=== PATIENT | female | born 1940 | race Caucasian/White ===

== ENCOUNTER 2023-07-05 10:29 | Outpatient (CLI) | payer MEDICARE, SELFPAY ==
[2023-07-05 12:03] LABS: Absolute Lymphocyte Count 1.61 X10^3/uL (0.83-4.51); Absolute Neutrophil Count 5.4 X10^3/uL (2.0-7.7); Basophil# 0.05 X10^3/uL; Basophil% 0.6 % (0-1); Eosinophil# 0.24 X10^3/uL; Hematocrit 44.8 % (37-47); Hemoglobin 14.6 g/dL (12.0-15.0); Lymphocyte # 1.61 X10^3/ul (0.83-4.51); Mean Corp Hgb Conc 32.6 g/dL (32-36); Mean Corpuscular Hgb 29.7 pg (27.0-32.0); Mean Corpuscular Volume 91.2 fL (81-99); Mean Platelet Vol. 9.9 fl (6.2-12.0); Monocyte# 0.79 X10^3/uL; Monocyte% 9.8 % (0-10); NRBC Flagged by Analyzer 0 % (0-5); Neutrophil # 5.35 X10^3/uL (2.7-7.7); Neutrophil % 66.2 % (47-70); Platelet Count 223 K/mm3 (150-450); RBC Distribution Width SD 50.5 fl (35.1-43.9); Red Blood Count 4.91 M/mm3 (4.2-5.4); White Blood Count 8.1 K/mm3 (4.4-11.0)
[2023-07-05 12:49] LABS: ALB/GLOB Ratio 0.8 RATIO (0.9-2.4); AST(SGOT) 25 U/L (15-37); Alanine Aminotransfer ALT/SGPT 24 U/L (13-56); Albumin, Serum 3.6 g/dL (3.2-5.0); Alkaline Phosphatase 74 U/L (45-117); Anion Gap 4 (5-15); BUN 13 mg/dL (7-18); BUN/Creat Ratio 14.2 RATIO (10-20); Calcium,Total 9.9 mg/dL (8.5-10.1); Chloride 106 mmol/L (98-107); Cholesterol 171 mg/dL (200); Creatinine, Serum 0.91 mg/dL (0.55-1.02); EST Glomerular Filtration Rate 63 mL/min (>60); Est Glom Filt Rate - Afr Amer 76 mL/min (>60); Globulin 4.3 g/dL (2.2-4.2); Glucose 98 mg/dL (74-106); High Density Lipoprotein 77 mg/dL; Potassium 4.1 mmol/L (3.5-5.1); Protein, Total 7.9 g/dL (6.4-8.2); Sodium Level 137 mmol/L (136-145); Thyroid Stim Hormone (TSH) 1.41 uIU/mL (0.358-3.74); Triglycerides 94 mg/dL; Very Low Density Lipoprotein 19 mg/dL (5-40)
== END 2023-07-05 23:59 | disposition home or self-care (01) ==
LOC: MTLAB 10:33
PROVIDERS: PCP Family Medicine; Referring Provider Family Medicine; Visit Provider Family Medicine
DX: R07.9 Chest pain, unspecified (principal); E78.5 Hyperlipidemia, unspecified
CPT/HCPCS: 36415; 80053; 80061; 84443; 85025

== ENCOUNTER 2023-08-25 04:36 | Emergency (ER) | payer MEDICARE, SELFPAY ==
[2023-08-25 04:37] VITALS: BP 156/73; PULSE 72; RESP 20; TEMP 35.8; O2SAT 97; BMI 29.6
--- NOTE | 2023-08-25 04:55 | CT_ITS ---
EXAM: CT ABDOMEN AND PELVIS WITHOUT INTRAVENOUS CONTRAST CLINICAL INDICATION: Kidney Stone Kidney Stone TECHNIQUE: Helically acquired images were obtained of the abdomen and pelvis without intravenous contrast. This CT exam was performed using one or more of the following dose reduction techniques: automated exposure control, adjustment of the mA and/or kV according to patient size, and/or use of iterative reconstruction technique. RADIATION DOSE: CTDIvol = 8.72 mGy, DLP = 424.81 mGy-cm COMPARISON: No relevant prior studies available. FINDINGS: LOWER THORAX: There are coronary artery calcifications. There is mild atelectasis or fibrosis in the visualized lung bases. No cardiomegaly. No significant pericardial effusion. ABDOMEN: LIVER: Unremarkable. Homogeneous. GALLBLADDER AND BILE DUCTS: Gallbladder surgically absent. No intra- or extrahepatic biliary ductal dilation. PANCREAS: Unremarkable. No focal cystic mass. SPLEEN: Unremarkable. Normal size without focal cystic or solid mass. ADRENALS: Unremarkable. No nodules. KIDNEYS AND URETERS: As seen on axial images 119-121 and coronal images 60-70, there is a 5 mm wide distal left ureteral calculus at the S3 level. There is associated moderate left hydronephrosis and left perinephric fat infiltration. There is a 6 mm nonobstructive left renal calculus. There are simple appearing peripelvic cysts in the mid and lower poles of the right kidney. No follow-up imaging is necessary for simple renal cysts or cysts that are too small to characterize. There is a 2 mm nonobstructive right lower pole renal calculus. There is no demonstrated ureteral calculus or hydronephrosis. STOMACH AND BOWEL: There are colonic diverticula. No stomach or bowel distention. No focal inflammatory change. PELVIS: APPENDIX: The appendix is seen on axial images 78-88. There is no evidence for acute appendicitis. BLADDER: Unremarkable. REPRODUCTIVE: Unremarkable as visualized. No mass. ABDOMEN and PELVIS: INTRAPERITONEAL SPACE: Unremarkable. No ascites or other fluid collection. No free air. BONES/JOINTS: There are multilevel degenerative changes in the visualized spine. There is grade 1 anterolisthesis at the L4-5 and L3-4 levels, on a degenerative basis. No suspicious lytic or blastic abnormality. SOFT TISSUES: There are supraumbilical ventral hernia and umbilical hernia which contain fat, but no bowel. VASCULATURE: There is atherosclerotic calcification of the abdominal aorta. LYMPH NODES: Unremarkable. No enlarged lymph nodes. CT/Abdomen/Pelvis without Cont IMPRESSION: 1. 5 mm wide distal left ureteral calculus at the S3 level. There is associated moderate left hydronephrosis and prominent left perinephric fat infiltration. 2. Nonobstructive renal calculi bilaterally. 3. Atherosclerosis. 4. Previous cholecystectomy. 5. Colonic diverticulosis without evidence for acute diverticulitis. Electronically Signed: Yair Avila MD at 6:10 EST ,
--- NOTE | 2023-08-25 04:56 | EX.ED.DYSGE1 ---
HPI History of Present Illness Chief Complaint: Flank Pain Detail of Chief Complaint: Acute left flank pain Informant: patient and spouse/S.O. Onset/Context/Timing Onset: Hours (5) Context: Sudden Onset Timing: Continuous and Waxes and wanes Quality: Pain Location: Left flank Current Severity: Moderate Maximum Severity: Moderate Worsened by: Nothing Relieved by: Nothing Associated Symptoms Associated Symptoms: Nausea Narrative Narrative: Patient is a 82-year-old woman on no medication who was diagnosed with a kidney stone several years ago. At the time of her kidney stone she was diagnosed with lymphoma. She underwent treatment. She states she had a recurrent stone 2 months ago left side. She does not believe she ever passed it. She presents because of severe pain that started at 12 midnight. She does endorse nausea without vomiting diarrhea. She denies fever or chills. She does have slight discomfort with urination. She has not noted any blood in her urine. She states she has trouble initiating urination. Prior similar symptoms: Yes Recent Illness/Hospitalization: Yes PFSH [facility] Medical History (Updated 08/25/23 @ 06:[address] Cesario Real MD) Classical Hodgkin lymphoma Kidney stone Nasal fracture Home Medications aspirin 81 mg capsule 81 mg PO DAILY 08/25/23 [History Last Taken Unknown] hydrocodone-acetaminophen 5-325mg 5mg-325mg 1 tab PO Q6H PRN PRN Pain 3 days #10 TABLETS 08/25/23 [Rx Last Taken Unknown] multivitamin (Daily Value tablet) 1 tab PO DAILY 08/25/23 [History Last Taken Unknown] ondansetron 4 mg disintegrating tablet 4 mg PO Q8H PRN PRN Nausea #10 tabs 08/25/23 [Rx Last Taken Unknown] Allergy/AdvReac Type Severity Reaction Status Date / Time No Known Allergies Allergy Verified 08/25/23 04:37 Surgical History (Updated 08/25/23 @ 04:44 by Herminio Rios) History of cholecystectomy Social History Smoking Status: Never smoker ROS ROS ED Constitutional Constitutional ED: Denies chills, fever(s), subjective, sweats or weight loss Eyes Eyes: Denies blurry vision or change in vision Cardiovascular Cardiovascular: Denies chest pain or palpitations Respiratory/Chest Respiratory/Chest: Denies cough or dyspnea Gastrointestinal Gastrointestinal: Reports abdominal pain and nausea; Denies constipation, diarrhea, melena or vomiting Genitourinary Genitourinary ED: Reports dysuria; Denies hematuria or urinary frequency Musculoskeletal Musculoskeletal: Reports back pain; Denies arthralgias, myalgias or neck pain Integumentary Denies abscess, Abrasions or rash Neurologic Neurologic: Denies headache(s), paresthesias or weakness Psychiatric Psychiatric: Denies anxiety or depression Endocrine Endocrinology: Denies cold intolerance or heat intolerance Hematologic/Lymphatic Hematologic/Lymphatic: Reports systems reviewed and no addt'l complaints, except as documented EXAM Physical Exam Const Vital Signs: 08/25/23 04:37 08/25/23 06:10 Temperature 96.4 F L Temperature Source Temporal Pulse Rate 72 74 Respiratory Rate 20 H 16 Blood Pressure 156/73 H 121/62 H Blood Pressure Mean 100 81 Pulse Ox 97 98 Oxygen Delivery Method Room Air Room Air Positive well nourished, well developed and obese Constitutional Narrative: And appears uncomfortable. General Appearance ED: well developed; Negative for cyanotic, diaphoretic, NAD or pallor Nutritional Appearance: obese HEENT Reports dry mucous membranes HEENT Narrative: Head is atraumatic and normocephalic. Ears are normal. Nares are patent. Mouth ED: Yes dry mucous membranes Mouth: dry mucous membranes Eyes PERRL and EOMs intact bilaterally General Eye ED: Negative for pale conjunctiva or scleral icterus Neck no lymphadenopathy, supple and no JVD Resp normal respiratory effort and clear to auscultation bilaterally Cardio regular rate, regular rhythm, S1 normal heart sound, S2 normal heart sound and no murmurs GI normal to inspection, nondistended, normoactive bowel sounds, non-tender, non-distended and no masses; Negative for hepatosplenomegaly Palpation: soft Back/Spine General Back: CVA tenderness left Cervical Spine: Negative for cervical spine tenderness Thoracic Spine / Upper Back: Negative for thoracic spinal tenderness or paraspinal muscle tenderness Lumbar Spine / Lower Back: Negative for lumbar spinal tenderness Extremity normal to inspection General Extremety ED: Negative for edema or tenderness General Extremity: Negative for edema Neuro oriented x3, CN's II-XII intact bilaterally and no sensory deficits noted Sensorium / Orientation: alert Motor Exam: strength 5/5 throughout Psych mental status grossly normal Skin no rashes or lesions noted and no wounds General Skin Exam: Negative for elasticity normal, jaundice or pallor MDM MDM MDM Narrative Medical decision making narrative: With abrupt onset of left flank pain with prior history of kidney stone. Suspect she has obstructing ureterolithiasis. She has urinary symptoms obtain UA to rule out infection. Doubt this is related to her Hodgkin's lymphoma. Patient was medicated with Zofran for her nausea and morphine for her pain. Valine is infusing at 250 cc/h. CBC was obtained assess white count differential. BMP to assess renal function. UA to evaluate for infection. History & Record Review Additional record(s) reviewed:: No prior records Lab Data Attestation: I reviewed the patient's lab results. Lab results narrative: CBC is unremarkable. There is a slight shift. Basic metabolic panel reveals slight elevation of creatinine to 1.14 with a GFR of 49. Glucose 131 with a normal CO2 anion gap. Urinalysis is not consistent with infection. Patient was discharged home with antiemetic and pain medicine. She was referred to Dr. Rey who is on-call for urology. Labs: Laboratory Results - last 24 hr 08/25/23 08/25/23 04:45 06:15 WBC 10.0 RBC 5.09 Hgb 14.7 Hct 45.3 MCV 89.0 MCH 28.9 MCHC 32.5 RDW Std Deviation 45.5 H RDW Coeff of Brown 13.9 Plt Count 246 MPV 10.1 Immature Gran % (Auto) 0.600 Neut % (Auto) 78.8 H Lymph % (Auto) 13.1 L [place] % (Auto) 6.4 Eos % (Auto) 0.5 Baso % (Auto) 0.6 Absolute Neuts (auto) 7.9 H Absolute Lymphs (auto) 1.32 Nucleated RBC % 0 Sodium 133 L Potassium 3.6 Chloride 101 Carbon Dioxide 26.0 Anion Gap 6 BUN 20 H Creatinine 1.14 H Estim Creat Clear Calc 32.56 Est GFR (MDRD) Af Amer 59 L Est GFR (MDRD) Non-Af 49 L BUN/Creatinine Ratio 17.5 Glucose 131 H Calcium 9.3 Urine Color Yellow Urine Clarity Clear Urine pH 6.5 Ur Specific [place] 1.015 Urine Protein Negative Urine Glucose (UA) Normal Urine Ketones Negative Urine Occult Blood 10 H Urine Nitrite Negative Urine Bilirubin Negative Urine Urobilinogen Normal Ur Leukocyte Esterase 25 H Urine RBC 0 SEEN Urine WBC 0-5 SEEN Ur Squamous Epith Cells 0 SEEN Urine Bacteria RARE Urine Mucus 0 SEEN Radiography Diagnostic Testing: Clinical Impression(s) from Imaging Studies Abdomen/Pelvis CT 08/25/23 04:55 IMPRESSION: 1. 5 mm wide distal left ureteral calculus at the S3 level. There is associated moderate left hydronephrosis and prominent left perinephric fat infiltration. 2. Nonobstructive renal calculi bilaterally. 3. Atherosclerosis. 4. Previous cholecystectomy. 5. Colonic diverticulosis without evidence for acute diverticulitis. Electronically Signed: Yair Avila MD at 6:10 EST , CT of the abdomen and pelvis without contrast reveals left renal calculus. There is evidence of left hydroureter and nephrosis. There appears to be a distal left ureteral stone that is causing this obstruction. Phleboliths were noted as well. There is minimal atherosclerotic disease. Awaiting formal read by radiologist, 0529. Treatment and Re-Evaluation :: Performed of her laboratory results and CAT scan results. Presently awaiting UA results. 0620 Discharge Plan Triage Chief Complaint: Flank Pain ED Provider: Cesario Real Dx/Rx/DC Orders Clinical Impression: Diverticulosis, Hydronephrosis with urinary obstruction due to ureteral calculus, Bilateral kidney stones, Creatinine elevation Instructions: ED Kidney Stone w/ Colic Prescriptions: New hydrocodone-acetaminophen [hydrocodone-acetaminophen] 5-325 mg tablet 1 tab PO Q6H PRN PRN (Reason: Pain) 3 Days Qty: 10 0RF ondansetron [ondansetron] 4 mg tablet,disintegrating 4 mg PO Q8H PRN PRN (Reason: Nausea) Qty: 10 0RF No Action aspirin 81 mg capsule 81 mg PO DAILY multivitamin [Daily Value] Tablet 1 tab PO DAILY Primary Care Provider: Nathalia Salcido Referrals: Nathalia Salcido MD [Primary Care Provider] - Papito Rey MD [Med Staff - Active Staff] - 5-7 Days Disposition Disposition: Home, Self Care
[2023-08-25] MEDS: Morphine 2 MG/ML Syringe IV (05:04)
[2023-08-25] MEDS: Ondansetron 4 MG/2 ML Vial IV (05:04)
[2023-08-25] MEDS: 0.9% Normal Saline (1000mL) 1,000 ML 250 ML IV (05:35)
[2023-08-25 05:44] LABS: Absolute Lymphocyte Count 1.32 X10^3/uL (0.83-4.51); Absolute Neutrophil Count 7.9 X10^3/uL (2.0-7.7); Basophil# 0.06 X10^3/uL; Basophil% 0.6 % (0-1); Eosinophil# 0.05 X10^3/uL; Eosinophils% 0.5 % (0-5); Hematocrit 45.3 % (37-47); Hemoglobin 14.7 g/dL (12.0-15.0); Lymphocyte # 1.32 X10^3/ul (0.83-4.51); Lymphocyte % 13.1 % (19-41); Mean Corp Hgb Conc 32.5 g/dL (32-36); Mean Corpuscular Hgb 28.9 pg (27.0-32.0); Mean Platelet Vol. 10.1 fl (6.2-12.0); Monocyte# 0.64 X10^3/uL; Monocyte% 6.4 % (0-10); NRBC Flagged by Analyzer 0 % (0-5); Neutrophil # 7.91 X10^3/uL (2.7-7.7); Neutrophil % 78.8 % (47-70); Platelet Count 246 K/mm3 (150-450); RBC Distribution Width CV 13.9 % (11.6-14.6); RBC Distribution Width SD 45.5 fl (35.1-43.9); Red Blood Count 5.09 M/mm3 (4.2-5.4)
[2023-08-25 05:48] LABS: Anion Gap 6 (5-15); BUN 20 mg/dL (7-18); BUN/Creat Ratio 17.5 RATIO (10-20); Calcium,Total 9.3 mg/dL (8.5-10.1); Chloride 101 mmol/L (98-107); Creatinine, Serum 1.14 mg/dL (0.55-1.02); EST Glomerular Filtration Rate 49 mL/min (>60); Est Glom Filt Rate - Afr Amer 59 mL/min (>60); Estimated Creatinine Clearance 32.56 ml/min; Glucose 131 mg/dL (74-106); Potassium 3.6 mmol/L (3.5-5.1); Sodium Level 133 mmol/L (136-145)
[2023-08-25 06:10] VITALS: BP 121/62; PULSE 74; RESP 16; O2SAT 98
[2023-08-25 06:18] LABS: Mucous, Urine 0 SEEN /hpf (<or=2+); Red Blood Cells-Urine 0 SEEN /hpf (0-5); Squamous Epithelial Cells - UA 0 SEEN /hpf (5-10)
[2023-08-25 06:19] LABS: Color, Urine Yellow (Yellow); Glucose, Dipstick Normal (Normal); Ketone-Dipstick Negative (Negative); Leukocyte Esterase-Dipstick 25 /ul (Negative); Nitrite-Dipstick Negative (Negative); Occult Blood-Urine 10 /ul (Negative); Protein-Dipstick Negative (Negative); Specific Gravity, Urine 1.015 (1.002-1.030); Urine Bilirubin Dipstick Negative (Negative); Urine Clarity Clear (Clear); Urine Urobilinogen Normal (Normal); Urine pH 6.5 (5.0 - 8.0)
[2023-08-25 06:39] LABS: Bacteria RARE /hpf (None Seen); White Blood Cells 0-5 SEEN /hpf (0-5)
[2023-08-25 06:59] VITALS: BP 136/86; PULSE 76; RESP 16; O2SAT 98
== END 2023-08-25 07:01 | disposition home or self-care (01) ==
PROVIDERS: Emergency Provider Emergency Medicine; PCP Family Medicine; Visit Provider Emergency Medicine
DX: N13.2 Hydronephrosis with renal and ureteral calculous obstruction (principal); K57.30 Diverticulosis of large intestine without perforation or abscess without bleeding; M54.9 Dorsalgia, unspecified; R11.0 Nausea; E66.9 Obesity, unspecified; Z79.82 Long term (current) use of aspirin; Z79.899 Other long term (current) drug therapy; Z85.71 Personal history of Hodgkin lymphoma
CPT/HCPCS: 74176; 80048; 81001; 85025; 96361; 96374; 96375; 99282; J7030; A4216; J2405

== ENCOUNTER → 2024-04-15 | Outpatient (CLI) | payer MEDICARE, SELFPAY ==
--- NOTE | 2024-04-15 12:19 | STRESSREP ---
Stress Test Report Date: 04/15/2024 Procedure: Exercise tolerance test Indications: Chest pain Consent: Per the patient Procedure: The patient exercised on a Javon protocol for 2 minutes and 31 seconds achieving a peak heart rate of 137 bpm (98% predicted maximal heart rate). Baseline blood pressure was 132/72 mmHg with a peak blood pressure 142/80 mmHg and a peak MET capacity of approximately 4.6 MET's. The baseline ECG demonstrated sinus rhythm. The peak exercise ECG demonstrated nonspecific T wave changes. Occasional PVCs noted. The functional capacity was considered suboptimal. The patient had no complaints of chest discomfort during exercise or recovery. The examination was discontinued secondary to dyspnea and fatigue and target heart rate being achieved. Impression: 1. Technically adequate (percent predicted maximal heart rate greater than 85%) exercise tolerance test 2. Peak exercise ECG with no ischemic changes. Blunted blood pressure response to exercise. Recommend further evaluation with assessment of LV function and another modality such as coronary CT angiogram if clinically indicated. 3. Occasional PVCs noted This note was generated with Mende[employer] dictation software. It may contain incorrect words, spelling, and punctuation that were not noted in checking the note before signing.
== END | disposition home or self-care (01) ==
PROVIDERS: PCP Family Medicine; Visit Provider Family Medicine
DX: R07.9 Chest pain, unspecified (principal)
CPT/HCPCS: 93017

== ENCOUNTER → 2024-07-08 | Outpatient (CLI) | payer MEDICARE, SELFPAY ==
--- NOTE | 2024-07-08 13:53 | ECHOL_ITS ---
Reason For Study: CHEST PAIN Procedure This was a limited 2D transthoracic echocardiogram. Exam performed in department. Left Ventricle Normal size and thickness. The left ventricular ejection fraction is 60 %. Right Ventricle Normal right ventricle. Atria The left and right atria are normal. Mitral Valve The mitral valve is structurally normal. No prolapse or stenosis seen. Tricuspid Valve Normal tricuspid valve. Aortic Valve Moderate calcification of the noncoronary cusp of the aortic valve. Aortic valve sclerosis without stenosis. Pulmonic Valve The pulmonic valve is not well visualized. Great Vessels Normal sized aortic root. Pericardium/Pleural No pericardial effusion. MMode/2D Measurements & Calculations LVIDd: 5.0 cm IVSd: 0.89 cm Ao root diam: 3.2 cm LVIDs: 2.6 cm LVPWd: 0.89 cm RVDd: 3.5 cm FS: 47.3 % LAV(MOD-bp): 63.7 ml LVAd ap4: 24.1 cm2 LVAd ap2: 23.3 cm2 LAV(MOD-bp) Indexed: 36.3 ml/m2 LVLd ap4: 6.7 cm LVLd ap2: 6.8 cm LAV(MOD-sp2): 57.6 ml EDV(MOD-sp4): 70.8 ml EDV(MOD-sp2): 66.0 ml LAV(MOD-sp4): 62.1 ml EDV(sp4-el): 73.2 ml EDV(sp2-el): 67.2 ml LVAs ap4: 15.2 cm2 LVAs ap2: 13.4 cm2 LVLs ap4: 5.8 cm LVLs ap2: 5.8 cm ESV(MOD-sp4): 33.8 ml ESV(MOD-sp2): 26.8 ml ESV(sp4-el): 33.9 ml ESV(sp2-el): 26.3 ml EF(MOD-sp4): 52.3 % EF(MOD-sp2): 59.5 % EF(sp4-el): 53.8 % SV(MOD-sp4): 37.0 ml SV(MOD-sp2): 39.3 ml SV(sp4-el): 39.4 ml LA dimension(2D): 3.4 cm LA A4 area: 19.9 cm2 RA A4 area: 14.0 cm2 ECHO/Echo, Limited Study Interpretation Summary The left ventricular ejection fraction is 60 %. Moderate calcification of the noncoronary cusp of the aortic valve. Aortic valv e sclerosis without stenosis. Limited 2D echocardiogram with no Doppler study. Ordering Physician: Nathalia Salcido Referring Physician: Nathalia Salcido Performed By: Catina Roy, ROBIN, RVT
== END | disposition home or self-care (01) ==
PROVIDERS: PCP Family Medicine; Referring Provider Family Medicine; Visit Provider Family Medicine
DX: R07.9 Chest pain, unspecified (principal)
CPT/HCPCS: 93308

== ENCOUNTER → 2025-04-16 | Outpatient (CLI) | payer MEDICARE, SELFPAY ==
[2025-04-16 10:39] LABS: Erythrocyte Sedimentation Rate 34 mm/hr (0-30)
[2025-04-16 11:12] LABS: CRP < 3.00 mg/L (0.0-3.0); Rheumatoid Factor 57.2 IU/mL (<15)
[2025-04-19 15:08] LABS: ANTINUCLEAR ANTIBODIES DIRECT Negative (Negative); Angiotensin Convert Enzyme 56 U/L (14-82)
== END | disposition home or self-care (01) ==
LOC: MTLAB 08:34
PROVIDERS: PCP Family Medicine; Referring Provider Internal Medicine Pulmonary Disease; Visit Provider Internal Medicine Pulmonary Disease
DX: R06.00 Dyspnea, unspecified (principal)
CPT/HCPCS: 36415; 82164; 85652; 86038; 86140; 86431

== ENCOUNTER → 2025-05-21 | Outpatient (CLI) | payer MEDICARE, SELFPAY ==
--- NOTE | 2025-05-21 07:44 | ECHOD_ITS ---
Reason For Study Reason For Study: CHEST PAIN Procedure This was a 2D Doppler, Color Flow transthoracic echocardiogram. Exam performed in department. Left Ventricle Normal LV size. Left ventricular systolic function is lower limits of normal. The left ventricular ejection fraction is 50 %. There is borderline global hypokinesis of the left ventricle. Right Ventricle Normal RV size. Normal systolic function. Atria Normal left atrium. Normal right atrium. Mitral Valve Normal mitral valve. Mild (1+) eccentric mitral valve insufficiency. Tricuspid Valve Normal tricuspid valve. Aortic Valve Trisinus/trileaflet aortic valve. Mild focal aortic valve thickening. Pulmonic Valve Normal pulmonic valve. Great Vessels Normal aortic root. The pulmonary artery is normal size. Inferior vena cava collapse with respiration. Pericardium/Pleural No pericardial effusion. MMode/2D Measurements & Calculations LVIDd: 3.7 cm IVSd: 1.0 cm Ao root diam: 3.3 cm LVIDs: 3.1 cm LVPWd: 1.2 cm RVDd: 3.2 cm FS: 17.5 % LAV(MOD-bp): 39.9 ml LVAd ap4: 26.8 cm2 SV(MOD-sp4): 42.9 ml LAV(MOD-bp) Indexed: 22.8 ml/m2 LVLd ap4: 7.1 cm SI(MOD-sp4): 24.5 ml/m2 LAV(MOD-sp2): 43.9 ml EDV(MOD-sp4): 84.6 ml LAV(MOD-sp4): 34.2 ml EDV(sp4-el): 86.3 ml LVAs ap4: 17.3 cm2 LVLs ap4: 6.0 cm ESV(MOD-sp4): 41.7 ml ESV(sp4-el): 42.3 ml EF(MOD-sp4): 50.7 % EF(sp4-el): 50.9 % SV(sp4-el): 43.9 ml LA A4 area: 15.0 cm2 LA dimension(2D): 3.8 cm RA A4 area: 13.1 cm2 Time Measurements MV dec time: 0.20 sec Doppler Measurements & Calculations MV E max david: 44.0 cm/sec Lat Peak E' David: 7.7 cm/sec Med Peak E' David: 7.7 cm/sec MV A max david: 88.8 cm/sec E/E' lat: 5.7 E/E' med: 5.7 MV E/A: 0.50 MV V2 max: 98.8 cm/sec Ao V2 max: 92.0 cm/sec MV max P.9 mmHg MV dec slope: 215.1 cm/sec2 Ao max P.4 mmHg MV V2 mean: 47.7 cm/sec Ao V2 mean: 66.6 cm/sec MV mean P.2 mmHg Ao mean P.0 mmHg MV V2 VTI: 28.2 cm Ao V2 VTI: 20.9 cm AV (velocity ratio): 0.82 LV V1 max: 82.8 cm/sec PA V2 max: 120.1 cm/sec TR max david: 232.1 cm/sec LV V1 max P.7 mmHg PA V2 mean: 64.6 cm/sec TR max P.5 mmHg LV V1 mean P.5 mmHg LV V1 mean: 55.6 cm/sec LV V1 VTI: 17.2 cm ECHO/Echo Complete Interpretation Summary Normal LV size. Left ventricular systolic function is lower limits of normal. The left ventricular ejection fraction is 50 %. Ordering Physician: Florentin Shepard V Referring Physician: Florentin Shepard V Performed By: Leeann Cordero RCS
--- OUTSIDE RECORDS SUMMARY | 2025-05-21 08:04 | XMS RPT_ITS | CCD ---
Author Organization [facility] Care Team Providers Care Animation Director Name Role Phone Camacho, Yoselin Unavailable Unavailable Camacho, Yoselin J Unavailable Unavailable Javon Rojas Unavailable Unavailable PiChanda sanchez Unavailable Unavailable Camacho, Yoselin Unavailable Unavailable Camacho, Yoselin J Unavailable Unavailable Unavailable Unavailable Unavailable IRISH, DR DANIELLE Fernando Primary Care Unavaila ble IRISH, DR DANIELLE Fernando Attending Unavaila ble CAMACHO Consulting Unavailable IRISH, DR DANIELLE Fernando Admitting Unavaila ble PROVIDER, UNKNOWN Consulting Unavailable IRISH, DR DANIELLE Fernando Attending Unavaila ble IRISH, DR DANIELLE Fernando Admitting Unavaila ble CAMACHO Consulting Unavailable IRISH, DR DANIELLE Fernando Primary Care Unavaila ble PROVIDER, UNKNOWN Consulting Unavailable IRISH, DR DANIELLE Fernando Attending Unavaila ble IRISH, DR DANIELLE Fernando Admitting Unavaila ble CAMACHO Consulting Unavailable IRISH, DR DANIELLE Fernando Primary Care Unavaila ble PROVIDER, UNKNOWN Consulting Unavailable Unavailable Unavailable TAIWO, Dr. ALAMO Admitting Unavailable HAMAD, Dr. ALAMO Attending Unavailable Teston, Dr. Savita Quiroga Referring Unavailabl e Camacho III, Dr. Yoselin Andrews [facility] Unav ailable HAMAD, Dr. ALAMO Admitting Unavailable HAMAD, Dr. ALAMO Attending Unavailable Teston, Dr. Savita Quiroga Referring Unavailabl e Camacho III, Dr. Yoselin Andrews Primary [facility] Unav ailable PiChanda sanchez Attending Unavailabl e Camacho III, Dr. Yoselin Andrews [facility] Unav ailable Chanda Weller Attending Unavailabl e Camacho III, Dr. Yoselin Andrews [facility] Unav ailable Camacho III, Dr. Yoselin Andrews [facility] Unav ailable Camacho III, Dr. Yoselin Andrews Primary Care Unav ailable Camacho III, Dr. Yoselin Andrews Primary Care Unav ailable Piasecki, Dr. Chanda Camacho Attending Unavai lable Piasecki, Dr. Chanda Camacho Referring Unavai lable Camacho III, Dr. Yoselin Andrews Primary Care Unav ailable Camacho III, Dr. Yoselin Andrews Attending Unav ailable Camacho III, Dr. Yoselin Andrews Referring Unav ailable CAMACHO, YOSELIN Francois Attending Unavailable YOSELIN CAMACHO Primary Care Unavailable GEORGIA TITUS, NATHALIA Primary Care Physician KHANG TITUS, DR PAPITO BLANCAS Attending Soheila HO MD, NATHALIA Primary Care Unavailable Yoselin Camacho MD Primary Care Provider [phone] Yoselin Camacho MD Unavailable Hill TRANSMISSION REBUILDER[employer]SHIELD INSTALLER, Gomez S Unavailable Nathalia Ho MD Primary Care Provider Natahlia Ho MD Primary Care Provider [phone] YOSELIN CAMACHO Primary Care Unavailable NATHALIA HO Primary Care Unavailable GEORGIA, NATHALIA Francois Primary Care Unavailable HILL, GOMEZ S Attending Unavailable HILL, GOMEZ S Referring Unavailable GEORGIA, NATHALIA J Primary Care Unavailable HILL, GOMEZ S Referring Unavailable GEORGIA, NATHALIA J Primary Care Unavailable HILL, GOMEZ S Attending Unavailable HILL, GOMEZ S Referring Unavailable GEORGIA, NATHALIA J Primary Care Unavailable HILL, GOMEZ S Attending Unavailable HILL, GOMEZ S Referring Unavailable GEORGIA, NATHALIA J Primary Care Unavailable HILL, GOMEZ S Referring Unavailable GEORGIA, NATHALIA Francois Primary Care Unavailable Nathalia Ho MD Primary Care Provider Drea TITUS, Dr. Chanda Daniel Attending Provider [phone] Dr. Chanda Shepard MD, V Referring Provider [phone] Nathalia Ho Primary Care Unavailable Roberto Liang Attending Unavailable Nathalia Ho Primary Care Unavailable Chanda Shepard V Referring Unavailable Chanda Shepard V Attending Unavailable Nathalia Ho Referring Unavailable Nathalia Ho Attending Unavailable Nathalia Ho Primary Care Unavailable Medications Current Medications Medication Drug Class(es) Dates Sig (Normalized) Sig (Original) acetaminophen 325 mg / HYDROcodone bitartrate 5 mg oral tablet (2 sources) Opioid Agonist Start: 08-25-2023 take 1 tablet by mouth every six hours as needed for pain Hydrocodone-Acetamin ophen 5-325 mg tablet Active 1 {tbl} PO EVERY 6 HOURS NEEDED as needed for Pain 10 3 0 August 25, 2023 Hydronephrosis with urinary obstruction due to ureteral calculus Calculus of both kidneys High creatinine Hydronephrosis with renal and ureteral calculous obstruction Calculus of kidney Other specified abnormal findings of blood chemistry Start: 08-25-2023 take 1 tablet by wandy th every six hours as needed Hydrocodone-Acetaminophen Active 1 TABLE T PO EVERY 6 HOURS NEEDED 10 3 August 25, 2023 aspirin 81 mg oral tablet (20 sources) Platelet Aggregation Inhibitor, Nonsteroidal Anti-inflammatory Drug Start: 08-25-2023 take 1 capsule by mouth once daily Aspirin 81 mg capsule Active 81 mg PO DAILY August 25, 2023 12:00am Start: 03-27-2017 aspirin 81 mg EC tablet Take by mouth. 03/27/2017 Active Start: 03-27-2017 Aspirin EC 81 MG Oral Tablet Delayed Release Quantity: 0 Refills: 0 Ordered: 27-Mar-2017 DO Start : 27-Mar-2017 Active dexamethasone 0.1 mg/ml oral solution (20 sources) Corticosteroid Start: 04-07-2023 dexAMETHasone 0.5 mg/5 mL solution Indications: Burning mouth syndrome USE DIRECTED 240 mL 1 04/07/2023 Active Start: 02-23-2020 take 1 drop(s) into the eye(s) twice daily Dexamethasone Sodium Phosphate 0.1 % Ophthalmic Solution INSTILL 1 DROP INTO LEFT EYE TWICE DAILY ONGOING Quantity: 5 Refills: 0 Ordered: 25-Apr-2020 DO Start : 23-Feb-2020 Complete Start: 09-10-2018 Dexamethasone 0.5 MG/5ML Oral Elixir TAKE 0.5mgs,5ml 3 times daily prn Quantity: 2 Refills: 2 Ordered: 25-Aug-2021 Yoselin Camacho MD Start : 10-Sep-2018 Active Start: 09-10-2018 Dexamethasone 0.5 MG/5ML Oral Elixir TAKE 0.5mgs,5ml 4 times daily Quantity: 30 Refills: 0 Yoselin Camacho MD Start : 10-Sep-2018 Active Multivitamin (Daily Value) tablet (2 sources) Start: 08-25-2023 Multivitamin ( Daily Value) tablet Active 1 {tbl} PO DAILY August 25, 2023 12:00am Start: 08-25-2023 take 1 tablet by wandy th once daily Multivitamin (Daily Value) tablet Active 1 TABLET PO DAILY August 24, 2023 11:00pm multivitamin tablet (6 sources) take 1 tablet by mouth once daily multivitamin tablet Take 1 tablet by mouth once daily. Active multivitamin with minerals (ijlwxpftloyo-kgks-ksfqu acid) tablet (2 sources) End: 12-05-2023 take 1 tablet by mouth once daily multivitamin with minerals (qmttyedcjfnm-xylg-yjojs acid) tablet Take 1 tablet by mouth once daily. 0 12/05/2023 Discontinued (Therapy completed) take 1 tablet by mouth once andres y multivitamin with minerals (gpdivbtzsmnn-dfqo-qslgl acid) tablet Take 1 tablet by mouth once daily. 0 Active sdfnvliaqdlk-efm-skpl-FA-vit K (Adults Multivitamin) 18 mg iron-400 mcg-25 mcg tablet (2 sources) Start: 03-26-2016 End: 12-05-2023 take 1 tablet by mouth once daily bomrwheymrfu-alz-khdk-FA-vit K (Adults Multivitamin) 18 mg iron-400 mcg-25 mcg tablet Take 1 tablet by mouth once daily. 0 03/26/2016 12/05/2023 Discontinued (Therapy completed) Start: 03-26-2016 take 1 tablet by wandy th once daily ppbzqakuxasx-vor-kyom-FA-vit K (Adults Multivitamin) 18 mg iron-400 mcg-25 mcg tablet Take 1 tablet by mouth once daily. 0 03/26/2016 Active ondansetron 4 mg disintegrating oral tablet (2 sources) Serotonin-3 Receptor Antagonist Start: 08-25-2023 take 1 tablet by mouth every eight hours as needed for nausea Ondansetron 4 mg tablet,disintegrating Active 4 mg PO EVERY 8 HOURS NEEDED as needed for Nausea 10 0 August 25, 2023 12:00am rosuvastatin calcium 20 mg oral tablet (20 sources) HMG-CoA Reductase Inhibitor Start: 09-23-2023 End: 12-05-2023 rosuvastatin (Crestor) 20 mg tablet Indications: Hyperlipidemia, unspecified hyperlipidemia type TAKE 1 TABLET DAILY 90 tablet 3 09/23/2023 12/05/2023 Discontinued (Therapy completed) Start: 09-23-2019 take 1 tablet by wandy th once daily rosuvastatin (Crestor) 20 mg tablet Take 1 tablet (20 mg) by mouth once daily. 0 09/23/2019 Active zinc methionine sulfate/shawn er (ZINC BALANCE ORAL) (4 sources) zinc methionine sulfate/copper (ZINC BALANCE ORAL) Take by mouth. Active Completed/Discontinued Medications Medication Drug Class(es) Dates Sig (Normalized) Sig (Original) ascorbic acid 60 mg / beta carotene 5000 unt / copper sulfate 40 mg / dl-alpha tocopheryl acetate 30 unt / sodium selenite 0.04 mg / zinc oxide 40 mg oral tablet (3 sources) Vitamin C Start: 03-26-2016 take 1 tablet by mouth once daily Multivitamin Adult Oral Tablet TAKE 1 TABLET DAILY. Refills: 0 DO Start : 26-Mar-2016 Active atorvastatin 40 mg oral tablet (5 sources) HMG-CoA Reductase Inhibitor Start: 01-04-2014 take 1 tablet by mouth once daily Atorvastatin Calcium 40 MG Oral Tablet TAKE ONE TABLET BY MOUTH DAILY Quantity: 90 Refills: 3 Yoselin Camacho MD Start : 04-Jan-2014 Active cholecalciferol 0.025 mg oral tablet (20 sources) Vitamin D Start: 01-29-2014 Vitamin D 1000 UNIT TABS Quantity: 0 Refills: 0 Ordered: 15-Aug-2015 Yoselin Camacho MD Start : 29-Jan-2014 Active Start: 01-29-2014 Vitamin D 1000 UNIT TABS Refills: 0 Yoselin Camacho MD Start : 29-Jan-2014 Active cholecalciferol (Vitamin D-3) 125 MCG (5000 UT) capsule Take by mouth. Active iohexol (OMNIPaque) 12 mg iodine/mL oral contrast 500 mL (1 source) Start: 03-23-2024 End: 03-23-2024 500 mL, oral, Once in imagin g, Starting on Sat03/23/24 at 1238, For 1 dose, Administer over 20-60 minutes as directed by imaging protocol and/or imaging provider. CONTRAST - for procedural imaging use only. iohexol (OMNIPaque) 350 mg iodine/mL solution 72 mL (2 sources) Start: 09-21-2024 End: 09-21-2024 72 mL, intravenous, Once in imaging, Starting on Sat09/21/24 at 1613, For 1 dose Start: 03-23-2024 End: 03-23-2024 72 mL, intravenous, Once in imaging, Starting on Sat03/23/24 at 1238, For 1 dose Multivitamin Adult Oral Tablet (5 sources) Start: 03-26-2016 take 1 tablet by mouth once daily Multivitamin Adult Oral Tablet TAKE 1 TABLET DAILY. Refills: 0 DO Start : 26-Mar-2016 Active Start: 03-26-2016 take 1 tablet by wandy th once daily Multivitamin Adult Oral Tablet TAKE 1 TABLET DAILY. Refills: 0 Start : 26-Mar-2016 Active Multivitamin Adult Oral Tablet (14 sources) Start: 03-26-2016 take 1 tablet by mouth once daily Multivitamin Adult Oral Tablet TAKE 1 TABLET DAILY. Quantity: 0 Refills: 0 Ordered: 26-Mar-2016 DO Start : 26-Mar-2016 Active pantoprazole 40 mg delayed release oral tablet (6 sources) Proton Pump Inhibitor Start: 12-25-2016 take 1 tablet by mouth twice daily Pantoprazole Sodium 40 MG Oral Tablet Delayed Release TAKE ONE TABLET BY MOUTH TWICE DAILY Quantity: 180 Refills: 2 Yoselin Camacho MD Start : 25-Dec-2016 Active predniSONE 10 mg oral tablet (5 sources) Start: 11-09-2020 take 1 tablet by mouth once, then take 2 tablets by mouth at mealtime predniSONE 10 MG Oral Tablet Take 1 tabs every other morning with food Quantity: 15 Refills: 0 Ordered: 30-Nov-2020 Chanda Weller DO Start : 09-Nov-2020 Active prochlorperazine 10 mg oral tablet (3 sources) Phenothiazine Start: 08-01-2020 Prochlorperazine Maleate 10 MG Oral Tablet Quantity: 70 Refills: 0 Ordered: 02-Aug-2020 DO Start : 01-Aug-2020 Complete sulfamethoxazole 800 mg / trimethoprim 160 mg oral tablet (2 sources) Dihydrofolate Reductase Inhibitor Antibacterial, Sulfonamide Antimicrobial Start: 02-12-2020 take 1 tablet by mouth twice daily Sulfamethoxazole-Tri methoprim 800-160 MG Oral Tablet TAKE 1 TABLET TWICE DAILY. Quantity: 10 Refills: 0 Yoselin Camacho MD Start : 12-Feb-2020 Active vitamin d 1000 unt oral tablet (3 sources) Start: 01-29-2014 Vitamin D 1000 UNIT Oral Tablet Refills: 0 Yoselin Camacho MD Start : 29-Jan-2014 Active Problems Active Problems Problem Classification Problem Date Documented Da te Episodic/Chronic Abdominal pain (19 sources) Flank pain; Translations: [Abdominal pain, other specified site] Episodic Allergic reactions (20 sources) Aspirin allergy; Translations: [Personal history of allergy to other specified medicinal agents] Episodic Calculus of urinary tract (4 sources) Kidney stone; Translations: [Calculus of kidney] 08-25-2023 Episodic Cataract (19 sources) Cataract; Translations: [Unspecified cataract] Chronic Chronic kidney disease (17 sources) Chronic kidney disease stage 3; Translations: [Chronic kidney disease, Stage III (moderate)] Onset: 3 02-25-2023 Chronic Chronic kidney disease (2 sources) Chronic kidney disease; Translations: [Chronic kidney disease, stage 3a (CMS/HCC)] Onset: 3 Disorders of lipid metabolism (20 sources) Hyperlipidemia; Translations: [Other and unspecified hyperlipidemia] Onset: 3 Chronic Diverticulosis and diverticulitis (2 sources) Diverticular disease; Translations: [Diverticulosis of intestine, part unspecified, without perforation or abscess without bleeding] 08-25-2023 Chronic Esophageal disorders (20 sources) Gastroesophageal reflux disease; Translations: [Esophageal reflux] Onset: 3 02-25-2023 Chronic Essential hypertension (20 sources) Benign essential hypertension; Translations: [Benign essential hypertension] Onset: 3 Chronic Genitourinary symptoms and ill-defined conditions (1 source) Female stress incontinence; Translations: [Stress incontinence (female) (male)] 12-05-2023 Chronic Genitourinary symptoms and ill-defined conditions (20 sources) Gurvinder hematuria; Translations: [Gross hematuria] 12-05-2023 Episodic Headache; including migraine (2 sources) Headache; including migraine; Translations: [Headache, unspecified] Onset: 1 Hodgkin`s disease (20 sources) Hodgkin's disease (clinical); Translations: [Hodgkin's disease, unspecified type, unspecified site, extranodal and solid organ sites] Onset: 2 Chronic Immunizations and screening for infectious disease (14 sources) Patient encounter status; Translations: [Other specified vaccination] Episodic Lung disease due to external agents (17 sources) Toxic pneumonitis; Translations: [Bronchitis and pneumonitis due to fumes and vapors] Onset: 1 Episodic Malaise and fatigue (1 source) Other fatigue; Translations: [Other fatigue] Onset: 1 Episodic Mycoses (20 sources) Candidiasis of mouth; Translations: [Candidiasis of mouth] Episodic Nausea and vomiting (20 sources) Nausea; Translations: [Nausea alone] Episodic Nutritional deficiencies (20 sources) Decreased vitamin D; Translations: [Other abnormal blood chemistry] Episodic Other bone disease and musculoskeletal deformities (2 sources) Other specified disorders of bone density and structure, unspecified site; Translations: [Other specified disorders of bone density and structure, unspecified site] Onset: 3 Episodic Other diseases of bladder and urethra (2 sources) Bladder problem; Translations: [Bladder disorder, unspecified] 09-10-2024 Chronic Other diseases of bladder and urethra (2 sources) Bladder disorder, unspecified; Translations: [Bladder disorder, unspecified] Onset: 4 Chronic Other diseases of kidney and ureters (2 sources) Hydronephrosis with renal and ureteral calculous obstruction; Translations: [Hydronephrosis with urinary obstruction due to ureteral calculus] 08-25-2023 Episodic Other gastrointestinal disorders (17 sources) Personal history of other diseases of the digestive system; Translations: [History of gastroesophageal reflux disease] Episodic Other inflammatory condition of skin (20 sources) Lichen planus; Translations: [Lichen planus] Episodic Other lower respiratory disease (20 sources) Fibrosis of lung; Translations: [Postinflammatory pulmonary fibrosis] Onset: 3 02-25-2023 Chronic Other lower respiratory disease (20 sources) Interstitial lung disease; Translations: [Postinflammatory pulmonary fibrosis] Onset: 3 02-25-2023 Chronic Other lower respiratory disease (3 sources) Pulmonary fibrosis, unspecified; Translations: [Pulmonary fibrosis, unspecified] Onset: 2 Chronic Other lower respiratory disease (6 sources) Interstitial pulmonary disease, unspecified; Translations: [Interstitial pulmonary disease, unspecified] Onset: 2 Chronic Other lower respiratory disease (18 sources) Hilar mass; Translations: [Swelling, mass, or lump in chest] Episodic Other lower respiratory disease (16 sources) Cough; Translations: [Cough] Episodic Other lower respiratory disease (2 sources) Interstitial lung disease; Translations: [ILD (interstitial lung disease)] Episodic Other lower respiratory disease (15 sources) Hypoxemia; Translations: [Hypoxemia] Episodic Other lower respiratory disease (1 source) Dyspnea, unspecified; Translations: [Dyspnea, unspecified] Onset: 5 Episodic Other nervous system disorders (8 sources) Neuropathy; Translations: [Neuralgia and neuritis] Chronic Other nervous system disorders (20 sources) Taste sense altered; Translations: [Disturbances of sensation of smell and taste] Episodic Other nervous system disorders (1 source) Unspecified disturbances of smell and taste; Translations: [Unspecified disturbances of smell and taste] Onset: 1 Episodic Other nutritional; endocrine; and metabolic disorders (5 sources) Body mass index 30+ - obesity; Translations: [Body Mass Index 33.0-33.9, adult] Chronic Other nutritional; endocrine; and metabolic disorders (17 sources) History of hypercholesterolemia; Translations: [Personal history of other endocrine, metabolic, and immunity disorders] Episodic Other screening for suspected conditions (not mental disorders or infectious disease) (20 sources) Serum creatinine raised; Translations: [Breast neoplasm screening status] 08-25-2023 Episodic Other skin disorders (17 sources) Mass of neck; Translations: [Swelling, mass, or lump in head and neck] Episodic Other upper respiratory disease (20 sources) Chronic laryngitis; Translations: [Chronic laryngitis] Chronic Other upper respiratory disease (15 sources) Bleeding from nose; Translations: [Epistaxis] Episodic Pneumonia (except that caused by tuberculosis or sexually transmitted disease) (16 sources) Pneumonitis; Translations: [Pneumonia, organism unspecified] Episodic Prolapse of female genital organs (4 sources) Cystocele; Translations: [Cystocele, unspecified] Onset: 4 12-05-2023 Chronic Residual codes; unclassified (5 sources) Preoperative state; Translations: [Preoperative clearance] Episodic Residual codes; unclassified (14 sources) History finding; Translations: [Other specified conditions influencing health status] Episodic Residual codes; unclassified (1 source) Creatinine level - finding 09-02-2023 Episodic Unclassified (1 source) Cough, unspecified; Translations: [Cough, unspecified] Onset: 1 Urinary tract infections (19 sources) Acute urinary tract infection; Translations: [Urinary tract infection, site not specified] Episodic Viral infection (1 source) COVID-19; Translations: [COVID-19] Onset: 1 Past or Other Problems Problem Classification Problem Date Documented Da te Episodic/Chronic Diseases of mouth; excluding dental (20 sources) Burning mouth syndrome ; Translations: [Glossodynia] Onset: 02-25-2023 02-25-2023 Episodic Headache; including migraine (20 sources) Headache; Translations: [Headache] Onset: 02-25-2023 02-25-2023 Episodic Nonspecific chest pain (1 source) Chest pain, unspecified; Translations: [Chest pain, unspecified] Onset: 08-04-2024 Episodic Other bone disease and musculoskeletal deformities (20 sources) Osteopenia; Translations: [Disorder of bone and cartilage, unspecified] Onset: 02-25-2023 02-25-2023 Episodic Other circulatory disease (2 sources) Hypotension, unspecified; Translations: [Hypotension, unspecified] Onset: 03-03-2024 Episodic Other connective tissue disease (20 sources) Neuropathy; Translations: [Neuralgia, neuritis, and radiculitis, unspecified] Onset: 02-25-2023 02-25-2023 Episodic Other lower respiratory disease (20 sources) Dyspnea on exertion; Translations: [Other respiratory abnormalities] Onset: 02-25-2023 02-25-2023 Episodic Other non-epithelial cancer of skin (20 sources) Malignant basal cell neoplasm of skin; Translations: [Basal cell carcinoma of skin, site unspecified] Onset: 02-25-2023 Episodic Residual codes; unclassified (3 sources) Other specified health status; Translations: [No pertinent past medical history] Episodic Unclassified (5 sources) History finding; Translations: [No pertinent past medical history] Unclassified (3 sources) Patient encounter status; Translations: [Pre-op evaluation] Unclassified (8 sources) Onset: 02-25-2023 02-25-2023 Unclassified (1 source) Cystocele with uterine prolapse 09-10-2024 NEGATED: Highlighted row has not occurred!Residual codes; unclassified (20 sources) Disease Episodic Results Test Name Value Interpretation Reference Range Facility ANTINUCLEAR ANTIBODIES DIRE Ton 04-19-2025 CHINEDU,DIRECT Negative Normal Negative [facility] Comment on above: Result Comment: [facility]f [facility]med at: [facility] [address] [place], [place] [id number] Project Geophysicist: Bronson Mejia PhD, Phone: [phone] Performed By: #### L 505.7010, L3100.6900, L3100.5475, L101.9900, L501.6710 #### [facility] [address] [place], [place], [id number] Angiotensin Convert Enzymeon 04-19-2025 ANGIOT-CONV.ENZ 56 U/L Normal 14-82 [facility] Comment on above: Result Comment: [facility]med at: [facility] [id number] [place], [place] [id number] Project Geophysicist: Bronson Mejia PhD, Phone: [phone] Performed By: #### L 505.7010, L3100.6900, L3100.5475, L101.9900, L501.6710 #### [facility] [address] [place], [place], [id number] CRPon 04-16-2025 C-REACTIVE PROT < 3.00 Normal 0.0-3.0 [facility] Comment on above: Performed By: #### L 505.7010, L3100.6900, L3100.5475, L101.9900, L501.6710 #### [facility] [address] [place], [place], [id number] Erythrocyte Sed Rateon 04-16 SED RATE 34 mm/hr [facility] [address] [place] [address] Comment on above: Performed By: #### L 505.7010, L3100.6900, L3100.5475, L101.9900, L501.6710 #### [facility] [address] [place], [place], [id number] Erythrocyte sedimentation ra teOrdered By: Chanda Shepard on 04-16-2025 ESR (Bld) [Velocity] 34 mm/h High 0-[address] [facility] Rheumatoid Factoron 04-16-20 25 RHEUMATOID FAC 57.2 IU/mL High <15 [facility] Comment on above: Performed By: #### L 505.7010, L3100.6900, L3100.5475, L101.9900, L501.6710 #### [facility] [address] [place], [place], [id number] Serum or plasma C reactive p rotein measurement (mass/volume)Ordered By: Chanda Shepard on 04-16-2025 CRP [Mass/Vol] mg/L 0.0-3.0 [facility] Serum or plasma angiotensin converting enzyme measurement (enzymatic activity/volume)Ordered By: Chanda Shepard on 04-16-2025 Angiotensin converting enzyme [Catalytic activity/Vol] 56 U/L 14-82 [facility] Comment on above: Performed at: [place] [id number] Director: Bronson Mejia PhD, Phone: [phone] Serum rheumatoid factor dete ctionOrdered By: Chanda Shepard on 04-16-2025 Rheumatoid factor Ql (S) 57.2 IU/mL High <15 [facility] CBC W Auto Differential pane l (Bld)on 03-04-2025 Basophils (Bld) [#/Vol] 0.05 x10*3/uL Normal 0.00-0.10 [facility] Comment on above: Performed By: #### 5 7021-8 #### VERITO NINA ([id number]) [facility] ([facility]) [address] [place] [address] Basophils/100 WBC (Bld) 0.5 % Normal 0.0-2.0 [facility] Comment on above: Performed By: #### 5 7021-8 #### VERITO NINA ([id number]) [facility] ([facility]) [address] [place] [address] Eosinophils (Bld) [#/Vol] 0.29 x10*3/uL Normal 0.00-0.40 [facility] Comment on above: Performed By: #### 5 7021-8 #### VERITO NINA ([id number]) [facility] ([facility]) [address] [place] [address] Eosinophils/100 WBC (Bld) 3.1 % Normal 0.0-6.0 [facility] Comment on above: Performed By: #### 5 7021-8 #### VERITO NINA ([id number]) [facility] ([facility]) [address] [place] [address] Erythrocyte distribution width (RBC) [Ratio] 14.6 % High 11.5-14.5 [facility] Comment on above: Performed By: #### 5 7021-8 #### VERITO NINA ([id number]) [facility] ([facility]) [address] [place] [address] Hematocrit (Bld) [Volume fraction] 44.8 % Normal 36.0-46.0 [facility] Comment on above: Performed By: #### 5 7021-8 #### VERITO NINA ([id number]) [facility] ([facility]) [address] [place] [address] 56619 Hemoglobin (Bld) [Mass/Vol] 14.6 g/dL Normal 12.0-16.0 [facility] Comment on above: Performed By: #### 5 7021-8 #### VERITO NINA ([id number]) [facility] ([facility]) [address] [place] [address] 76568 Immature granulocytes (Bld) [#/Vol] 0.04 x10*3/uL Normal 0.00-0.50 [facility] Comment on above: Performed By: #### 5 7021-8 #### VERITO NINA ([id number]) [facility] ([facility]) [address] [place] [address] 01671 Immature granulocytes/100 WBC (Bld) 0.4 % Normal 0.0-0.9 [facility] Comment on above: Result Comment: Ban ture Granulocyte Count (IG) includes promyelocytes, myelocytes and metamyelocytes but does not include bands. Percent differential counts (%) should be interpreted in the context of the absolute cell counts (cells/UL). Performed By: #### 5 7021-8 #### VERITO NINA ([id number]) [facility] ([facility]) [address] [place] [address] 36915 Lymphocytes (Bld) [#/Vol] 2.15 x10*3/uL Normal 0.80-3.00 [facility] Comment on above: Performed By: #### 7021-8 #### VERITO NINA ([id number]) [facility] ([facility]) [address] [place] [address] 44409 Lymphocytes/100 WBC (Bld) 23.0 % Normal 13.0-44.0 [facility] Comment on above: Performed By: #### 5 7021-8 #### VERITO NINA ([id number]) [facility] ([facility]) [address] [place] [address] 88643 MCH (RBC) [Entitic mass] 28.5 pg Normal 26.0-34.0 [facility] Comment on above: Performed By: #### 5 7021-8 #### VERITO NINA ([id number]) [facility] ([facility]) [address] [place] [address] 04819 MCHC (RBC) [Mass/Vol] 32.6 g/dL Normal 32.0-36.0 [facility] Comment on above: Performed By: #### 5 7021-8 #### VERITO NINA ([id number]) [facility] ([facility]) [address] [place] [address] 95298 MCV (RBC) [Entitic vol] 87 fL Normal 80-100 [facility] Comment on above: Performed By: #### 5 7021-8 #### VERITO NINA ([id number]) [facility] ([facility]) [address] [place] [address] 71846 Monocytes (Bld) [#/Vol] 0.83 x10*3/uL High 0.05-0.80 [facility] Comment on above: Performed By: #### 5 7021-8 #### VERITO NINA ([id number]) [facility] ([facility]) [address] [place] [address] 42809 Monocytes/100 WBC (Bld) 8.9 % Normal 2.0-10.0 [facility] Comment on above: Performed By: #### 5 7021-8 #### VERITO NINA ([id number]) [facility] ([facility]) [address] [place] [address] 35670 Neutrophils (Bld) [#/Vol] 5.97 x10*3/uL High 1.60-5.50 [facility] Comment on above: Result Comment: Perc ent differential counts (%) should be interpreted in the context of the absolute cell counts (cells/uL). Performed By: #### 5 7021-8 #### VERITO NINA ([id number]) [facility] ([facility]) [address] [place] [address] 84634 Neutrophils/100 WBC (Bld) 64.1 % Normal 40.0-80.0 [facility] Comment on above: Performed By: #### 5 7021-8 #### VERITO NINA ([id number]) [facility] ([facility]) [address] [place] [address] 66837 Nucleated RBC/100 WBC (Bld) [Ratio] 0.0 /100 WBCs Normal 0.0-0.0 [facility] Comment on above: Performed By: #### 5 7021-8 #### VERITO NINA ([id number]) [facility] ([facility]) [address] [place] [address] 63041 Platelets (Bld) [#/Vol] 236 x10*3/uL Normal 150-450 [facility] Comment on above: Performed By: #### 5 7021-8 #### VERITO NINA ([id number]) [facility] ([facility]) [address] [place] [address] 32299 RBC (Bld) [#/Vol] 5.13 x10*6/uL Normal 4.00-5.20 [facility] Comment on above: Performed By: #### 5 7021-8 #### VERITO NINA ([id number]) [facility] ([facility]) [address] [place] [address] WBC (Bld) [#/Vol] 9.3 x10*3/uL Normal 4.4-11.3 [facility] Comment on above: Performed By: #### 5 7021-8 #### VERITO NINA ([id number]) [facility] ([facility]) [address] [place] [address] Comprehensive metabolic 2000 panelon 03-04-2025 Albumin BCP dye [Mass/Vol] 4.0 g/dL Normal 3.4-5.0 [facility] Comment on above: Performed By: #### 2 4323-8 #### VERITO NINA ([id number]) [facility] ([facility]) [address] [place] [address] ALP [Catalytic activity/Vol] 64 U/L Normal 33-136 [facility] Comment on above: Performed By: #### 2 4323-8 #### VERITO NINA ([id number]) [facility] ([facility]) [address] [place] [address] ALT With P-5'-P [Catalytic activity/Vol] 13 U/L Normal 7-45 [facility] Comment on above: Result Comment: Udyen ents treated with Sulfasalazine may generate falsely decreased results for ALT. Performed By: #### 2 4323-8 #### VERITO NINA ([id number]) [facility] ([facility]) [address] [place] [address] Anion gap [Moles/Vol] 11 mmol/L Normal 10-20 [facility] Comment on above: Performed By: #### 2 4323-8 #### VERITO NINA ([id number]) [facility] ([facility]) [address] [place] [address] AST With P-5'-P [Catalytic activity/Vol] 21 U/L Normal 9-39 [facility] Comment on above: Performed By: #### 2 4323-8 #### VERITO NINA ([id number]) [facility] ([facility]) [address] [place] [address] 50513 Bilirubin [Mass/Vol] 0.5 mg/dL Normal 0.0-1.2 [facility] Comment on above: Performed By: #### 2 4323-8 #### VERITO NINA ([id number]) [facility] ([facility]) [address] [place] [address] 07171 Calcium [Mass/Vol] 9.7 mg/dL Normal 8.6-10.3 [facility] Comment on above: Performed By: #### 2 4323-8 #### VERITO NINA ([id number]) [facility] ([facility]) [address] [place] [address] 08122 Chloride [Moles/Vol] 105 mmol/L Normal 98-107 [facility] Comment on above: Performed By: #### 2 4323-8 #### VERITO NINA ([id number]) [facility] ([facility]) [address] [place] [address] 57355 CO2 [Moles/Vol] 26 mmol/L Normal 21-32 [facility] Comment on above: Performed By: #### 2 4323-8 #### VERITO NINA ([id number]) [facility] ([facility]) [address] [place] [address] 60466 Creatinine [Mass/Vol] 0.85 mg/dL Normal 0.50-1.05 [facility] Comment on above: Performed By: #### 2 4323-8 #### VERITO NINA ([id number]) [facility] ([facility]) [address] [place] [address] 45999 Glomerular filtration rate/1.73 sq M.predicted 69 mL/min/1.73m*2 Normal >60 [facility] Comment on above: Result Comment: Calc ulations of estimated GFR are performed using the 2020 CKD-EPI Study Refit equation without the race variable for the IDMS-Traceable creatinine methods. https://jasn.asnjournals.org/content//ASN.58694 72133 Performed By: #### 2 4323-8 #### VERITO NINA ([id number]) [facility] ([facility]) [facility] [place] [address] Glucose [Mass/Vol] 92 mg/dL Normal 74-99 [facility] Comment on above: Performed By: #### 2 432-8 #### VERITO NINA ([id number]) [facility] ([facility]) [address] [place] [address] 15333 Potassium [Moles/Vol] 4.1 mmol/L Normal 3.5-5.3 [facility] Comment on above: Performed By: #### 2 432-8 #### VERITO NINA ([id number]) [facility] ([facility]) [address] [place] [address] 07409 Protein [Mass/Vol] 6.9 g/dL Normal 6.4-8.2 [facility] Comment on above: Performed By: #### 2 432-8 #### VERITO NINA ([id number]) [facility] ([facility]) [address] [place] [address] 43753 Sodium [Moles/Vol] 138 mmol/L Normal 136-145 [facility] Comment on above: Performed By: #### 2 432-8 #### VERITO NINA ([id number]) [facility] ([facility]) [address] [place] [address] 06464 Urea nitrogen [Mass/Vol] 11 mg/dL Normal 6-23 [facility] Comment on above: Performed By: #### 2 432-8 #### VERITO NINA ([id number]) [facility] ([facility]) [address] [place] [address] 31054 Lactate dehydrogenaseon 05- LDH Lactate to pyruvate reaction [Catalytic activity/Vol] 180 U/L Normal 84-246 [facility] Comment on above: Performed By: #### 1 4804-9 #### VERITO NINA ([id number]) [facility] ([facility]) [address] [place] [address] CHEST ABDOMEN PELVIS W IV CONTRASTon 09-21-2024 CT CHEST ABDOMEN PELVIS W IV CONTRAST Interpreted By: Franck Moore and [employer] STUDY: CT CHEST ABDOMEN PELVIS W IV CONTRAST; 09/21/2024 4:12 pm INDICATION: Signs/Symptoms:restaging Hodgkins Lymphoma. ,C81.90 Hodgkin lymphoma, unspecified, unspecified site (Multi) PMR: Patient with a history of Hodgkin's lymphoma status post 5 cycles of BV + Dacarbazine c/b pulmonary toxicity initial restaging PET scan shows Deauville 4, however there is a marked response in the size and metabolic activity of right perihilar and supraclavicular LAD , her repeat PET scan showed further improvement and decreased metabolic activity of LAD, Deauville score 2. Currently on surveillance. COMPARISON: 03/23/2024 and 02/11/2021. ACCESSION NUMBER(S): [id number] ORDERING CLINICIAN: GOMEZ SANTA TECHNIQUE: Contiguous axial images of the chest, abdomen, and pelvis were obtained. Coronal and sagittal reformatted images were reconstructed from the axial data. 72 ML of Omnipaque 350 was administered intravenously without immediate complication. FINDINGS: CT CHEST: MEDIASTINUM AND LYMPH NODES: Stable mild nonspecific circumferential mural thickening of the esophagus. Stable thoracic lymphadenopathy. For example, 1.1 cm right lower paratracheal lymph node, 1.3 cm right infrahilar lymph node and 1.1 cm left subcarinal lymph node. 2.7 x 1.6 cm right hilar lymph node, unchanged. No new or enlarging thoracic lymphadenopathy. No pneumomediastinum. VESSELS: Normal caliber thoracic aorta. Mild aortic atherosclerosis. HEART: Normal size. Mild coronary artery calcifications. No significant pericardial effusion. LUNG, AIRWAYS, PLEURA: The trachea and mainstem bronchi are patent. Note the bronchial lesion. Unchanged subpleural and basilar predominant subpleural reticulations with associated bronchiectasis/bronchiole ctasis, in keeping with interstitial lung fibrosis. There is superimposed regions of ground-glass opacities, likely relating to scar/fibrosis. No consolidation, pulmonary edema, pleural effusion or pneumothorax. Stable left pulmonary nodule measuring 3 mm in the left upper lobe (series 4, image 22). Stable 11 mm subpleural left upper lobe pulmonary nodule versus focal scarring (series 4, image 42). Stable 6 mm right upper lobe pulmonary nodule (series 4, image 43). No new suspicious pulmonary nodules. CHEST WALL SOFT TISSUES: No discernible acute abnormality. OSSEOUS STRUCTURES: No acute osseous abnormality. CT ABDOMEN/PELVIS: ABDOMINAL WALL: No significant abnormality. LIVER: No significant parenchymal abnormality. BILE DUCTS: No significant intrahepatic or extrahepatic dilatation. GALLBLADDER: Surgically absent. PANCREAS: No significant abnormality. SPLEEN: No significant abnormality. ADRENALS: No significant abnormality. KIDNEYS, URETERS, BLADDER: Kidneys are normal in size and enhancement. No hydronephrosis. Stable 5 mm nonobstructive left renal calculi. Stable bilateral parapelvic renal cyst. Additionally, there is stable subcentimeter bilateral too small to completely characterize renal hypodensities, likely representing benign cyst. The bladder is unremarkable for degree of distension. REPRODUCTIVE ORGANS: No significant abnormality. VESSELS: Moderate atherosclerosis calcification of the abdominal aorta and its branching vessels without aneurysmal dilatation. IVC is normal in caliber. RETROPERITONEUM/LYMPH NODES: No enlarged lymph nodes. No acute retroperitoneal abnormality. BOWEL/MESENTERY/PERITONEU M: Stable small hiatal hernia. The stomach is unremarkable for degree of distension. No inflammatory bowel wall thickening or dilatation. Normal appendix. No ascites, free air, or fluid collection. MUSCULOSKELETAL: No acute osseous abnormality. S shaped scoliosis of the thoracolumbar spine. Stable multilevel degenerative changes of the lumbar spine most pronounced the lower lumbar region without evidence of high-grade spinal canal stenosis. Stable grade 1 L3-L4 and L4-5 anterolisthesis. No suspicious osseous lesions. IMPRESSION: Hodgkin's lymphoma restaging scan compared to 03/23/2024. Stable thoracic lymphadenopathy as described above. No new or enlarging thoracic or abdominal lymph nodes. Additional stable chronic incidental findings as described including severe interstitial pulmonary fibrosis and bilateral solid noncalcified pulmonary nodules measuring up to 11 mm in left upper lobe, continued attention on follow-up imaging is recommended. I personally reviewed the images/study and I agree with the findings as stated by Resident Jhonathan Stratton. MACRO: None. Signed by: Franck Moore 09/23/2024 7:25 PM Dictation workstation: [id number] Normal [facility] CBC W Auto Differential pane l (Bld)on 09-07-2024 Basophils (Bld) [#/Vol] 0.07 x10*3/uL Normal 0.00-0.10 [facility] Comment on above: Performed By: #### 5 7021-8 #### VERITO NINA ([id number]) [facility] ([facility]) [address] [place] [address] 37165 Basophils/100 WBC (Bld) 0.9 % Normal 0.0-2.0 [facility] Comment on above: Performed By: #### 7021-8 #### VERITO NINA ([id number]) [facility] ([facility]) [address] [place] [address] 05398 Eosinophils (Bld) [#/Vol] 0.32 x10*3/uL Normal 0.00-0.40 [facility] Comment on above: Performed By: #### 5 7021-8 #### VERITO NINA ([id number]) [facility] ([facility]) [address] [place] [address] 06501 Eosinophils/100 WBC (Bld) 4.0 % Normal 0.0-6.0 [facility] Comment on above: Performed By: #### 7021-8 #### VERITO NINA ([id number]) [facility] ([facility]) [address] [place] [address] 89784 Erythrocyte distribution width (RBC) [Ratio] 15.5 % High 11.5-14.5 [facility] Comment on above: Performed By: #### 5 7021-8 #### VERITO NINA ([id number]) [facility] ([facility]) [address] [place] [address] 24668 Hematocrit (Bld) [Volume fraction] 46.5 % High 36.0-46.0 [facility] Comment on above: Performed By: #### 7021-8 #### VERITO NINA ([id number]) [facility] ([facility]) [address] [place] [address] 96248 Hemoglobin (Bld) [Mass/Vol] 14.9 g/dL Normal 12.0-16.0 [facility] Comment on above: Performed By: #### 5 7021-8 #### VERITO NINA ([id number]) [facility] ([facility]) [address] [place] [address] 47408 Immature granulocytes (Bld) [#/Vol] 0.04 x10*3/uL Normal 0.00-0.50 [facility] Comment on above: Performed By: #### 5 7021-8 #### VERITO NINA ([id number]) [facility] ([facility]) [address] [place] [address] 76481 Immature granulocytes/100 WBC (Bld) 0.5 % Normal 0.0-0.9 [facility] Comment on above: Result Comment: Ban ture Granulocyte Count (IG) includes promyelocytes, myelocytes and metamyelocytes but does not include bands. Percent differential counts (%) should be interpreted in the context of the absolute cell counts (cells/UL). Performed By: #### 5 7021-8 #### VERITO NINA ([id number]) [facility] ([facility]) [address] [place] [address] 32648 Lymphocytes (Bld) [#/Vol] 1.51 x10*3/uL Normal 0.80-3.00 [facility] Comment on above: Performed By: #### 5 7021-8 #### VERITO NINA ([id number]) [facility] ([facility]) [address] [place] [address] 89682 Lymphocytes/100 WBC (Bld) 18.8 % Normal 13.0-44.0 [facility] Comment on above: Performed By: #### 5 7021-8 #### VERITO NINA ([id number]) [facility] ([facility]) [address] [place] [address] 92105 MCH (RBC) [Entitic mass] 29.0 pg Normal 26.0-34.0 [facility] Comment on above: Performed By: #### 5 7021-8 #### VERITO NINA ([id number]) [facility] ([facility]) [address] [place] [address] 91139 MCHC (RBC) [Mass/Vol] 32.0 g/dL Normal 32.0-36.0 [facility] Comment on above: Performed By: #### 5 7021-8 #### VERITO NINA ([id number]) [facility] ([facility]) [address] [place] [address] 01058 MCV (RBC) [Entitic vol] 91 fL Normal 80-100 [facility] Comment on above: Performed By: #### 5 7021-8 #### VERITO NINA ([id number]) [facility] ([facility]) [address] [place] [address] 18971 Monocytes (Bld) [#/Vol] 0.76 x10*3/uL Normal 0.05-0.80 [facility] Comment on above: Performed By: #### 5 7021-8 #### VERITO NINA ([id number]) [facility] ([facility]) [address] [place] [address] 38098 Monocytes/100 WBC (Bld) 9.5 % Normal 2.0-10.0 [facility] Comment on above: Performed By: #### 5 7021-8 #### VERITO NINA ([id number]) [facility] ([facility]) [address] [place] [address] 28482 Neutrophils (Bld) [#/Vol] 5.34 x10*3/uL Normal 1.60-5.50 [facility] Comment on above: Result Comment: Perc ent differential counts (%) should be interpreted in the context of the absolute cell counts (cells/uL). Performed By: #### 5 7021-8 #### VERITO NINA ([id number]) [facility] ([facility]) [address] [place] [address] 53035 Neutrophils/100 WBC (Bld) 66.3 % Normal 40.0-80.0 [facility] Comment on above: Performed By: #### 5 7021-8 #### VERITO NINA ([id number]) [facility] ([facility]) [address] [place] [address] 56891 Nucleated RBC/100 WBC (Bld) [Ratio] 0.0 /100 WBCs Normal 0.0-0.0 [facility] Comment on above: Performed By: #### 5 7021-8 #### VERITO NINA ([id number]) [facility] ([facility]) [address] [place] [address] 18515 Platelets (Bld) [#/Vol] 240 x10*3/uL Normal 150-450 [facility] Comment on above: Performed By: #### 5 7021-8 #### VERITO NINA ([id number]) [facility] ([facility]) [address] [place] [address] RBC (Bld) [#/Vol] 5.13 x10*6/uL Normal 4.00-5.[address] [facility] Comment on above: Performed By: #### 5 7021-8 #### VERITO NINA ([id number]) [facility] ([facility]) [address] [place] [address] WBC (Bld) [#/Vol] 8.0 x10*3/uL Normal 4.4-11.3 [facility] Comment on above: Performed By: #### 5 7021-8 #### VERITO NINA ([id number]) [facility] ([facility]) [address] [place] [address] Comprehensive metabolic 2000 panelon 09-07-2024 Albumin BCP dye [Mass/Vol] 3.9 g/dL Normal 3.4-5.0 [facility] Comment on above: Performed By: #### 2 4323-8 #### VERITO NINA ([id number]) [facility] ([facility]) [address] [place] [address] ALP [Catalytic activity/Vol] 68 U/L Normal 33-136 [facility] Comment on above: Performed By: #### 2 4323-8 #### VERITO NINA ([id number]) [facility] ([facility]) [address] [place] [address] 10206 ALT With P-5'-P [Catalytic activity/Vol] 15 U/L Normal 7-45 [facility] Comment on above: Result Comment: Duyen ents treated with Sulfasalazine may generate falsely decreased results for ALT. Performed By: #### 2 4323-8 #### VERITO NINA ([id number]) [facility] ([facility]) [address] [place] [address] [place] [address] Anion gap [Moles/Vol] 10 mmol/L Normal 10-20 [facility] Comment on above: Performed By: #### 2 4323-8 #### VERITO NINA ([id number]) [facility] ([facility]) [address] [place] [address] 69461 AST With P-5'-P [Catalytic activity/Vol] 20 U/L Normal 9-39 [facility] Comment on above: Performed By: #### 2 4323-8 #### VERITO NINA ([id number]) [facility] ([facility]) [address] [place] [address] 95423 Bilirubin [Mass/Vol] 0.5 mg/dL Normal 0.0-1.[address] [facility] Comment on above: Performed By: #### 2 4322-8 #### VERITO NINA ([id number]) [facility] ([facility]) [address] [place] [address] 25886 Calcium [Mass/Vol] 9.7 mg/dL Normal 8.6-10.[address] [facility] Comment on above: Performed By: #### 2 4322-8 #### VERITO NINA ([id number]) [facility] ([facility]) [address] [place] [address] 91112 Chloride [Moles/Vol] 104 mmol/L Normal 98-[address] [facility] Comment on above: Performed By: #### 2 3-8 #### VERITO NINA ([id number]) [facility] ([facility]) [address] [place] [address] 54976 CO2 [Moles/Vol] 30 mmol/L Normal 21-32 [facility] Comment on above: Performed By: #### 2 3-8 #### VERITO NINA ([id number]) [facility] ([facility]) [address] [place] [address] 35631 Creatinine [Mass/Vol] 1.06 mg/dL High 0.50-1.05 [facility] Comment on above: Performed By: #### 2 4322-8 #### VERITO NINA ([id number]) [facility] ([facility]) [facility] [place] [address] Glomerular filtration rate/1.73 sq M.predicted 53 mL/min/1.73m*2 Low >60 [facility] Comment on above: Result Comment: Calc ulations of estimated GFR are performed using the 2020 CKD-EPI Study Refit equation without the race variable for the IDMS-Traceable creatinine methods. https://jasn.asnjournals.org/content/early/ASN.26259 07271 Performed By: #### 2 4323-8 #### VERITO NINA ([id number]) [facility] ([facility]) [address] [place] [id number] Glucose [Mass/Vol] 97 mg/dL Normal 74-[address] [facility] Comment on above: Performed By: #### 2 432-8 #### VERITO NINA ([id number]) [facility] ([facility]) [address] [place] [address] Potassium [Moles/Vol] 4.8 mmol/L Normal 3.5-5.3 [facility] Comment on above: Performed By: #### 2 4323-8 #### VERITO NINA ([id number]) [facility] ([facility]) [address] [place] [address] 01647 Protein [Mass/Vol] 6.9 g/dL Normal 6.4-8.[address] [facility] Comment on above: Performed By: #### 2 4323-8 #### VERITO NINA ([id number]) [facility] ([facility]) [address] [place] [address] 65939 Sodium [Moles/Vol] 139 mmol/L Normal 136-[address] [facility] Comment on above: Performed By: #### 2 4323-8 #### VERITO NINA ([id number]) [facility] ([facility]) [address] [place] [address] 76199 Urea nitrogen [Mass/Vol] 16 mg/dL Normal 6-23 [facility] Comment on above: Performed By: #### 2 4323-8 #### SELLERS KELLE ([id number]) [facility] ([facility]) [address] [place] [address] Lactate dehydrogenaseon 08-21 LDH Lactate to pyruvate reaction [Catalytic activity/Vol] 165 U/L Normal 84-246 [facility] Comment on above: Performed By: #### 1 4804-9 #### SELLERS KELLE ([id number]) [facility] ([facility]) [address] [place] [address] Echo, Limited Studyon 2023 Echo, Limited Study [facility] [address] [place] [address] Echo, Limited Study 07/08/24 1414 MR#: [id number] Acct: [id number] Name: JOHANA CHIN Rep #: [id number] : 1940 83 From: Roberto Liang MD Attending Dr: Dr. Nathalia Ho MD Status: MARLIN Lester Ordering Dr: Nathalia Ho MD Date: 07/08/24 Location: [facility] Sex: F C Admitted: Reason For Study: CHEST PAIN Procedure This was a limited 2D transthoracic echocardiogram. Exam performed in department. Left Ventricle Normal size and thickness. The left ventricular ejection fraction is 60 %. Right Ventricle Normal right ventricle. Atria The left and right atria are normal. Mitral Valve The mitral valve is structurally normal. No prolapse or stenosis seen. Tricuspid Valve Normal tricuspid valve. Aortic Valve Moderate calcification of the noncoronary cusp of the aortic valve. Aortic valve sclerosis without stenosis. Pulmonic Valve The pulmonic valve is not well visualized. Great Vessels Normal sized aortic root. Pericardium/Pleural No pericardial effusion. MMode/2D Measurements Calculations LVIDd: 5.0 cm IVSd: 0.89 cm Ao root diam: 3.2 cm LVIDs: 2.6 cm LVPWd: 0.89 cm RVDd: 3.5 cm FS: 47.3 % LAV(MOD-bp): 63.7 ml LVAd ap4: 24.1 cm2 LVAd ap2: 23.3 cm2 LAV(MOD-bp) Indexed: 36.3 ml/m2 LVLd ap4: 6.7 cm LVLd ap2: 6.8 cm LAV(MOD-sp2): 57.6 ml EDV(MOD-sp4): 70.8 ml EDV(MOD-sp2): 66.0 ml LAV(MOD-sp4): 62.1 ml EDV(sp4-el): 73.2 ml EDV(sp2-el): 67.2 ml LVAs ap4: 15.2 cm2 LVAs ap2: 13.4 cm2 LVLs ap4: 5.8 cm LVLs ap2: 5.8 cm ESV(MOD-sp4): 33.8 ml ESV(MOD-sp2): 26.8 ml ESV(sp4-el): 33.9 ml ESV(sp2-el): 26.3 ml EF(MOD-sp4): 52.3 % EF(MOD-sp2): 59.5 % EF(sp4-el): 53.8 % SV(MOD-sp4): 37.0 ml SV(MOD-sp2): 39.3 ml SV(sp4-el): 39.4 ml LA dimension(2D): 3.4 cm LA A4 area: 19.9 cm2 RA A4 area: 14.0 cm2 ECHO/Echo, Limited Study Interpretation Summary The left ventricular ejection fraction is 60 %. Moderate calcification of the noncoronary cusp of the aortic valve. Aortic valve sclerosis without stenosis. Limited 2D echocardiogram with no Doppler study. ___ Ordering Physician: Nathalia Ho Referring Physician: Nathalia Ho Performed By: Catina Roy, ROBIN, RVT 07/08/24 1641 Date Roberto Liang MD CC: Dr. Nathalia Ho MD Date Dictated: 07/08/24 1414 Date Transcribed: 07/08/24 1641 Promotions Representative: Signed [facility] CT CHEST ABDOMEN PELVIS W IV CONTRASTon 03-23-2024 CT CHEST ABDOMEN PELVIS W IV CONTRAST Interpreted By: Pratima Monreal, STUDY: CT CHEST ABDOMEN PELVIS W IV CONTRAST; 03/23/2024 12:37 pm INDICATION: Signs/Symptoms:restaging Hodgkins Lymphoma. COMPARISON: CT chest high-resolution 03/05/2022, PET-CT 02/11/2021, CT chest abdomen pelvis 10/16/2020 ACCESSION NUMBER(S): [id number] ORDERING CLINICIAN: GOMEZ SANTA TECHNIQUE: CT of the chest, abdomen, and pelvis was performed. Contiguous axial images were obtained at 3 mm slice thickness through the chest, abdomen and pelvis. Coronal and sagittal reconstructions at 3 mm slice thickness were performed. 72 mL Omnipaque 350 12 mL Omnipaque in 500 mL liquid FINDINGS: CHEST: LUNG/PLEURA/LARGE AIRWAYS: There is no infiltrate or pleural fluid. There are chronic interstitial changes of the lungs. There is severe pulmonary fibrosis with honeycombing. This is unchanged. There is no pulmonary nodule. VESSELS: There is atherosclerotic calcification of the thoracic aorta HEART: The heart is unremarkable. MEDIASTINUM AND RYAN: There are enlarged mediastinal lymph nodes. There is a 2.5 x 1.4 cm right hilar lymph node-previous measurement on 10/16/2020 is 2.8 x 1.9 cm There is a 2.4 x 0.8 cm subcarinal lymph node- previous measurement on 10/16/2020 is 2.0 x 0.6 cm CHEST WALL AND LOWER NECK: The chest wall is unremarkable. There is no abnormality of the lower neck. ABDOMEN: LIVER: There are benign hepatic cysts. BILE DUCTS: There is no intrahepatic, common hepatic or common bile ductal dilatation. GALLBLADDER: Status post cholecystectomy. PANCREAS: There is no abnormality of the pancreas. SPLEEN: The spleen is unremarkable. There is no splenic mass. There is no splenomegaly ADRENAL GLANDS: The adrenal glands are unremarkable. KIDNEYS AND URETERS:. The kidneys function symmetrically. There are benign renal cortical and parapelvic cysts. There is a 3 mm nonobstructing lower pole left intrarenal calculus. PELVIS: BLADDER: The bladder is unremarkable. REPRODUCTIVE ORGANS: There is no abnormality of the reproductive organs. BOWEL: There is no bowel wall thickening, dilatation or obstruction. The appendix is normal. VESSELS: There is atherosclerotic calcification of the abdominal aorta PERITONEUM/RETROPERITONEU M/LYMPH NODES: There is no retroperitoneal or pelvic adenopathy. There is no ascites. ABDOMINAL WALL: The abdominal wall is unremarkable. BONES AND SOFT TISSUES: There is no acute osseous finding. There is no soft tissue abnormality. IMPRESSION: CHEST: 1. Restaging Hodgkin's lymphoma. 2. Stable enlarged lymph nodes. 3. Severe pulmonary fibrosis. ABDOMEN AND PELVIS: 1. Restaging Hodgkin's lymphoma. 2. No lymphadenopathy in the abdomen or pelvis. 3. Status post cholecystectomy. 4. Benign hepatic and renal cysts. 5. Punctate nonobstructing lower pole left intrarenal calculus. MACRO: None Signed by: Pratima Monreal 03/25/2024 9:11 AM Dictation workstation: [id number] Normal [facility] CBC W Auto Differential pane l (Bld)on 03-03-2024 Basophils (Bld) [#/Vol] 0.07 x10*3/uL Normal 0.00-0.10 [facility] Comment on above: Performed By: #### 5 7021-8 #### LARRY Pagan ([id number]) [facility] ([facility]) [address] [place] [address] 24569 Basophils/100 WBC (Bld) 0.8 % Normal 0.0-2.0 [facility] Comment on above: Performed By: #### 5 7021-8 #### LARRY SIMS L ([id number]) [facility] ([facility]) [address] [place] [address] 09957 Eosinophils (Bld) [#/Vol] 0.20 x10*3/uL Normal 0.00-0.40 [facility] Comment on above: Performed By: #### 5 7021-8 #### LARRY Pagan ([id number]) [facility] ([facility]) [address] [place] [address] 37191 Eosinophils/100 WBC (Bld) 2.3 % Normal 0.0-6.0 [facility] Comment on above: Performed By: #### 5 7021-8 #### LARRY Pagan ([id number]) [facility] ([facility]) [address] [place] [address] 08974 Erythrocyte distribution width (RBC) [Ratio] 14.5 % Normal 11.5-14.5 [facility] Comment on above: Performed By: #### 5 7021-8 #### LARRY Pagan ([id number]) [facility] ([facility]) [address] [place] [address] 53151 Hematocrit (Bld) [Volume fraction] 47.2 % High 36.0-46.0 [facility] Comment on above: Performed By: #### 5 7021-8 #### LARRY Pagan ([id number]) [facility] ([facility]) [address] [place] [address] 89578 Hemoglobin (Bld) [Mass/Vol] 15.4 g/dL Normal 12.0-16.0 [facility] Comment on above: Performed By: #### 5 7021-8 #### LARRY Pagan ([id number]) [facility] ([facility]) [id number] [place] [address] 29875 Immature granulocytes (Bld) [#/Vol] 0.04 x10*3/uL Normal 0.00-0.50 [facility] Comment on above: Performed By: #### 5 7021-8 #### LARRY Pagan ([id number]) [facility] ([facility]) [address] [place] [address] 38404 Immature granulocytes/100 WBC (Bld) 0.5 % Normal 0.0-0.9 [facility] Comment on above: Result Comment: Ban ture Granulocyte Count (IG) includes promyelocytes, myelocytes and metamyelocytes but does not include bands. Percent differential counts (%) should be interpreted in the context of the absolute cell counts (cells/UL). Performed By: #### 5 7021-8 #### LARRY Pagan ([id number]) [facility] ([facility]) [address] [place] [address] 76718 Lymphocytes (Bld) [#/Vol] 2.08 x10*3/uL Normal 0.80-3.00 [facility] Comment on above: Performed By: #### 5 7021-8 #### LARRY Pagan ([id number]) [facility] ([facility]) [address] [place] [address] 74149 Lymphocytes/100 WBC (Bld) 24.2 % Normal 13.0-44.0 [facility] Comment on above: Performed By: #### 5 7021-8 #### LARRY Pagan ([id number]) [facility] ([facility]) [address] [place] [address] 38788 MCH (RBC) [Entitic mass] 29.1 pg Normal 26.0-34.0 [facility] Comment on above: Performed By: #### 5 7021-8 #### LARRY Pagan ([id number]) [facility] ([facility]) [address] [place] [address] 21005 MCHC (RBC) [Mass/Vol] 32.6 g/dL Normal 32.0-36.0 [facility] Comment on above: Performed By: #### 5 7021-8 #### LARRY Pagan ([id number]) [facility] ([facility]) [address] [place] [address] 75646 MCV (RBC) [Entitic vol] 89 fL Normal 80-100 [facility] Comment on above: Performed By: #### 5 7021-8 #### LARRY Pagan ([id number]) [facility] ([facility]) [address] [place] [address] 37765 Monocytes (Bld) [#/Vol] 0.76 x10*3/uL Normal 0.05-0.80 [facility] Comment on above: Performed By: #### 5 7021-8 #### LARRY Pagan ([id number]) [facility] ([facility]) [address] [place] [address] 20852 Monocytes/100 WBC (Bld) 8.8 % Normal 2.0-10.0 [facility] Comment on above: Performed By: #### 5 7021-8 #### LARRY Pagan ([id number]) [facility] ([facility]) [address] [place] [address] 94370 Neutrophils (Bld) [#/Vol] 5.44 x10*3/uL Normal 1.60-5.50 [facility] Comment on above: Result Comment: Perc ent differential counts (%) should be interpreted in the context of the absolute cell counts (cells/uL). Performed By: #### 5 7021-8 #### LARRY Pagan ([id number]) [facility] ([facility]) [address] [place] [address] Neutrophils/100 WBC (Bld) 63.4 % Normal 40.0-80.0 [facility] Comment on above: Performed By: #### 5 7021-8 #### LARRY Pagan ([id number]) [facility] ([facility]) [id number] [place] [address] 75097 Nucleated RBC/100 WBC (Bld) [Ratio] 0.0 /100 WBCs Normal 0.0-0.0 [facility] Comment on above: Performed By: #### 5 7021-8 #### LARRY Pagan ([id number]) [facility] ([facility]) [address] [place] [address] 52321 Platelets (Bld) [#/Vol] 240 x10*3/uL Normal 150-450 [facility] Comment on above: Performed By: #### 5 7021-8 #### LARRY Pagan ([id number]) [facility] ([facility]) [address] [place] [address] 72267 RBC (Bld) [#/Vol] 5.29 x10*6/uL High 4.00-5.[address] [facility] Comment on above: Performed By: #### 5 7021-8 #### LARRY Pagan ([id number]) [facility] ([facility]) [address] [place] [address] 99720 WBC (Bld) [#/Vol] 8.6 x10*3/uL Normal 4.4-11.3 [facility] Comment on above: Performed By: #### 5 7021-8 #### LARRY Pagan ([id number]) [facility] ([facility]) [address] [place] [address] 04595 Comprehensive metabolic 2000 panelon 03-03-2024 Albumin BCP dye [Mass/Vol] 4.2 g/dL Normal 3.4-5.0 [facility] Comment on above: Performed By: #### 2 4323-8 #### LARRY Pagan ([id number]) [facility] ([facility]) [address] [place] [address] 19017 ALP [Catalytic activity/Vol] 70 U/L Normal 33-136 [facility] Comment on above: Performed By: #### 2 4323-8 #### LARRY Pagan ([id number]) [facility] ([facility]) [address] [place] [address] 69073 ALT With P-5'-P [Catalytic activity/Vol] 16 U/L Normal 7-45 [facility] Comment on above: Result Comment: Duyen ents treated with Sulfasalazine may generate falsely decreased results for ALT. Performed By: #### 2 4323-8 #### LARRY Pagan ([id number]) [facility] ([facility]) [address] [place] [address] Anion gap [Moles/Vol] 14 mmol/L Normal 10-20 [facility] Comment on above: Performed By: #### 2 4323-8 #### LARRY Pagan ([id number]) [facility] ([facility]) [address] [place] [address] AST With P-5'-P [Catalytic activity/Vol] 20 U/L Normal 9-39 [facility] Comment on above: Performed By: #### 2 4323-8 #### LARRY Pagan ([id number]) [facility] ([facility]) [address] [place] [address] 40839 Bilirubin [Mass/Vol] 0.7 mg/dL Normal 0.0-1.[address] [facility] Comment on above: Performed By: #### 2 4323-8 #### LARRY Pagan ([id number]) [facility] ([facility]) [address] [place] [address] 06799 Calcium [Mass/Vol] 10.0 mg/dL Normal 8.6-10.[address] [facility] Comment on above: Performed By: #### 2 4323-8 #### LARRY Pagan ([id number]) [facility] ([facility]) [address] [place] [address] Chloride [Moles/Vol] 102 mmol/L Normal 98-[address] [facility] Comment on above: Performed By: #### 2 4323-8 #### LARRY Pagan ([id number]) [facility] ([facility]) [address] [place] [address] CO2 [Moles/Vol] 28 mmol/L Normal 21-32 [facility] Comment on above: Performed By: #### 2 4323-8 #### LARRY Pagan ([id number]) [facility] ([facility]) [address] [place] [address] Creatinine [Mass/Vol] 0.87 mg/dL Normal 0.50-1.05 [facility] Comment on above: Performed By: #### 2 4323-8 #### LARRY SIMS L ([id number]) [facility] ([facility]) [address] [place] [address] 01375 Glomerular filtration rate/1.73 sq M.predicted 67 mL/min/1.73m*2 Normal >60 [facility] Comment on above: Result Comment: Calc ulations of estimated GFR are performed using the 2020 CKD-EPI Study Refit equation without the race variable for the IDMS-Traceable creatinine methods. https://jasn.asnjournals.org/content///ASN.89776 56494 Performed By: #### 2 4323-8 #### LARRY SIMS L ([id number]) [facility] ([facility]) [address] [place] [address] 16577 Glucose [Mass/Vol] 94 mg/dL Normal 74-[address] [facility] Comment on above: Performed By: #### 2 4323-8 #### LARRY SIMS L ([id number]) [facility] ([facility]) [address] [place] [address] 21934 Potassium [Moles/Vol] 4.4 mmol/L Normal 3.5-5.3 [facility] Comment on above: Performed By: #### 2 4323-8 #### LARRY BERMANER L ([id number]) [facility] ([facility]) [address] [place] [address] 47442 Protein [Mass/Vol] 7.5 g/dL Normal 6.4-8.[address] [facility] Comment on above: Performed By: #### 2 4323-8 #### LARRY SIMS L ([id number]) [facility] ([facility]) [address] [place] [address] Sodium [Moles/Vol] 140 mmol/L Normal 136-[address] [facility] Comment on above: Performed By: #### 2 4323-8 #### LARRY Pagan ([id number]) [facility] ([facility]) [address] [place] [address] Urea nitrogen [Mass/Vol] 20 mg/dL Normal 6-23 [facility] Comment on above: Performed By: #### 2 4323-8 #### LARRY Pagan (85551) [facility] ([facility]) [address] [place] [address] Lactate dehydrogenaseon 02-18 LDH Lactate to pyruvate reaction [Catalytic activity/Vol] 175 U/L Normal 84-246 [facility] Comment on above: Performed By: #### 1 4804-9 #### LARRY Pagan ([id number]) [facility] ([facility]) [address] [place] [address] 70976 Lipid 1996 panelon Cholesterol [Mass/Vol] 322 mg/dL High 0-199 [facility] Comment on above: Result Comment: Age Desirable Borderline High High 0-19 Y 0 - 169 170 - 199 >/= 200 20-24 Y 0 - 189 190 - 224 >/= 225 >24 Y 0 - 199 200 - 239 >/= 240 All ranges are based on fasting samples. Specific therapeutic targets will vary based on patient-specific cardiac risk. Pediatric guidelines reference:Pediatrics 2011, 128(S5).Adult guidelines reference: NCEP ATPIII Guidelines,TATI 2001, 258:2486-97 Venipuncture immediately after or during the administration of Metamizole may lead to falsely low results. Testing should be performed immediately prior to Metamizole dosing. Performed By: #### 2 4331-1 #### LARRY Pagan ([id number]) [facility] ([facility]) [address] [place] [address] Cholesterol in HDL [Mass/Vol] 78.4 mg/dL Normal [facility] Comment on above: Result Comment: Age Very Low Low Normal High 0-19 Y < 35 < 40 40-45 ---- 20-24 Y ---- < 40 >45 ---- >24 Y ---- < 40 40-60 >60 Performed By: #### 2 4331-1 #### LARRY Pagan (77203) [facility] ([facility]) [address] [place] [address] 75448 Cholesterol in LDL [Mass/Vol] 217 mg/dL High <=99 [facility] Comment on above: Result Comment: Near Borderline AGE Desirable Optimal High High Very High 0-19 Y 0 - 109 --- 110-129 >/= 130 ---- 20-24 Y 0 - 119 --- 120-159 >/= 160 ---- >24 Y 0 - 99 100-129 130-159 160-189 >/=190 Performed By: #### 2 4331-1 #### LARRY Pagan ([id number]) [facility] ([facility]) [address] [place] [address] 94410 Cholesterol in VLDL [Mass/Vol] 26 mg/dL Normal 0-40 [facility] Comment on above: Performed By: #### 2 4331-1 #### LARRY Pagan ([id number]) [facility] ([facility]) [address] [place] [address] 10191 CHOLESTEROL/HDL RATIO 4.1 Normal [facility] Comment on above: Result Comment: Ref Values Desirable < 3.4 High Risk > 5.0 Performed By: #### 2 4331-1 #### LARRY Pagan ([id number]) [facility] ([facility]) [address] [place] [address] 45521 NON HDL CHOLESTEROL 244 mg/dL High 0-149 [facility] Comment on above: Result Comment: Age Desirable Borderline High High Very High 0-19 Y 0 - 119 120 - 144 >/= 145 >/= 160 20-24 Y 0 - 149 150 - 189 >/= 190 ---- >24 Y 30 mg/dL above LDL Cholesterol goal Performed By: #### 2 4331-1 #### LARRY Pagan ([id number]) [facility] ([facility]) [address] [place], [place] [address] Triglyceride [Mass/Vol] 132 mg/dL Normal 0-149 [facility] Comment on above: Result Comment: Age Desirable Borderline High High Very High 0 D-90 D 19 - 174 ---- ---- ---- 91 D- 9 Y 0 - 74 75 - 99 >/= 100 ---- 10-19 Y 0 - 89 90 - 129 >/= 130 ---- 20-24 Y 0 - 114 115 - 149 >/= 150 ---- >24 Y 0 - 149 150 - 199 200- 499 >/= 500 Venipuncture immediately after or during the administration of Metamizole may lead to falsely low results. Testing should be performed immediately prior to Metamizole dosing. Performed By: #### 2 4331-1 #### LARRY Pagan ([id number]) [facility] ([facility]) [address] [place], [place] [address] Thyrotropinon 03-03-2024 TSH Qn 2.30 m[IU]/L Normal 0.44-3.98 [facility] Comment on above: Order Comment: TSH t esting is performed using different testing methodology at [facility] than at other [facility]. Direct result comparisons should only be made within the same method. Performed By: #### 3 016-3 #### LARRY Pagan ([id number]) [facility] ([facility]) [address] [place], [place] [address] Thyroxine.freeon 03-03-2024 Free T4 [Mass/Vol] 1.22 ng/dL Normal 0.78-1.[address] [facility] Comment on above: Order Comment: Thyro xine Free testing is performed using different testing methodology at [facility] than at other [facility]. Direct result comparisons should only be made within the same method. Performed By: #### 3 024-7 #### LARRY Pagan ([id number]) [facility] ([facility]) [address] [place], [place] [address] Measure post void residualon 12-05-2023 84 cc [facility] Work Phone: [facility] Work Phone: Absolute lymphocyte countOrd ered By: Cesariobailey Real on 08-25-2023 Lymphocytes Auto (Unsp spec) [#/Vol] 1.32 10*3/uL 0.83-4.51 [facility] Basophil percentageOrdered B y: Cesariobailey Real on 08-25-2023 Basophil percentage 0-5 SEEN /hpf 0-5 [facility] Basophils/100 WBC (Bld) 0.6 % 0-1 [facility] Chloride [Moles/Vol] 101 mmol/L 98-[address] [facility] Eosinophils/100 WBC (Bld) 0.5 % 0-5 [facility] Glucose [Mass/Vol] 131 mg/dL 74-106 [facility] Comment on above: Fasting Glucose resu lt greater than or equal to 126 mg/dL suggests DIABETES MELLITUS per A.D.A. criteria. Neutrophils (Bld) [#/Vol] 7.9 10*3/uL 2.0-7.7 [facility] Neutrophils/100 WBC (Bld) 78.8 % 47-70 [facility] Potassium [Moles/Vol] 3.6 mmol/L 3.5-5.1 [facility] Sodium [Moles/Vol] 133 mmol/L 136-145 [facility] WBC (Bld) [#/Vol] 10.0 10*3/uL 4.4-11.0 [facility] Bilirubin Test strip Ql (U)O rdered By: Cesario Real on 08-25-2023 Bilirubin Ql (U) Negative Negative [facility] Blood erythrocytes count (nu mber/volume)Ordered By: Cesariobailey Real on 08-25-2023 RBC (Bld) [#/Vol] 5.09 10*6/uL 4.2-5.4 [facility] Blood hemoglobin measurement (mass/volume)Ordered By: Cesariobailey Real on 08-25-2023 Hemoglobin (Bld) [Mass/Vol] 14.7 g/dL 12.0-15.0 [facility] Blood lymphocytes/100 leukoc ytesOrdered By: Cesariobailey Real on 08-25-2023 Lymphocytes/100 WBC (Bld) 13.1 % 19-41 [facility] Blood monocytes/100 leukocyt esOrdered By: Cesariobailey Real on 08-25-2023 Monocytes/100 WBC (Bld) 6.4 % 0-10 [facility] Blood platelet mean volumeOr dered By: Cesario Real on 08-25-2023 Platelet mean volume (Bld) [Entitic vol] 10.1 fL 6.2-12.0 [facility] Determination of erythrocyte mean corpuscular volume (MCV)Ordered By: Cesario Real on 08-25-2023 MCV (RBC) [Entitic vol] 89.0 fL 81-99 [facility] Hematocrit Auto (Bld) [Volum e fraction]Ordered By: Cesariobailey Real on 08-25-2023 Hematocrit (Bld) [Volume fraction] 45.3 % 37-47 [facility] Ketones Test strip Ql (U)Ord ered By: Cesariobailey Real on 08-25-2023 Ketones Ql (U) Negative Negative [facility] Laboratory - Chemistry and C hemistry - challengeOrdered By: Cesariobailey Real on 08-25-2023 CO2 [Moles/Vol] 26.0 mmol/L 21.0-32.0 [facility] Urea nitrogen/Creatinine [Mass ratio] 17.5 mg/mg 10-20 [facility] - Hematology and Cell countsOrdered By: Cesariobailey Real on 08-25-2023 Erythrocyte distribution width (RBC) [Entitic vol] 45.5 fL 35.1-43.9 [facility] Erythrocyte distribution width (RBC) [Ratio] 13.9 % 11.6-14.6 [facility] Immature granulocytes/100 WBC (Bld) 0.600 % 0.0-0.9 [facility] Comment on above: IG% - Immature Granu locytes (promyelocytes, myelocytes and metamyelocytes) > 1% indicates that a LEFT SHIFT is Present. MCH (RBC) [Entitic mass] 28.9 pg 27.0-32.0 [facility] Nucleated RBC/100 WBC (Bld) [Ratio] 0 % 0-5 [facility] MCHC Auto (RBC) [Mass/Vol]Or dered By: Cesario Real on 08-25-2023 MCHC (RBC) [Mass/Vol] 32.5 g/dL 32-36 [facility] Mucus LM Ql (Urine sed)Order ed By: Cesario Real on 08-25-2023 Mucus Ql (Urine sed) 0 SEEN /hpf [facility] Nitrite Test strip Ql (U)Ord ered By: Cesario Real on 08-25-2023 Nitrite Ql (U) Negative Negative [facility] No Panel InformationOrdered By: Cesario Real on 08-25-2023 Estimated Creatinine Clearance Calc 32.56 ml/min [facility] Estimated GFR (MDRD) Amer 59 mL/min >60 [facility] Comment on above: GFR Calc Estimated GFR (MDRD) Non-Af Amer 49 mL/min >60 [facility] Comment on above: Non- GFR Calc Platelets bldOrdered By: Cesario Real on 08-25-2023 Platelets (Bld) [#/Vol] 246 10*3/uL 150-450 [facility] Protein Test strip Ql (U)Ord ered By: Cesario Real on 08-25-2023 Protein Ql (U) Negative Negative [facility] Serum or plasma calcium gareth urement (mass/volume)Ordered By: Cesario Real on 08-25-2023 Calcium [Mass/Vol] 9.3 mg/dL 8.5-10.1 [facility] Serum or plasma creatinine m easurement (mass/volume)Ordered By: Cesario Rela on 08-25-2023 Creatinine [Mass/Vol] 1.14 mg/dL 0.55-1.02 [facility] Comment on above: The validity of the calculated GFR & GFRAA in patients over 70 years has not been determined. Clinical correlation is essential. Serum or plasma urea nitroge n measurement (mass/volume)Ordered By: Cesario Real on 08-25-2023 Urea nitrogen [Mass/Vol] 20 mg/dL 7-18 [facility] Squamous epithelial cells de tection in urine sediment by light microscopyOrdered By: Cesario Real on 08-25-2023 Epithelial cells.squamous LM Ql (Urine sed) 0 SEEN /hpf 5-10 [facility] Thin prep Papanicolaou smear with manual screeningOrdered By: Cesario Real on 08-25-2023 Thin prep Papanicolaou smear with manual screening 6 -15 [facility] Urine blood detectionOrdered By: Cesario Real on 08-25-2023 RBC Ql (U) 10 /ul Negative [facility] RBC Ql (U) 0 SEEN /hpf 0-5 [facility] Urine clarityOrdered By: Cesario Real on 08-25-2023 Clarity (U) Clear Clear [facility] Urine color determinationOrd ered By: Cesario Real on 08-25-2023 Color (U) Yellow Yellow [facility] Urine glucose detectionOrder ed By: Cesario Real on 08-25-2023 Glucose Ql (U) Normal mg/dl Normal [facility] Urine leukocyte esterase det ection by dipstickOrdered By: Cesario Real on 08-25-2023 Leukocyte esterase Test strip Ql (U) 25 /ul Negative [facility] Urine pHOrdered By: Cesario avalos on 08-25-2023 pH (U) 6.5 [pH] 5.0 - 8.0 [facility] Urine sediment bacteria coun t by microscopy (number/high power field)Ordered By: Cesario Real on 08-25-2023 Bacteria LM.HPF (Urine sed) [#/Area] RARE /hpf None Seen [facility] Urine specific gravity measu rementOrdered By: Cesario Real on 08-25-2023 Specific gravity (U) [Rel density] 1.015 1.002-1.030 [facility] Urobilinogen Auto test strip Ql (U)Ordered By: Cesario Real on 08-25-2023 Urobilinogen Ql (U) Normal mg/dl Normal [facility] Absolute lymphocyte countOrd ered By: Nathalia Ho on 07-05-2023 Lymphocytes Auto (Unsp spec) [#/Vol] 1.61 10*3/uL 0.83-4.51 [facility] Basophil percentageOrdered B y: Nathalia Ho on 07-05-2023 Basophils/100 WBC (Bld) 0.6 % 0-1 [facility] Bilirubin [Mass/Vol] 0.60 mg/dL 0.20-1.[address] [facility] Comment on above: For patients on eltr ombopag therapy, use of Dimension Glade TBIL is not recommended. Chloride [Moles/Vol] 106 mmol/L 98-[address] [facility] Cholesterol [Mass/Vol] 171 mg/dL <200 [facility] Comment on above: <200 mg/dL Desirable 200-240 mg/dL Borderline >240 mg/dL High Risk Eosinophils/100 WBC (Bld) 3.0 % 0-5 [facility] Glucose [Mass/Vol] 98 mg/dL 74-106 [facility] Neutrophils (Bld) [#/Vol] 5.4 10*3/uL 2.0-7.7 [facility] Neutrophils/100 WBC (Bld) 66.2 % 47-70 [facility] Potassium [Moles/Vol] 4.1 mmol/L 3.5-5.1 [facility] Protein [Mass/Vol] 7.9 g/dL 6.4-8.2 [facility] Sodium [Moles/Vol] 137 mmol/L 136-145 [facility] Triglyceride [Mass/Vol] 94 mg/dL <199 [facility] Comment on above: The drugs N-Acetylcy steine and Metamizole may falsely depress this assay.Serum Triglycerides Reference Interval Normal <150 mg/dL Borderline high 150 - 199 mg/dL High 200 - 499 mg/dL Very High > or = 500 mg/dL WBC (Bld) [#/Vol] 8.1 10*3/uL 4.4-11.0 [facility] Blood erythrocytes count (nu mber/volume)Ordered By: Nathalia Ho on 07-05-2023 RBC (Bld) [#/Vol] 4.91 10*6/uL 4.2-5.4 [facility] Blood hemoglobin measurement (mass/volume)Ordered By: Nathalia Ho on 07-05-2023 Hemoglobin (Bld) [Mass/Vol] 14.6 g/dL 12.0-15.0 [facility] Blood lymphocytes/100 leukoc ytesOrdered By: Nathalia Ho on 07-05-2023 Lymphocytes/100 WBC (Bld) 20.0 % 19-41 [facility] Blood monocytes/100 leukocyt esOrdered By: Nathalia Ho on 07-05-2023 Monocytes/100 WBC (Bld) 9.8 % 0-10 [facility] Blood platelet mean volumeOr dered By: [facility] on 07-05-2023 Platelet mean volume (Bld) [Entitic vol] 9.9 fL 6.2-12.0 [facility] Determination of erythrocyte mean corpuscular volume (MCV)Ordered By: [facility] [place] on 07-05-2023 MCV (RBC) [Entitic vol] 91.2 fL 81-99 [facility] Hematocrit Auto (Bld) [Volum e fraction][facility]: [facility] 07-[facility]2023 Hematocrit (Bld) [Volume fraction] 44.8 % 37-47 [facility] Laboratory - Chemistry and C hemistry - challengeOrdered By: [facility] on 07-05-2023 ALP [Catalytic activity/Vol] 74 U/L 45-117 [facility] ALT [Catalytic activity/Vol] 24 U/L 13-56 [facility] CO2 [Moles/Vol] 27.0 mmol/L 21.0-32.0 [facility] Globulin (S) [Mass/Vol] 4.3 g/dL 2.2-4.2 [facility] Urea nitrogen/Creatinine [Mass ratio] 14.2 mg/mg 10-20 [facility] Laboratory - Hematology and Cell countsOrdered By: [facility] on 07-05-2023 Erythrocyte distribution width (RBC) [Entitic vol] 50.5 fL 35.1-43.9 [facility] Erythrocyte distribution width (RBC) [Ratio] 15.0 % 11.6-14.6 [facility] Immature granulocytes/100 WBC (Bld) 0.400 % 0.0-0.9 [facility] Comment on above: IG% - Immature Granu locytes (promyelocytes, myelocytes and metamyelocytes) > 1% indicates that a LEFT SHIFT is Present. MCH (RBC) [Entitic mass] 29.7 pg 27.0-32.0 [facility] Nucleated RBC/100 WBC (Bld) [Ratio] 0 % 0-5 [facility] MCHC Auto (RBC) [Mass/Vol]Or dered By: [facility] on 07-05-2023 MCHC (RBC) [Mass/Vol] 32.6 g/dL 32-36 [facility] No Panel InformationOrdered By: Nathalia Ho on 07-05-2023 Estimated GFR (MDRD) Amer 76 mL/min >60 [facility] Comment on above: GFR Calc Estimated GFR (MDRD) Non-Af Amer 63 mL/min >60 [facility] Comment on above: Non- GFR Calc Thyroid Stimulating Hormone (TSH) 1.41 uIU/mL 0.358-3.74 [facility] Platelets bldOrdered By: Princess Ho on 07-05-2023 Platelets (Bld) [#/Vol] 223 10*3/uL 150-450 [facility] Serum or plasma albumin gareth urement (mass/volume)Ordered By: Nathalia Ho on 07-05-2023 Albumin [Mass/Vol] 3.6 g/dL 3.2-5.0 [facility] Serum or plasma albumin/glob ulin mass ratioOrdered By: Nathalia Ho on 07-05-2023 Albumin/Globulin [Mass ratio] 0.8 {ratio} 0.9-2.4 [facility] Serum or plasma calcium gareth urement (mass/volume)Ordered By: Nathalia Ho on 07-05-2023 Calcium [Mass/Vol] 9.9 mg/dL 8.5-10.1 [facility] Serum or plasma cholesterol in HDL measurement (mass/volume)Ordered By: Nathalia Ho on 07-05-2023 Cholesterol in HDL [Mass/Vol] 77 mg/dL >40 [facility] Comment on above: The drugs N-Acetylcy steine and Metamizole may falsely depress this assay. Reference Range HDL <40 mg/dL Low HDL Cholesterol HDL >or= 60 mg/dL High HDL Cholesterol Serum or plasma cholesterol in VLDL measurement (mass/volume)Ordered By: Nathalia Ho on 07-05-2023 Cholesterol in VLDL [Mass/Vol] 19 mg/dL 5-40 [facility] Serum or plasma creatinine m easurement (mass/volume)Ordered By: Nathalia Ho on 07-05-2023 Creatinine [Mass/Vol] 0.91 mg/dL 0.55-1.02 [facility] Comment on above: The validity of the calculated GFR & GFRAA in patients over 70 years has not been determined. Clinical correlation is essential. Serum or plasma low density lipoprotein (LDL) cholesterol measurement (mass/volume)Ordered By: Nathalia Ho on 07-05-2023 Cholesterol in LDL [Mass/Vol] 75 mg/dL 0-130 [facility] Serum or plasma urea nitroge n measurement (mass/volume)Ordered By: Nathalia Ho on 07-05-2023 Urea nitrogen [Mass/Vol] 13 mg/dL 7-18 [facility] Thin prep Papanicolaou smear with manual screeningOrdered By: Nathalia Ho on 07-05-2023 Thin prep Papanicolaou smear with manual screening 25 U/L 15-37 [facility] Thin prep Papanicolaou smear with manual screening 4 5-15 [facility] CBC AND DIFFERENTIALon 03-04 % AUTOMATED IMMATURE GRAN 0.3 % Normal 0.0 - 0.9 [facility] [place] Comment on above: Result Comment: Ban ture Granulocyte Count (IG) includes promyelocytes, myelocytes and metamyelocytes but does not include bands. Percent differential counts (%) should be interpreted in the context of the absolute cell counts (cells/L). Performed By: #### C BCDF #### [place] [address] DIFFERENTIAL SEE MANUAL DIFF Normal [facility] [place] Comment on above: Performed By: #### C BCDF #### [place] [address] Erythrocyte distribution width (RBC) [Ratio] 14.5 % Normal 11.5 - 14.5 [facility] [place] Comment on above: Performed By: #### C BCDF #### [place] [address] Hematocrit (Bld) [Volume fraction] 44.6 % Normal 36.0 - 46.0 [facility] [place] Comment on above: Performed By: #### C BCDF #### [place] [address] Hemoglobin (Bld) [Mass/Vol] 14.1 g/dL Normal 12.0 - 16.0 [facility] [place] Comment on above: Performed By: #### C BCDF #### [address] [address] MCHC (RBC) [Mass/Vol] 31.6 g/dL Low 32.0 - 36.0 [facility] [place] Comment on above: Performed By: #### C BCDF #### [address] [address] MCV (RBC) [Entitic vol] 90 fL Normal 80 - 100 [facility] [place] Comment on above: Performed By: #### C BCDF #### [place] [id number] Platelets (Bld) [#/Vol] 224 10*3/uL Normal 150 - 450 [facility] [place] Comment on above: Performed By: #### C BCDF #### [place] [id number] RBC 4.94 x10E12/L Normal 4.00 - 5.20 [facility] [place] Comment on above: Performed By: #### C BCDF #### [place] [id number] WBC (Bld) [#/Vol] 7.7 10*3/uL Normal 4.4 - 11.3 [facility] [place] Comment on above: Performed By: #### C BCDF #### [place] [id number] COMPREHENSIVE PANELon 2022 Albumin [Mass/Vol] 4.0 g/dL Normal 3.4 - 5.0 [facility] [place] Comment on above: Performed By: #### C MP #### [address] [address] ALP [Catalytic activity/Vol] 56 U/L Normal 33 - 136 [facility] [place] Comment on above: Performed By: #### C MP #### [address] [address] ALT [Catalytic activity/Vol] 15 U/L Normal 7 - 45 [facility] [place] Comment on above: Result Comment: Duyen ents treated with Sulfasalazine may generate falsely decreased results for ALT. Performed By: #### C MP #### [place] [id number] Anion gap [Moles/Vol] 9 mmol/L Low 10 - 20 [facility] [place] Comment on above: Performed By: #### C MP #### [address] [address] AST [Catalytic activity/Vol] 22 U/L Normal 9 - 39 [facility] [place] Comment on above: Performed By: #### C MP #### [address] [address] Bilirubin [Mass/Vol] 0.5 mg/dL Normal 0.0 - 1.2 [facility] [place] Comment on above: Performed By: #### C MP #### [address] [address] Calcium [Mass/Vol] 9.8 mg/dL Normal 8.6 - 10.3 [facility] [place] Comment on above: Performed By: #### C MP #### [address] [address] Chloride [Moles/Vol] 105 mmol/L Normal 98 - 107 [facility] [place] Comment on above: Performed By: #### C MP #### [address] [address] Creatinine [Mass/Vol] 0.91 mg/dL Normal 0.50 - 1.05 [facility] [place] Comment on above: Performed By: #### C MP #### [address] [address] GFR/1.73 sq M.predicted among non-blacks MDRD (S/P/Bld) [Vol rate/Area] 64 mL/min/{1.73_m2} Normal >90 [facility] [place] Comment on above: Result Comment: CALC ULATIONS OF ESTIMATED GFR ARE PERFORMED USING THE 2020 CKD-EPI STUDY REFIT EQUATION WITHOUT THE RACE VARIABLE FOR THE IDMS-TRACEABLE CREATININE METHODS. https://jasn.asnjournals.org/content/early//ASN.34978 31990 Performed By: #### C MP #### [address] [address] Glucose [Mass/Vol] 98 mg/dL Normal 74 - 99 [facility] [place] Comment on above: Performed By: #### C MP #### [address] [address] HCO3 (Bld) [Moles/Vol] 30 mmol/L Normal 21 - 32 [facility] [place] Comment on above: Performed By: #### C MP #### [address] [address] Potassium [Moles/Vol] 4.1 mmol/L Normal 3.5 - 5.3 [facility] [place] Comment on above: Performed By: #### C MP #### [address] [address] Protein [Mass/Vol] 7.0 g/dL Normal 6.4 - 8.2 [facility] [place] Comment on above: Performed By: #### C MP #### [address] [address] Sodium [Moles/Vol] 140 mmol/L Normal 136 - 145 [facility] [place] Comment on above: Performed By: #### C MP #### [address] [address] Urea nitrogen [Mass/Vol] 14 mg/dL Normal 6 - 23 [facility] [place] Comment on above: Performed By: #### C MP #### [address] [address] LDHon 03-04-2023 LDH 176 U/L Normal 84 - 246 [facility] [place] Comment on above: Performed By: #### L DH #### [address] [address] MANUAL DIFFERENTIALon 2022 % BAND NEUTROPHIL 1.0 % Normal 0.0 - 5.0 [facility] [place] Comment on above: Performed By: #### M DIFF #### [address] [address] % BASOPHIL 0.0 % Normal 0.0 - 2.0 [facility] [place] Comment on above: Performed By: #### M DIFF #### [address] [address] % EOSINOPHIL 4.0 % Normal 0.0 - 6.0 [facility] [place] Comment on above: Performed By: #### M DIFF #### [address] [address] % LYMPH-ATYPICAL 13.0 % Normal 0.0 - 2.0 [facility] [place] Comment on above: Performed By: #### M DIFF #### [address] [address] % LYMPHOCYTE 13.0 % Normal 13.0 - 44.0 [facility] [place] Comment on above: Performed By: #### M DIFF #### [address] [address] % METAMYELOCYTE 1.0 % Normal 0.0 - 0.0 [facility] [place] Comment on above: Performed By: #### M DIFF #### [address] [address] % MONOCYTE 12.0 % Normal 2.0 - 10.0 [facility] [place] Comment on above: Performed By: #### M DIFF #### [address] [address] % SEG NEUTROPHIL 56.0 % Normal 40.0 - 80.0 [facility] [place] Comment on above: Result Comment: Perc ent differential counts (%) should be interpreted in the context of the absolute cell counts (cells/L). Performed By: #### M DIFF #### [address] [address] ANC 4.39 x10E9/L Normal 1.60 - 5.50 [facility] [place] Comment on above: Performed By: #### M DIFF #### [address] [address] BAND NEUTROPHIL 0.08 x10E9/L Normal 0.00 - 0.50 [facility] [place] Comment on above: Performed By: #### M DIFF #### [address] [address] BASOPHIL 0.00 x10E9/L Normal 0.00 - 0.10 [facility] [place] Comment on above: Performed By: #### M DIFF #### [address] [address] EOSINOPHIL 0.31 x10E9/L Normal 0.00 - 0.40 [facility] [place] Comment on above: Performed By: #### M DIFF #### [address] [address] LYMPH-ATYPICAL 1.00 x10E9/L High 0.00 - 0.30 [facility] [place] Comment on above: Performed By: #### M DIFF #### [address] [address] LYMPHOCYTE 1.00 x10E9/L Normal 0.80 - 3.00 [facility] [place] Comment on above: Performed By: #### M DIFF #### [address] [address] METAMYELOCYTE 0.08 x10E9/L Abnormal 0.00 - 0.00 [facility] [place] Comment on above: Performed By: #### M DIFF #### [address] [address] MONOCYTE 0.92 x10E9/L High 0.05 - 0.80 [facility] [place] Comment on above: Performed By: #### M DIFF #### [address] [address] SEG NEUTROPHIL 4.31 x10E9/L Normal 1.60 - 5.00 [facility] [place] Comment on above: Performed By: #### M DIFF #### [address] [address] RED CELL MORPHOLOGYon 2022 RBC morphology finding Nom (Bld) SEE COMMENT Normal [facility] [place] Comment on above: Result Comment: NO S IGNIFICANT RBC ABNORMALITIES SEEN ON SMEAR REVIEW. Performed By: #### L DH #### [address] [address] SEDIMENTATION RATE, ERYTHROC YTEon 03-04-2023 SEDIMENTATION RATE, ERYTHROCYTE 7 mm/h Normal 0 - 30 [facility] [place] Comment on above: Performed By: #### E SRWS #### [address] [address] Allison 09-27-2022 ALT [Catalytic activity/Vol] 14 U/L Normal 7 - 45 [facility] [place] Comment on above: Result Comment: Duyen ents treated with Sulfasalazine may generate falsely decreased results for ALT. Performed By: #### A LT #### [address] [address] LIPID PANEL (CORONARY RISK 2 )on 09-27-2022 Cholesterol [Mass/Vol] 221 mg/dL High 0 - 199 [facility] [place] Comment on above: Result Comment: . AGE DESIRABLE BORDERLINE HIGH HIGH 0-19 Y 0 - 169 170 - 199 >/= 200 20-24 Y 0 - 189 190 - 224 >/= 225 >24 Y 0 - 199 200 - 239 >/= 240 All ranges are based on fasting samples. Specific therapeutic targets will vary based on patient-specific cardiac risk. . Pediatric guidelines reference:Pediatrics 2011, 128(S5). Adult guidelines reference: NCEP ATPIII Guidelines, TATI 2001, 258:2486-97 . Venipuncture immediately after or during the administration of Metamizole may lead to falsely low results. Testing should be performed immediately prior to Metamizole dosing. Performed By: #### L IPID #### [address] [address] Cholesterol in HDL [Mass/Vol] 81.6 mg/dL Normal [facility] [place] Comment on above: Result Comment: . AGE VERY LOW LOW NORMAL HIGH 0-19 Y < 35 < 40 40-45 ---- 20-24 Y ---- < 40 >45 ---- >24 Y ---- < 40 40-60 >60 . Performed By: #### L IPID #### [address] [address] Cholesterol in LDL [Mass/Vol] 111 mg/dL High 0 - 99 [facility] [place] Comment on above: Result Comment: . NEAR BORD AGE DESIRABLE OPTIMAL HIGH HIGH VERY HIGH 0-19 Y 0 - 109 --- 110-129 >/= 130 ---- 20-24 Y 0 - 119 --- 120-159 >/= 160 ---- >24 Y 0 - 99 100-129 130-159 160-189 >/=190 . Performed By: #### L IPID #### [address] [address] Cholesterol in VLDL [Mass/Vol] 28 mg/dL Normal 0 - 40 [facility] [place] Comment on above: Performed By: #### L IPID #### [address] [address] Cholesterol.total/Chol esterol in HDL [Mass ratio] 2.7 {ratio} Normal [facility] [place] Comment on above: Result Comment: REF VALUES DESIRABLE < 3.4 HIGH RISK > 5.0 Performed By: #### L IPID #### [address] [address] Triglyceride [Mass/Vol] 142 mg/dL Normal 0 - 149 [facility] [place] Comment on above: Result Comment: . AGE DESIRABLE BORDERLINE HIGH HIGH VERY HIGH 0 D-90 D 19 - 174 ---- ---- ---- 91 D- 9 Y 0 - 74 75 - 99 >/= 100 ---- 10-19 Y 0 - 89 90 - 129 >/= 130 ---- 20-24 Y 0 - 114 115 - 149 >/= 150 ---- >24 Y 0 - 149 150 - 199 200- 499 >/= 500 . Venipuncture immediately after or during the administration of Metamizole may lead to falsely low results. Testing should be performed immediately prior to Metamizole dosing. Performed By: #### L IPID #### [address] [address] ALT - Alanine Aminotransfera se, Serumon 09-26-2022 ALT With P-5'-P [Catalytic activity/Vol] 14 U/L 7 - 45 [facility] [employer] Work Phone: Comment on above: Patients treated wit h Sulfasalazine may generate falsely decreased results for ALT. Lipid Panelon 09-26-2022 Cholesterol [Mass/Vol] 221 mg/dL above hig h threshold 0 - 199 [facility] Work Phone: Comment on above: . AGE DESIRABLE BORD TALHA HIGH HIGH 0-19 Y 0 - 169 170 - 199 >/= 200 20-24 Y 0 - 189 190 - 224 >/= 225 >24 Y 0 - 199 200 - 239 >/= 240 All ranges are based on fasting samples. Specific therapeutic targets will vary based on patient-specific cardiac risk.. Pediatric guidelines reference:Pediatrics 2011, 128(S5). Adult guidelines reference: NCEP ATPIII Guidelines, TATI 2001, 258:2486-97. Venipuncture immediately after or during the administration of Metamizole may lead to falsely low results. Testing should be performed immediately prior to Metamizole dosing. Cholesterol in HDL [Mass/Vol] 81.6 mg/dL [facility] [employer] Work Phone: Comment on above: . AGE VERY LOW LOW N ORMAL HIGH 0-19 Y < 35 < 40 40-45 ---- 20-24 Y ---- < 40 >45 ---- >24 Y ---- < 40 40-60 >60. Cholesterol in LDL [Mass/Vol] 111 mg/dL above high threshold 0 - 99 [facility] [employer] Work Phone: Comment on above: . NEAR BORD AGE ISABELLE RABLE OPTIMAL HIGH HIGH VERY HIGH 0-19 Y 0 - 109 --- 110-129 >/= 130 ---- 20-24 Y 0 - 119 --- 120-159 >/= 160 ---- >24 Y 0 - 99 100-129 130-159 160-189 >/=190. Cholesterol.total/Chol esterol in HDL [Mass ratio] 2.7 {ratio} [facility] [employer] Phone: Comment on above: REF VALUESDESIRABLE < 3.4HIGH RISK > 5.0 Triglyceride [Mass/Vol] 142 mg/dL 0 - 149 [facility] [employer] Phone: Comment on above: . AGE DESIRABLE BORD TALHA HIGH HIGH VERY HIGH 0 D-90 D 19 - 174 ---- ---- ----91 D- 9 Y 0 - 74 75 - 99 >/= 100 ---- 10-19 Y 0 - 89 90 - 129 >/= 130 ---- 20-24 Y 0 - 114 115 - 149 >/= 150 ---- >24 Y 0 - 149 150 - 199 200- 499 >/= 500. Venipuncture immediately after or during the administration of Metamizole may lead to falsely low results. Testing should be performed immediately prior to Metamizole dosing. Lipid Panel 28 mg/dL 0 - 40 -[facility] [employer] Work Phone: Clinic Note - Heme Onc-Follo w Up Visiton 08-30-2022 Clinic Note - Heme Onc-Follow Up Visit Patient Visit Information: Visit Type: Follow Up Visit Cancer History: Hodgkin Lymphoma AJCC Edition: 8th (AJCC), Diagnosis Date: Jun 2020, II, History of Present Illness: ID Statement: JOHANA CHIN is a 81 year old Female Chief Complaint: Hodgkin's Lymphoma Interval History: Referred by Dr. 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 Follow up CT chest w/ contrast on 04/26/2020 showed irregular predominantly peripheral interstitial thickening and probable developing fibrosis seen throughout both lungs, within the right lower neck/superior mediastinum 2.5x2.8cm mass, with encasement of regional vascular branches. An 1.1cm precarinal node and 1.6cm ken cluster. Right hilar region large enhancing mass 4x5.5x4.5cm which encases regional bronchovascular branches CT A/P on 02/29/2020 was unremarkable other than a small kidney stone. CT neck on 05/18/20 showed a 2.5 x 2.7 cm mass abutting the superior margin of the right subclavian artery and encasing the proximal right vertebral artery and thyrocervical trunk. PET scan on 05/31/20 showed intensely hypermetabolic right perihilar mass consistent with malignancy, conglomerate hypermetabolic right supraclavicular ken mass as well as multiple hypermetabolic AP window nodes, subcarinal nodes and contralateral left perihilar activity are identified concerning most consistent with ken metastatic disease. EBUS, core biopsy from hilar mass, and FNA from mediastinal nodes was done on 05/26/20 and was negative, patient needed incisional biopsy by ENT on 06/24/20 of right deep neck mass with pathology most consistent with cHL. She was discussed on TB and planned for treatment with only dacarbazine + Brentuximab secondary to her baseline comorbidities and pulmonary function. She commenced C1D1 of A + D on 07/07/20 and tolerated first 2 cycles fairly well however after C3D1 on 09/26/20 she developed worsened SOB, cough, FTT. She was admitted to [facility] from 10/10/20 to 10/19/20, investigations included CT chest showing worsened GGO in the background of her known pulmonary fibrosis, and decreased hilar LAD, negative COVID testing x 2 , Bronchoscopy and BAL with negative cultures, negative VZV, negative funtigell, negative cytology, no viral panel sent. Echo showed EF of 45-50%. She was managed for a likely drug induced pneumonitis with high dose steroids , she was discharged on a prednisone taper. She had new oxygen requirements of 2-4 L/min. PET scan for restaging done 11/12/20 showed marked interval decrease in the metabolic activity and size of right hilar and supraclavicular LAD, residual stable hypermetabolic activity of subcarinal and left hilar LN, Deauville score 4 PET scan done 02/11/21: further decrease in metabolic activity in different right hilar, right supraclavicular and left hilar LN, Deauville score 2 , improvement of pneumonitis consolidations Interval history - 08/30/22 feeling well overall she has no new complaints overall but continues to have her SOB and JORGENSEN her oxygen drops with exertion to 88% at lowest but recovers after she rests quickly she has sputum production has acid reflux she has been active recently with wood cutting she still has her burning mouth syndrome symptoms still have dizziness and her balance is not the best had 2 falls after she tripped outside she has been eating well, her weight is stable no chest pain or fever bowel movements regular mostly no new swelling or LN enlargement PAST MEDICAL HISTORY: HTN, HL, sicca syndrome/burning mouth, cataract, GERD, baseline pulmonary fibrosis, vit D deficiency, squamous cell cancer of the skin cholecystectomy , medial meniscus and cataract repairs SOCIAL HISTORY: worked as a nurse at [employer], 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 REVIEW OF SYSTEMS: Pertinent finding as per the history above. There are no additional specific symptoms pertaining to eyes, ENT, hematologic, lymphatic, neurological, psychiatric, cardiac, pulmonary, GI, , endocrine, rheumatic, dermatological, or musculoskeletal systems. All other systems have been reviewed and generally negative and noncontributory. PHYSICAL EXAMINATION: GENERAL: Age-appropriate, in no acute discomfort. VITAL SIGNS: Reviewed in the EMR ,O2 (more content not included)... Normal [facility] Note - Intakeon 08-30 Clinic Note - Intake Patient Visit Information: Visit TypeFollow Up Visit, hodgkin lymphoma Source of Informationpatient Accompanied byspouse Admission Information: Admission Since Last VisitNo Vital Signs: Temp (degrees C)36.4 degrees C Temperatureskin Heart Rate (beats/min)79 beats per minute Respiration (breaths/min)16 breath per minute BP Systolic (mm Hg)137 mmHg BP Diastolic (mm Hg)77 mmHg BP Mean (mm Hg)97 mmHg Height in cm155.3 centimeter(s) Weight in kg79.7 kilogram(s) Weightstanding BMI (kg/m2)33 kg/M2 BSA (m2)1.85 M2 SpO2 (%)94 % SpO2 Patient Onroom air Pain Screening: Patient States Painno (0) Allergies: No Known Allergies: Active Outpatient Medication Profile: * Patient Currently Takes Medications as of 01-Mar-2022 13:26 documented in Structured Notes Centrum oral tablet: 1 tab(s) orally once a day ketorolac 0.5% ophthalmic solution: 1 drop(s) to each affected eye 2 times a day - both eyes dexamethasone 0.1% ophthalmic solution: 1 drop(s) to each affected eye 2 times a day - both eyes GenTeal ophthalmic solution: 1 drop(s) to each affected eye 2 times a day - both eyes Crestor 20 mg oral tablet: 1 tab(s) orally once a day aspirin 81 mg oral tablet, dispersible: 81 milligram(s) orally once a day Vitamin D3 5000 intl units (125 mcg) oral capsule: 5000 orally once a day Notification: NotificationsAnnual Screens Due Dates Advanced Directives: Due Now Family Violence: Due Now Depression (Due every 6 months for ONC only; all others use Annual date): Due Now Substance Use - Alcohol: Due Now Substance Use - Drugs: Due Now Nutrition: Aug 31, 2022 Learning: Aug 31, 2022 Travel History: COVID-19 Screening Completedno exposure or symptoms Travel or ExposureNO travel to International locations in the past 30 days Falls: Have you fallen in the last 6 monthsyes Why have you fallenpt states she tripped over some brush out in the [place] a couple of weeks ago Did you have a fall with injuryno Do you have a fear of fallingno Do you feel you need assistanceno Is the patient using an assistive deviceno Falls Band/Sticker Applied and Clinician Awareno Electronic Signatures: Alyssa Mchugh (NATALI STINSON) (Signed 30-Aug-2022 14:01) Authored: Patient Visit Information, Vital Signs, Allergies, Outpatient Medication Profile, Notification, Travel History, Falls Last Updated: 30-Aug-2022 14:01 by Alyssa Mchugh (NATALI STINSON) Normal [facility] Medicare Annual Wellness Vis iton 08-27-2022 Medicare Annual Wellness Visit History of Present Illness The patient is being seen for the subsequent annual wellness visit. Past Medical, Surgical and Family History: reviewed and updated in chart. Medications and Supplements: Review of all medications by a prescribing practitioner or clinical pharmacist (such as prescriptions, OTCs, herbal therapies and supplements) documented in the medical record. No, the patient is not using opioids. Patient Self Assessment of Health Status: fair. Tobacco use: Non-User Alcohol use: Non-User, As noted in social history Illicit drug use: Non-User Current diet: well balanced diet. Exercise Frequency: regularly. Depression/Suicide Screening: . During the past 2 weeks, the patient has not felt down, depressed or hopeless. During the past 2 weeks, the patient has not felt little interest or pleasure in doing things. Hearing Impairment: Patient has slight hearing impairment. Cognitive Impairment: No cognitive impairment observed. Bathing: performs independently. Dressing: performs independently. Walking: performs independently. Toileting: performs independently. Feeding: performs independently. Personal Hygiene: performs independently. Bowels: continent. Bladder: continent. Managing Finances: performs independently. Shopping: performs independently. Managing Medications: performs independently. Housework / Basic Home Maintenance: performs independently. Handling Transportation: performs independently. Preparing Meals: performs independently. Using the Telephone/ Communication Devices: performs independently. Falls Risk Screening:. JOHANA has not fallen in the last 6 months. Home safety risk factors: none. 81-year-old woman with Hodgkin's lymphoma presenting in follow-up. Overall much improved. Does have interstitial lung disease presumably as a result of chemotherapy, remarkable improvement. Not using oxygen. Very active with minimal difficulty. Mood remains good. Following closely with hematology as well as pulmonology. Able to do heavy yard work with only minimal shortness of breath. No further mouth pain. Appetite improving. 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) Chronic laryngitis (476.0) (J37.0) CKD (chronic kidney disease) stage 3, GFR 30-59 ml/min (585.3) (N18.30) Cough (786.2) (R05.9) Dyspnea on exertion (786.09) (R06.09) Elevated serum creatinine (790.99) (R79.89) Encounter for immunization (V03.89) (Z23) Epistaxis (784.7) (R04.0) Flank pain (789.09) (R10.9) GERD (gastroesophageal reflux disease) (530.81) (K21.9) Gross hematuria (599.71) (R31.0) Headache (784.0) (R51.9) Hilar mass (786.6) (R91.8) Hodgkin's lymphoma (201.90) (C81.90) Hyperlipidemia (272.4) (E78.5) Hypoxemia (799.02) (R09.02) ILD (interstitial lung disease) (515) (J84.9) Lichen planus (697.0) (L43.9) Low vitamin D level (790.6) (R79.89) Nausea (787.02) (R11.0) Neck mass (784.2) (R22.1) Neuralgia and neuritis (729.2) (M79.2) Oral thrush (112.0) (B37.0) Osteopenia (733.90) (M85.80) Other screening mammogram (V76.12) (Z12.31) Pneumonitis (486) (J18.9) Pre-op evaluation (V72.84) (Z01.818) Preoperative clearance (V72.84) (Z01.818) Pulmonary fibrosis (515) (J84.10) Skin cancer, basal cell (173.91) (C44.91) Past Medical History History of gastroesophageal reflux (GERD) (V12.79) (Z87.19) History of hypercholesterolemia (V12.29) (Z86.39) No pertinent past medical history Surgical History History of Adenoidectomy History of Cholecystectomy History of Eye surgery History Of Prior Surgery no ears, nose or throat surgery History of Meniscus repair History of Tonsillectomy Family History Family history of Alzheimer's disease (V17.2) (Z82.0) Family history of cardiac disorder (V17.49) (Z82.49) father- 50s. -tob mom - 80s brother - 50s, +tob Family history of cerebrovascular accident (CVA) (V17.1) (Z82.3) Family history of cardiac disorder (V17.49) (Z82.49) father- 50s. -tob mom - 80s brother - 50s, +tob Family history of cardiac disorder (V17.49) (Z82.49) father- 50s. -tob mom - 80s brother - 50s, +tob Family history of malignant neoplasm (V16.9) (Z80.9) Social History Caffeine use (V49.89) (Z78.9) Denies alcohol consumption (V49.89) (Z78.9) Never a smoker No alcohol use No drug use Non-smoker (V49.89) (Z78.9) Retired from employment Health Management Health Maintenance Colonoscopy; every 10 years; Last [id number]; Next Due: [id number]; Overdue Fall prevention, home; every 1 year; Next Due: [id number]; Overdue Healt (more content not included)... Normal [facility] Tobacco Screening.on 022 Adult depression screening assessment No [facility] Work Phone: Fall risk assessment b) One or more fall s in the last year [facility] Work Phone: Tobacco use status [facility]PH[facility] b) No [facility] Work Phone: CBC AND DIFFERENTIALon 08-23 % AUTOMATED IMMATURE GRAN 0.4 % Normal 0.0 - 0.9 [facility] [place] Comment on above: Result Comment: Ban ture Granulocyte Count (IG) includes promyelocytes, myelocytes and metamyelocytes but does not include bands. Percent differential counts (%) should be interpreted in the context of the absolute cell counts (cells/L). Performed By: #### C BCDF #### [address] [address] Basophils (Bld) [#/Vol] 0.05 10*3/uL Normal 0.00 - 0.10 [facility] [place] Comment on above: Performed By: #### C BCDF #### [address] [address] Basophils/100 WBC (Bld) 0.6 % Normal 0.0 - 2.0 [facility] [place] Comment on above: Performed By: #### C BCDF #### [address] [address] Eosinophils (Bld) [#/Vol] 0.26 10*3/uL Normal 0.00 - 0.40 [facility] [place] Comment on above: Performed By: #### C BCDF #### [address] [address] Eosinophils/100 WBC (Bld) 3.3 % Normal 0.0 - 6.0 [facility] [place] Comment on above: Performed By: #### C BCDF #### [address] [address] Erythrocyte distribution width (RBC) [Ratio] 15.6 % High 11.5 - 14.5 [facility] [place] Comment on above: Performed By: #### C BCDF #### [address] [address] Hematocrit (Bld) [Volume fraction] 43.9 % Normal 36.0 - 46.0 [facility] [place] Comment on above: Performed By: #### C BCDF #### [address] [address] Hemoglobin (Bld) [Mass/Vol] 14.2 g/dL Normal 12.0 - 16.0 [facility] [place] Comment on above: Performed By: #### C BCDF #### [address] [address] Lymphocytes (Bld) [#/Vol] 1.75 10*3/uL Normal 0.80 - 3.00 [facility] [place] Comment on above: Performed By: #### C BCDF #### [address] [address] Lymphocytes/100 WBC (Bld) 22.0 % Normal 13.0 - 44.0 [facility] [place] Comment on above: Performed By: #### C BCDF #### [address] [address] MCHC (RBC) [Mass/Vol] 32.3 g/dL Normal 32.0 - 36.0 [facility] [place] Comment on above: Performed By: #### C BCDF #### [address] [address] MCV (RBC) [Entitic vol] 87 fL Normal 80 - 100 [facility] [place] Comment on above: Performed By: #### C BCDF #### [address] [address] Monocytes (Bld) [#/Vol] 0.76 10*3/uL Normal 0.05 - 0.80 [facility] [place] Comment on above: Performed By: #### C BCDF #### [address] [address] Monocytes/100 WBC (Bld) 9.5 % Normal 2.0 - 10.0 [facility] [place] Comment on above: Performed By: #### C BCDF #### [address] [address] Neutrophils (Bld) [#/Vol] 5.12 10*3/uL Normal 1.60 - 5.50 [facility] [place] Comment on above: Result Comment: Perc ent differential counts (%) should be interpreted in the context of the absolute cell counts (cells/L). Performed By: #### C BCDF #### [address] [address] Neutrophils/100 WBC (Bld) 64.2 % Normal 40.0 - 80.0 [facility] [place] Comment on above: Performed By: #### C BCDF #### [address] [address] Platelets (Bld) [#/Vol] 239 10*3/uL Normal 150 - 450 [facility] [place] Comment on above: Performed By: #### C BCDF #### [address] [address] RBC 5.03 x10E12/L Normal 4.00 - 5.20 [facility] [place] Comment on above: Performed By: #### C BCDF #### [address] [address] WBC (Bld) [#/Vol] 8.0 10*3/uL Normal 4.4 - 11.3 [facility] [place] Comment on above: Performed By: #### C BCDF #### [address] [address] COMPREHENSIVE PANELon 2021 Albumin [Mass/Vol] 3.9 g/dL Normal 3.4 - 5.0 [facility] [place] Comment on above: Performed By: #### L DH #### [address] [address] ALP [Catalytic activity/Vol] 65 U/L Normal 33 - 136 [facility] [place] Comment on above: Performed By: #### L DH #### [address] [address] ALT [Catalytic activity/Vol] 16 U/L Normal 7 - 45 [facility] [place] Comment on above: Result Comment: Duyen ents treated with Sulfasalazine may generate falsely decreased results for ALT. Performed By: #### L DH #### [address] [address] Anion gap [Moles/Vol] 10 mmol/L Normal 10 - 20 [facility] [place] Comment on above: Performed By: #### L DH #### [address] [address] AST [Catalytic activity/Vol] 21 U/L Normal 9 - 39 [facility] [place] Comment on above: Performed By: #### L DH #### [address] [address] Bilirubin [Mass/Vol] 0.5 mg/dL Normal 0.0 - 1.2 [facility] [place] Comment on above: Performed By: #### L DH #### [address] [address] Calcium [Mass/Vol] 9.8 mg/dL Normal 8.6 - 10.3 [facility] [place] Comment on above: Performed By: #### L DH #### [address] [address] Chloride [Moles/Vol] 104 mmol/L Normal 98 - 107 [facility] [place] Comment on above: Performed By: #### L DH #### [address] [address] Creatinine [Mass/Vol] 0.90 mg/dL Normal 0.50 - 1.05 [facility] [place] Comment on above: Performed By: #### L DH #### [address] [address] GFR/1.73 sq M.predicted among non-blacks MDRD (S/P/Bld) [Vol rate/Area] 65 mL/min/{1.73_m2} Normal >90 [facility] [place] Comment on above: Result Comment: CALC ULATIONS OF ESTIMATED GFR ARE PERFORMED USING THE 2020 CKD-EPI STUDY REFIT EQUATION WITHOUT THE RACE VARIABLE FOR THE IDMS-TRACEABLE CREATININE METHODS. https://jasn.asnjournals.org/content//ASN.04699 [address] Performed By: #### L DH #### [address] [address] Glucose [Mass/Vol] 86 mg/dL Normal 74 - 99 [facility] [place] Comment on above: Performed By: #### L DH #### [address] [address] HCO3 (Bld) [Moles/Vol] 29 mmol/L Normal 21 - 32 [facility] [place] Comment on above: Performed By: #### L DH #### [address] [address] Potassium [Moles/Vol] 4.1 mmol/L Normal 3.5 - 5.3 [facility] [place] Comment on above: Performed By: #### L DH #### [address] [address] Protein [Mass/Vol] 6.6 g/dL Normal 6.4 - 8.2 [facility] [place] Comment on above: Performed By: #### L DH #### [address] [address] Sodium [Moles/Vol] 139 mmol/L Normal 136 - 145 [facility] [place] Comment on above: Performed By: #### L DH #### [address] [address] Urea nitrogen [Mass/Vol] 16 mg/dL Normal 6 - 23 [facility] [place] Comment on above: Performed By: #### L DH #### [address] [address] Complete Blood Count + Diffe rentialon 08-23-2022 Basophils/100 WBC (Bld) 0.6 % 0.0 - 2.0 [facility] Work Phone: Erythrocyte distribution width (RBC) [Ratio] 15.6 % above high threshold See Below [facility] Work Phone: Comment on above: Reference Range: 11. 5 - 14.5 Hematocrit (Bld) [Volume fraction] 43.9 % See Below [facility] Work Phone: Comment on above: Reference Range: 36. 0 - 46.0 Hemoglobin (Bld) [Mass/Vol] 14.2 g/dL See Below [facility] Work Phone: Comment on above: Reference Range: 12. 0 - 16.0 Lymphocytes/100 WBC (Bld) 22.0 % See Below [facility] Work Phone: Comment on above: Reference Range: 13. 0 - 44.0 MCHC (RBC) [Mass/Vol] 32.3 g/dL See Below [facility] Work Phone: Comment on above: Reference Range: 32. 0 - 36.0 MCV (RBC) [Entitic vol] 87 fL 80 - 100 [facility] Work Phone: Monocytes/100 WBC (Bld) 9.5 % 2.0 - 10.0 [facility] Work Phone: Neutrophils/100 WBC (Bld) 64.2 % See Below [facility] Work Phone: Comment on above: Reference Range: 40. 0 - 80.0 Platelets (Bld) [#/Vol] 239 10*3/uL 150 - 450 [facility] Work Phone: RBC (Bld) [#/Vol] 5.03 {x10E12/L} See Below [facility] [employer] Phone: Comment on above: Reference Range: 4.0 0 - 5.20 WBC (Bld) [#/Vol] 8.0 10*3/uL 4.4 - 11.3 [facility] Work Phone: Complete Blood Count + Differential 0.05 {x10E9/L} See Below [facility] Work Phone: Comment on above: Reference Range: 0.0 0 - 0.10 Complete Blood Count + Differential 0.26 {x10E9/L} See Below [facility] Work Phone: Comment on above: Reference Range: 0.0 0 - 0.40 Complete Blood Count + Differential 0.76 {x10E9/L} See Below [facility] Work Phone: Comment on above: Reference Range: 0.0 5 - 0.80 Complete Blood Count + Differential 1.75 {x10E9/L} See Below [facility] Work Phone: Comment on above: Reference Range: 0.8 0 - 3.00 Complete Blood Count + Differential 5.12 {x10E9/L} See Below [facility] Work Phone: Comment on above: Reference Range: 1.6 0 - 5.50 Percent differential counts (%) should be interpreted in the context of the absolute cell counts (cells/L). Complete Blood Count + Differential 3.3 % 0.0 - 6.0 [facility] Work Phone: Complete Blood Count + Differential 0.4 % 0.0 - 0.9 [facility] Work Phone: Comment on above: Immature Granulocyte Count (IG) includes promyelocytes, myelocytes and metamyelocytes but does not include bands. Percent differential counts (%) should be interpreted in the context of the absolute cell counts (cells/L). LDHon 08-23-2022 LDH 187 U/L Normal 84 - 246 [facility] [place] Comment on above: Performed By: #### L #### [address] [address] Laboratory - Chemistry and C hemistry - challengeon 08-23-2022 Albumin BCP dye [Mass/Vol] 3.9 g/dL 3.4 - 5.0 [facility] Work Phone: ALP [Catalytic activity/Vol] 65 U/L 33 - 136 [facility] Work Phone: ALT With P-5'-P [Catalytic activity/Vol] 16 U/L 7 - 45 [facility] Work Phone: Comment on above: Patients treated wit h Sulfasalazine may generate falsely decreased results for ALT. Anion gap [Moles/Vol] 10 mmol/L 10 - 20 [facility] Work Phone: AST With P-5'-P [Catalytic activity/Vol] 21 U/L 9 - 39 [facility] Work Phone: Bilirubin [Mass/Vol] 0.5 mg/dL 0.0 - 1.2 [facility] Work [facility]: Calcium [Mass/Vol] 9.8 mg/dL 8.6 - 10.3 [facility] Work Phone: Chloride [Moles/Vol] 104 mmol/L 98 - 107 [facility] Work Phone: CO2 [Moles/Vol] 29 mmol/L 21 - 32 [facility] Work Phone: Creatinine [Mass/Vol] 0.90 mg/dL See Below [facility] Work Phone: Comment on above: Reference Range: 0.5 0 - 1.05 Glucose [Mass/Vol] 86 mg/dL 74 - 99 [facility] Work Phone: LDH [Catalytic activity/Vol] 187 U/L 84 - 246 [facility] Work Phone: Potassium [Moles/Vol] 4.1 mmol/L 3.5 - 5.3 [facility] Work Phone: Protein [Mass/Vol] 6.6 g/dL 6.4 - 8.2 [facility] Work Phone: Sodium [Moles/Vol] 139 mmol/L 136 - 145 [facility] Work Phone: Urea nitrogen [Mass/Vol] 16 mg/dL 6 - 23 [facility] Work Phone: No Panel Informationon 08-23 65 {mL/min/1.73m2} >90 [facility] Work Phone: Comment on above: CALCULATIONS OF ZOYA MATED GFR ARE PERFORMED USING THE 2020 CKD-EPI STUDY REFIT EQUATION WITHOUT THE RACE VARIABLE FOR THE IDMS-TRACEABLE CREATININE METHODS.https://jasn.asnjournals.org/content/early/A .2468196456 SEDIMENTATION RATE, ERYTHROC YTEon 08-23-2022 SEDIMENTATION RATE, ERYTHROCYTE 18 mm/h Normal 0 - 30 [facility] [place] Comment on above: Performed By: #### E SRWS #### [address] [address] Sedimentation Rate, Erythroc yteon 08-23-2022 ESR (Bld) [Velocity] 18 mm/h 0 - 30 [facility] Work Phone: Follow Up (Pulmonary Medicin e)on 03-15-2022 Follow Up (Pulmonary Medicine) Diagnoses/Problems ILD (interstitial lung disease) (515) (J84.9) Provider Impressions Impressions: 1. Significant improvement in bilateral interstitial lung disease on her HRCT 2. No significant dyspnea with her daily activities. 3. No hypoxemia. Recommendations: 1. At this time I do not see a reason to do further scans of her chest but would suggest rather following her physical exam and clinical picture. She may have some residual changes in her lungs. 2. I will leave it up to the attending, but could consider doing a chest x-ray in 6 months. 3. I do not have her scheduled for any further follow-up visits with me. This note was transcribed using the [employer] Dictation system. There may be grammatical, punctuation, or verbiage errors that occur with voice recognition programs. Thank you for allowing me to participate in the care of your patient. Chief Complaint JOHANA CHIN is here for a 6 month follow-up. Reason for Visit: HRCT Chest. Appointment requested by: Dr. Camacho. History of Present IllnessPatient was seen today in the office on a 6-month follow-up visit. I was happy to review with her the results of her high-resolution CT scan of the chest done on 03/05/2022 which shows significant improvement in the interstitial changes bilaterally. Patient reports to me that she finished her chemotherapy on 09/26/2021 and a agree with radiology that there is a very good likelihood that the changes on her x-ray were due to that treatment. Patient reports that she is without significant respiratory symptoms. Her oxygen saturation today on room air was 96%. Patient denies a dyspnea with her usual daily activities. Review of Systems She denies having any fever, chills, rhinitis or sore throat. She is not a smoker. All other review of systems were noncontributory. Refer to the HPI. 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) Chronic laryngitis (476.0) (J37.0) CKD (chronic kidney disease) stage 3, GFR 30-59 ml/min (585.3) (N18.30) Cough (786.2) (R05.9) Dyspnea on exertion (786.09) (R06.00) Elevated serum creatinine (790.99) (R79.89) Encounter for immunization (V03.89) (Z23) Epistaxis (784.7) (R04.0) Flank pain (789.09) (R10.9) GERD (gastroesophageal reflux disease) (530.81) (K21.9) Gross hematuria (599.71) (R31.0) Headache (784.0) (R51.9) Hilar mass (786.6) (R91.8) Hodgkin's lymphoma (201.90) (C81.90) Hyperlipidemia (272.4) (E78.5) Hypoxemia (799.02) (R09.02) ILD (interstitial lung disease) (515) (J84.9) Lichen planus (697.0) (L43.9) Low vitamin D level (790.6) (R79.89) Nausea (787.02) (R11.0) Neck mass (784.2) (R22.1) Neuralgia and neuritis (729.2) (M79.2) Oral thrush (112.0) (B37.0) Osteopenia (733.90) (M85.80) Other screening mammogram (V76.12) (Z12.31) Pneumonitis (486) (J18.9) Pre-op evaluation (V72.84) (Z01.818) Preoperative clearance (V72.84) (Z01.818) Pulmonary fibrosis (515) (J84.10) Skin cancer, basal cell (173.91) (C44.91) Past Medical History History of gastroesophageal reflux (GERD) (V12.79) (Z87.19) History of hypercholesterolemia (V12.29) (Z86.39) No pertinent past medical history Surgical History History of Adenoidectomy History of Cholecystectomy History of Eye surgery History Of Prior Surgery no ears, nose or throat surgery History of Meniscus repair History of Tonsillectomy Family History Family history of Alzheimer's disease (V17.2) (Z82.0) Family history of cardiac disorder (V17.49) (Z82.49) father- 50s. -tob mom - 80s brother - 50s, +tob Family history of cerebrovascular accident (CVA) (V17.1) (Z82.3) Family history of cardiac disorder (V17.49) (Z82.49) father- 50s. -tob mom - 80s brother - 50s, +tob Family history of cardiac disorder (V17.49) (Z82.49) father- 50s. -tob mom - 80s brother - 50s, +tob Family history of malignant neoplasm (V16.9) (Z80.9) Social History Caffeine use (V49.89) (Z78.9) Denies alcohol consumption (V49.89) (Z78.9) Never a smoker No alcohol use No drug use Non-smoker (V49.89) (Z78.9) Retired from employment Allergies No Known Drug Allergies Recorded By: Alem Murphy; 01/04/2014 11:56:24 AM Current Meds Medication NameInstruction Aspirin EC 81 MG Oral Tablet Delayed Release Dexamethasone 0.5 MG/5ML Oral ElixirTAKE 0.5mgs,5ml 3 times daily prn Multivitamin Adult Oral TabletTAKE 1 TABLET DAILY. Rosuvastatin Calcium 20 MG Oral TabletTake 1 tablet daily Vitamin D 1000 UNIT TABS Vitals Vital Signs Recorded: [id number] 10:07AM Cjghujslxcp11.4 F, Temporal Heart Rate68 Xwmoajqd318 Avwhhkjdk66 Height5 ft 1 in Nbztqq368 lb 6.4 oz BMI Rginlmchfr32.33 kg/m2 (more content not included)... Normal [facility] Tobacco Screening.on 022 Fall risk assessment a) No falls within the last year [facility] DO Work Phone: Tobacco use status [facility] b) No [facility] DO Work Phone: CT Chest High Resolutionon 0 03-05-2022 CT Chest High Resolution Normal [facility] DO Work Phone: TH CT CHEST HIGH RESOLUTIONo n 03-05-[address] CHEST HIGH RESOLUTION Patient Name: BELKIS JOHANA STUDY: CT CHEST HIGH RESOLUTION; 03/05/2022 9:50 am INDICATION: ILD J84.9: ILD (interstitial lung disease). COMPARISON: Prior chest CTs most recent from 10/11/2020 and prior PET-CT from 02/11/2021 ACCESSION NUMBER(S): [id number] ORDERING CLINICIAN: CHANDA WELLER TECHNIQUE: Using helical multidetector technique, volumetric data acquisition of the chest was obtained without intravenous administration of contrast material under the high resolution chest CT protocol. Examination includes contiguous slices through the chest in supine positioning during inspiration, noncontiguous axial slices in supine positioning during expiration and prone positioning during inspiration. FINDINGS: LUNGS AND AIRWAYS: The trachea and central airways are patent. No endobronchial lesion. Redemonstration of diffuse subpleural reticulation, patchy ground-glass opacification and septal thickening, involving the upper and lower lobes, with slight lower lobe predominance, demonstrating both a peripheral and axial distribution. Associated mild traction bronchiectasis is seen predominantly in the medial lower lobes and left upper lobe. No evidence of honeycombing. Findings have overall improved since the most recent prior chest CT from 10/11/2020. Expiratory imaging demonstrates few foci of air trapping. Prone imaging reveals mild partial improvement of bibasilar atelectasis. MEDIASTINUM AND RYAN, LOWER NECK AND AXILLA: The visualized thyroid gland is within normal limits. Several small subcentimeter to borderline enlarged mediastinal lymph nodes measuring up to 1 cm at the right paratracheal space are stable. Assessment of hilar adenopathy is limited on this noncontrast study, therefore visualization of the previously described residual right perihilar mass identified on the prior PET-CT from 02/11/2021 is difficult. Small hiatal hernia is again seen. HEART AND VESSELS: Ascending thoracic aorta is at the top limits of normal in size measuring 4 cm. Mild calcific atherosclerosis is present, including calcified and noncalcified plaques along the visualized thoracoabdominal aorta and major branches. Main pulmonary artery and its branches are normal in caliber. Mild coronary artery calcifications are seen.The study is not optimized for evaluation of coronary arteries. There is mild cardiomegaly. Prominent aortic valve leaflet calcifications are seen, correlate with concern for calcific aortic stenosis. No evidence of pericardial effusion. UPPER ABDOMEN: The visualized subdiaphragmatic structures demonstrate suspected small left peripelvic renal cysts. Prior cholecystectomy. CHEST WALL AND OSSEOUS STRUCTURES: Chest wall is within normal limits. There are no suspicious osseous lesions. Multilevel degenerative changes are present in the visualized spine. IMPRESSION: 1. Redemonstration of diffuse fibrotic changes of interstitial lung disease as above, improved since the most recent prior chest CT from September 2020. Findings may be partly related to prior chemotherapy in the setting of the known lymphoma. HRCT pattern of pulmonary fibrosis: 'Indeterminate for UIP' pattern: Basal and subpleural predominant reticulations without traction bronchiectatic changes or honeycombing; OR, CT features and/or distribution of lung fibrosis that do not suggest any specific etiology. Recommendations :Further testing may be needed for final diagnosis. Consult a chain mender for further workup and biopsy evaluation. (Austin G, Ale M, Bar BOWSER, et al. Diagnosis of Idiopathic Pulmonary Fibrosis. An Official ATS/ERS/JRS/ALAN Clinical Practice Guideline. Am J Respir Crit Care Med. 2018;198(5):e44-e68. doi:[email or web address]/[facility] medical [email or web address] 255ST) 2. Stable few small subcentimeter to borderline enlarged mediastinal lymph nodes. Limited assessment of hilar adenopathy on the current nonenhanced study. 3. Borderline dilated 4-cm ascending thoracic aorta. Mild cardiomegaly. 4. Mild coronary artery calcifications, indicating the presence of coronary artery disease. If the patient has associated symptoms recommend management as per chest pain guidelines (e.g. https://doi.org/10.1161/C IR.9678040145843392). If the patient is asymptomatic consider reviewing modifiable cardiovascular risk factors and managing as per guidelines for primary prevention (e.g. https://doi.org/10.1161/C IR.5598761526576232) 5. Other findings as above. 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 Continue excellent lifestyle. #2 hyperlipidemia- labs 6 mths #3 osteopenia- followup bone density 0.5 yrs. Continue vitamin D and calcium plus daily exercise. #4 burning mouth- much better. Lichen planus. Check hepatitis C antibodies. #5 reflux- substantially improved on once a day PPI. Follow-up GI?Dr. Mcginnis #6 basal cell cancer-has appointment upcoming for Mohs surgery on head. #7 headache- peculiar. Head pain is increased intracranial pressure is concerning. We will obtain MRI brain. #8 ILD-much improved. Follow-up pulmonology #9 Hodgkin's lymphoma?doing well. Follow-up hematology. #10 reduced EGFR?normal last 2 test. Continue to follow. #11 imbalance- likely 2/2 neuropathy (chemo). declines PT c/s. reviewed fall precautions Order for mammogram to patient, reviewed s/p colonoscopy- all good. Chief Complaint 6 month fu Adult Risk ScreeningThere are no spiritual/cultural practices/values/needs that are important to know Initial Fall Risk Screening: JOHANA has not fallen in the last 6 months. History of Present Illness 80-year-old woman with Hodgkin's lymphoma presenting in follow-up. Overall much improved. Does have interstitial lung disease presumably as a result of chemotherapy, remarkable improvement. Not using oxygen. Very active with minimal difficulty. Mood remains good. Following closely with hematology as well as pulmonology. Able to do heavy yard work with only minimal shortness of breath. No further mouth pain. Appetite improving. 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) Chronic laryngitis (476.0) (J37.0) CKD (chronic kidney disease) stage 3, GFR 30-59 ml/min (585.3) (N18.30) Cough (786.2) (R05.9) Dyspnea on exertion (786.09) (R06.00) Elevated serum creatinine (790.99) (R79.89) Encounter for immunization (V03.89) (Z23) Epistaxis (784.7) (R04.0) Flank pain (789.09) (R10.9) GERD (gastroesophageal reflux disease) (530.81) (K21.9) Gross hematuria (599.71) (R31.0) Headache (784.0) (R51.9) Hilar mass (786.6) (R91.8) Hodgkin's lymphoma (201.90) (C81.90) Hyperlipidemia (272.4) (E78.5) Hypoxemia (799.02) (R09.02) ILD (interstitial lung disease) (515) (J84.9) Lichen planus (697.0) (L43.9) Low vitamin D level (790.6) (R79.89) Nausea (787.02) (R11.0) Neck mass (784.2) (R22.1) Neuralgia and neuritis (729.2) (M79.2) Oral thrush (112.0) (B37.0) Osteopenia (733.90) (M85.80) Other screening mammogram (V76.12) (Z12.31) Pneumonitis (486) (J18.9) Pre-op evaluation (V72.84) (Z01.818) Preoperative clearance (V72.84) (Z01.818) Pulmonary fibrosis (515) (J84.10) Skin cancer, basal cell (173.91) (C44.91) Past Medical History Problems History of gastroesophageal reflux (GERD) (V12.79) (Z87.19) History of hypercholesterolemia (V12.29) (Z86.39) No pertinent past medical history Surgical History Problems History of Adenoidectomy History of Cholecystectomy History of Eye surgery History Of Prior Surgery no ears, nose or throat surgery History of Meniscus repair History of Tonsillectomy Family History Mother Family history of Alzheimer's disease (V17.2) (Z82.0) Family history of cardiac disorder (V17.49) (Z82.49) father- 50s. -tob mom - 80s brother - 50s, +tob Family history of cerebrovascular accident (CVA) (V17.1) (Z82.3) Father Family history of cardiac disorder (V17.49) (Z82.49) father- 50s. -tob mom - 80s brother - 50s, +tob Brother Family history of cardiac disorder (V17.49) (Z82.49) father- 50s. -tob mom - 80s brother - 50s, +tob Family history of malignant neoplasm (V16.9) (Z80.9) Social History Problems Caffeine use (V49.89) (Z78.9) Denies alcohol consumption (V49.89) (Z78.9) Never a smoker No alcohol use No drug use Non-smoker (V49.89) (Z78.9) Retired from employment Allergies Medication No Known Drug Allergies Recorded By: Alem Murphy; 01/04/2014 11:56:24 AM Current Meds Medication NameInstruction Aspirin EC 81 MG Oral Tablet Delayed Release Dexamethasone 0 (more content not included)... Normal [facility] Tobacco Screening.on 022 Adult depression screening assessment No [facility] Work Phone: Fall risk assessment a) No falls within the last year [facility] Phone: Tobacco use status CPHS b) No [facility] Phone: Clinic Note - Heme Onc-Follo w Up Visiton 03-01-2022 Clinic Note - Heme Onc-Follow Up Visit Patient Visit Information: Visit Type: Follow Up Visit Cancer History: Hodgkin Lymphoma AJCC Edition: 8th (AJCC), Diagnosis Date: Jun 2020, II, History of Present Illness: ID Statement: JOHANA CHIN is a 81 year old Female Chief Complaint: Hodgkin's Lymphoma Interval History: Referred by Dr. 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 Follow up CT chest w/ contrast on 04/26/2020 showed irregular predominantly peripheral interstitial thickening and probable developing fibrosis seen throughout both lungs, within the right lower neck/superior mediastinum 2.5x2.8cm mass, with encasement of regional vascular branches. An 1.1cm precarinal node and 1.6cm ken cluster. Right hilar region large enhancing mass 4x5.5x4.5cm which encases regional bronchovascular branches CT A/P on 02/29/2020 was unremarkable other than a small kidney stone. CT neck on 05/18/20 showed a 2.5 x 2.7 cm mass abutting the superior margin of the right subclavian artery and encasing the proximal right vertebral artery and thyrocervical trunk. PET scan on 05/31/20 showed intensely hypermetabolic right perihilar mass consistent with malignancy, conglomerate hypermetabolic right supraclavicular ken mass as well as multiple hypermetabolic AP window nodes, subcarinal nodes and contralateral left perihilar activity are identified concerning most consistent with ken metastatic disease. EBUS, core biopsy from hilar mass, and FNA from mediastinal nodes was done on 05/26/20 and was negative, patient needed incisional biopsy by ENT on 06/24/20 of right deep neck mass with pathology most consistent with cHL. She was discussed on TB and planned for treatment with only dacarbazine + Brentuximab secondary to her baseline comorbidities and pulmonary function. She commenced C1D1 of A + D on 07/07/20 and tolerated first 2 cycles fairly well however after C3D1 on 09/26/20 she developed worsened SOB, cough, FTT. She was admitted to [facility] from 10/10/20 to 10/19/20, investigations included CT chest showing worsened GGO in the background of her known pulmonary fibrosis, and decreased hilar LAD, negative COVID testing x 2 , Bronchoscopy and BAL with negative cultures, negative VZV, negative funtigell, negative cytology, no viral panel sent. Echo showed EF of 45-50%. She was managed for a likely drug induced pneumonitis with high dose steroids , she was discharged on a prednisone taper. She had new oxygen requirements of 2-4 L/min. PET scan for restaging done 11/12/20 showed marked interval decrease in the metabolic activity and size of right hilar and supraclavicular LAD, residual stable hypermetabolic activity of subcarinal and left hilar LN, Deauville score 4 PET scan done 02/11/21: further decrease in metabolic activity in different right hilar, right supraclavicular and left hilar LN, Deauville score 2 , improvement of pneumonitis consolidations Interval history - 03/01/22 she is feeling very well today she has no new complaints otherwise she has good energy and activity and has no new complaints , she feels tired after activity and had one episode of desaturation to 88% but recovered quickly breathing stable otherwise, she has sputum production and has acid reflux she still has her burning mouth syndrome symptoms continues to have her dizziness as well she has been eating well, she has gained some weight no chest pain or fever bowel movements regular mostly she does not want to try anything for reflux or to see a neurologist for dizziness PAST MEDICAL HISTORY: HTN, HL, sicca syndrome/burning mouth, cataract, GERD, baseline pulmonary fibrosis, vit D deficiency, squamous cell cancer of the skin cholecystectomy , medial meniscus and cataract repairs SOCIAL HISTORY: worked as a nurse at [employer], 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 REVIEW OF SYSTEMS: Pertinent finding as per the history above. There are no additional specific symptoms pertaining to eyes, ENT, hematologic, lymphatic, neurological, psychiatric, cardiac, pulmonary, GI, , endocrine, rheumatic, dermatological, or musculoskeletal systems. All other systems have been reviewed and generally negative and noncontributory. PHYSICAL EXAMINATION: GENERAL: Age-appropriate, in no acute discomfort. VITAL (more content not included)... Normal [facility] Note - Intakeon 03-01 Clinic Note - Intake Patient Visit Information: Visit TypeFollow Up Visit, hodgkin lymphoma Source of Informationpatient Accompanied byspouse Admission Information: Admission Since Last VisitNo Vital Signs: Temp (degrees C)36.1 degrees C Temperatureskin Heart Rate (beats/min)72 beats per minute Respiration (breaths/min)16 breath per minute BP Systolic (mm Hg)134 mmHg BP Diastolic (mm Hg)81 mmHg BP Mean (mm Hg)98 mmHg Height in cm155.3 centimeter(s) Weight in kg80 kilogram(s) Weightstanding BMI (kg/m2)33.1 kg/M2 BSA (m2)1.85 M2 SpO2 (%)93 % SpO2 Patient Onroom air Pain Screening: Patient States Painno (0) Allergies: No Known Allergies: Active Outpatient Medication Profile: * Patient Currently Takes Medications as of 24-May-2021 14:12 documented in Structured Notes Centrum oral tablet: 1 tab(s) orally once a day ketorolac 0.5% ophthalmic solution: 1 drop(s) to each affected eye 2 times a day - both eyes dexamethasone 0.1% ophthalmic solution: 1 drop(s) to each affected eye 2 times a day - both eyes GenTeal ophthalmic solution: 1 drop(s) to each affected eye 2 times a day - both eyes Crestor 20 mg oral tablet: 1 tab(s) orally once a day aspirin 81 mg oral tablet, dispersible: 81 milligram(s) orally once a day Vitamin D3 5000 intl units (125 mcg) oral capsule: 5000 orally once a day Notification: NotificationsAnnual Screens Due Dates Advanced Directives: Due Now Family Violence: Due Now Depression (Due every 6 months for ONC only; all others use Annual date): Due Now Substance Use - Alcohol: Due Now Substance Use - Drugs: Due Now Nutrition: Aug 31, 2022 Learning: Aug 31, 2022 Travel History: COVID-19 Screening Completedno exposure or symptoms Travel or ExposureNO travel to International locations in the past 30 days Falls: Have you fallen in the last 6 monthsno Do you have a fear of fallingno Do you feel you need assistanceno Is the patient using an assistive deviceno Not a falls riskimplement environmental risk factors interventions Electronic Signatures: Alyssa Mchugh (NATALI STINSON) (Signed 01-Mar-2022 13:18) Authored: Patient Visit Information, Vital Signs, Allergies, Outpatient Medication Profile, Notification, Travel History, Falls Last Updated: 01-Mar-2022 13:18 by Alyssa Mchugh (NATALI STINSON) [facility] Complete Blood Count + Diffe kamar 02-26-2022 Basophils/100 WBC (Bld) 0.4 % 0.0 - 2.0 [facility] Work Phone: Erythrocyte distribution width (RBC) [Ratio] 15.0 % above high threshold See Below [facility] Work Phone: Comment on above: Reference Range: 11. 5 - 14.5 Hematocrit (Bld) [Volume fraction] 41.4 % See Below [facility] Work Phone: Comment on above: Reference Range: 36. 0 - 46.0 Hemoglobin (Bld) [Mass/Vol] 14.0 g/dL See Below [facility] Work Phone: Comment on above: Reference Range: 12. 0 - 16.0 Lymphocytes/100 WBC (Bld) 17.2 % See Below [facility] Work Phone: Comment on above: Reference Range: 13. 0 - 44.0 MCHC (RBC) [Mass/Vol] 33.8 g/dL See Below [facility] Work [facility]: Comment on above: Reference Range: 32. 0 - 36.0 MCV (RBC) [Entitic vol] 87 fL 80 - 100 [facility] Work Phone: Monocytes/100 WBC (Bld) 9.8 % 2.0 - 10.0 [facility] Work Phone: Neutrophils/100 WBC (Bld) 69.4 % See Below [facility] Work Phone: Comment on above: Reference Range: 40. 0 - 80.0 Platelets (Bld) [#/Vol] 238 10*3/uL 150 - 450 [facility] Work Phone: RBC (Bld) [#/Vol] 4.75 {x10E12/L} See Below [facility] Work Phone: Comment on above: Reference Range: 4.0 0 - 5.20 WBC (Bld) [#/Vol] 9.5 10*3/uL 4.4 - 11.3 [facility] Work [facility]: Complete Blood Count + Differential 0.00 {x10E9/L} See Below [facility] Work Phone: Comment on above: Reference Range: 0.0 0 - 0.10 Complete Blood Count + Differential 0.30 {x10E9/L} See Below [facility] Work Phone: Comment on above: Reference Range: 0.0 0 - 0.40 Complete Blood Count + Differential 0.90 {x10E9/L} above high threshold See Below [facility] Work Phone: Comment on above: Reference Range: 0.0 5 - 0.80 Complete Blood Count + Differential 1.60 {x10E9/L} See Below [facility] Work Phone: Comment on above: Reference Range: 0.8 0 - 3.00 Complete Blood Count + Differential 6.60 {x10E9/L} above high threshold See Below [facility] Work Phone: Comment on above: Reference Range: 1.6 0 - 5.50 Percent differential counts (%) should be interpreted in the context of the absolute cell counts (cells/L). Complete Blood Count + Differential 3.2 % 0.0 - 6.0 [facility] Work Phone: Ferritin, Serumon 02-26-2022 Ferritin [Mass/Vol] 94 ug/L 8 - 150 [facility] Work Phone: Laboratory - Chemistry and C hemistry - challengeon 02-26-2022 Albumin BCP dye [Mass/Vol] 3.9 g/dL 3.4 - 5.0 [facility] Work Phone: ALP [Catalytic activity/Vol] 71 U/L 33 - 136 [facility] Work Phone: ALT With P-5'-P [Catalytic activity/Vol] 19 U/L 7 - 45 [facility] Work Phone: Comment on above: Patients treated wit h Sulfasalazine may generate falsely decreased results for ALT. Anion gap [Moles/Vol] 10 mmol/L 10 - 20 [facility] Work Phone: AST With P-5'-P [Catalytic activity/Vol] 21 U/L 9 - 39 [facility] Work Phone: Bilirubin [Mass/Vol] 0.4 mg/dL 0.0 - 1.2 [facility] Work Phone: Calcium [Mass/Vol] 9.4 mg/dL 8.6 - 10.3 [facility] Work Phone: Chloride [Moles/Vol] 104 mmol/L 98 - [facility] Work [facility]: CO2 [Moles/Vol] 29 mmol/L 21 - 32 [facility] Work Phone: Creatinine [Mass/Vol] 0.86 mg/dL See Below [facility] Work Phone: Comment on above: Reference Range: 0.5 0 - 1.05 Glucose [Mass/Vol] 95 mg/dL 74 - 99 [facility] Work Phone: Iron [Mass/Vol] 53 ug/dL 35 - 150 [facility] Work Phone: Iron binding capacity [Mass/Vol] 302 ug/dL 240 - 445 [facility] Work Phone: Potassium [Moles/Vol] 4.3 mmol/L 3.5 - 5.3 [facility] Work Phone: Protein [Mass/Vol] 7.2 g/dL 6.4 - 8.2 [facility] Work Phone: Sodium [Moles/Vol] 139 mmol/L 136 - 145 [facility] Work Phone: Urea nitrogen [Mass/Vol] 16 mg/dL 6 - 23 [facility] Work Phone: No Panel Informationon 02-26 18 % below low threshold 25 - 45 [facility] Work Phone: 68 {mL/min/1.73m2} >90 [facility] Work Phone: Comment on above: CALCULATIONS OF ZOYA MATED GFR ARE PERFORMED USING THE 2020 CKD-EPI STUDY REFIT EQUATION WITHOUT THE RACE VARIABLE FOR THE IDMS-TRACEABLE CREATININE METHODS.https://jasn.asnjournals.org/content/early//A SN.0331454752 Vitamin B12, Serumon 022 Cobalamin (Vitamin B12) [Mass/Vol] 900 pg/mL 211 - 911 [facility] Work Phone: CORONAVIRUS PCR - [facility] 10-19-2021 SARS-CoV-2 (COVID-19) RNA AMINTA+probe Ql (Unsp spec) Positive Abnormal NORMAL: NEGATIVE [facility] Comment on above: Result Comment: { CA LLED TO FAXED TO AG { READ BACK BY Performed By: #### [id number] #### [facility],[address] [place], [place] [id number] SEND TO IC? YES Normal [facility] Comment on above: Result Comment: RESU LTS FAXED TO INFECTION CONTROL. SARS-CoV-2 THIS TEST IS BEING USED UNDER THE FDA EUA PROCEDURE. THIS ASSAY HAS BEEN VALIDATED IN THE [facility] FOR USE WITH NASOPHARYNGEAL SPECIMENS IN [facility]. INTERPRETIVE DATA LABORATORY TEST RESULTS SHOULD ALWAYS BE CONSIDERED IN THE CONTEXT OF CLINICAL OBSERVATIONS AND EPIDEMIOLOGICAL DATA IN MAKING FINAL DIAGNOSIS AND PATIENT MANAGEMENT DECISIONS. PATIENT MANAGEMENT SHOULD FOLLOW CURRENT CDC GUIDELINES. A POSITIVE TEST RESULT FOR COVID-19 INDICATES THAT RNA FROM SARS-CoV-2 WAS DETECTED, AND THE PATIENT IS INFECTED WITH THE VIRUS AND PRESUMED TO BE CONTAGIOUS. A NEGATIVE TEST RESULT FOR THIS TEST MEANS THAT SARS-CoV-2 RNA WAS NOT PRESENT IN THE SPECIMEN ABOVE THE LIMIT OF DETECTION. HOWEVER, A NEGATVIE RESULT DOES NOT RULE OUT COVID-19 AND SHOULD NOT BE USED THE SOLE BASIS FOR TREATMENT OR PATIENT MANAGEMENT DECISIONS. A NEGATIVE RESULT DOES NOT EXCLUDE THE POSSIBILITY OF COVID-19. WHEN DIAGNOSTIC TESTING IS NEGATIVE, THE POSSIBLILTY OF A FALSE NEGATIVE RESULT SHOULD BE CONSIDERED IN THE CONTEXT OF A PATIENT'S RECENT EXPOSURES AND THE PRESENCE OF CLINICAL SIGNS AND SYMPTOMS CONSISTENT WITH COVID-19. THE POSSIBILITY OF A FALSE NEGATIVE RESULT SHOULD ESPECIALLY BE CONSIDERED IF THE PATIENT'S RECENT EXPOSURES OR CLINICAL PRESENTATION INDICATE THAT COVID-19 IS LIKELY, AND DIAGNOSTIC TESTS FOR OTHER CAUSES OF ILLNESS (e.g., OTHER RESPIRATORY ILLNESS) ARE NEGATIVE. IF COVID-19 IS STILL SUSPECTED BASED ON EXPOSURE HISTORY TOGETHER WITH OTHER CLINICAL FINDINGS, RE-TESTED SHOULD BE CONSIDERED BY HEALTHCARE PROVIDERS IN CONSULTATION WITH PUBLIC HEALTH AUTHORITIES. Performed By: #### [id number] #### [facility],[address] [place] [id number] CHEST 2 VIEW PA AND LATon CHEST 2 VIEW PA AND LAT Patient Name: JOHANA CHIN STUDY: TH CHEST 2 VIEW PA AND LAT; 09/05/2021 9:00 am INDICATION: ILD. COMPARISON: 03/27/2021 ACCESSION NUMBER(S): [id number] ORDERING CLINICIAN: CHANDA WELLER FINDINGS: CARDIOMEDIASTINAL SILHOUETTE: Cardiomediastinal silhouette is normal in size and configuration. LUNGS: Continued increase interstitial markings similar prior examination may be acute or chronic depending on the patient's clinical presentation. Correlation with auscultation and inflammatory markers recommended. ABDOMEN: No remarkable upper abdominal findings. BONES: No acute osseous changes. IMPRESSION: 1. 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; Due:[id number]; Last Updated By:Mary Berrios; 09/05/2021 11:05:54 AM;Ordered; For:ILD (interstitial lung disease); Ordered By:Chanda Weller; Patient taking Metformin or Derivatives? : No Radiologist to Determine Optimal Study : Y What are the patient's signs and symptoms? : ILD Provider Impressions Impressions: 1. Chronic interstitial lung disease. No specific etiology for this. 2. A portion of her lung changes are most likely attributable to her past chemotherapy. 3. Mild dyspnea on exertion. 4. History of Hodgkin's lymphoma. Recommendations: 1. We will plan on following up the patient in 6 months and schedule her for a high resolution CT scan of the chest which will give me a better measurement of her current disease and a more accurate way to follow any changes. 2. She is to contact us if she has any worsening of her breathing. This note was transcribed using the MicroVision Dictation system. There may be grammatical, punctuation, or verbiage errors that occur with voice recognition programs. Chief Complaint JOHANA CHIN is here for a follow-up visit. Reason for Visit: ILD; F/U CXR. Appointment requested by: Galdino Camacho. History of Present IllnessPatient was seen today in the office on a follow-up of her interstitial lung disease. Patient reports that her breathing has been stable and her chemotherapy has been discontinued for her Hodgkin's lymphoma. She denies any cough or significant sputum production. She has no wheezing. She does have some mild dyspnea with increased outdoor activity. She has no problems with her usual ADLs. I reviewed her chest x-ray from today and compared that to her previous x-ray from 5 months ago which was on 03/27/2021 and I do not see a significant change in her interstitial lung disease. Review of Systems Patient denies any fever, chills, rhinitis or sore throat. She is not a smoker. All other review of systems were noncontributory. Refer to the HPI. 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) Chronic laryngitis (476.0) (J37.0) CKD (chronic kidney disease) stage 3, GFR 30-59 ml/min (585.3) (N18.30) Cough (786.2) (R05.9) Dyspnea on exertion (786.09) (R06.00) Elevated serum creatinine (790.99) (R79.89) Encounter for immunization (V03.89) (Z23) Epistaxis (784.7) (R04.0) Flank pain (789.09) (R10.9) GERD (gastroesophageal reflux disease) (530.81) (K21.9) Gross hematuria (599.71) (R31.0) Headache (784.0) (R51.9) Hilar mass (786.6) (R91.8) Hodgkin's lymphoma (201.90) (C81.90) Hyperlipidemia (272.4) (E78.5) Hypoxemia (799.02) (R09.02) ILD (interstitial lung disease) (515) (J84.9) Lichen planus (697.0) (L43.9) Low vitamin D level (790.6) (R79.89) Nausea (787.02) (R11.0) Neck mass (784.2) (R22.1) Neuralgia and neuritis (729.2) (M79.2) Oral thrush (112.0) (B37.0) Osteopenia (733.90) (M85.80) Other screening mammogram (V76.12) (Z12.31) Pneumonitis (486) (J18.9) Pre-op evaluation (V72.84) (Z01.818) Preoperative clearance (V72.84) (Z01.818) Pulmonary fibrosis (515) (J84.10) Skin cancer, basal cell (173.91) (C44.91) Past Medical History History of gastroesophageal reflux (GERD) (V12.79) (Z87.19) History of hypercholesterolemia (V12.29) (Z86.39) No pertinent past medical history Surgical History History of Adenoidectomy History of Cholecystectomy History of Eye surgery History Of Prior Surgery no ears, nose or throat surgery History of Meniscus repair History of Tonsillectomy Family History Family history of Alzheimer's disease (V17.2) (Z82.0) Family history of cardiac disorder (V17.49) (Z82.49) father- 50s. -tob mom - 80s brother - 50s, +tob Family history of cerebrovascular accident (CVA) (V17.1) (Z82.3) Family history of cardiac disorder (V17.49) (Z82.49) father- 50s. -tob mom - 80s brother - 50s, +tob Family history of cardiac disorder (V17.49) (Z82.49) father- 50s. -tob mom - 80s brother - 50s, +tob Family history of malignant neoplasm (V16.9) (Z80.9) Social History Caffeine use (V49.89) (Z78.9) Denies alcohol consumption (V49.89) (Z78.9) Never a smoker No alcohol use No drug use Non-smoker (V49.89) (Z78.9) Retired from employment Allergies No Known Drug Allergies Recorded By: Alem Murphy; 01/04/2014 11:56:24 AM Current Meds Medication NameInstruction Aspirin EC 81 MG Oral Tablet Delayed Release Dexamethasone 0.5 MG/5ML Ora (more content not included)... Normal [facility] Radiologyon 09-05-2021 XR Chest 2 Views Normal [facility] DO Work Phone: XR Chest 2 Views Please click on the link to view the study images Normal [facility] DO Work Phone: Tobacco Screening.on Fall risk assessment b) One or more fall s in the last year [facility] DO Work Phone: Tobacco use status CPHS b) No [facility] DO Work Phone: Complete Blood Count + Diffe rentialon 08-28-2021 Basophils/100 WBC (Bld) 0.8 % 0.0 - 2.0 [facility] Work Phone: Erythrocyte distribution width (RBC) [Ratio] 14.1 % See Below [facility] Work Phone: Comment on above: Reference Range: 11. 5 - 14.5 Hematocrit (Bld) [Volume fraction] 42.6 % See Below [facility] Work Phone: Comment on above: Reference Range: 36. 0 - 46.0 Hemoglobin (Bld) [Mass/Vol] 14.1 g/dL See Below [facility] Work Phone: Comment on above: Reference Range: 12. 0 - 16.0 Lymphocytes/100 WBC (Bld) 18.0 % See Below [facility] Work Phone: Comment on above: Reference Range: 13. 0 - 44.0 MCHC (RBC) [Mass/Vol] 33.1 g/dL See Below [facility] Work Phone: Comment on above: Reference Range: 32. 0 - 36.0 MCV (RBC) [Entitic vol] 88 fL 80 - 100 [facility] Work Phone: Monocytes/100 WBC (Bld) 9.3 % 2.0 - 10.0 [facility] Work Phone: Neutrophils/100 WBC (Bld) 69.8 % See Below [facility] Work Phone: Comment on above: Reference Range: 40. 0 - 80.0 Platelets (Bld) [#/Vol] 217 10*3/uL 150 - 450 [facility] Work Phone: RBC (Bld) [#/Vol] 4.86 {x10E12/L} See Below [facility] Work Phone: Comment on above: Reference Range: 4.0 0 - 5.20 WBC (Bld) [#/Vol] 8.5 10*3/uL 4.4 - 11.3 [facility] Work Phone: Complete Blood Count + Differential 0.10 {x10E9/L} See Below [facility] Work Phone: Comment on above: Reference Range: 0.0 0 - 0.10 Complete Blood Count + Differential 0.20 {x10E9/L} See Below [facility] Work Phone: Comment on above: Reference Range: 0.0 0 - 0.40 Complete Blood Count + Differential 0.80 {x10E9/L} See Below [facility] Work Phone: Comment on above: Reference Range: 0.0 5 - 0.80 Complete Blood Count + Differential 1.50 {x10E9/L} See Below [facility] Work Phone: Comment on above: Reference Range: 0.8 0 - 3.00 Complete Blood Count + Differential 6.00 {x10E9/L} above high threshold See Below [facility] Work Phone: Comment on above: Reference Range: 1.6 0 - 5.50 Percent differential counts (%) should be interpreted in the context of the absolute cell counts (cells/L). Complete Blood Count + Differential 2.1 % 0.0 - 6.0 [facility] Work Phone: Laboratory - Chemistry and C hemistry - challengeon 08-28-2021 Albumin BCP dye [Mass/Vol] 3.9 g/dL 3.4 - 5.0 [facility] Work Phone: ALP [Catalytic activity/Vol] 60 U/L 33 - 136 [facility] Work Phone: ALT With P-5'-P [Catalytic activity/Vol] 13 U/L 7 - 45 [facility] Work Phone: Comment on above: Patients treated wit h Sulfasalazine may generate falsely decreased results for ALT. Anion gap [Moles/Vol] 13 mmol/L 10 - 20 [facility] Work Phone: AST With P-5'-P [Catalytic activity/Vol] 20 U/L 9 - 39 [facility] Work Phone: Bilirubin [Mass/Vol] 0.4 mg/dL 0.0 - 1.2 [facility] Work Phone: Calcium [Mass/Vol] 10.1 mg/dL 8.6 - 10.3 [facility] Work Phone: Chloride [Moles/Vol] 103 mmol/L 98 - 107 [facility] Work Phone: CO2 [Moles/Vol] 28 mmol/L 21 - 32 [facility] Work Phone: Creatinine [Mass/Vol] 0.90 mg/dL See Below [facility] [employer] Work Phone: Comment on above: Reference Range: 0.5 0 - 1.05 Glucose [Mass/Vol] 91 mg/dL 74 - 99 [facility] Work Phone: Potassium [Moles/Vol] 4.2 mmol/L 3.5 - 5.3 [facility] Work Phone: Protein [Mass/Vol] 6.9 g/dL 6.4 - 8.2 [facility] [employer] Work Phone: Sodium [Moles/Vol] 140 mmol/L 136 - 145 [facility] Work Phone: Urea nitrogen [Mass/Vol] 14 mg/dL 6 - 23 [facility] Work Phone: Lipid Panelon 08-28-2021 Cholesterol [Mass/Vol] 188 mg/dL 0 - 199 [facility] Work Phone: Comment on above: . AGE DESIRABLE BORD TALHA HIGH HIGH 0-19 Y 0 - 169 170 - 199 >/= 200 20-24 Y 0 - 189 190 - 224 >/= 225 >24 Y 0 - 199 200 - 239 >/= 240 All ranges are based on fasting samples. Specific therapeutic targets will vary based on patient-specific cardiac risk.. Pediatric guidelines reference:Pediatrics 2011, 128(S5). Adult guidelines reference: NCEP ATPIII Guidelines, TATI 2001, 258:2486-97. Venipuncture immediately after or during the administration of Metamizole may lead to falsely low results. Testing should be performed immediately prior to Metamizole dosing. Cholesterol in HDL [Mass/Vol] 81.0 mg/dL [facility] Work Phone: Comment on above: . AGE VERY LOW LOW N ORMAL HIGH 0-19 Y < 35 < 40 40-45 ---- 20-24 Y ---- < 40 >45 ---- >24 Y ---- < 40 40-60 >60. Cholesterol in LDL [Mass/Vol] 82 mg/dL 0 - 99 [facility] Work Phone: Comment on above: . NEAR BORD AGE ISABELLE RABLE OPTIMAL HIGH HIGH VERY HIGH 0-19 Y 0 - 109 --- 110-129 >/= 130 ---- 20-24 Y 0 - 119 --- 120-159 >/= 160 ---- >24 Y 0 - 99 100-129 130-159 160-189 >/=190. Cholesterol.total/Chol esterol in HDL [Mass ratio] 2.3 {ratio} [facility] Work Phone: Comment on above: REF VALUESDESIRABLE < 3.4HIGH RISK > 5.0 Triglyceride [Mass/Vol] 123 mg/dL 0 - 149 [facility] Work Phone: Comment on above: . AGE DESIRABLE BORD TALHA HIGH HIGH VERY HIGH 0 D-90 D 19 - 174 ---- ---- ----91 D- 9 Y 0 - 74 75 - 99 >/= 100 ---- 10-19 Y 0 - 89 90 - 129 >/= 130 ---- 20-24 Y 0 - 114 115 - 149 >/= 150 ---- >24 Y 0 - 149 150 - 199 200- 499 >/= 500. Venipuncture immediately after or during the administration of Metamizole may lead to falsely low results. Testing should be performed immediately prior to Metamizole dosing. Lipid Panel 25 mg/dL 0 - 40 [facility] Work Phone: No Panel Informationon 08-28 73 {mL/min/1.73m2} >60 [facility] Work Phone: Comment on above: CALCULATIONS OF ZOYA MATED GFR ARE PERFORMED USING THE MDRD STUDY EQUATION FOR THE IDMS-TRACEABLE CREATININE METHODS. CLIN CHEM 2007;53:766-72 60 {mL/min/1.73m2} Abnormal >60 [facility] Work Phone: Sedimentation Rate, Erythroc yteon 08-28-2021 ESR (Bld) [Velocity] 29 mm/h 0 - 30 [facility] Work Phone: Tobacco Screening.on 021 Tobacco use status CPHS b) No [facility] Work Phone: Complete Blood Count + Diffe rentialon 05-22-2021 Basophils/100 WBC (Bld) 1.0 % 0.0 - 2.0 [facility] Work Phone: Erythrocyte distribution width (RBC) [Ratio] 16.1 % above high threshold See Below [facility] Work Phone: Comment on above: Reference Range: 11. 5 - 14.5 Hematocrit (Bld) [Volume fraction] 42.3 % See Below [facility] Work Phone: Comment on above: Reference Range: 36. 0 - 46.0 Hemoglobin (Bld) [Mass/Vol] 13.8 g/dL See Below [facility] Work Phone: Comment on above: Reference Range: 12. 0 - 16.0 Lymphocytes/100 WBC (Bld) 15.7 % See Below [facility] Work Phone: Comment on above: Reference Range: 13. 0 - 44.0 MCHC (RBC) [Mass/Vol] 32.7 g/dL See Below [facility] Work Phone: Comment on above: Reference Range: 32. 0 - 36.0 MCV (RBC) [Entitic vol] 87 fL 80 - 100 [facility] Work Phone: Monocytes/100 WBC (Bld) 8.0 % 2.0 - 10.0 [facility] Work Phone: Neutrophils/100 WBC (Bld) 73.2 % See Below [facility] Work Phone: Comment on above: Reference Range: 40. 0 - 80.0 Platelets (Bld) [#/Vol] 225 10*3/uL 150 - 450 [facility] Work Phone: RBC (Bld) [#/Vol] 4.87 {x10E12/L} See Below [facility] Work Phone: Comment on above: Reference Range: 4.0 0 - 5.20 WBC (Bld) [#/Vol] 8.8 10*3/uL 4.4 - 11.3 [facility] Work Phone: Complete Blood Count + Differential 0.10 {x10E9/L} See Below [facility] Work Phone: Comment on above: Reference Range: 0.0 0 - 0.10 Complete Blood Count + Differential 0.20 {x10E9/L} See Below [facility] Work Phone: Comment on above: Reference Range: 0.0 0 - 0.40 Complete Blood Count + Differential 0.70 {x10E9/L} See Below [facility] Work Phone: Comment on above: Reference Range: 0.0 5 - 0.80 Complete Blood Count + Differential 1.40 {x10E9/L} See Below [facility] Work Phone: Comment on above: Reference Range: 0.8 0 - 3.00 Complete Blood Count + Differential 6.40 {x10E9/L} above high threshold See Below [facility] Work Phone: Comment on above: Reference Range: 1.6 0 - 5.50 Percent differential counts (%) should be interpreted in the context of the absolute cell counts (cells/L). Complete Blood Count + Differential 2.1 % 0.0 - 6.0 [facility] Work Phone: Laboratory - Chemistry and C hemistry - challengeon 05-22-2021 Albumin BCP dye [Mass/Vol] 3.9 g/dL 3.4 - 5.0 [facility] Work Phone: ALP [Catalytic activity/Vol] 62 U/L 33 - 136 [facility] Work Phone: ALT With P-5'-P [Catalytic activity/Vol] 14 U/L 7 - 45 [facility] Work Phone: Comment on above: Patients treated wit h Sulfasalazine may generate falsely decreased results for ALT. Anion gap [Moles/Vol] 9 mmol/L below low threshold 10 - 20 [facility] Work Phone: AST With P-5'-P [Catalytic activity/Vol] 22 U/L 9 - 39 [facility] Work Phone: Bilirubin [Mass/Vol] 0.5 mg/dL 0.0 - 1.2 [facility] Work Phone: Calcium [Mass/Vol] 9.9 mg/dL 8.6 - 10.3 [facility] Work Phone: Chloride [Moles/Vol] 108 mmol/L above high threshold 98 - 107 [facility] Work Phone: CO2 [Moles/Vol] 26 mmol/L 21 - 32 [facility] Work Phone: Creatinine [Mass/Vol] 0.82 mg/dL See Below [facility] Work Phone: Comment on above: Reference Range: 0.5 0 - 1.05 Glucose [Mass/Vol] 84 mg/dL 74 - 99 [facility] Work Phone: Potassium [Moles/Vol] 4.0 mmol/L 3.5 - 5.3 [facility] Work Phone: Protein [Mass/Vol] 6.9 g/dL 6.4 - 8.2 [facility] Work Phone: Sodium [Moles/Vol] 139 mmol/L 136 - 145 [facility] Work Phone: Urea nitrogen [Mass/Vol] 16 mg/dL 6 - 23 [facility] Work Phone: No Panel Informationon 05-22 >60 >60 [facility] Work Phone: Comment on above: CALCULATIONS OF ZOYA MATED GFR ARE PERFORMED USING THE MDRD STUDY EQUATION FOR THE IDMS-TRACEABLE CREATININE METHODS. CLIN CHEM 2007;53:766-72 Sedimentation Rate, Erythroc yteon 05-22-2021 ESR (Bld) [Velocity] 37 mm/h above high threshold 0 - 30 [facility] Work Phone: Tobacco Screening.on Fall risk assessment a) No falls within the last year [facility] DO Work Phone: Tobacco use status CPHS b) No [facility] DO Work Phone: Radiologyon 03-27-2021 XR Chest 2 Views Normal [facility] DO Work Phone: Tobacco Screening.on 021 Fall risk assessment a) No falls within the last year [facility] DO Work Phone: Tobacco use status CPHS b) No [facility] DO Work Phone: Otheron 01-23-2021 XR Chest 2 views Please click on the link to view the study images Normal [facility] DO Work Phone: Otheron 10-26-2020 XR Chest 2 views Interpreted by: [id number]/07/21 15:57MRN: [id number] Name: JOHANA CHIN STUDY:TH CHEST 2 VIEW PA AND LAT; 10/26/2020 11:13 am INDICATION:JORGENSEN. COMPARISON:10/13/2020 ORDERING CLINICIAN:CHANDA WELLER FINDINGS:Patchy bilateral ground-glass infiltrates. Findings are worse sincethe prior exam. Findings likely superimposed on chronic lung changes.Normal cardiac silhouette. No effusion. No pneumothorax. Osteopenia and discogenic degenerative changes. IMPRESSION:Patchy bilateral infiltrates likely superimposed on chronic lungchanges and worse since the prior exam. Continued follow-up isrecommended.Electronica lly signed by: JILL 10/27/20 15:57 [facility] [facility] DO Work Phone: Complete Blood Count + Diffe rentialon 10-19-2020 Basophils (Bld) [#/Vol] 0.09 {x10E9/L} See Below -[facility] [facility] DO Work Phone: Comment on above: Reference Range: 0.0 0 - 0.10Automated WBC differential has been confirmed by manual smear. Basophils/100 WBC (Bld) 0.6 % 0.0 - 2.0 [facility] [facility] DO Work Phone: Eosinophils (Bld) [#/Vol] 0.15 {x10E9/L} See Below [facility] [facility] DO Work Phone: Comment on above: Reference Range: 0.0 0 - 0.40 Eosinophils/100 WBC (Bld) 0.9 % 0.0 - 6.0 -[facility] [facility] DO Work Phone: Erythrocyte distribution width (RBC) [Ratio] 20.8 % above high threshold See Below [facility] 400 DO Work Phone: Comment on above: Reference Range: 11. 5 - 14.5 Hematocrit (Bld) [Volume fraction] 41.2 % See Below [facility] [facility] DO Work Phone: [phone] Comment on above: Reference Range: 36. 0 - 46.0 Hemoglobin (Bld) [Mass/Vol] 13.2 g/dL See Below [facility] [facility] DO Work Phone: [phone] Comment on above: Reference Range: 12. 0 - 16.0 Lymphocytes (Bld) [#/Vol] 1.69 {x10E9/L} See Below [facility] [facility] DO Work Phone: [phone] Comment on above: Reference Range: 0.8 0 - 3.00 Lymphocytes/100 WBC (Bld) 10.6 % See Below [facility] [facility] DO Work Phone: [phone] Comment on above: Reference Range: 13. 0 - 44.0 MCHC (RBC) [Mass/Vol] 32.0 g/dL See Below [facility] 400 DO Work Phone: [phone] Comment on above: Reference Range: 32. 0 - 36.0 MCV (RBC) [Entitic vol] 90 fL 80 - 100 [facility] 400 DO Work Phone: [phone] Monocytes (Bld) [#/Vol] 1.36 {x10E9/L} above high threshold See Below [facility] 400 DO Work Phone: [phone] Comment on above: Reference Range: 0.0 5 - 0.80 Monocytes/100 WBC (Bld) 8.5 % 2.0 - 10.0 [facility] 400 DO Work Phone: [phone] Neutrophils/100 WBC (Bld) 75.4 % See Below [facility] 400 DO Work Phone: [phone] Comment on above: Reference Range: 40. 0 - 80.0 Platelets (Bld) [#/Vol] 589 {x10E9/L} above high threshold 150 - 450 [facility] 400 DO Work Phone: [phone] RBC (Bld) [#/Vol] 4.58 {x10E12/L} See Below [facility] [facility] DO Work Phone: [phone] Comment on above: Reference Range: 4.0 0 - 5.20 WBC (Bld) [#/Vol] 0.0 {/100_WBC} 0.0-0.0 [facility] 400 DO Work Phone: [phone] WBC (Bld) [#/Vol] 16.0 {x10E9/L} above high threshold 4.4 - 11.3 [facility] 400 DO Work Phone: [phone] Complete Blood Count + Differential 12.06 {x10E9/L} above high threshold See Below [facility] 400 DO Work Phone: [phone] Comment on above: Reference Range: 1.6 0 - 5.50 Complete Blood Count + Differential 4.0 % above high threshold 0.0 - 0.9 [facility] 400 DO Work Phone: [phone] Comment on above: Immature Granulocyte Count (IG) includes promyelocytes, myelocytes and metamyelocytes but does not include bands. Percent differential counts (%) should be interpreted in the context of the absolute cell counts (cells/L). Magnesium, Serumon 0 Magnesium [Mass/Vol] 2.39 mg/dL See Below [facility] 400 DO Work Phone: [phone] Comment on above: Reference Range: 1.6 0 - 2.40 Otheron 10-19-2020 Mild [facility] 400 DO Work Phone: [phone] See Below [facility] 400 DO Work Phone: [phone] Few [facility] 400 DO Work Phone: [phone] Renal Function Panelon 10-19 Albumin BCP dye [Mass/Vol] 3.1 g/dL below low threshold 3.4 - 5.0 [facility] 400 DO Work Phone: [phone] Anion gap [Moles/Vol] 17 mmol/L 10 - 20 [facility] 400 DO Work Phone: [phone] Calcium [Mass/Vol] 9.5 mg/dL 8.6 - 10.6 [facility] 400 DO Work Phone: [phone] Chloride [Moles/Vol] 103 mmol/L 98 - 107 [facility] 400 DO Work Phone: [phone] CO2 [Moles/Vol] 26 mmol/L 21 - 32 [facility] 400 DO Work Phone: [phone] Creatinine [Mass/Vol] 0.98 mg/dL See Below [facility] 400 DO Work Phone: [phone] Comment on above: Reference Range: 0.5 0 - 1.05 Glucose [Mass/Vol] 102 mg/dL above high threshold 74 - 99 [facility] 400 DO Work Phone: [phone] Phosphate [Mass/Vol] 3.0 mg/dL 2.5 - 4.9 [facility] 400 DO Work Phone: Comment on above: The performance darshana acteristics of phosphorus testing in heparinized plasma have been validated by the individual laboratory site where testing is performed. Testing on heparinized plasma is not approved by the FDA; however, such approval is not necessary. Potassium [Moles/Vol] 3.9 mmol/L 3.5 - 5.3 [facility] [facility] DO Work Phone: Sodium [Moles/Vol] 142 mmol/L 136 - 145 [facility] 400 DO Work Phone: Urea nitrogen [Mass/Vol] 23 mg/dL 6 - 23 [facility] 400 DO Work Phone: Renal Function Panel 67 {mL/min/1.73m2} >60 -[facility] 400 DO Work Phone: Comment on above: CALCULATIONS OF ZOYA MATED GFR ARE PERFORMED USING THE MDRD STUDY EQUATION FOR THE IDMS-TRACEABLE CREATININE METHODS. CLIN CHEM 2007;53:766-72 Renal Function Panel 55 {mL/min/1.73m2} Abnormal >60 [facility] [facility] DO Work Phone: [phone] Complete Blood Count + Diffe rentialon 10-18-2020 Basophils (Bld) [#/Vol] 0.07 {x10E9/L} See Below [facility] [facility] DO Work Phone: Comment on above: Reference Range: 0.0 0 - 0.10Automated WBC differential has been confirmed by manual smear. Basophils/100 WBC (Bld) 0.6 % 0.0 - 2.0 -[facility] 400 DO Work Phone: [phone] Eosinophils (Bld) [#/Vol] 0.12 {x10E9/L} See Below [facility] [address] DO Work Phone: Comment on above: Reference Range: 0.0 0 - 0.40 Eosinophils/100 WBC (Bld) 1.0 % 0.0 - 6.0 -[facility] 400 DO Work Phone: [phone] Erythrocyte distribution width (RBC) [Ratio] 21.0 % above high threshold See Below [facility] 400 DO Work Phone: Comment on above: Reference Range: 11. 5 - 14.5 Hematocrit (Bld) [Volume fraction] 39.7 % See Below [facility] 400 DO Work Phone: Comment on above: Reference Range: 36. 0 - 46.0 Hemoglobin (Bld) [Mass/Vol] 13.0 g/dL See Below [facility] 400 DO Work Phone: Comment on above: Reference Range: 12. 0 - 16.0 Lymphocytes (Bld) [#/Vol] 1.80 {x10E9/L} See Below [facility] 400 DO Work Phone: [phone] Comment on above: Reference Range: 0.8 0 - 3.00 Lymphocytes/100 WBC (Bld) 14.9 % See Below [facility] 400 DO Work Phone: [phone] Comment on above: Reference Range: 13. 0 - 44.0 MCHC (RBC) [Mass/Vol] 32.7 g/dL See Below [facility] 400 DO Work Phone: [phone] Comment on above: Reference Range: 32. 0 - 36.0 MCV (RBC) [Entitic vol] 89 fL 80 - 100 [facility] 400 DO Work Phone: [phone] Monocytes (Bld) [#/Vol] 1.17 {x10E9/L} above high threshold See Below [facility] 400 DO Work Phone: [phone] Comment on above: Reference Range: 0.0 5 - 0.80 Monocytes/100 WBC (Bld) 9.7 % 2.0 - 10.0 [facility] 400 DO Work Phone: [phone] Neutrophils/100 WBC (Bld) 70.1 % See Below [facility] 400 DO Work Phone: [phone] Comment on above: Reference Range: 40. 0 - 80.0 Platelets (Bld) [#/Vol] 568 {x10E9/L} above high threshold 150 - 450 [facility] 400 DO Work Phone: [phone] RBC (Bld) [#/Vol] 4.47 {x10E12/L} See Below [facility] 400 DO Work Phone: [phone] Comment on above: Reference Range: 4.0 0 - 5.20 WBC (Bld) [#/Vol] 12.1 {x10E9/L} above high threshold 4.4 - 11.3 [facility] 400 DO Work Phone: [phone] WBC (Bld) [#/Vol] 0.0 {/100_WBC} 0.0-0.0 [facility]- [facility] 400 DO Work Phone: [phone] Complete Blood Count + Differential 3.7 % above high threshold 0.0 - 0.9 [facility] 400 DO Work Phone: [phone] Comment on above: Immature Granulocyte Count (IG) includes promyelocytes, myelocytes and metamyelocytes but does not include bands. Percent differential counts (%) should be interpreted in the context of the absolute cell counts (cells/L). Complete Blood Count + Differential 8.45 {x10E9/L} above high threshold See Below [facility] 400 DO Work Phone: [phone] Comment on above: Reference Range: 1.6 0 - 5.50 Magnesium, Serumon 0 Magnesium [Mass/Vol] 2.29 mg/dL See Below [facility] 400 DO Work Phone: [phone] Comment on above: Reference Range: 1.6 0 - 2.40 Otheron 10-18-2020 Few [facility] 400 DO Work Phone: [phone] Mild [facility] 400 DO Work Phone: [phone] See Below [facility] 400 DO Work Phone: [phone] Renal Function Panelon 10-18 Albumin BCP dye [Mass/Vol] 3.1 g/dL below low threshold 3.4 - 5.0 [facility] 400 DO Work Phone: [phone] Anion gap [Moles/Vol] 15 mmol/L 10 - 20 [facility] 400 DO Work Phone: [phone] Calcium [Mass/Vol] 9.7 mg/dL 8.6 - 10.6 [facility] 400 DO Work Phone: Chloride [Moles/Vol] 102 mmol/L 98 - 107 [facility] 400 DO Work Phone: [phone] CO2 [Moles/Vol] 28 mmol/L 21 - 32 [facility] 400 DO Work Phone: [phone] Creatinine [Mass/Vol] 0.93 mg/dL See Below [facility]- [facility] 400 DO Work Phone: [phone] Comment on above: Reference Range: 0.5 0 - 1.05 Glucose [Mass/Vol] 80 mg/dL 74 - 99 [facility] 400 DO Work Phone: [phone] Phosphate [Mass/Vol] 2.9 mg/dL 2.5 - 4.9 [facility] 400 DO Work Phone: Comment on above: The performance darshana acteristics of phosphorus testing in heparinized plasma have been validated by the individual laboratory site where testing is performed. Testing on heparinized plasma is not approved by the FDA; however, such approval is not necessary. Potassium [Moles/Vol] 4.1 mmol/L 3.5 - 5.3 [facility] 400 DO Work Phone: [phone] Sodium [Moles/Vol] 141 mmol/L 136 - 145 [facility] 400 DO Work Phone: [phone] Urea nitrogen [Mass/Vol] 21 mg/dL 6 - 23 [facility] 400 DO Work Phone: Renal Function Panel 70 {mL/min/1.73m2} >60 [facility] 400 DO Work Phone: Comment on above: CALCULATIONS OF ZOYA MATED GFR ARE PERFORMED USING THE MDRD STUDY EQUATION FOR THE IDMS-TRACEABLE CREATININE METHODS. CLIN CHEM 2007;53:766-72 Renal Function Panel 58 {mL/min/1.73m2} Abnormal >60 -[facility] 400 DO Work Phone: Complete Blood Count + Diffe rentialon 10-17-2020 Basophils (Bld) [#/Vol] 0.05 {x10E9/L} See Below [facility] [facility] DO Work Phone: Comment on above: Reference Range: 0.0 0 - 0.10Automated WBC differential has been confirmed by manual smear. Basophils/100 WBC (Bld) 0.4 % 0.0 - 2.0 -[facility] [facility] DO Work Phone: [phone] Eosinophils (Bld) [#/Vol] 0.09 {x10E9/L} See Below [facility] [facility] DO Work Phone: Comment on above: Reference Range: 0.0 0 - 0.40 Eosinophils/100 WBC (Bld) 0.6 % 0.0 - 6.0 [facility] 400 DO Work Phone: Erythrocyte distribution width (RBC) [Ratio] 20.2 % above high threshold See Below [facility] 400 DO Work Phone: Comment on above: Reference Range: 11. 5 - 14.5 Hematocrit (Bld) [Volume fraction] 36.1 % See Below [facility] 400 DO Work Phone: Comment on above: Reference Range: 36. 0 - 46.0 Hemoglobin (Bld) [Mass/Vol] 12.0 g/dL See Below [facility] 400 DO Work Phone: Comment on above: Reference Range: 12. 0 - 16.0 Lymphocytes (Bld) [#/Vol] 1.64 {x10E9/L} See Below [facility] 400 DO Work Phone: Comment on above: Reference Range: 0.8 0 - 3.00 Lymphocytes/100 WBC (Bld) 11.8 % See Below [facility] 400 DO Work Phone: Comment on above: Reference Range: 13. 0 - 44.0 MCHC (RBC) [Mass/Vol] 33.2 g/dL See Below [facility] 400 DO Work Phone: Comment on above: Reference Range: 32. 0 - 36.0 MCV (RBC) [Entitic vol] 86 fL 80 - 100 [facility] 400 DO Work Phone: [phone] Monocytes (Bld) [#/Vol] 1.43 {x10E9/L} above high threshold See Below [facility] 400 DO Work Phone: Comment on above: Reference Range: 0.0 5 - 0.80 Monocytes/100 WBC (Bld) 10.3 % 2.0 - 10.0 [facility] 400 DO Work Phone: [phone] Neutrophils/100 WBC (Bld) 75.0 % See Below [facility] 400 DO Work Phone: Comment on above: Reference Range: 40. 0 - 80.0 Platelets (Bld) [#/Vol] 538 {x10E9/L} above high threshold 150 - 450 [facility] 400 DO Work Phone: [phone] RBC (Bld) [#/Vol] 4.19 {x10E12/L} See Below [facility] 400 DO Work Phone: Comment on above: Reference Range: 4.0 0 - 5.20 WBC (Bld) [#/Vol] 13.9 {x10E9/L} above high threshold 4.4 - 11.3 [facility] 400 DO Work Phone: WBC (Bld) [#/Vol] 0.0 {/100_WBC} 0.0-0.0 [facility] 400 DO Work Phone: [phone] Complete Blood Count + Differential 10.45 {x10E9/L} above high threshold See Below [facility] 400 DO Work Phone: [phone] Comment on above: Reference Range: 1.6 0 - 5.50 Complete Blood Count + Differential 1.9 % above high threshold 0.0 - 0.9 [facility] 400 DO Work Phone: [phone] Comment on above: Immature Granulocyte Count (IG) includes promyelocytes, myelocytes and metamyelocytes but does not include bands. Percent differential counts (%) should be interpreted in the context of the absolute cell counts (cells/L). Magnesium, Serumon 0 Magnesium [Mass/Vol] 2.27 mg/dL See Below [facility] 400 DO Work Phone: [phone] Comment on above: Reference Range: 1.6 0 - 2.40 Magnesium [Mass/Vol] 2.06 mg/dL See Below [facility] 400 DO Work Phone: [phone] Comment on above: Reference Range: 1.6 0 - 2.40 Otheron 10-17-2020 Few [facility] 400 DO Work Phone: [phone] See Below [facility] 400 DO Work Phone: [phone] Mild [facility] 400 DO Work Phone: [phone] Renal Function Panelon 10-17 Albumin BCP dye [Mass/Vol] 3.3 g/dL below low threshold 3.4 - 5.0 [facility] 400 DO Work Phone: [phone] Anion gap [Moles/Vol] 16 mmol/L 10 - 20 [facility] 400 DO Work Phone: [phone] Calcium [Mass/Vol] 9.5 mg/dL 8.6 - 10.6 [facility] 400 DO Work Phone: Chloride [Moles/Vol] 102 mmol/L 98 - 107 [facility] 400 DO Work Phone: CO2 [Moles/Vol] 29 mmol/L 21 - 32 [facility] 400 DO Work Phone: [phone] Creatinine [Mass/Vol] 0.87 mg/dL See Below [facility] 400 DO Work Phone: Comment on above: Reference Range: 0.5 0 - 1.05 Glucose [Mass/Vol] 145 mg/dL above high threshold 74 - 99 [facility] 400 DO Work Phone: [phone] Phosphate [Mass/Vol] 3.2 mg/dL 2.5 - 4.9 [facility] 400 DO Work Phone: Comment on above: The performance darshana acteristics of phosphorus testing in heparinized plasma have been validated by the individual laboratory site where testing is performed. Testing on heparinized plasma is not approved by the FDA; however, such approval is not necessary. Potassium [Moles/Vol] 4.6 mmol/L 3.5 - 5.3 [facility] 400 DO Work Phone: Sodium [Moles/Vol] 142 mmol/L 136 - 145 [facility] 400 DO Work Phone: Urea nitrogen [Mass/Vol] 17 mg/dL 6 - 23 [facility] 400 DO Work Phone: Renal Function Panel >60 >60 [facility] 400 DO Work Phone: Comment on above: CALCULATIONS OF ZOYA MATED GFR ARE PERFORMED USING THE MDRD STUDY EQUATION FOR THE IDMS-TRACEABLE CREATININE METHODS. CLIN CHEM 2007;53:766-72 Albumin BCP dye [Mass/Vol] 2.8 g/dL below low threshold 3.4 - 5.0 [facility] 400 DO Work Phone: [phone] Anion gap [Moles/Vol] 14 mmol/L 10 - 20 [facility] 400 DO Work Phone: [phone] Calcium [Mass/Vol] 9.3 mg/dL 8.6 - 10.6 [facility] 400 DO Work Phone: [phone] Chloride [Moles/Vol] 104 mmol/L 98 - 107 [facility] 400 DO Work Phone: [phone] CO2 [Moles/Vol] 29 mmol/L 21 - 32 [facility] 400 DO Work Phone: [phone] Creatinine [Mass/Vol] 0.88 mg/dL See Below [facility] 400 DO Work Phone: [phone] Comment on above: Reference Range: 0.5 0 - 1.05 Glucose [Mass/Vol] 73 mg/dL below low threshold 74 - 99 [facility] 400 DO Work Phone: [phone] Phosphate [Mass/Vol] 2.3 mg/dL below low threshold 2.5 - 4.9 [facility] 400 DO Work Phone: [phone] Comment on above: The performance darshana acteristics of phosphorus testing in heparinized plasma have been validated by the individual laboratory site where testing is performed. Testing on heparinized plasma is not approved by the FDA; however, such approval is not necessary. Potassium [Moles/Vol] 3.6 mmol/L 3.5 - 5.3 [facility] 400 DO Work Phone: Sodium [Moles/Vol] 143 mmol/L 136 - 145 [facility] 400 DO Work Phone: [phone] Urea nitrogen [Mass/Vol] 16 mg/dL 6 - 23 [facility] 400 DO Work Phone: Renal Function Panel >60 >60 [facility] 400 DO Work Phone: Comment on above: CALCULATIONS OF ZOYA MATED GFR ARE PERFORMED USING THE MDRD STUDY EQUATION FOR THE IDMS-TRACEABLE CREATININE METHODS. CLIN CHEM 2007;53:766-72 CT Chest Abdomen Pelvis w IV Contraston 10-16-2020 CT Chest and Abdomen and Pelvis W contrast IV Interpreted by: CAMMY10/16/20 18:45MRN: [id number] Name: JOHANA CHIN STUDY:CT CHEST ABDOMEN PELVIS W IV CONTRAST; 10/16/2020 3:50 pm INDICATION:Hodgkins Lymphoma f/u at request of oncologist, [place]: Yes. COMPARISON:PET-CT dated 05/31/2020 and CTA chest dated 10/11/2020 ORDERING CLINICIAN:CLARE GONZALES TECHNIQUE:CT of the chest, abdomen, and pelvis was performed. Contiguous axialimages were obtained at 3 mm slice thickness through the chest,abdomen and pelvis. Coronal and sagittal reconstructions at 3 mmslice thickness were performed.90 ml of contrast Omnipaque 350 were administered intravenouslywithout immediate complication. FINDINGS:CHEST: LUNG/PLEURA/LARGE AIRWAYS:There is mild interval increase in diffuse ground-glass opacitieswith peripheral consolidation, when compared to CTA chest dated112/12/2019 no evidence of lung masses. No pleural effusion orpneumothorax. VESSELS:Aorta and pulmonary arteries are normal caliber. Moderateatherosclerotic changes are noted of the aorta and branching vessels.Mild coronary artery calcifications are present. Study is notoptimized for evaluation of coronary arteries. HEART:The heart is normal in size. No pericardial effusion MEDIASTINUM AND RYAN:Extensive hilar and mediastinal lymphadenopathy is again identified,which is decreased in size from PET-CT dated 05/31/2020 and stablefrom CTA chest dated 10/11/2020. For example:A 28 mm right hilar lymph node, previously 29 mm. A 13 mm left hilarlymph node, previously 11 mm. An 11 mm right paratracheal lymph node,previously 12 mm. A 15 mm subcarinal/paraesophageal lymph node,previously 14 mm. No evidence of new mediastinal enlarged lymphnodes. The esophagus is within normal limits. CHEST WALL AND LOWER NECK:The soft tissues of the chest wall demonstrate no gross abnormality.Redemonstrati on of asymmetry in size of the left lobe of the thyroidgland. No evidence of focal thyroid lesions. ABDOMEN: LIVER:The liver is normal in size without evidence of focal liver lesions. BILE DUCTS:The intrahepatic and extrahepatic ducts are not dilated. GALLBLADDER:The gallbladder is surgically absent. PANCREAS:The pancreas appears unremarkable. SPLEEN:The spleen is normal in size without focal lesions. ADRENAL GLANDS:Bilateral adrenal glands appear normal. KIDNEYS AND URETERS:The kidneys are normal in size and enhance symmetrically. Smallbilateral hypodense lesions measuring up to 1.0 cm are incompletelycharacterized , but favored to represent small cysts. A 4 mmcalcification within the left lower pole could represent a smallstone versus vascular calcification. No hydroureteronephrosis. PELVIS: BLADDER:Within normal limits. REPRODUCTIVE ORGANS:The uterus is present. A metallic clip is again noted in the [id number]-[id number]. BOWEL:The stomach is unremarkable. Hyperdense content within the gastricfundus is likely related to oral medication. The small and largebowel are normal in caliber and demonstrate no wall thickening. Theappendix appears normal. VESSELS:There is no aneurysmal dilatation of the abdominal aorta. The IVCappears normal. PERITONEUM/RETROPERITONEU M/LYMPH NODES:No ascites or free air, no fluid collection. No abdominopelviclymphadenop athy is identified. BONE AND SOFT TISSUE:No suspicious osseous lesions are identified. 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 A smallmedian supraumbilical fat containing ventral hernia is noted, withthe defect measuring 1.0 cm in diameter IMPRESSION:CHEST:1. Mild interval increase in diffuse ground-glass opacities in abackground of subpleural fibrotic changes. Again, correlate withatypical infection, viral infection versus drug toxicity2. Stable mediastinal and hilar lymphadenopathy when compared to CTAchest dated 10/11/2020. ABDOMEN-PELVIS:1. No evidence of abdominopelvic lymphadenopathy.2. Small hypodense bilateral hypodense renal lesions are incompletelycharacterized , however statistically favored to represent smallcysts. If of continued clinical concern, correlate with dedicatedmultiphase contrast enhanced CT or MRI.3. A tiny calcification within the lower left renal pole is likely avascular calcification versus a nonobstructing stone. Electronically signed by: CAMMY 10/16/20 18:45 [facility] [facility] DO Work Phone: Complete Blood Count + Diffe rentialon 10-16-2020 Basophils (Bld) [#/Vol] 0.04 {x10E9/L} See Below -[facility] 400 DO Work Phone: Comment on above: Reference Range: 0.0 0 - 0.10 Basophils/100 WBC (Bld) 0.3 % 0.0 - 2.0 -[facility] 400 DO Work Phone: Eosinophils (Bld) [#/Vol] 0.03 {x10E9/L} See Below [facility] 400 DO Work Phone: Comment on above: Reference Range: 0.0 0 - 0.40 Eosinophils/100 WBC (Bld) 0.2 % 0.0 - 6.0 -[facility] [facility] DO Work Phone: Erythrocyte distribution width (RBC) [Ratio] 20.0 % above high threshold See Below [facility] [facility] [facility] DO Work Phone: Comment on above: Reference Range: 11. 5 - 14.5 Hematocrit (Bld) [Volume fraction] 39.2 % See Below [facility] [facility] DO Work Phone: Comment on above: Reference Range: 36. 0 - 46.0 Hemoglobin (Bld) [Mass/Vol] 12.9 g/dL See Below [facility] [facility] DO Work Phone: Comment on above: Reference Range: 12. 0 - 16.0 Lymphocytes (Bld) [#/Vol] 1.86 {x10E9/L} See Below [facility] [facility] DO Work Phone: Comment on above: Reference Range: 0.8 0 - 3.00 Lymphocytes/100 WBC (Bld) 11.7 % See Below [facility] [facility] DO Work Phone: [phone] Comment on above: Reference Range: 13. 0 - 44.0 MCHC (RBC) [Mass/Vol] 32.9 g/dL See Below [facility] [facility] DO Work Phone: [phone] Comment on above: Reference Range: 32. 0 - 36.0 MCV (RBC) [Entitic vol] 88 fL 80 - 100 [facility] 400 DO Work Phone: [phone] Monocytes (Bld) [#/Vol] 1.56 {x10E9/L} above high threshold See Below [facility] 400 DO Work Phone: [phone] Comment on above: Reference Range: 0.0 5 - 0.80 Monocytes/100 WBC (Bld) 9.8 % 2.0 - 10.0 [facility] [facility] DO Work Phone: [phone] Neutrophils/100 WBC (Bld) 77.2 % See Below [facility] [facility] DO Work Phone: [phone] Comment on above: Reference Range: 40. 0 - 80.0 Platelets (Bld) [#/Vol] 536 {x10E9/L} above high threshold 150 - 450 [facility] 400 DO Work Phone: [phone] RBC (Bld) [#/Vol] 4.46 {x10E12/L} See Below [facility] [facility] DO Work Phone: [phone] Comment on above: Reference Range: 4.0 0 - 5.20 WBC (Bld) [#/Vol] 15.9 {x10E9/L} above high threshold 4.4 - 11.3 [facility] 400 DO Work Phone: [phone] WBC (Bld) [#/Vol] 0.0 {/100_WBC} 0.0-0.0 [facility] [facility] DO Work Phone: Complete Blood Count + Differential 12.31 {x10E9/L} above high threshold See Below [facility] [facility] DO Work Phone: Comment on above: Reference Range: 1.6 0 - 5.50 Complete Blood Count + Differential 0.8 % 0.0 - 0.9 [facility] 400 DO Work Phone: Comment on above: Immature Granulocyte Count (IG) includes promyelocytes, myelocytes and metamyelocytes but does not include bands. Percent differential counts (%) should be interpreted in the context of the absolute cell counts (cells/L). Magnesium, Serumon 0 Magnesium [Mass/Vol] 2.09 mg/dL See Below [facility] 400 DO Work Phone: Comment on above: Reference Range: 1.6 0 - 2.40 Renal Function Panelon 10-16 Albumin BCP dye [Mass/Vol] 3.1 g/dL below low threshold 3.4 - 5.0 [facility] 400 DO Work Phone: Comment on above: REBECCA FRANKS CALLED TO AGUSTIN LOERA , 10/16/2020 09:50 Anion gap [Moles/Vol] 17 mmol/L 10 - 20 [facility] 400 DO Work Phone: Comment on above: REBECCA FRANKS CALLED TO AGUSTIN LOERA , 10/16/2020 09:50 Calcium [Mass/Vol] 9.2 mg/dL 8.6 - 10.6 [facility] 400 DO Work Phone: Comment on above: REBECCA FRANKS CALLED TO AGUSTIN LOERA , 10/16/2020 09:50 Chloride [Moles/Vol] 100 mmol/L 98 - 107 [facility] 400 DO Work Phone: Comment on above: CRIT K RB CALLED TO AGUSTIN EVARISTO , 10/16/2020 09:50 CO2 [Moles/Vol] 28 mmol/L 21 - 32 [facility] 400 DO Work Phone: Comment on above: CRIT K RB CALLED TO AGUSTIN EVARISTO , 10/16/2020 09:50 Creatinine [Mass/Vol] 0.94 mg/dL See Below [facility]- [facility] 400 DO Work Phone: Comment on above: Reference Range: 0.5 0 - 1.05 CRIT K RB CALLED TO AGUSTIN EVARISTO , 10/16/2020 09:50 Glucose [Mass/Vol] 121 mg/dL above high threshold 74 - 99 [facility] 400 DO Work Phone: Comment on above: CRIT K RB CALLED TO AGUSTIN EVARISTO , 10/16/2020 09:50 Phosphate [Mass/Vol] 2.8 mg/dL 2.5 - 4.9 [facility] 400 DO Work Phone: Comment on above: The performance darshana acteristics of phosphorus testing in heparinized plasma have been validated by the individual laboratory site where testing is performed. Testing on heparinized plasma is not approved by the FDA; however, such approval is not necessary. CRIT K RB CALLED TO AGUSTIN EVARISTO , 10/16/2020 09:50 Potassium [Moles/Vol] 2.9 mmol/L Critically low 3.5 - 5.3 [facility] 400 DO Work Phone: Comment on above: CRIT K RB CALLED TO AGUSTIN EVARISTO , 10/16/2020 09:50 CRIT K RB CALLED TO AGUSTIN EVARISTO , 10/16/2020 09:50 Sodium [Moles/Vol] 142 mmol/L 136 - 145 [facility] 400 DO Work Phone: Comment on above: CRIT K RB CALLED TO AGUSTIN EVARISTO , 10/16/2020 09:50 Urea nitrogen [Mass/Vol] 12 mg/dL 6 - 23 [facility] 400 DO Work Phone: Comment on above: REBECCA FRANKS CALLED TO AGUSTIN LOERA , 10/16/2020 09:50 Renal Function Panel 70 {mL/min/1.73m2} >60 [facility] 400 DO Work Phone: Comment on above: CALCULATIONS OF ZOYA MATED GFR ARE PERFORMED USING THE MDRD STUDY EQUATION FOR THE IDMS-TRACEABLE CREATININE METHODS. CLIN CHEM 2007;53:766-72 REBECCA FRANKS CALLED TO AGUSTIN LOERA , 10/16/2020 09:50 Renal Function Panel 58 {mL/min/1.73m2} Abnormal >60 [facility] [facility] DO Work Phone: Comment on above: REBECCA FRANKS CALLED TO AGUSTIN LOERA , 10/16/2020 09:50 Vancomycin Level, Troughon 1 12-17-2019 Vancomycin trough [Mass/Vol] 8.6 ug/mL 5.0 - 20.0 [facility] [facility] DO Work Phone: Comment on above: Vancomycin levels sh ould be interpreted in conjunction with the dose, disease being treated, vancomycin KIRIT, time of draw (trough concentrations should be obtained just before the next dose at steady-state), and other clinical information. Trough concentrations of 15-20 ug/mL are desired for severe infections. Ref.: Am J Health-Syst Pharm 66: 83-98, 2009. Blood Gason 10-15-2020 HCO3 (Bld) [Moles/Vol] 24.6 mmol/L See Below M P[facility] 400 DO Work Phone: Comment on above: Reference Range: 22. 0 - 26.0 Oxygen (Bld) [Partial pressure] 92 {mmHg} 85 - 95 [facility] [facility] DO Work Phone: CLOST DIFF. TOXIN, PCRon C. difficile toxin genes AMINTA+probe Ql (Stl) NOT DETECTED See Below [facility] [facility] DO Work Phone: Comment on above: SOURCE: StoolReferen ce Range: Not Detected This assay detects the presence of the tcdB (toxin B) gene via DNA amplification, and results should be interpreted in the context of the patients history and clinical findings. This test cannot be performed on formed stools or used as a test of cure, and should not be performed more than once per 7 days. Complete Blood Count + Diffe [facility] 10-15-2020 Basophils (Bld) [#/Vol] 0.07 {x10E9/L} See Below [facility] Work [facility]: Comment on above: Reference Range: 0.0 0 - 0.10 Basophils/100 WBC (Bld) 0.5 % 0.0 - 2.0 [facility] Work [facility]: Eosinophils (Bld) [#/Vol] 0.07 {x10E9/L} See Below [facility] [place] 400 DO Work Phone: Comment on above: Reference Range: 0.0 0 - 0.40 Eosinophils/100 WBC (Bld) 0.5 % 0.0 - 6.0 [facility] [place] 400 DO Work Phone: Erythrocyte distribution width (RBC) [Ratio] 19.9 % above high threshold See Below [facility] [place] 400 DO Work Phone: Comment on above: Reference Range: 11. 5 - 14.5 Hematocrit (Bld) [Volume fraction] 35.2 % below low threshold See Below [facility] [place] 400 DO Work Phone: Comment on above: Reference Range: 36. 0 - 46.0 Hemoglobin (Bld) [Mass/Vol] 11.5 g/dL below low threshold See Below [facility] Work Phone: Comment on above: Reference Range: 12. 0 - 16.0 Lymphocytes (Bld) [#/Vol] 1.35 {x10E9/L} See Below [facility] [facility] DO Work Phone: [phone] Comment on above: Reference Range: 0.8 0 - 3.00 Lymphocytes/100 WBC (Bld) 10.6 % See Below [facility] 400 DO Work Phone: [phone] Comment on above: Reference Range: 13. 0 - 44.0 MCHC (RBC) [Mass/Vol] 32.7 g/dL See Below [facility]- [facility] [facility] DO Work Phone: [phone] Comment on above: Reference Range: 32. 0 - 36.0 MCV (RBC) [Entitic vol] 86 fL 80 - 100 [facility] 400 DO Work Phone: [phone] Monocytes (Bld) [#/Vol] 1.88 {x10E9/L} above high threshold See Below [facility] [facility] DO Work Phone: [phone] Comment on above: Reference Range: 0.0 5 - 0.80 Monocytes/100 WBC (Bld) 14.8 % 2.0 - 10.0 [facility] 400 DO Work Phone: [phone] Neutrophils/100 WBC (Bld) 72.6 % See Below [facility] 400 DO Work Phone: [phone] Comment on above: Reference Range: 40. 0 - 80.0 Platelets (Bld) [#/Vol] 509 {x10E9/L} above high threshold 150 - 450 [facility] 400 DO Work Phone: [phone] RBC (Bld) [#/Vol] 4.09 {x10E12/L} See Below [facility] [facility] DO Work Phone: [phone] Comment on above: Reference Range: 4.0 0 - 5.20 WBC (Bld) [#/Vol] 12.7 {x10E9/L} above high threshold 4.4 - 11.3 [facility] 400 DO Work Phone: WBC (Bld) [#/Vol] 0.0 {/100_WBC} 0.0-0.0 [facility] 400 DO Work Phone: Complete Blood Count + Differential 9.24 {x10E9/L} above high threshold See Below [facility] 400 DO Work Phone: Comment on above: Reference Range: 1.6 0 - 5.50 Complete Blood Count + Differential 1.0 % above high threshold 0.0 - 0.9 [facility] 400 DO Work Phone: Comment on above: Immature Granulocyte Count (IG) includes promyelocytes, myelocytes and metamyelocytes but does not include bands. Percent differential counts (%) should be interpreted in the context of the absolute cell counts (cells/L). Hematologyon 10-15-2020 Hematocrit (Bld) [Volume fraction] 37.0 % See Below [facility] [facility] DO Work Phone: Comment on above: Reference Range: 36. 0 - 46.0 Hemoglobin (Bld) [Mass/Vol] 12.6 g/dL See Below [facility] [facility] DO Work Phone: Comment on above: Reference Range: 12. 0 - 16.0 pH (Bld) 7.48 [pH] above high threshold See Below [facility] [facility] DO Work Phone: Comment on above: Reference Range: 7.3 8 - 7.42 Magnesium, Serumon 0 Magnesium [Mass/Vol] 1.77 mg/dL See Below [facility] [facility] DO Work Phone: Comment on above: Reference Range: 1.6 0 - 2.40 Metabolic Panelon 10-15-2020 Calcium.ionized (Bld) [Moles/Vol] 1.23 mmol/L See Below [facility] [address] DO Work Phone: Comment on above: Reference Range: 1.1 0 - 1.33 Chloride [Moles/Vol] 103 mmol/L 98 - 107 [facility] 400 DO Work Phone: CO2 (Bld) [Partial pressure] 33 {mmHg} below low threshold 38 - 42 [facility] 400 DO Work Phone: Glucose [Mass/Vol] 108 mg/dL above high threshold 74 - 99 [facility] 400 DO Work Phone: [phone] Lactate [Moles/Vol] 2.1 mmol/L above high threshold 0.4 - 2.0 [facility] 400 DO Work Phone: [phone] Potassium [Moles/Vol] 3.1 mmol/L below low threshold 3.5 - 5.3 [facility] 400 DO Work Phone: [phone] Sodium [Moles/Vol] 136 mmol/L 136 - 145 [facility] 400 DO Work Phone: [phone] Glucose [Mass/Vol] 104 mg/dL above high threshold 74 - 99 [facility] 400 DO Work Phone: Otheron 10-15-2020 Anion gap (Bld) [Moles/Vol] 12 mmol/L 10 - 25 [facility] 400 DO Work Phone: 1.6 mmol/L -2.0 - 3.0 [facility] 400 DO Work Phone: 99 % 94 - 100 [facility] 400 DO Work Phone: Interpreted by: Jose Alberto MORGAN10/15/20 11:32MRN: [id number] Name: JOHANA CHIN STUDY:CHEST 1 VIEW; 10/15/2020 2:23 am INDICATION:dyspnea. COMPARISON:AP chest 10/13/2020 ORDERING CLINICIAN:NANCY ORTIZ FINDINGS:AP radiograph of the chest was provided. CARDIOMEDIASTINAL SILHOUETTE:Cardiomediasti nal silhouette is stable in size and configuration. LUNGS:Slight interval worsening of perihilar interstitial opacities.Redemonstration of patchy and hazy bilateral airspace opacities. Noevidence of pleural effusion or pneumothorax. ABDOMEN:No remarkable upper abdominal findings. BONES:No acute osseous changes. IMPRESSION:1. Slight interval worsening of perihilar interstitial opacities mayrelate to worsening pulmonary edema.2. Stable appearance of multifocal airspace opacities which mayrelate to multifocal infection. I personally reviewed the images/study and I agree with the findingsas stated. This study was interpreted at [place], [place].Electronically signed by: Jose Alberto MORGAN 10/15/20 11:32 Normal [facility] [address] DO Work Phone: Renal Function Panelon 10-15 Albumin BCP dye [Mass/Vol] 2.8 g/dL below low threshold 3.4 - 5.0 [facility] 400 DO Work Phone: Anion gap [Moles/Vol] 17 mmol/L 10 - 20 [facility] 400 DO Work Phone: Calcium [Mass/Vol] 8.6 mg/dL 8.6 - 10.6 [facility] 400 DO Work Phone: Chloride [Moles/Vol] 105 mmol/L 98 - 107 [facility] 400 DO Work Phone: CO2 [Moles/Vol] 23 mmol/L 21 - 32 [facility] 400 DO Work Phone: Creatinine [Mass/Vol] 0.99 mg/dL See Below [facility] 400 DO Work Phone: Comment on above: Reference Range: 0.5 0 - 1.05 Glucose [Mass/Vol] 103 mg/dL above high threshold 74 - 99 [facility] 400 DO Work Phone: Phosphate [Mass/Vol] 3.3 mg/dL 2.5 - 4.9 [facility] 400 DO Work Phone: Comment on above: The performance darshana acteristics of phosphorus testing in heparinized plasma have been validated by the individual laboratory site where testing is performed. Testing on heparinized plasma is not approved by the FDA; however, such approval is not necessary. Potassium [Moles/Vol] 3.6 mmol/L 3.5 - 5.3 [facility] 400 DO Work Phone: Sodium [Moles/Vol] 141 mmol/L 136 - 145 [facility] 400 DO Work Phone: Urea nitrogen [Mass/Vol] 11 mg/dL 6 - 23 [facility] 400 DO Work Phone: Renal Function Panel 54 {mL/min/1.73m2} Abnormal >60 [facility] 400 DO Work Phone: Renal Function Panel 65 {mL/min/1.73m2} >60 [facility] 400 DO Work Phone: Comment on above: CALCULATIONS OF ZOYA MATED GFR ARE PERFORMED USING THE MDRD STUDY EQUATION FOR THE IDMS-TRACEABLE CREATININE METHODS. CLIN CHEM 2007;53:766-72 Complete Blood Count + Diffe rentialon 10-14-2020 Erythrocyte distribution width (RBC) [Ratio] 20.2 % above high threshold See Below [facility] 400 DO Work Phone: Comment on above: Reference Range: 11. 5 - 14.5 Hematocrit (Bld) [Volume fraction] 38.0 % See Below [facility] 400 DO Work Phone: Comment on above: Reference Range: 36. 0 - 46.0 Hemoglobin (Bld) [Mass/Vol] 12.4 g/dL See Below [facility] 400 DO Work Phone: Comment on above: Reference Range: 12. 0 - 16.0 MCHC (RBC) [Mass/Vol] 32.6 g/dL See Below [facility] 400 DO Work Phone: Comment on above: Reference Range: 32. 0 - 36.0 MCV (RBC) [Entitic vol] 89 fL 80 - 100 [facility] 400 DO Work Phone: [phone] Platelets (Bld) [#/Vol] 488 {x10E9/L} above high threshold 150 - 450 [facility] 400 DO Work Phone: [phone] RBC (Bld) [#/Vol] 4.26 {x10E12/L} See Below [facility] [facility] DO Work Phone: Comment on above: Reference Range: 4.0 0 - 5.20 WBC (Bld) [#/Vol] 21.5 {x10E9/L} above high threshold 4.4 - 11.3 [facility] 400 DO Work Phone: WBC (Bld) [#/Vol] 0.0 {/100_WBC} 0.0-0.0 [facility] 400 DO Work Phone: Complete Blood Count + Differential 1.3 % above high threshold 0.0 - 0.9 [facility] [facility] DO Work Phone: Comment on above: Immature Granulocyte Count (IG) includes promyelocytes, myelocytes and metamyelocytes but does not include bands. Percent differential counts (%) should be interpreted in the context of the absolute cell counts (cells/L). Complete Blood Count + Differential SEE MANUAL DIFF [facility] 400 DO Work Phone: Coronavirus 2019 RNA by PCR, Symptomaticon 10-14-2020 When did you start to experience these symptoms [Date and time] [PhenX] 20201013 1 [facility] [facility] DO Work Phone: Coronavirus 2019 RNA by PCR, Symptomatic NOT DETECTED See Below [facility] [facility] DO Work Phone: Comment on above: SOURCE: Nasal, Nasop haryngealReference Range: Not Detected.This assay is designed to detect the N2 and E genes of SARS-CoV-2 via nucleic acid amplification. A Not Detected result does not preclude COVID-19 infection since the adequacy of sample collection and/or low viral burden may result in presence of viral nucleic acids below the clinical sensitivity of this test method. Fact sheet for providers: www.fda.gov/media/934575/downloadFact sheet for patients: www.fda.gov/media/310973/downloadThis test has received FDA Emergency Use Authorization (EUA) and has been verified by [facility] ([facility]). This test is only authorized for the duration of time that circumstances exist to justify the authorization of the emergency use of in vitro diagnostic tests for the detection of SARS-CoV-2 virus and/or diagnosis of COVID-19 infection under section 564(b)(1) of the Act, 21 U.S.C. 360bbb-3(b)(1), unless the authorization is terminated or revoked sooner. [facility] is certified under CLIA-88 as qualified to perform high complexity testing. Testing is performed in the [facility] located at [address] [place] [address]. Hematologyon 10-14-2020 Band form neutrophils/100 WBC (Bld) 5.0 % 0.0 - 5.0 [facility] 400 DO Work Phone: Basophils (Bld) [#/Vol] 0.00 {x10E9/L} See Below [facility] 400 DO Work Phone: Comment on above: Reference Range: 0.0 0 - 0.10 Basophils/100 WBC (Bld) 0.0 % 0.0 - 2.0 [facility] 400 DO Work Phone: Eosinophils (Bld) [#/Vol] 0.00 {x10E9/L} See Below -[facility] [facility] DO Work Phone: Comment on above: Reference Range: 0.0 0 - 0.40 Eosinophils/100 WBC (Bld) 0.0 % 0.0 - 6.0 -[facility] 400 DO Work Phone: Lymphocytes (Bld) [#/Vol] 2.15 {x10E9/L} See Below [facility] [facility] DO Work Phone: Comment on above: Reference Range: 0.8 0 - 3.00 Lymphocytes/100 WBC (Bld) 10.0 % See Below [facility] [facility] DO Work Phone: Comment on above: Reference Range: 13. 0 - 44.0 Monocytes (Bld) [#/Vol] 3.01 {x10E9/L} above high threshold See Below [facility] [facility] DO Work Phone: Comment on above: Reference Range: 0.0 5 - 0.80 Monocytes/100 WBC (Bld) 14.0 % 2.0 - 10.0 -[facility] [facility] DO Work Phone: MRSA Screenon 10-14-2020 Staphylococcus sp identified Org specific cx Nom (Unsp spec) PATIENT: JOHANA CHIN LOCATION: [address]#: [id number] : 44 AGE: SEX: F ORDERED BY: KANWAL GONZALES: ANTERIOR NARES COLLECTED: 10/14/20 10:08ANTIBIOTICS AT [facility].: RECEIVED : 10/14/20 11:45SITE: nasal swab R E S U L T S STAPH/MRSA SCREEN FINAL 10/16/20 07:52 NO Staphylococcus aureus ISOLATED. -[facility] 400 DO Work Phone: Magnesium, Serumon 0 Magnesium [Mass/Vol] 2.10 mg/dL See Below [facility] [facility] DO Work Phone: [phone] Comment on above: Reference Range: 1.6 0 - 2.40 Metabolic Panelon 10-14-2020 Glucose [Mass/Vol] 318 mg/dL above high threshold 74 - 99 [facility] [facility] DO Work Phone: [phone] Otheron 10-14-2020 Fibrin D-dimer DDU (PPP) [Mass/Vol] 908 {ng/mL_FEU} Abnormal = 500 [facility] [facility] DO Work Phone: [phone] Comment on above: THE D-DIMER ASSAY IS REPORTED IN NG/ML FIBRINOGEN EQUIVALENT UNITS (FEU).THE RESULTS OF THIS ASSAY SHOULD NOT BE USED FOR THE EXCLUSION OF DEEP VEIN THROMBOSIS AND/OR PULMONARY EMBOLISM. Segmented neutrophils/100 WBC (Bld) 71.0 % See Below [facility] [facility] DO Work Phone: [phone] Comment on above: Reference Range: 40. 0 - 80.0 Percent differential counts (%) should be interpreted in the context of the absolute cell counts (cells/L). Few [facility] [facility] DO Work Phone: [phone] 1.08 {x10E9/L} above high threshold See Below [facility] [facility] DO Work Phone: [phone] Comment on above: Reference Range: 0.0 0 - 0.50 See Below [facility] [facility] DO Work Phone: [phone] 16.35 {x10E9/L} above high threshold See Below [facility] [facility] DO Work Phone: [phone] Comment on above: Reference Range: 1.6 0 - 5.50 Mild [facility] [facility] DO Work Phone: [phone] 15.27 {x10E9/L} above high threshold See Below [facility] [facility] DO Work Phone: Comment on above: Reference Range: 1.6 0 - 5.00 Interpreted by: ELIZABETH10/14/20 08:17MRN: [id number] Name: JOHANA CHIN STUDY:CHEST 1 VIEW; 10/13/2020 10:52 pm INDICATION:hypoxic respiratory failure. COMPARISON:AP chest 10/13/2020 ORDERING CLINICIAN:NANCY ORTIZ FINDINGS:AP radiograph of the chest was provided. CARDIOMEDIASTINAL SILHOUETTE:Cardiomediasti nal silhouette is stable in size and configuration. LUNGS:Redemonstration of patchy and hazy bilateral airspace opacities,stable compared to prior. No evidence of pleural effusion orpneumothorax. ABDOMEN:No remarkable upper abdominal findings. BONES:No acute osseous changes. IMPRESSION:1. Stable appearance of patchy and hazy airspace opacities in thebilateral lung castañeda, which may relate to multifocal atypicalinfectious process, such as COVID-19. I personally reviewed the images/study and I agree with the findingsas stated. This study was interpreted at [place], [place].Electronically signed by: ELIZABETH 10/14/20 08:17 Normal [facility] [facility] DO Work Phone: Renal Function Panelon 10-14 Albumin BCP dye [Mass/Vol] 3.0 g/dL below low threshold 3.4 - 5.0 [facility] [facility] DO Work Phone: Anion gap [Moles/Vol] 18 mmol/L 10 - 20 [facility] [facility] DO Work Phone: Calcium [Mass/Vol] 9.5 mg/dL 8.6 - 10.6 [facility] [facility] DO Work Phone: Chloride [Moles/Vol] 104 mmol/L 98 - 107 [facility] 400 DO Work Phone: CO2 [Moles/Vol] 21 mmol/L 21 - 32 [facility] [facility] DO Work Phone: Creatinine [Mass/Vol] 0.79 mg/dL See Below [facility] [facility] DO Work Phone: Comment on above: Reference Range: 0.5 0 - 1.05 Glucose [Mass/Vol] 133 mg/dL above high threshold 74 - 99 [facility] [facility] DO Work Phone: Phosphate [Mass/Vol] 1.7 mg/dL below low threshold 2.5 - 4.9 [facility] [facility] DO Work Phone: Comment on above: The performance darshana acteristics of phosphorus testing in heparinized plasma have been validated by the individual laboratory site where testing is performed. Testing on heparinized plasma is not approved by the FDA; however, such approval is not necessary. Potassium [Moles/Vol] 3.9 mmol/L 3.5 - 5.3 [facility] [facility] DO Work Phone: Sodium [Moles/Vol] 139 mmol/L 136 - 145 [facility] [facility] DO Work Phone: Urea nitrogen [Mass/Vol] 12 mg/dL 6 - 23 [facility] [facility] DO Work Phone: Renal Function Panel >60 >60 [facility] [facility] DO Work Phone: Comment on above: CALCULATIONS OF ZOYA MATED GFR ARE PERFORMED USING THE MDRD STUDY EQUATION FOR THE IDMS-TRACEABLE CREATININE METHODS. CLIN CHEM 2007;53:766-72 Aspergillus Galactomannan An tigen EIAon 10-13-2020 Galactomannan Ag IA Qn 0.052 1 <0.500 [facility] [facility] DO Work Phone: Comment on above: SOURCE: Lavage, Bron chialInterpretation: Patients with an index value of greater than or equal to 0.5 are considered to be positive for galactomannan antigen. The Platelia(TM) Aspergillus EIA package insert also recommends a new sample be collected from the patient for follow-up testing. Patients with an index value of less than 0.5 are considered to be negative for galactomannan antigen. A negative result may indicate that the patient's result is below the detectable level of the assay.Negative results do not rule out the diagnosis of Invasive Aspergillosis. Pursuant to the package insert, repeat testing is recommended if the result is negative, but the disease is suspected. Due to the potential for environmental contamination when transferred to pour-off tubes, which can lead to false positive results, interpret positive results from samples provided in pour-off tubes with caution. Results should be used in conjunction with clinical findings, and should not form the sole basis for a diagnosis or treatment decision.The Platelia Aspergillus Galactomannan EIA is a product of [employer] and is FDA approved for in vitro diagnostic use. _Performed At:[place] [id number] [facility] Director: Yareli Dolan PhD HCLD([facility])IA# [id number] Cell Count + Differential, B samira Fluidon 10-13-2020 WBC (Bld) [#/Vol] 0.27 10*3/uL [facility] 400 DO Work Phone: [phone] Cell Count + Differential, Body Fluid 107 /uL [facility] [facility] 400 DO Work Phone: [phone] Cell Count + Differential, Body Fluid 2 % [facility] [facility] 400 DO Work Phone: [phone] Cell Count + Differential, Body Fluid 29 % [facility] 400 DO Work Phone: [phone] Cell Count + Differential, Body Fluid 1 % [facility] 400 DO Work Phone: Cell Count + Differential, Body Fluid Hazy CLEAR [facility] 400 DO Work Phone: [phone] Cell Count + Differential, Body Fluid 58 % [facility] 400 DO Work Phone: [phone] Cell Count + Differential, Body Fluid 100 1 [facility] 400 DO Work Phone: [phone] Cell Count + Differential, Body Fluid Colorless YELLOW [facility] 400 DO Work Phone: [phone] Comment on above: SOURCE: Bronchial Wa sh Cell Count + Differential, Body Fluid 10 % [facility] 400 DO Work Phone: [phone] Complete Blood Count + Diffe rentialon 10-13-2020 Basophils (Bld) [#/Vol] 0.08 {x10E9/L} See Below [facility] 400 DO Work Phone: [phone] Comment on above: Reference Range: 0.0 0 - 0.10Automated WBC differential has been confirmed by manual smear. Basophils/100 WBC (Bld) 0.6 % 0.0 - 2.0 [facility] 400 DO Work Phone: [phone] Eosinophils (Bld) [#/Vol] 0.01 {x10E9/L} See Below [facility] 400 DO Work Phone: [phone] Comment on above: Reference Range: 0.0 0 - 0.40 Eosinophils/100 WBC (Bld) 0.1 % 0.0 - 6.0 [facility] 400 DO Work Phone: [phone] Erythrocyte distribution width (RBC) [Ratio] 20.6 % above high threshold See Below [facility] 400 DO Work Phone: [phone] Comment on above: Reference Range: 11. 5 - 14.5 Hematocrit (Bld) [Volume fraction] 36.9 % See Below [facility] 400 DO Work Phone: [phone] Comment on above: Reference Range: 36. 0 - 46.0 Hemoglobin (Bld) [Mass/Vol] 12.2 g/dL See Below [facility] 400 DO Work Phone: [phone] Comment on above: Reference Range: 12. 0 - 16.0 Lymphocytes (Bld) [#/Vol] 0.62 {x10E9/L} below low threshold See Below [facility] 400 DO Work Phone: [phone] Comment on above: Reference Range: 0.8 0 - 3.00 Lymphocytes/100 WBC (Bld) 4.5 % See Below [facility] 400 DO Work Phone: [phone] Comment on above: Reference Range: 13. 0 - 44.0 MCHC (RBC) [Mass/Vol] 33.1 g/dL See Below [facility] 400 DO Work Phone: [phone] Comment on above: Reference Range: 32. 0 - 36.0 MCV (RBC) [Entitic vol] 89 fL 80 - 100 [facility] 400 DO Work Phone: [phone] Monocytes (Bld) [#/Vol] 0.81 {x10E9/L} above high threshold See Below [facility] [facility] 400 DO Work Phone: [phone] Comment on above: Reference Range: 0.0 5 - 0.80 Monocytes/100 WBC (Bld) 5.9 % 2.0 - 10.0 [facility] [facility] 400 DO Work Phone: [phone] Neutrophils/100 WBC (Bld) 87.9 % See Below [facility] 400 DO Work Phone: [phone] Comment on above: Reference Range: 40. 0 - 80.0 Platelets (Bld) [#/Vol] 418 {x10E9/L} 150 - 450 [facility] 400 DO Work Phone: [phone] RBC (Bld) [#/Vol] 4.14 {x10E12/L} See Below [facility] 400 DO Work Phone: Comment on above: Reference Range: 4.0 0 - 5.20 WBC (Bld) [#/Vol] 13.6 {x10E9/L} above high threshold 4.4 - 11.3 [facility] 400 DO Work Phone: WBC (Bld) [#/Vol] 0.0 {/100_WBC} 0.0-0.0 [facility] 400 DO Work Phone: Complete Blood Count + Differential 11.98 {x10E9/L} above high threshold See Below [facility] 400 DO Work Phone: Comment on above: Reference Range: 1.6 0 - 5.50 Complete Blood Count + Differential 1.0 % above high threshold 0.0 - 0.9 [facility] 400 DO Work Phone: Comment on above: Immature Granulocyte Count (IG) includes promyelocytes, myelocytes and metamyelocytes but does not include bands. Percent differential counts (%) should be interpreted in the context of the absolute cell counts (cells/L). Cult, AFB, Misc.+ smearon Mycobacterium sp identified Org specific cx Nom (Unsp spec) PATIENT: JOHANA CHIN LOCATION: [address]#: [id number] : 44 AGE: SEX: F ORDERED BY: GAIL SIMMONS: BRONCHIAL COLLECTED: 10/13/20 12:00ANTIBIOTICS AT ISABEL.: RECEIVED : 10/13/20 12:43SITE: RML BAL R E S U L T S AFB SMEAR FINAL 10/14/20 18:36 ACID FAST SMEAR - NEGATIVE. AFB CULTURE/SM, MISC PRELIM 10/26/20 16:00 CULTURE IN PROGRESS AND WILL BE EXAMINED WEEKLY. A RESULT WILL BE ISSUED EITHER WHEN POSITIVE OR AFTER 8 WEEKS INCUBATION. [facility] 400 DO Work Phone: Cult, Bloodon 10-13-2020 Bacteria identified Cx Nom (Bld) PATIENT: JOHANA CHIN LOCATION: [facility] O04IUIM#: [id number] : 44 AGE: SEX: F ORDERED BY: KANWAL GONZALES: Blood COLLECTED: 10/13/20 19:46ANTIBIOTICS AT ISABEL.: RECEIVED : 10/13/20 21:10SITE: R E S U L T S BLOOD CULTURE, BACTERIAL FINAL 10/18/20 21:42 No Growth at 1 days No Growth at 2 days No Growth at 3 days No Growth at 4 days NO GROWTH - FINAL REPORT [facility] Work Phone: Cult, Fungus +smearon 2019 Fungus identified Cx Nom (Unsp spec) PATIENT: JOHANA CHIN LOCATION: [facility] G94DLMD#: [id number] : 44 AGE: SEX: F ORDERED BY: GAIL SIMMONS: BRONCHIAL COLLECTED: 10/13/20 12:00ANTIBIOTICS AT ISABEL.: RECEIVED : 10/13/20 12:43SITE: RML BAL R E S U L T S FUNGAL SMEAR FINAL 10/15/20 14:57 FLUORESCENT FUNGAL STAIN: NEGATIVE FUNGAL CULTURE/SM, MISC PRELIM 10/24/20 11:06 CULTURE IS IN PROGRESS A REPORT WILL BE ISSUED EITHER WHEN POSITIVE OR AFTER TWO WEEKS INCUBATION. [facility] 400 DO Work Phone: Cult, Resp. Lower + smearon 10-13-2020 Bacteria identified Respiratory culture Nom (Unsp spec) PATIENT: JOHANA CHIN LOCATION: C400 [id number]#: [id number] : 44 AGE: SEX: F ORDERED BY: GAIL SIMMONS: BRONCHIAL COLLECTED: 10/13/20 12:00ANTIBIOTICS AT ISABEL.: RECEIVED : 10/13/20 12:42SITE: \ R E S U L T S GRAM STAIN FINAL 10/13/20 21:36 3+ GRANULOCYTES. NO ORGANISMS SEEN. RESPIRATORY CULT./SM,LOWER FINAL 10/15/20 11:02 NORMAL THROAT RAMYA, CULTURE IN PROGRESS. 3+ NORMAL THROAT RAMYA. [facility] [facility] 400 DO Work Phone: Fungitelli Beta-D Glucanon 12-14-2019 1,3 beta glucan (S) [Mass/Vol] <45 [facility] 400 DO Work Phone: Comment on above: SOURCE: Lavage, [facility] performance characteristics of the Fungitell assay in BAL have been determined by [facility]; there are no established criteria for the interpretation of Fungitell results from BAL fluid. Research studies have evaluated the use of the Fungitell assay in BAL in both immunocompromised patients (Mycopathologia (2013) 175:33-41) and acute eosinophilic pneumonia (Chest (2003) 123:4258-1416).The Fungitell Beta-D Glucan assay detects (1,3)- Qbsz-M-trsjwd from the following pathogens: Tanika spp., Acremonium, Aspergillus spp., Coccidioides immitis, Fusarium spp., Histoplasma capsulatum, Trichosporon spp., Sporothrix schenckii, Saccharomyces cerevisiae, and Pneumocystis jiroveci.The Fungitell Beta-D Glucan assay does not detect certain fungal species such as the genus Cryptococcus, which produces very low levels of (1,3)- Dzde-M-pwkwck, nor the Zygomycetes, such as Absidia, Mucor, and Rhizopus, which are not known to produce (1,3)- Swio-Z-issgvk. Studies indicate Blastomyces dermatitidis is usually not detected due to little (1,3)- Xgac-S-lzkgsn produced in the yeast phase.If sample result is greater than 500 pg/mL, physician may order a titer of the sample. Please contact [facility] if you would like to order a retest of this sample to obtain an actual value. Samples are held for 1 week after initial testing date.Validation of bronchial specimens was performed on undiluted samples. Any dilution that occurs during processing before receipt at [facility] will affect the quantitation Performed At:[facility] [place]86 [facility] Director: Yareli Dolan PhD HCLD(ABB)[facility]# [id number] Hematologyon 10-13-2020 Hematocrit (Bld) [Volume fraction] 37.0 % See Below [facility] 400 DO Work Phone: [phone] Comment on above: Reference Range: 36. 0 - 46.0 Hemoglobin (Bld) [Mass/Vol] 12.0 g/dL See Below [facility] 400 DO Work Phone: [phone] Comment on above: Reference Range: 12. 0 - 16.0 MCV (RBC) [Entitic vol] 89 fL 80 - 100 [facility] 400 DO Work Phone: [phone] Platelets (Bld) [#/Vol] 410 {x10E9/L} 150 - 450 [facility] 400 DO Work Phone: [phone] RBC (Bld) [#/Vol] 4.18 {x10E12/L} See Below [facility] 400 DO Work Phone: [phone] Comment on above: Reference Range: 4.0 0 - 5.20 WBC (Bld) [#/Vol] 0.0 {/100_WBC} 0.0-0.0 [facility] 400 DO Work Phone: [phone] WBC (Bld) [#/Vol] 11.1 {x10E9/L} 4.4 - 11.3 [facility] 400 DO Work Phone: [phone] ABO group Nom (Bld) O [facility] 400 DO Work Phone: aPTT Coag (PPP) [Time] 26 {sec} 25 - 35 [facility] 400 DO Work Phone: Comment on above: THE APTT IS NO LONGE R USED FOR MONITORING UNFRACTIONATED HEPARIN THERAPY. FOR MONITORING HEPARIN THERAPY, USE THE HEPARIN ASSAY. Blood group antibody screen Ql Negative [facility] 400 DO Work Phone: INR Coag (PPP) [Relative time] 1.3 {INR} above high threshold 0.9 - 1.1 [facility] 400 DO Work Phone: PT Coag (PPP) [Time] 15.1 {sec} above high threshold See Below [facility] 400 DO Work Phone: Comment on above: Reference Range: 10. 1 - 13.3 Rh immune globulin screen (Bld) [Interp] Negative [facility] 400 DO Work Phone: Magnesium, Serumon 0 Magnesium [Mass/Vol] 1.93 mg/dL See Below [facility] 400 DO Work Phone: Comment on above: Reference Range: 1.6 0 - 2.40 Metabolic Panelon 10-13-2020 Glucose [Mass/Vol] 189 mg/dL above high threshold 74 - 99 [facility] 400 DO Work Phone: Otheron 10-13-2020 Erythrocyte distribution width (RBC) [Ratio] 20.0 % above high threshold See Below [facility] 400 DO Work Phone: Comment on above: Reference Range: 11. 5 - 14.5 MCHC (RBC) [Mass/Vol] 32.4 g/dL See Below [facility] 400 DO Work Phone: Comment on above: Reference Range: 32. 0 - 36.0 Procalcitonin [Mass/Vol] 0.12 ng/mL Abnormal <=0.07 [facility] 400 DO Work Phone: Comment on above: Procalcitonin (PCT) results measured serially can aid in decision-making for antibiotic discontinuation in patients with suspected or confirmed sepsis in conjunction with additional clinical information. Antibiotic discontinuation may be considered with a change in PCT of >80% from the peak result or when PCT falls below 0.50 ng/mL. .Procalcitonin results should not be used in isolation but should be interpreted in conjunction with additional clinical and laboratory findings. Procalcitonin results should not beused to guide the initiation of antibiotic therapy. .Falsely low PCT values in the presence of bacterial infection may occur in early infection, with atypical pathogens, localized infections, and subacute infectious endocarditis. .Falsely elevated results outside of severe bacterial infection/sepsis may be seen in patients with renal failure or insufficiency, severe trauma or john, recent major abdominal/cardiac surgery, acute multi-organ failure, rarely in patients with medullary thyroid carcinoma and rare neuroendocrine tumors, and non-specific interfering antibodies (heterophile antibodies, rheumatoid factor, human anti-mouse antibodies (HAMA), etc). .Performance of the PCT test in pediatric patients (<18yo), women, immunocompromised patients, and patients onimmunomodulatory medications has not been evaluated. Interpreted by: FELIX10/13/20 16:01MRN: [id number] Name: JOHANA CHIN STUDY:CHEST 1 VIEW; 10/13/2020 2:53 pm INDICATION:Patient with diaphoresis, tachypnea. COMPARISON:Chest x-ray 10/10/2020, CT angio chest 10/11/2020 ORDERING CLINICIAN:CLARE GONZALES FINDINGS:AP radiograph of the chest was provided. CARDIOMEDIASTINAL SILHOUETTE:Cardiomediasti nal silhouette is normal in size and configuration. LUNGS:There is interval increase in diffuse bilateral ground-glassopacities with peripheral consolidation, as seen on CT 10/11/2020.There is interval increase in patchy opacities in the right upperlobe opacity and left retrocardiac space. No pleural effusion orpneumothorax. ABDOMEN:No remarkable upper abdominal findings. BONES:No acute osseous changes. IMPRESSION:1. Again seen bilateral ground-glass and consolidative opacities inbilateral lungs, with interval slight worsening in the right upperlung. Correlation with concern for multifocal infection includingCOVID-19 pneumonia.2. There is no sizable pleural effusion or pneumothorax. I personally reviewed the images/study and I agree with the findingsas stated. This study was interpreted at [place], [place].Electronically signed by: FELIX 10/13/20 16:01 Normal [facility] 400 DO Work Phone: Mild [facility] 400 DO Work Phone: See Below [facility] 400 DO Work Phone: [email or web address] [facility] 400 DO Work Phone: Patient Name: Johana Matthews Date: 10/13/2020 7:16 AMMRN: [id number] Number: [id number] of : 2Room: [place] Procedure Room 8Attending MD: Evans Kennedy , MDProcedure: BronchoscopyIndications: Bilateral infiltrateProviders: Evans Kennedy MD (Doctor), Beto Garcia RN (Nurse), Romel Trujillo Maintenance Electrician (Maintenance Electrician), Jose D Ojeda MD (Fellow)Referring MD: Provider Care Team: Ascencion Bell MD (Requesting Physician)Medicines: Lidocaine 2% 200 mg, See the Anesthesia note for documentation of the administered medicationsComplications: No immediate complicationsProcedure: Pre-Anesthesia Assessment: - A History and Physical has been performed. Patient meds and allergies have been reviewed. The risks and benefits of the procedure and the sedation options and risks were discussed with the patient. All questions were answered and informed consent was obtained. Patient identification and proposed procedure were verified prior to the procedure in the procedure room. Mental Status Examination: normal. Airway Examination: Please refer to anesthesia staff note. Respiratory Examination: bibasilar crackles. CV Examination: normal. ASA Grade Assessment: III - A patient with severe systemic disease. After reviewing the risks and benefits, the patient was deemed in satisfactory condition to undergo the procedure. The anesthesia plan was to use monitored anesthesia care (MAC). Immediately prior to administration of medications, the patient was re-assessed for adequacy to receive sedatives. The heart rate, respiratory rate, oxygen saturations, blood pressure, adequacy of pulmonary ventilation, and response to care were monitored throughout the procedure. The physical status of the patient was re-assessed after the procedure. After obtaining informed consent, the therapeutic bronchoscope was introduced through the mouth, via laryngeal mask airway and advanced to the tracheobronchial tree. The procedure was accomplished without difficulty. The patient tolerated the procedure well. The total duration of the procedure was 8 minutes.Findings: The laryngeal mask airway is in good position. The vocal cords appear normal. The subglottic space is normal. The trachea is of normal caliber. The shi is sharp. The tracheobronchial tree was examined to at least the first subsegmental level. Bronchial mucosa and anatomy are normal; there are no endobronchial lesions, and no secretions. Bronchoalveolar lavage was performed in the right middle lobe of the lung and sent for cell count, bacterial culture, and fungal & AFB analysis and cytology. 120 mL of fluid were instilled. 65. The return was cellular.Estimated Blood Loss: Estimated blood loss: none.Impression: - Bronchoalveolar lavage was performed.Recommendation: - Return patient to [facility] for ongoing care. - Await BAL results.Procedure Code(s): --- Professional --- 89673, Bronchoscopy, rigid or flexible, including fluoroscopic guidance, when performed; with bronchial alveolar lavageDiagnosis Code(s): --- Professional --- R91.8, Other nonspecific abnormal finding of lung field C81.90, Hodgkin lymphoma, unspecified, unspecified siteCPT copyright 2019 [employer]. All rights reserved.The codes documented in this report are preliminary and upon mileage clerk review may be revised to meet current compliance requirements.Attending Participation: I was present and participated during the entire procedure, including non-downs portions.Evans Kennedy MD10/13/2020 9:20:49 AMThis report has been signed electronically.Number of Addenda: 0[place]brooke Initiated On: 10/13/2020 7:16 AMPatient Profile: This is a 80 year old female. Refer to note in patient chart for documentation of history and physical. The attending physician independently verified the history and physical at 0700 on 10/13/2020. The patient's ECOG performance status grade is 2 - ambulatory and capable of all self care but unable to carry out any work activities; up [facility] 400 DO Work Phone: Path Review, Fluidon 020 Path Review, Jovani GAMBOA [facility] 400 DO Work Phone: Comment on above: SOURCE: Jesu mcclain By her/his signature above, the Pathologist listed as making the final interpretation certifies that she/he has personally reviewed this case. PREDOMINANTLY MACROPHAGES WITH FEW NEUTROPHILS SEEN. Renal Function Panelon 10-13 Albumin BCP dye [Mass/Vol] 3.0 g/dL below low threshold 3.4 - 5.0 [facility] 400 DO Work Phone: Anion gap [Moles/Vol] 14 mmol/L 10 - 20 [facility] 400 DO Work Phone: Calcium [Mass/Vol] 9.3 mg/dL 8.6 - 10.6 [facility] 400 DO Work Phone: Chloride [Moles/Vol] 103 mmol/L 98 - 107 [facility] 400 DO Work Phone: CO2 [Moles/Vol] 24 mmol/L 21 - 32 [facility] 400 DO Work Phone: Creatinine [Mass/Vol] 0.80 mg/dL See Below [facility] 400 DO Work Phone: Comment on above: Reference Range: 0.5 0 - 1.05 Glucose [Mass/Vol] 172 mg/dL above high threshold 74 - 99 [facility] 400 DO Work Phone: Phosphate [Mass/Vol] 2.5 mg/dL 2.5 - 4.9 [facility] 400 DO Work Phone: Comment on above: The performance darshana acteristics of phosphorus testing in heparinized plasma have been validated by the individual laboratory site where testing is performed. Testing on heparinized plasma is not approved by the FDA; however, such approval is not necessary. Potassium [Moles/Vol] 4.1 mmol/L 3.5 - 5.3 [facility] 400 DO Work Phone: Sodium [Moles/Vol] 137 mmol/L 136 - 145 [facility] 400 DO Work Phone: [phone] Urea nitrogen [Mass/Vol] 11 mg/dL 6 - 23 [facility] 400 DO Work Phone: Renal Function Panel >60 >60 [facility] 400 DO Work Phone: Comment on above: CALCULATIONS OF ZOYA MATED GFR ARE PERFORMED USING THE MDRD STUDY EQUATION FOR THE IDMS-TRACEABLE CREATININE METHODS. CLIN CHEM 2007;53:766-72 Albumin BCP dye [Mass/Vol] 3.0 g/dL below low threshold 3.4 - 5.0 [facility] 400 DO Work Phone: Anion gap [Moles/Vol] 14 mmol/L 10 - 20 [facility] 400 DO Work Phone: [phone] Calcium [Mass/Vol] 9.1 mg/dL 8.6 - 10.6 [facility] 400 DO Work Phone: Chloride [Moles/Vol] 102 mmol/L 98 - 107 [facility] 400 DO Work Phone: CO2 [Moles/Vol] 24 mmol/L 21 - 32 [facility] 400 DO Work Phone: Creatinine [Mass/Vol] 0.88 mg/dL See Below [facility] 400 DO Work Phone: Comment on above: Reference Range: 0.5 0 - 1.05 Glucose [Mass/Vol] 144 mg/dL above high threshold 74 - 99 [facility] 400 DO Work Phone: Phosphate [Mass/Vol] 2.8 mg/dL 2.5 - 4.9 [facility] 400 DO Work Phone: Comment on above: The performance darshana acteristics of phosphorus testing in heparinized plasma have been validated by the individual laboratory site where testing is performed. Testing on heparinized plasma is not approved by the FDA; however, such approval is not necessary. Potassium [Moles/Vol] 4.3 mmol/L 3.5 - 5.3 [facility] 400 DO Work Phone: Sodium [Moles/Vol] 136 mmol/L 136 - 145 [facility] 400 DO Work Phone: Urea nitrogen [Mass/Vol] 11 mg/dL 6 - 23 [facility] [facility] DO Work Phone: Renal Function Panel >60 >60 [facility] 400 DO Work Phone: Comment on above: CALCULATIONS OF ZOYA MATED GFR ARE PERFORMED USING THE MDRD STUDY EQUATION FOR THE IDMS-TRACEABLE CREATININE METHODS. CLIN CHEM 2007;53:766-72 VZV DNA PCR, QUANT (NON-BLOO D SPECIMEN)on 10-13-2020 VZV DNA AMINTA+probe [#/Vol] Not Detected See Below [facility] 400 DO Work Phone: Comment on above: SOURCE: Lavage, Bron chialReference Range: Not DetectedAssay Range: 221 copies/mL to 1.00E+08 copies/mLThe limit of quantitation (LOQ) is 221 copies/mL. VZV DNA detected below the LOQ will be reported as Detected:<221 copies/mL.This test was developed and its performance characteristics determined by [facility]. It has not been cleared or approved by the U.S. Food and Drug Administration. Results should be used in conjunction with clinical findings, and should not form the sole basis for a diagnosis or treatment decision. Performed At:[facility] [place] [address] [facility] Director: Yareli Dolan PhD HCLD([facility]# [id number] Complete Blood Count + [facility]iffe [facility] Basophils (Bld) [#/Vol] 0.09 {x10E9/L} See Below [facility] [facility] DO Work Phone: Comment on above: Reference Range: 0.0 0 - 0.10Automated WBC differential has been confirmed by manual smear. Basophils/100 WBC (Bld) 1.1 % 0.0 - 2.0 [facility] [facility] DO Work Phone: Eosinophils (Bld) [#/Vol] 0.15 {x10E9/L} See Below [facility] 400 DO Work Phone: Comment on above: Reference Range: 0.0 0 - 0.40 Eosinophils/100 WBC (Bld) 1.8 % 0.0 - 6.0 [facility] 400 DO Work Phone: Erythrocyte distribution width (RBC) [Ratio] 20.8 % above high threshold See Below [facility] 400 DO Work Phone: [phone] Comment on above: Reference Range: 11. 5 - 14.5 Hematocrit (Bld) [Volume fraction] 35.9 % below low threshold See Below [facility] 400 DO Work Phone: [phone] Comment on above: Reference Range: 36. 0 - 46.0 Hemoglobin (Bld) [Mass/Vol] 11.8 g/dL below low threshold See Below [facility] 400 DO Work Phone: [phone] Comment on above: Reference Range: 12. 0 - 16.0 Lymphocytes (Bld) [#/Vol] 0.96 {x10E9/L} See Below [facility] 400 DO Work Phone: [phone] Comment on above: Reference Range: 0.8 0 - 3.00 Lymphocytes/100 WBC (Bld) 11.4 % See Below [facility] [facility] DO Work Phone: [phone] Comment on above: Reference Range: 13. 0 - 44.0 MCHC (RBC) [Mass/Vol] 32.9 g/dL See [facility] [facility] DO Work Phone: [phone] Comment on above: Reference Range: 32. 0 - 36.0 MCV (RBC) [Entitic vol] 88 fL 80 - 100 [facility] 400 DO Work Phone: [phone] Monocytes (Bld) [#/Vol] 1.56 {x10E9/L} above high threshold See Below [facility] [facility] DO Work Phone: [phone] Comment on above: Reference Range: 0.0 5 - 0.80 Monocytes/100 WBC (Bld) 18.6 % 2.0 - 10.0 [facility] 400 DO Work Phone: [phone] Neutrophils/100 WBC (Bld) 66.1 % See Below [facility] 400 DO Work Phone: [phone] Comment on above: Reference Range: 40. 0 - 80.0 Platelets (Bld) [#/Vol] 388 {x10E9/L} 150 - 450 [facility] 400 DO Work Phone: RBC (Bld) [#/Vol] 4.06 {x10E12/L} See Below [facility] 400 DO Work Phone: Comment on above: Reference Range: 4.0 0 - 5.20 WBC (Bld) [#/Vol] 0.0 {/100_WBC} 0.0-0.0 [facility] 400 DO Work Phone: WBC (Bld) [#/Vol] 8.4 {x10E9/L} 4.4 - 11.3 [facility] 400 DO Work Phone: Complete Blood Count + Differential 1.0 % above high threshold 0.0 - 0.9 [facility] 400 DO Work Phone: Comment on above: Immature Granulocyte Count (IG) includes promyelocytes, myelocytes and metamyelocytes but does not include bands. Percent differential counts (%) should be interpreted in the context of the absolute cell counts (cells/L). Complete Blood Count + Differential 5.56 {x10E9/L} above high threshold See Below [facility] 400 DO Work Phone: Comment on above: Reference Range: 1.6 0 - 5.50 Wade Strauss 10-12-2020 Bacteria identified Cx Nom (Bld) PATIENT: JOHANA CHIN LOCATION: [address]#: [id number] : 44 AGE: SEX: F ORDERED BY: KANWAL GONZALES: Blood COLLECTED: 10/12/20 07:34ANTIBIOTICS AT [facility].: RECEIVED : 10/12/20 08:27SITE: right PERIPHERAL R E S U L T S BLOOD CULTURE, BACTERIAL FINAL 10/17/20 09:42 No Growth at 1 days No Growth at 2 days No Growth at 3 days No Growth at 4 days NO GROWTH - FINAL REPORT [facility] 400 DO Work Phone: Bacteria identified Cx Nom (Bld) PATIENT: JOHANA CHIN LOCATION: [facility] F22LOAR#: [id number] : 44 AGE: SEX: F ORDERED BY: KANWAL GONZALES: Blood COLLECTED: 10/12/20 07:33ANTIBIOTICS AT [facility].: RECEIVED : 10/12/20 08:27SITE: left PERIPHERAL R E S U L T S BLOOD CULTURE, BACTERIAL FINAL 10/17/20 09:42 No Growth at 1 days No Growth at 2 days No Growth at 3 days No Growth at 4 days NO GROWTH - FINAL [facility] 400 DO Work Phone: Cult, Resp. Lower + smearon 10-12-2020 Bacteria identified Respiratory culture Nom (Unsp spec) PATIENT: JOHANA CHIN LOCATION: [place] [id number]#: [id number] : 44 AGE: SEX: F ORDERED BY: KANWAL GONZALES: SPUTUM COLLECTED: 10/12/20 12:41ANTIBIOTICS AT [facility].: RECEIVED : 10/12/20 14:16SITE: R E S U L T S GRAM STAIN FINAL 10/12/20 16:20 THE GRAM STAIN INDICATES THAT THE SPECIMEN CONTAINS SIGNIFICANT SALIVARY CONTAMINATION. THE CULTURE WILL NOT BE PROCESSED IT WILL BE OF LIMITED DIAGNOSTIC VALUE.A SPECIMEN OF BETTER QUALITY SHOULD BE SUBMITTED IF CLINICALLY INDICATED. RESPIRATORY CULT./SM,LOWER CANCELLED 10/12/20 16:21 [facility] 400 DO Work Phone: Magnesium, Serumon 0 Magnesium [Mass/Vol] 1.92 mg/dL See Below [facility] 400 DO Work Phone: Comment on above: Reference Range: 1.6 0 - 2.40 Otheron 10-12-2020 Procalcitonin [Mass/Vol] 0.08 ng/mL Abnormal <=0.07 [facility] 400 DO Work Phone: Comment on above: Procalcitonin (PCT) results measured serially can aid in decision-making for antibiotic discontinuation in patients with suspected or confirmed sepsis in conjunction with additional clinical information. Antibiotic discontinuation may be considered with a change in PCT of >80% from the peak result or when PCT falls below 0.50 ng/mL. .Procalcitonin results should not be used in isolation but should be interpreted in conjunction with additional clinical and laboratory findings. Procalcitonin results should not beused to guide the initiation of antibiotic therapy. .Falsely low PCT values in the presence of bacterial infection may occur in early infection, with atypical pathogens, localized infections, and subacute infectious endocarditis. .Falsely elevated results outside of severe bacterial infection/sepsis may be seen in patients with renal failure or insufficiency, severe trauma or john, recent major abdominal/cardiac surgery, acute multi-organ failure, rarely in patients with medullary thyroid carcinoma and rare neuroendocrine tumors, and non-specific interfering antibodies (heterophile antibodies, rheumatoid factor, human anti-mouse antibodies (HAMA), etc). .Performance of the PCT test in pediatric patients (<18yo), women, immunocompromised patients, and patients onimmunomodulatory medications has not been evaluated. SEE COMMENT [facility] 400 DO Work Phone: Comment on above: NO SIGNIFICANT RBC A BNORMALITIES SEEN ONSMEAR REVIEW. Renal Function Panelon 10-12 Albumin BCP dye [Mass/Vol] 2.9 g/dL below low threshold 3.4 - 5.0 [facility] [facility] DO Work Phone: Anion gap [Moles/Vol] 14 mmol/L 10 - 20 [facility] Work [facility]: Calcium [Mass/Vol] 8.9 mg/dL 8.6 - 10.6 [facility] [facility] DO Work Phone: Chloride [Moles/Vol] 104 mmol/L 98 - 107 [facility] 400 DO Work Phone: CO2 [Moles/Vol] 26 mmol/L 21 - 32 [facility] 400 DO Work Phone: Creatinine [Mass/Vol] 0.87 mg/dL See Below [facility] 400 DO Work Phone: Comment on above: Reference Range: 0.5 0 - 1.05 Glucose [Mass/Vol] 96 mg/dL 74 - 99 [facility] 400 DO Work Phone: Phosphate [Mass/Vol] 2.8 mg/dL 2.5 - 4.9 [facility] 400 DO Work Phone: Comment on above: The performance darshana acteristics of phosphorus testing in heparinized plasma have been validated by the individual laboratory site where testing is performed. Testing on heparinized plasma is not approved by the FDA; however, such approval is not necessary. Potassium [Moles/Vol] 4.0 mmol/L 3.5 - 5.3 [facility] 400 DO Work Phone: Sodium [Moles/Vol] 140 mmol/L 136 - 145 [facility] 400 DO Work Phone: Urea nitrogen [Mass/Vol] 8 mg/dL 6 - 23 [facility] 400 DO Work Phone: Renal Function Panel >60 >60 [facility] 400 DO Work Phone: Comment on above: CALCULATIONS OF ZOYA MATED GFR ARE PERFORMED USING THE MDRD STUDY EQUATION FOR THE IDMS-TRACEABLE CREATININE METHODS. CLIN CHEM 2007;53:766-72 Complete Blood Count + Diffe rentialon 10-11-2020 Basophils (Bld) [#/Vol] 0.09 {x10E9/L} See Below [facility] 400 DO Work Phone: Comment on above: Reference Range: 0.0 0 - 0.10 Basophils/100 WBC (Bld) 0.9 % 0.0 - 2.0 [facility] 400 DO Work Phone: [phone] Eosinophils (Bld) [#/Vol] 0.24 {x10E9/L} See Below [facility] 400 DO Work Phone: [phone] Comment on above: Reference Range: 0.0 0 - 0.40 Eosinophils/100 WBC (Bld) 2.3 % 0.0 - 6.0 [facility] 400 DO Work Phone: [phone] Erythrocyte distribution width (RBC) [Ratio] 20.0 % above high threshold See Below [facility] 400 DO Work Phone: [phone] Comment on above: Reference Range: 11. 5 - 14.5 Hematocrit (Bld) [Volume fraction] 35.2 % below low threshold See Below [facility] 400 DO Work Phone: [phone] Comment on above: Reference Range: 36. 0 - 46.0 Hemoglobin (Bld) [Mass/Vol] 12.1 g/dL See Below [facility] 400 DO Work Phone: [phone] Comment on above: Reference Range: 12. 0 - 16.0 Lymphocytes (Bld) [#/Vol] 0.92 {x10E9/L} See Below [facility] 400 DO Work Phone: [phone] Comment on above: Reference Range: 0.8 0 - 3.00 Lymphocytes/100 WBC (Bld) 8.9 % See Below [facility] 400 DO Work Phone: [phone] Comment on above: Reference Range: 13. 0 - 44.0 MCHC (RBC) [Mass/Vol] 34.4 g/dL See Below [facility] 400 DO Work Phone: [phone] Comment on above: Reference Range: 32. 0 - 36.0 MCV (RBC) [Entitic vol] 88 fL 80 - 100 [facility] 400 DO Work Phone: [phone] Monocytes (Bld) [#/Vol] 1.51 {x10E9/L} above high threshold See Below [facility] 400 DO Work Phone: [phone] Comment on above: Reference Range: 0.0 5 - 0.80 Monocytes/100 WBC (Bld) 14.7 % 2.0 - 10.0 [facility] 400 DO Work Phone: [phone] Neutrophils/100 WBC (Bld) 71.0 % See Below [facility] 400 DO Work Phone: [phone] Comment on above: Reference Range: 40. 0 - 80.0 Platelets (Bld) [#/Vol] 343 {x10E9/L} 150 - 450 [facility] 400 DO Work Phone: [phone] RBC (Bld) [#/Vol] 4.02 {x10E12/L} See Below -[facility] 400 DO Work Phone: [phone] Comment on above: Reference Range: 4.0 0 - 5.20 WBC (Bld) [#/Vol] 0.0 {/100_WBC} 0.0-0.0 [facility] 400 DO Work Phone: [phone] WBC (Bld) [#/Vol] 10.3 {x10E9/L} 4.4 - 11.3 [facility] 400 DO Work Phone: [phone] Complete Blood Count + Differential 2.2 % above high threshold 0.0 - 0.9 [facility] 400 DO Work Phone: [phone] Comment on above: Immature Granulocyte Count (IG) includes promyelocytes, myelocytes and metamyelocytes but does not include bands. Percent differential counts (%) should be interpreted in the context of the absolute cell counts (cells/L). Complete Blood Count + Differential 7.31 {x10E9/L} above high threshold See Below [facility] 400 DO Work Phone: Comment on above: Reference Range: 1.6 0 - 5.50 Legionella Antigen, Urineon 10-11-2020 L. pneumophila 1 Ag IA Ql (U) Negative Negative [facility] 400 DO Work Phone: Comment on above: SOURCE: NEGATIVE FOR LEGIONELLA PNEUMOPHILIASEROGROUP 1 ANTIGEN IN URINE,SUGGESTING NO CURRENT OR PAST INFECTION. Magnesium, Serumon 0 Magnesium [Mass/Vol] 1.81 mg/dL See Below [facility] 400 DO Work Phone: Comment on above: Reference Range: 1.6 0 - 2.40 Metabolic Panelon 10-11-2020 LDH [Catalytic activity/Vol] 269 U/L above high threshold 84 - 246 [facility] 400 DO Work Phone: Otheron 10-11-2020 US.doppler Upper extremity vein - bilateral Interpreted by: JOAQUIN [facility]12/12/19 04:48MRN: [id number] Name: JOHANA CHIN STUDY:DUPLEX LOWER EXTREMITY VEINS, BILATERAL; 10/11/2020 2:28 am INDICATION:Severe shortness of breath. COMPARISON:No pertinent recent imaging for comparison. ORDERING CLINICIAN:CLARE GONZALES TECHNIQUE:Vascular ultrasound of the bilateral lower extremities was performed.Real-time compression views as well as Ferreira scale, color Doppler andspectral Doppler waveform analysis was performed. FINDINGS:Evaluation of the visualized portions of the bilateral common femoralvein, proximal, mid, and distal femoral vein, and popliteal vein wereperformed. Evaluation of the visualized portions of the posteriortibial and peroneal veins were also performed, however left-sidedposterior tibial and peroneal veins were poorly visualized in thetransverse view. Limitations: Patient's body habitus. The evaluated veins demonstrate normal compressibility. There isintact venous flow demonstrating normal respiratory variability.Therefore, there is no ultrasonographic evidence for deep veinthrombosis within the evaluated veins. IMPRESSION:No sonographic evidence for deep vein thrombosis within the evaluatedveins of the bilateral lower extremity. I personally reviewed the images/study and I agree with the findingsas stated. This study was interpreted at [place], [place].Electronically signed by: JOAQUIN ALBRECHT 10/11/20 04:48 Normal [facility] 400 DO Work Phone: [phone] S. pneumoniae Ag Ql (U) Negative Negative [facility] 400 DO Work Phone: [phone] Comment on above: Presumptive negative for pneumococcal pneumonia, suggesting no current or recent infection. Infection due to S. pneumoniae cannot be ruled out since the antigen present in the sample may be below the detection limit of the test. Renal Function Panelon 10-11 Albumin BCP dye [Mass/Vol] 3.1 g/dL below low threshold 3.4 - 5.0 [facility] 400 DO Work Phone: [phone] Anion gap [Moles/Vol] 14 mmol/L 10 - 20 [facility] 400 DO Work Phone: [phone] Calcium [Mass/Vol] 9.3 mg/dL 8.6 - 10.6 [facility] 400 DO Work Phone: [phone] Chloride [Moles/Vol] 100 mmol/L 98 - 107 [facility] 400 DO Work Phone: [phone] CO2 [Moles/Vol] 26 mmol/L 21 - 32 [facility] 400 DO Work Phone: [phone] Creatinine [Mass/Vol] 0.84 mg/dL See Below [facility] 400 DO Work Phone: Comment on above: Reference Range: 0.5 0 - 1.05 Glucose [Mass/Vol] 117 mg/dL above high threshold 74 - 99 [facility] 400 DO Work Phone: Phosphate [Mass/Vol] 2.9 mg/dL 2.5 - 4.9 [facility] 400 DO Work Phone: Comment on above: The performance darshana acteristics of phosphorus testing in heparinized plasma have been validated by the individual laboratory site where testing is performed. Testing on heparinized plasma is not approved by the FDA; however, such approval is not necessary. Potassium [Moles/Vol] 3.3 mmol/L below low threshold 3.5 - 5.3 [facility] 400 DO Work Phone: Sodium [Moles/Vol] 137 mmol/L 136 - 145 [facility] 400 DO Work Phone: Urea nitrogen [Mass/Vol] 8 mg/dL 6 - 23 [facility] 400 DO Work Phone: Renal Function Panel >60 >60 [facility] 400 DO Work Phone: Comment on above: CALCULATIONS OF ZOYA MATED GFR ARE PERFORMED USING THE MDRD STUDY EQUATION FOR THE IDMS-TRACEABLE CREATININE METHODS. CLIN CHEM 2007;53:766-[address] Angio Chest For PEon 1 12-12-2019 CT Angio Chest For PE Interpreted by: Jose Alberto MORGAN10/11/20 15:46MRN: [id number] Name: JOHANA CHIN STUDY:CT ANGIO CHEST FOR PE; 10/11/2020 10:26 am INDICATION:SOB, new oxygen requirement, Lie Flat: No. COMPARISON:None. ORDERING CLINICIAN:TYREE GERMAN TECHNIQUE:Helical data acquisition of the chest was obtained contrast with 51mL of IV contrast Omnipaque 350.. Images were reformatted in coronaland sagittal planes. Axial and coronal MIP images were created andreviewed. FINDINGS:POTENTIAL LIMITATIONS OF THE STUDY: None HEART AND VESSELS:No discrete filling defects within the main pulmonary artery or itsbranches. Main pulmonary artery and its branches are normal in caliber. There is moderate atherosclerotic changes of the thoracic aorta. Mild coronary artery calcifications are seen. Study is not optimizedfor evaluation of coronary arteries. The cardiac chambers are not enlarged. No evidence of pericardial effusion. MEDIASTINUM AND RYAN, LOWER NECK AND AXILLA:There is asymmetry in size of the left lobe of the thyroid but nofocal thyroid lesions. There has been interval decrease in right hilar lymphadenopathy.Extensive hilar and subcarinal lymphadenopathy is again identified. Esophagus appears within normal limits as seen. LUNGS AND AIRWAYS:The trachea and central airways are patent. No endobronchial lesion. There has been interval increase in diffuse ground-glass opacitieswith peripheral consolidation when compared to a study of 04/25/2020. UPPER ABDOMEN:The patient is status post cholecystectomy. CHEST WALL AND OSSEOUS STRUCTURES:There are no suspicious osseous lesions. Multilevel degenerativechanges are present IMPRESSION:1. Interval increase in diffuse airspace disease in a background ofsubpleural fibrotic changes. Correlate with atypical infection, viralinfection versus drug toxicity.. Correlate with component ofinflammatory alveolitis.2. Slight interval improvement in mediastinal lymphadenopathy. Electronically signed by: Jose Alberto MORGAN 10/11/20 15:46 Normal [facility] 400 DO Work Phone: [facility] 10-10-2020 Natriuretic peptide B (Bld) [Mass/Vol] 10 pg/mL 0 - 99 -[facility] 400 DO Work Phone: Comment on above: . <100 pg/mL - Heart failure -641 pg/mL - Intermediate probability of acute heart. failure exacerbation. Correlate with clinical. context and patient history. >=300 pg/mL - Heart Failure likely. Correlate with clinical. context and patient history. Biotin interference may cause falsely decreased results. Patients taking a Biotin dose of up to 5 mg/day should refrain from taking Biotin for 24 hours before sample collection. Providers may contact their local laboratory for further information. Complete Blood Count + Diffe [facility] 10-10-2020 Basophils (Bld) [#/Vol] 0.07 {x10E9/L} See Below [facility] 400 DO Work Phone: Comment on above: Reference Range: 0.0 0 - 0.10Automated WBC differential has been confirmed by manual smear. Basophils/100 WBC (Bld) 0.6 % 0.0 - 2.0 -[facility] 400 DO Work Phone: [phone] Eosinophils (Bld) [#/Vol] 0.14 {x10E9/L} See Below [facility] 400 DO Work Phone: [phone] Comment on above: Reference Range: 0.0 0 - 0.40 Eosinophils/100 WBC (Bld) 1.1 % 0.0 - 6.0 [facility] 400 DO Work Phone: [phone] Erythrocyte distribution width (RBC) [Ratio] 21.2 % above high threshold See Below [facility] 400 DO Work Phone: [phone] Comment on above: Reference Range: 11. 5 - 14.5 Hematocrit (Bld) [Volume fraction] 42.4 % See Below [facility] 400 DO Work Phone: [phone] Comment on above: Reference Range: 36. 0 - 46.0 Hemoglobin (Bld) [Mass/Vol] 14.1 g/dL See Below [facility] 400 DO Work Phone: [phone] Comment on above: Reference Range: 12. 0 - 16.0 Lymphocytes (Bld) [#/Vol] 0.99 {x10E9/L} See Below [facility] [facility] DO Work Phone: [phone] Comment on above: Reference Range: 0.8 0 - 3.00 Lymphocytes/100 WBC (Bld) 7.8 % See Below [facility] [facility] DO Work Phone: [phone] Comment on above: Reference Range: 13. 0 - 44.0 MCHC (RBC) [Mass/Vol] 33.3 g/dL See Below [facility] 400 DO Work Phone: [phone] Comment on above: Reference Range: 32. 0 - 36.0 MCV (RBC) [Entitic vol] 88 fL 80 - 100 [facility] 400 DO Work Phone: [phone] Monocytes (Bld) [#/Vol] 1.86 {x10E9/L} above high threshold See Below -[facility] 400 DO Work Phone: Comment on above: Reference Range: 0.0 5 - 0.80 Monocytes/100 WBC (Bld) 14.7 % 2.0 - 10.0 -[facility] 400 DO Work Phone: Neutrophils/100 WBC (Bld) 75.8 % See Below [facility] 400 DO Work Phone: Comment on above: Reference Range: 40. 0 - 80.0 Platelets (Bld) [#/Vol] 354 {x10E9/L} 150 - 450 [facility] 400 DO Work Phone: RBC (Bld) [#/Vol] 4.81 {x10E12/L} See Below [facility] 400 DO Work Phone: Comment on above: Reference Range: 4.0 0 - 5.20 WBC (Bld) [#/Vol] 12.7 {x10E9/L} above high threshold 4.4 - 11.3 [facility] 400 DO Work Phone: Complete Blood Count + Differential 9.62 {x10E9/L} above high threshold See Below [facility] DO Work Phone: Comment on above: Reference Range: 1.6 0 - 5.50 Percent differential counts (%) should be interpreted in the context of the absolute cell counts (cells/L). Coronavirus 2019 RNA by PCR, Screening Asymptomticon 10-10-2020 Coronavirus 2019 RNA by PCR, Screening Asymptomtic NOT DETECTED See Below [facility] 400 DO Work Phone: Comment on above: SOURCE: Nasal, Nasop haryngealReference Range: Not Detected.This assay is designed to detect the N2 and E genes of SARS-CoV-2 via nucleic acid amplification. A Not Detected result does not preclude COVID-19 infection since the adequacy of sample collection and/or low viral burden may result in presence of viral nucleic acids below the clinical sensitivity of this test method. Fact sheet for providers: www.fda.gov/media/433122/downloadFact sheet for patients: www.fda.gov/media/692622/downloadThis test has received FDA Emergency Use Authorization (EUA) and has been verified by [facility] ([facility]). This test is only authorized for the duration of time that circumstances exist to justify the authorization of the emergency use of in vitro diagnostic tests for the detection of SARS-CoV-2 virus and/or diagnosis of COVID-19 infection under section 564(b)(1) of the Act, 21 U.S.C. 360bbb-3(b)(1), unless the authorization is terminated or revoked sooner. [facility] is certified under CLIA-88 as qualified to perform high complexity testing. Testing is performed in the [facility] located at [address] [place] [address]. Metabolic Panelon 10-10-2020 ALP [Catalytic activity/Vol] 106 U/L 33 - 136 [facility] 400 DO Work Phone: [phone] Anion gap [Moles/Vol] 16 mmol/L 10 - 20 [facility] 400 DO Work Phone: [phone] Bilirubin [Mass/Vol] 0.7 mg/dL 0.0 - 1.2 [facility] 400 DO Work Phone: [phone] Calcium [Mass/Vol] 9.8 mg/dL 8.6 - 10.6 [facility] 400 DO Work Phone: [phone] Chloride [Moles/Vol] 98 mmol/L 98 - 107 [facility] 400 DO Work Phone: [phone] CO2 [Moles/Vol] 27 mmol/L 21 - 32 [facility] 400 DO Work Phone: [phone] Creatinine [Mass/Vol] 0.98 mg/dL See Below [facility] 400 DO Work Phone: Comment on above: Reference Range: 0.5 0 - 1.05 Glucose [Mass/Vol] 139 mg/dL above high threshold 74 - 99 [facility] 400 DO Work Phone: Potassium [Moles/Vol] 3.4 mmol/L below low threshold 3.5 - 5.3 [facility] 400 DO Work Phone: [phone] Protein [Mass/Vol] 6.4 g/dL 6.4 - 8.2 [facility] 400 DO Work Phone: Sodium [Moles/Vol] 138 mmol/L 136 - 145 [facility] 400 DO Work Phone: Urea nitrogen [Mass/Vol] 8 mg/dL 6 - 23 [facility] [facility] DO Work Phone: Otheron 10-10-2020 Interpreted by: Jose Alberto MACKEY [id number]/22/20 11:45MRN: [id number] Name: JOHANA CHIN STUDY:CHEST 1 VIEW; 10/10/2020 6:03 pm 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 COMPARISON:CT chest, 04/26/2020. ORDERING CLINICIAN:WHIT WALL FINDINGS:AP radiograph of the chest was provided. CARDIOMEDIASTINAL SILHOUETTE:Cardiomediasti nal silhouette is normal in size and configuration. LUNGS:There is diffuse interstitial thickening likely secondary to fibrosisas seen on CT chest 04/26/2020. Left basilar/retrocardiac patchyopacity. Asymmetric right upper lobe opacity and correlate with acomponent of developing infiltrate/edema. ABDOMEN:No remarkable upper abdominal findings. BONES:No acute osseous changes. IMPRESSION:1. Left basilar/retrocardiac patchy opacity which may representatelectasis versus developing infiltrate/aspiration.2. Diffuse background of interstitial thickening likely secondary tofibrosis as seen on CT chest 04/26/2020. I personally reviewed the images/study and I agree with the findingsas stated. This study was interpreted at [facility], [place], [place].Electronically signed by: Jose Alberto MORGAN 10/11/20 11:45 Normal [facility] [facility] [facility] DO Work Phone: Albumin BCP dye [Mass/Vol] 3.7 g/dL 3.4 - 5.0 [facility] [facility] DO Work Phone: ALT With P-5'-P [Catalytic activity/Vol] 25 U/L 7 - 45 [facility] [facility] DO Work Phone: Comment on above: Patients treated wit h Sulfasalazine may generate falsely decreased results for ALT. AST With P-5'-P [Catalytic activity/Vol] 30 U/L 9 - 39 [facility] [facility] DO Work Phone: Mild [facility] [facility] DO Work Phone: Few [facility] [facility] DO Work Phone: See Below [facility] [facility] DO Work Phone: 67 {mL/min/1.73m2} >60 [facility] [facility] DO Work Phone: Comment on above: CALCULATIONS OF ZOYA MATED GFR ARE PERFORMED USING THE MDRD STUDY EQUATION FOR THE IDMS-TRACEABLE CREATININE METHODS. CLIN CHEM 2007;53:766-72 55 {mL/min/1.73m2} Abnormal >60 [facility] [facility] DO Work Phone: Complete Blood Count + Diffe kamar 09-12-2020 Basophils (Bld) [#/Vol] 0.07 {x10E9/L} See Below [facility] Work Phone: Comment on above: Reference Range: 0.0 0 - 0.10 Basophils/100 WBC (Bld) 0.6 % 0.0 - 2.0 [facility] Work Phone: Eosinophils (Bld) [#/Vol] 0.36 {x10E9/L} See Below [facility] Work Phone: Comment on above: Reference Range: 0.0 0 - 0.40 Eosinophils/100 WBC (Bld) 3.3 % 0.0 - 6.0 [facility] Work Phone: Erythrocyte distribution width (RBC) [Ratio] 19.2 % above high threshold See Below [facility] Work Phone: Comment on above: Reference Range: 11. 5 - 14.5 Hematocrit (Bld) [Volume fraction] 43.2 % See Below [facility] Work Phone: Comment on above: Reference Range: 36. 0 - 46.0 Hemoglobin (Bld) [Mass/Vol] 14.0 g/dL See Below [facility] Work Phone: Comment on above: Reference Range: 12. 0 - 16.0 Lymphocytes (Bld) [#/Vol] 1.39 {x10E9/L} See Below [facility] Work Phone: Comment on above: Reference Range: 0.8 0 - 3.00 Lymphocytes/100 WBC (Bld) 12.7 % See Below [facility] Work Phone: Comment on above: Reference Range: 13. 0 - 44.0 MCHC (RBC) [Mass/Vol] 32.4 g/dL See Below [facility] Work Phone: Comment on above: Reference Range: 32. 0 - 36.0 MCV (RBC) [Entitic vol] 90 fL 80 - 100 [facility] Work Phone: Monocytes (Bld) [#/Vol] 1.19 {x10E9/L} above high threshold See Below [facility] Work Phone: Comment on above: Reference Range: 0.0 5 - 0.80 Monocytes/100 WBC (Bld) 10.9 % 2.0 - 10.0 [facility] Work Phone: Neutrophils/100 WBC (Bld) 72.5 % See Below [facility] Work Phone: Comment on above: Reference Range: 40. 0 - 80.0 Platelets (Bld) [#/Vol] 271 {x10E9/L} 150 - 450 [facility] Work Phone: RBC (Bld) [#/Vol] 4.80 {x10E12/L} See Below [facility] Work Phone: Comment on above: Reference Range: 4.0 0 - 5.20 WBC (Bld) [#/Vol] 10.9 {x10E9/L} 4.4 - 11.3 [facility] Work Phone: Complete Blood Count + Differential 7.91 {x10E9/L} above high threshold See Below [facility] Work Phone: Comment on above: Reference Range: 1.6 0 - 5.50 Percent differential counts (%) should be interpreted in the context of the absolute cell counts (cells/L). Metabolic Panelon 09-12-2020 ALP [Catalytic activity/Vol] 100 U/L 33 - 136 [facility] Work Phone: Anion gap [Moles/Vol] 15 mmol/L 10 - 20 [facility] Work Phone: Bilirubin [Mass/Vol] 0.5 mg/dL 0.0 - 1.2 [facility] Work Phone: Calcium [Mass/Vol] 9.7 mg/dL 8.6 - 10.6 [facility] Work Phone: Chloride [Moles/Vol] 106 mmol/L 98 - 107 [facility] Work Phone: CO2 [Moles/Vol] 24 mmol/L 21 - 32 [facility] Work Phone: Creatinine [Mass/Vol] 0.89 mg/dL See Below [facility] Work Phone: Comment on above: Reference Range: 0.5 0 - 1.05 Glucose [Mass/Vol] 119 mg/dL above high threshold 74 - 99 [facility] Work Phone: Potassium [Moles/Vol] 3.7 mmol/L 3.5 - 5.3 [facility] Work Phone: Protein [Mass/Vol] 7.0 g/dL 6.4 - 8.2 [facility] Work Phone: Sodium [Moles/Vol] 141 mmol/L 136 - 145 [facility] Work Phone: Urea nitrogen [Mass/Vol] 10 mg/dL 6 - 23 [facility] Work Phone: Otheron 09-12-2020 Albumin BCP dye [Mass/Vol] 4.1 g/dL 3.4 - 5.0 [facility] Work Phone: ALT With P-5'-P [Catalytic activity/Vol] 32 U/L 7 - 45 [facility] Work Phone: Comment on above: Patients treated wit h Sulfasalazine may generate falsely decreased results for ALT. AST With P-5'-P [Catalytic activity/Vol] 29 U/L 9 - 39 [facility] Work Phone: >60 >60 [facility] Work Phone: Comment on above: CALCULATIONS OF ZOYA MATED GFR ARE PERFORMED USING THE MDRD STUDY EQUATION FOR THE IDMS-TRACEABLE CREATININE METHODS. CLIN CHEM 2007;53:766-72 Complete Blood Count + Tiffany galvin 08-29-2020 Basophils (Bld) [#/Vol] 0.05 {x10E9/L} See Below [facility] Work Phone: Comment on above: Reference Range: 0.0 0 - 0.10Automated WBC differential has been confirmed by manual smear. Basophils/100 WBC (Bld) 0.3 % 0.0 - 2.0 [facility] Work Phone: Eosinophils (Bld) [#/Vol] 0.24 {x10E9/L} See Below [facility] Work Phone: Comment on above: Reference Range: 0.0 0 - 0.40 Eosinophils/100 WBC (Bld) 1.5 % 0.0 - 6.0 [facility] Work Phone: Erythrocyte distribution width (RBC) [Ratio] 17.6 % above high threshold See Below [facility] Work Phone: Comment on above: Reference Range: 11. 5 - 14.5 Hematocrit (Bld) [Volume fraction] 41.6 % See Below [facility] Work Phone: Comment on above: Reference Range: 36. 0 - 46.0 Hemoglobin (Bld) [Mass/Vol] 13.5 g/dL See Below [facility] Work Phone: Comment on above: Reference Range: 12. 0 - 16.0 Lymphocytes (Bld) [#/Vol] 1.44 {x10E9/L} See Below [facility] Work Phone: Comment on above: Reference Range: 0.8 0 - 3.00 Lymphocytes/100 WBC (Bld) 9.2 % See Below [facility] Work Phone: Comment on above: Reference Range: 13. 0 - 44.0 MCHC (RBC) [Mass/Vol] 32.5 g/dL See Below [facility] Work Phone: Comment on above: Reference Range: 32. 0 - 36.0 MCV (RBC) [Entitic vol] 89 fL 80 - 100 [facility] Work Phone: Monocytes (Bld) [#/Vol] 1.34 {x10E9/L} above high threshold See Below [facility] Work Phone: Comment on above: Reference Range: 0.0 5 - 0.80 Monocytes/100 WBC (Bld) 8.6 % 2.0 - 10.0 [facility] Work Phone: Neutrophils/100 WBC (Bld) 80.4 % See Below [facility] Work Phone: Comment on above: Reference Range: 40. 0 - 80.0 Platelets (Bld) [#/Vol] 235 {x10E9/L} 150 - 450 [facility] Work Phone: RBC (Bld) [#/Vol] 4.67 {x10E12/L} See Below [facility] Work Phone: Comment on above: Reference Range: 4.0 0 - 5.20 WBC (Bld) [#/Vol] 15.6 {x10E9/L} above high threshold 4.4 - 11.3 [facility] Work Phone: Complete Blood Count + Differential 12.57 {x10E9/L} above high threshold See Below [facility] Work Phone: Comment on above: Reference Range: 1.6 0 - 5.50 Percent differential counts (%) should be interpreted in the context of the absolute cell counts (cells/L). Metabolic Panelon 08-29-2020 ALP [Catalytic activity/Vol] 101 U/L 33 - 136 [facility] Work Phone: Anion gap [Moles/Vol] 13 mmol/L 10 - 20 [facility] Work Phone: Bilirubin [Mass/Vol] 0.4 mg/dL 0.0 - 1.2 [facility] Work Phone: Calcium [Mass/Vol] 9.3 mg/dL 8.6 - 10.6 [facility] Work Phone: Chloride [Moles/Vol] 105 mmol/L 98 - 107 [facility] Work Phone: CO2 [Moles/Vol] 27 mmol/L 21 - 32 [facility] Work Phone: Creatinine [Mass/Vol] 0.69 mg/dL See Below [facility] Work Phone: Comment on above: Reference Range: 0.5 0 - 1.05 Glucose [Mass/Vol] 107 mg/dL above high threshold 74 - 99 [facility] Work Phone: LDH [Catalytic activity/Vol] 233 U/L 84 - 246 [facility] Work Phone: Potassium [Moles/Vol] 3.7 mmol/L 3.5 - 5.3 [facility] Work Phone: Protein [Mass/Vol] 6.3 g/dL below low threshold 6.4 - 8.2 [facility] Work Phone: Sodium [Moles/Vol] 141 mmol/L 136 - 145 [facility] [place] Work Phone: Urea nitrogen [Mass/Vol] 12 mg/dL 6 - 23 [facility] Work Phone: Otheron 08-29-2020 Albumin BCP dye [Mass/Vol] 4.0 g/dL 3.4 - 5.0 [facility] Work Phone: ALT With P-5'-P [Catalytic activity/Vol] 25 U/L 7 - 45 [facility] Work Phone: Comment on above: Patients treated wit h Sulfasalazine may generate falsely decreased results for ALT. AST With P-5'-P [Catalytic activity/Vol] 21 U/L 9 - 39 [facility] Work Phone: >60 >60 [facility] Work Phone: Comment on above: CALCULATIONS OF ZOYA MATED GFR ARE PERFORMED USING THE MDRD STUDY EQUATION FOR THE IDMS-TRACEABLE CREATININE METHODS. CLIN CHEM 2007;53:766-72 SEE COMMENT [facility] Work Phone: Comment on above: NO SIGNIFICANT RBC A BNORMALITIES SEEN ONSMEAR REVIEW. CT CHEST W CONTRASTon 2019 CT CHEST W CONTRAST Patient Name: JOHANA CHIN STUDY: CT CHEST W CONTRAST; 04/25/2020 9:20 am INDICATION: rt hilar mass. COMPARISON: 03/25/2020. ACCESSION NUMBER(S): [id number] ORDERING CLINICIAN: YOSELIN CAMACHO TECHNIQUE: Helical data acquisition of the chest was obtained after intravenous administration of 90 mL Isovue 370contrast. Images were reformatted in axial, coronal, and sagittal planes. FINDINGS: LUNGS and AIRWAYS: Irregular predominantly peripheral interstitial thickening and probable developing fibrosis is again seen throughout both lungs. No new localized consolidation. No discrete pulmonary mass or significant new dominant pulmonary nodule is identified. No pleural effusion or pneumothorax. MEDIASTINUM and RYAN, LOWER NECK AND AXILLA: Within the right lower neck/superior mediastinum posterolateral to the right thyroid lobe there is a prominent mass or mass cluster the main portion of which measures approximately 2.5 x 2.8 cm in axial dimension (image 15 of 284). There is encasement of regional vascular branches. Mildly enlarged precarinal node measures 1.1 cm in short axis. Enlarged precarinal node or ken cluster collectively measures 1.6 cm in short axis. There is a right hilar region large enhancing mass or mass cluster which also encases regional bronchovascular branches. Main portion of this mass measures approximately 4 x 5.5 x 4.5 cm in transverse, AP, and CC dimensions respectively. Few small left hilar lymph nodes are also seen. HEART and VESSELS: Irregular partially calcified atherosclerotic plaque is seen within the thoracic aorta and branch vessels. Irregular coronary artery calcifications and/or stents are also seen. No thoracic aortic aneurysm or evidence of dissection. No pericardial effusion. Heart is not significantly enlarged. UPPER ABDOMEN: Cholecystectomy clips are noted. Left renal cortical thinning is partially visualized. CHEST WALL and OSSEOUS STRUCTURES: There is mild thoracic dextroscoliosis as well as increased thoracic kyphosis. Multilevel disc space narrowing and endplate spurring is present along with small vacuum discs at several levels. IMPRESSION: 1. Right hilar large enhancing soft tissue mass or mass cluster encasing regional bronchovascular branches and measuring approximately 4 x 5.5 x 4.5 cm. 2. Right lower neck/superior mediastinal enhancing mass or mass cluster measuring 2.5 x 2.8 cm in axial dimension also encasing regional vascular branches. Additional multi station mildly enlarged mediastinal lymph nodes. Overall findings most compatible with neoplasm. Lymphoma is a leading consideration. 3. Bilateral irregular predominantly peripheral interstitial thickening/probable evolving fibrosis similar to prior. No new localized consolidation. No discrete pulmonary mass. Electronically signed by: KILEY HARRISON MD Normal [facility] Complete Blood Count + Diffe lukason 04-18-2020 Basophils (Bld) [#/Vol] 0.05 {x10E9/L} See Below [facility] Work Phone: Comment on above: Reference Range: 0.0 0 - 0.10 Basophils/100 WBC (Bld) 0.6 % 0.0 - 2.0 [facility] Work Phone: Eosinophils (Bld) [#/Vol] 0.21 {x10E9/L} See Below [facility] Work Phone: Comment on above: Reference Range: 0.0 0 - 0.40 Eosinophils/100 WBC (Bld) 2.4 % 0.0 - 6.0 [facility] Work Phone: Erythrocyte distribution width (RBC) [Ratio] 14.7 % above high threshold See Below [facility] Work Phone: Comment on above: Reference Range: 11. 5 - 14.5 Hematocrit (Bld) [Volume fraction] 46.4 % above high threshold See Below [facility] Work Phone: Comment on above: Reference Range: 36. 0 - 46.0 Hemoglobin (Bld) [Mass/Vol] 14.8 g/dL See Below [facility] Work Phone: Comment on above: Reference Range: 12. 0 - 16.0 Lymphocytes (Bld) [#/Vol] 1.42 {x10E9/L} See Below [facility] Work Phone: Comment on above: Reference Range: 0.8 0 - 3.00 Lymphocytes/100 WBC (Bld) 16.4 % See Below [facility] Work Phone: Comment on above: Reference Range: 13. 0 - 44.0 MCHC (RBC) [Mass/Vol] 31.9 g/dL below low threshold See Below [facility] Work Phone: Comment on above: Reference Range: 32. 0 - 36.0 MCV (RBC) [Entitic vol] 91 fL 80 - 100 [facility] Work Phone: Monocytes (Bld) [#/Vol] 0.90 {x10E9/L} above high threshold See Below [facility] Work Phone: Comment on above: Reference Range: 0.0 5 - 0.80 Monocytes/100 WBC (Bld) 10.4 % 2.0 - 10.0 [facility] Work Phone: Neutrophils/100 WBC (Bld) 69.4 % See Below [facility] Work Phone: Comment on above: Reference Range: 40. 0 - 80.0 Platelets (Bld) [#/Vol] 249 {x10E9/L} 150 - 450 [facility] Work Phone: RBC (Bld) [#/Vol] 5.12 {x10E12/L} See Below [facility] Work Phone: Comment on above: Reference Range: 4.0 0 - 5.20 WBC (Bld) [#/Vol] 8.7 {x10E9/L} 4.4 - [facility].3 [facility] Work Phone: WBC (Bld) [#/Vol] 0.0 {/100_WBC} 0.0-0.0 [facility] Work Phone: Complete Blood Count + Differential 0.8 % 0.0 - 0.9 [facility] Work Phone: Comment on above: Immature Granulocyte Count (IG) includes promyelocytes, myelocytes and metamyelocytes but does not include bands. Percent differential counts (%) should be interpreted in the context of the absolute cell counts (cells/L). Complete Blood Count + Differential 6.01 {x10E9/L} above high threshold See Below [facility] Work Phone: Comment on above: Reference Range: 1.6 0 - 5.50 Metabolic Panelon 04-18-2020 Anion gap [Moles/Vol] 14 mmol/L 10 - 20 [facility] Work Phone: Calcium [Mass/Vol] 10.1 mg/dL 8.6 - 10.6 [facility] Work Phone: Chloride [Moles/Vol] 105 mmol/L 98 - 107 [facility] Work Phone: CO2 [Moles/Vol] 26 mmol/L 21 - 32 [facility] Work Phone: Creatinine [Mass/Vol] 0.95 mg/dL See Below [facility] Work Phone: Comment on above: Reference Range: 0.5 0 - 1.05 Glucose [Mass/Vol] 100 mg/dL above high threshold 74 - 99 [facility] Work Phone: Potassium [Moles/Vol] 4.4 mmol/L 3.5 - 5.3 [facility] Work Phone: Sodium [Moles/Vol] 141 mmol/L 136 - 145 [facility] Work Phone: Urea nitrogen [Mass/Vol] 13 mg/dL 6 - 23 [facility] Work Phone: Otheron 04-18-2020 69 {mL/min/1.73m2} >60 [facility] Work Phone: Comment on above: CALCULATIONS OF ZOYA MATED GFR ARE PERFORMED USING THE MDRD STUDY EQUATION FOR THE IDMS-TRACEABLE CREATININE METHODS. CLIN CHEM 2007;53:766-72 57 {mL/min/1.73m2} Abnormal >60 [facility] Work Phone: CT CHEST WO CONTRASTon 03-25 CT CHEST WO CONTRAST Patient Name: JOHANA CHIN STUDY: CT CHEST WO CONTRAST; 03/25/2020 1:33 pm INDICATION: pulm fibrosis. COMPARISON: None. ACCESSION NUMBER(S): [id number] ORDERING CLINICIAN: YOSELIN CAMACHO TECHNIQUE: Helical data acquisition of the chest was obtained without IV contrast material. Images were reformatted in axial, coronal, and sagittal planes. FINDINGS: LUNGS and AIRWAYS: There is no infiltrate or pleural fluid. There is prominence of the interstitial markings particularly at the lung bases favoring a subpleural distribution. Findings are consistent with pulmonary fibrosis. There is no pulmonary nodule. RYAN AND MEDIASTINUM: There is no hilar mediastinal adenopathy. There is no axillary adenopathy. HEART and VESSELS: The thoracic aorta is of normal course and caliber without vascular calcifications. There is enlargement of the main pulmonary outflow tract and right and left main pulmonary arteries consistent with pulmonary artery hypertension. There is fullness of the right hilum suspicious for right hilar mass. I recommend chest CT with intravenous contrast for further evaluation. There is mild atherosclerotic calcification of the coronary arteries the study is not optimized for evaluation of coronary arteries. The cardiac chambers are not enlarged. No evidence of pericardial effusion. UPPER ABDOMEN: The visualized subdiaphragmatic structures demonstrate no remarkable findings. Status post cholecystectomy CHEST WALL and OSSEOUS STRUCTURES: There are no suspicious osseous lesions. Multilevel degenerative changes are present. The chest wall is unremarkable. There are enlarged lymph nodes in the right lower neck. There is a 2.4 x 2.0 cm lymph node in the right lower neck. There is a 2.6 x 1.2 cm enlarged lymph node in the right lower neck There is a 1.9 x 1.7 cm enlarged lymph node in the left lower neck IMPRESSION: 1. Probable right hilar mass. A chest CT could be performed with intravenous contrast. 2. Bilateral lower neck adenopathy. A neck CT could be performed with intravenous contrast 3. Pulmonary fibrosis. Electronically signed by: PRATIMA MONREAL MD [facility] CT Chest without Contraston 03-25-2020 CT Chest WO contrast Interpreted by: TERRY MALGORZATA MONREAL03/30/20 10:59MRN: [id number] Name: JOHANA CHIN STUDY:CT CHEST WO CONTRAST; 03/25/2020 1:33 pm INDICATION:pulm fibrosis. COMPARISON:None. ORDERING CLINICIAN:YOSELIN CAMACHO TECHNIQUE:Helical data acquisition of the chest was obtained without IVcontrast material. Images were reformatted in axial, coronal, andsagittal planes. FINDINGS:LUNGS and AIRWAYS:There is no infiltrate or pleural fluid.There is prominence of the interstitial markings particularly at thelung bases favoring a subpleural distribution. Findings areconsistent with pulmonary fibrosis. There is no pulmonary nodule. RYAN AND MEDIASTINUM:There is no hilar mediastinal adenopathy.There is no axillary adenopathy. HEART and VESSELS:The thoracic aorta is of normal course and caliber without vascularcalcifications. There is enlargement of the main pulmonary outflow tract and rightand left main pulmonary arteries consistent with pulmonary arteryhypertension. There is fullness of the right hilum suspicious for right hilar mass.I recommend chest CT with intravenous contrast for further evaluation. There is mild atherosclerotic calcification of the coronary arteriesthe study is not optimized for evaluation of coronary arteries. The cardiac chambers are not enlarged. No evidence of pericardial effusion. UPPER ABDOMEN:The visualized subdiaphragmatic structures demonstrate no remarkablefindings.Status post cholecystectomy CHEST WALL and OSSEOUS STRUCTURES:There are no suspicious osseous lesions. Multilevel degenerativechanges are present. The chest wall is unremarkable. There are enlarged lymph nodes in the right lower neck. There is a2.4 x 2.0 cm lymph node in the right lower neck.There is a 2.6 x 1.2 cm enlarged lymph node in the right lower neckThere is a 1.9 x 1.7 cm enlarged lymph node in the left lower neck IMPRESSION:1. Probable right hilar mass. A chest CT could be performed withintravenous contrast.2. Bilateral lower neck adenopathy. A neck CT could be performed withintravenous contrast3. Pulmonary fibrosis.Electronically signed by: PRATIMA MONREAL 03/30/20 10:59 Normal [facility] [place] [facility] Work Phone: Otheron 03-25-2020 CT Chest WO contrast Please click on the link to view the study images Normal [facility] Work Phone: CT ABDOMEN AND PELVIS WO CON TRASTon 02-29-2020 CT ABDOMEN AND PELVIS WO CONTRAST Patient Name: JOHANA CHIN STUDY: CT ABDOMEN AND PELVIS WO CONTRAST; 02/29/2020 9:06 am INDICATION: Flank pain. COMPARISON: None. ACCESSION NUMBER(S): [id number] ORDERING CLINICIAN: YOSELIN CAMACHO TECHNIQUE: Helical CT imaging of the abdomen and pelvis was performed without oral or intravenous contrast. FINDINGS: LOWER CHEST: Chronic interstitial changes in the lung bases with interstitial thickening. The heart is enlarged. There is a small hiatal hernia. ABDOMEN: Evaluation of the solid organs is limited secondary to the lack of IV contrast. LIVER: Normal in size and contour. SPLEEN: Normal in size and contour. ADRENALS: Normal in size and contour. KIDNEYS and URETERS: There is a 5 mm calculus in the lower pole of the left kidney. No calculi seen in the right kidney. There is suggestion of bilateral parapelvic renal cysts. There are no ureteral calculi. There is no hydroureter. PANCREAS: Normal in size and contour. GALLBLADDER: Status post cholecystectomy. BILE DUCTS: No intra or extrahepatic biliary ductal dilatation. BOWEL and ABDOMINAL WALL and LYMPH NODES: Stomach and small bowel are normal in caliber without bowel obstruction. There is stool throughout the colon. No evidence of acute colitis. Segments of the colon are collapsed limiting evaluation. The appendix is within normal limits. Small nonenlarged retroperitoneal and bilateral groin lymph nodes. No pathologically enlarged lymph nodes or free fluid in the abdomen or the pelvis. Small fat containing upper abdominal wall midline ventral hernia with hernia neck measuring 1.6 cm. No bowel herniation. Small fat containing periumbilical ventral hernia. VESSELS: Atherosclerotic calcification of the abdominal aorta. No aneurysm. The IVC is patent PELVIS: REPRODUCTIVE ORGANS and BLADDER: Uterus and the adnexa are negative. No pelvic mass. There is no pelvic free fluid. The urinary bladder is distended and normal in CT appearance. BONES: No suspicious osseous lesions. IMPRESSION: 1. Nonobstructing 5 mm calculus in lower pole of the left kidney. Bilateral parapelvic renal cysts. No hydronephrosis or hydroureter. 2. Fat containing ventral hernias without bowel herniation. 3. No bowel obstruction. Normal appendix. 4. Chronic appearing interstitial changes in the imaged lung bases. Electronically signed by: MACKENZIE ARTEAGA MD [facility] 02-29-2020 CT Abdomen and Pelvis WO contrast Interpreted by: MACKENZIE ARTEAGA02/29/20 09:49MRN: [id number] Name: JOHANA CHIN STUDY:CT ABDOMEN AND PELVIS WO CONTRAST; 02/29/2020 9:06 am INDICATION:Flank pain. COMPARISON:None. ORDERING CLINICIAN:YOSELIN CAMACHO TECHNIQUE:Helical CT imaging of the abdomen and pelvis was performed withoutoral or intravenous contrast. FINDINGS: LOWER CHEST: Chronic interstitial changes in the lung bases withinterstitial thickening. The heart is enlarged. There is a smallhiatal hernia. ABDOMEN:Evaluation of the solid organs is limited secondary to the lack of IVcontrast. LIVER: Normal in size and contour.SPLEEN: Normal in size and contour.ADRENALS: Normal in size and contour.KIDNEYS and URETERS: There is a 5 mm calculus in the lower pole ofthe left kidney. No calculi seen in the right kidney. There issuggestion of bilateral parapelvic renal cysts. There are no ureteralcalculi. There is no hydroureter.PANCREAS: Normal in size and contour.GALLBLADDER: Status post cholecystectomy.BILE DUCTS: No intra or extrahepatic biliary ductal dilatation. BOWEL and ABDOMINAL WALL and LYMPH NODES: Stomach and small bowel arenormal in caliber without bowel obstruction. There is stoolthroughout the colon. No evidence of acute colitis. Segments of thecolon are collapsed limiting evaluation. The appendix is withinnormal limits. Small nonenlarged retroperitoneal and bilateral groinlymph nodes. No pathologically enlarged lymph nodes or free fluid inthe abdomen or the pelvis. Small fat containing upper abdominal wallmidline ventral hernia with hernia neck measuring 1.6 cm. No bowelherniation. Small fat containing periumbilical ventral hernia. VESSELS: Atherosclerotic calcification of the abdominal aorta. Noaneurysm. The IVC is patent PELVIS: REPRODUCTIVE ORGANS and BLADDER: Uterus and the adnexa are negative.No pelvic mass. There is no pelvic free fluid. The urinary bladder isdistended and normal in CT appearance. BONES: No suspicious osseous lesions. IMPRESSION:1. Nonobstructing 5 mm calculus in lower pole of the left kidney.Bilateral parapelvic renal cysts. No hydronephrosis or hydroureter.2. Fat containing ventral hernias without bowel herniation.3. No bowel obstruction. Normal appendix.4. Chronic appearing interstitial changes in the imaged lung bases.Electronically signed by: MACKENZIE ARTEAGA 02/29/20 09:49 Normal [facility] Work Phone: TH CT CARDIAC SCORINGon 08-21 CT CARDIAC SCORING Patient Name: JOHANA CHIN STUDY: CT CARDIAC SCORING; 09/03/2019 10:55 am INDICATION: screening. COMPARISON: None. ACCESSION NUMBER(S): [id number] ORDERING CLINICIAN: YOSELIN CAMACHO TECHNIQUE: Using prospective ECG gating, CT scan of the coronary arteries was performed without intravenous contrast. Coronary calcium scoring was performed according to the method of Agatston. FINDINGS: The score and distribution of calcium in the coronary arteries is as follows: LM 45.3, proximal vessel LAD 32.6, proximal to mid vessel LCx 0, RCA 0, Total 77.9 The visualized mid/lower ascending thoracic aorta measures 3.5 cm in diameter. There are [id number] scattered atherosclerotic calcifications the visualized thoracic aorta. The heart is normal in size. No pericardial effusion is present. No gross evidence of mediastinal or hilar lymphadenopathy or masses is identified. The visualized segments of the lungs are normally expanded. Although, the evaluation is limited by respiratory motion artifacts, there is subpleural reticulation within visualized bilateral lungs, which may represent early pulmonary fibrotic changes. The visualized subdiaphragmatic structures appear intact. IMPRESSION: 1. Coronary artery calcium score of 77.9*. 2. Limited examination with subpleural reticulation within bilateral lungs, which may represent early pulmonary fibrotic changes. A high-resolution chest CT including expiratory and prone imaging may be obtained for further evaluation if clinically indicated. *Coronary Artery Calcium Gated and Nongated Agatston score Score Risk 0 Very low 1-99 Mildly increased 100-299 Moderately increased >300 Moderate to severely increased John et al. JCCT 2016 (http://dx.doi.org/10.101 6/j.[email or web address].2016.11.003) BOWSER 10-Year CHD Risk with Coronary Artery Calcification can be calcuated using link below [email or web address] Paolo et al. JACC 2014 (http://dx.doi.org/10.101 6/j.j acc.2014.08.035) Electronically signed by: HU JOHNSON MD [facility] DIGITAL MAMM SCREENING W/ TO [facility]once 06-08-2019 DIGITAL MAMM SCREENING W/ JES Patient Name: JOHANA CHIN STUDY: DIGITAL MAMM SCREENING W/ JES; 06/08/2019 10:04 am ACCESSION NUMBER(S): [id number] ORDERING CLINICIAN: YOSELIN CAMACHO INDICATION: Screening. Benign left excisional biopsy. COMPARISON: 05/07/2018, 01/01/2017 FINDINGS: 2D and tomosynthesis images were reviewed at 1 mm slice thickness. The breast tissue is heterogeneously dense, which may obscure small masses. No suspicious masses or calcifications are identified. IMPRESSION: No mammographic evidence of malignancy. BI-RADS CATEGORY: Category: 1 - Negative. Recommendation: 1 Year Screening. For any future breast imaging appointments, please call [phone]). Patient letter sent SNORM Electronically signed by: MICHELE ARRIETA MD Normal [facility] Lipid Panelon 02-24-2019 Cholesterol [Mass/Vol] 229 mg/dL above hig h threshold 0 - 199 [facility] Phone: Comment on above: . AGE DESIRABLE BORD TALHA HIGH HIGH 0-19 Y 0 - 169 170 - 199 >/= 200 20-24 Y 0 - 189 190 - 224 >/= 225 >24 Y 0 - 199 200 - 239 >/= 240 All ranges are based on fasting samples. Specific therapeutic targets will vary based on patient-specific cardiac risk.. Pediatric guidelines reference:Pediatrics 2011, 128(S5). Adult guidelines reference: NCEP ATPIII Guidelines, TATI 2001, 258:7886-97. Venipuncture immediately after or during the administration of Metamizole may lead to falsely low results. Testing should be performed immediately prior to Metamizole dosing. PATIENT FASTING Cholesterol in HDL [Mass/Vol] 70.2 mg/dL [facility] Phone: Comment on above: . AGE VERY LOW LOW N ORMAL HIGH 0-19 Y < 35 < 40 40-45 ---- 20-24 Y ---- < 40 >45 ---- >24 Y ---- < 40 40-60 >60. PATIENT FASTING Cholesterol in LDL [Mass/Vol] 137 mg/dL above high threshold 0 - 99 [facility] Phone: Comment on above: . NEAR BORD AGE ISABELLE RABLE OPTIMAL HIGH HIGH VERY HIGH 0-19 Y 0 - 109 --- 110-129 >/= 130 ---- 20-24 Y 0 - 119 --- 120-159 >/= 160 ---- >24 Y 0 - 99 100-129 130-159 160-189 >/=190. PATIENT FASTING Cholesterol.total/Chol esterol in HDL [Mass ratio] 3.3 {ratio} [facility] Phone: Comment on above: REF VALUESDESIRABLE < 3.4HIGH RISK > 5.0 PATIENT FASTING Triglyceride [Mass/Vol] 107 mg/dL 0 - 149 [facility] [place] Phone: Comment on above: . AGE DESIRABLE BORD TALHA HIGH HIGH VERY HIGH 0 D-90 D 19 - 174 ---- ---- ----91 D- 9 Y 0 - 74 75 - 99 >/= 100 ---- 10-19 Y 0 - 89 90 - 129 >/= 130 ---- 20-24 Y 0 - 114 115 - 149 >/= 150 ---- >24 Y 0 - 149 150 - 199 200- 499 >/= 500. Venipuncture immediately after or during the administration of Metamizole may lead to falsely low results. Testing should be performed immediately prior to Metamizole dosing. PATIENT FASTING Lipid Panel 21 mg/dL 0 - 40 [facility] [employer] Work Phone: Comment on above: PATIENT FASTING Metabolic Panelon 02-24-2019 Anion gap [Moles/Vol] 15 mmol/L 10 - 20 [facility] [employer] Work Phone: Comment on above: PATIENT FASTING Calcium [Mass/Vol] 9.7 mg/dL 8.6 - 10.6 [facility] Phone: Comment on above: PATIENT FASTING Chloride [Moles/Vol] 106 mmol/L 98 - 107 [facility] [place] Phone: Comment on above: PATIENT FASTING CO2 [Moles/Vol] 26 mmol/L 21 - 32 [facility] Work Phone: Comment on above: PATIENT FASTING Creatinine [Mass/Vol] 0.86 mg/dL See Below [facility] [employer] Phone: Comment on above: Reference Range: 0.5 0 - 1.05 PATIENT FASTING Glucose [Mass/Vol] 82 mg/dL 74 - 99 [facility] [employer] Work Phone: Comment on above: PATIENT FASTING Potassium [Moles/Vol] 4.0 mmol/L 3.5 - 5.3 [facility] [employer] Work Phone: Comment on above: PATIENT FASTING Sodium [Moles/Vol] 143 mmol/L 136 - 145 [facility] Work Phone: Comment on above: PATIENT FASTING Urea nitrogen [Mass/Vol] 18 mg/dL 6 - 23 [facility] Work Phone: Comment on above: PATIENT FASTING Otheron 02-24-2019 >60 >60 [facility] Work Phone: Comment on above: PATIENT FASTING CALCULATIONS OF ZOYA MATED GFR ARE PERFORMED USING THE MDRD STUDY EQUATION FOR THE IDMS-TRACEABLE CREATININE METHODS. CLIN CHEM 2007;53:766-72 Please click on the link to view the study images Normal [facility] Work Phone: Vitamin D 25-Hydroxyon 02-24 Calcidiol [Mass/Vol] 61 ng/mL [facility] [employer] Work Phone: Comment on above: .DEFICIENCY: < 20 NG /MLINSUFFICIENCY: 20-29 NG/MLOPTIMUM LEVEL: 30-80 NG/MLPOSSIBLE TOXICITY: > 80 NG/MLTHIS ASSAY ACCURATELY QUANTIFIES THE SUM OFVITAMIN D3, 25-HYDROXY AND VIT D2,25-HYDROXY. PATIENT FASTING Vital Signs Date Time Vital Sign Value Performing Clinician Facility 03-11-2025 08:58-0400 Body mass index (BMI) [Ratio] 29.9 kg/m2 Gomez Santa [employer] Work Phone: [facility] 03-11-2025 08:58-0400 Body temperature 96.8 [degF] Gomez Santa [employer] Work Phone: [facility] 03-11-2025 08:58-0400 Body weight 72.12 kg Gomez Santa [employer] Work Phone: [facility] 03-11-2025 08:58-0400 Diastolic blood pressure 71 mm[Hg] Gomez Santa APRN-SHIELD INSTALLER Work Phone: [facility] 03-11-2025 08:58-0400 Heart rate 78 /min Gomez Santa [employer]SMISSION REBUILDER-[employer] IN[employer]ER Work Phone: [facility] 03-11-2025 08:58-0400 Respiratory rate 16 /min Gomez Santa [employer]SMISSION REBUILDER-[employer] IN[employer]ER Work Phone: [facility] 03-11-2025 08:58-0400 SaO2% (BldA) [Mass fraction] 96 % Gomez Santa [employer]SMISSION REBUILDER-[employer] IN[employer]ER Work Phone: [facility] 03-11-2025 08:58-0400 Systolic blood pressure 127 mm[Hg] Gomez Santa TRANSMISSION REBUILDER-[employer] IN[employer] Work Phone: [facility] 09-10-2024 09:53-0500 Body mass index (BMI) [Ratio] 30.89 kg/m2 Gomez Santa [employer]SMISSION REBUILDER-[employer] IN[employer] Work Phone: [facility] 09-10-2024 09:53-0500 Body temperature 98.2 [degF] Gomez Santa TRANSMISSION REBUILDER-[employer] INST[employer]ER Work Phone: [facility] 09-10-2024 09:53-0500 Body weight 74.5 kg Gomez Santa TRANSMISSION REBUILDER-[employer] IN[employer]ER Work Phone: [facility] 09-10-2024 09:53-0500 Diastolic blood pressure 80 mm[Hg] Gomez Santa TRANSMISSION REBUILDER-[employer] INST[employer]ER Work Phone: [facility] 09-10-2024 09:53-0500 SaO2% (BldA) [Mass fraction] 95 % Gomez Santa TRANSMISSION REBUILDER-[employer] INST[employer]ER Work Phone: [facility] 09-10-2024 09:53-0500 Systolic blood pressure 128 mm[Hg] Gomez Santa TRANSMISSION REBUILDER-[employer] INST[employer]ER Work Phone: [facility] 03-30-2024 11:18-0400 Body mass index (BMI) [Ratio] 31.41 kg/m2 Gomez Santa [employer]SMISSION REBUILDER[employer] IN[employer]ER Work Phone: [facility] 03-30-2024 11:18-0400 Body temperature 97.39 [degF] Gomez Santa TRANSMISSION REBUILDER-[employer]IELD INSTALLER Work Phone: [facility] 03-30-2024 11:18-0400 Body weight 75.75 kg Gomez Santa TRANSMISSION REBUILDER-[employer]IELD INSTALLER Work Phone: [facility] 03-30-2024 11:18-0400 Diastolic blood pressure 76 mm[Hg] Gomez Santa TRANSMISSION REBUILDER-[employer] INSTALLER Work Phone: [facility] 03-30-2024 11:18-0400 Heart rate 70 /min Gomez Santa TRANSMISSION REBUILDER-[employer]IELD INSTALLER Work Phone: [facility] 03-30-2024 11:18-0400 Respiratory rate 16 /min Gomez Santa TRANSMISSION REBUILDER-[employer]IELD INSTALLER Work Phone: [facility] 03-30-2024 11:18-0400 SaO2% (BldA) [Mass fraction] 96 % Gomez Santa TRANSMISSION REBUILDER-[employer]ELD INSTALLER Work Phone: [facility] 03-30-2024 11:18-0400 Systolic blood pressure 123 mm[Hg] Gomez Santa TRANSMISSION REBUILDER-[employer]IELD INSTALLER Work Phone: [facility] 03-10-2024 09:25-0400 Body mass index (BMI) [Ratio] 31.63 kg/m2 Gomez Santa TRANSMISSION REBUILDER-[employer] INSTALLER Work Phone: [facility] 03-10-2024 09:25-0400 Body temperature 97.2 [degF] Gomez Santa TRANSMISSION REBUILDER-[employer] INSTALLER Work Phone: [facility] 03-10-2024 09:25-0400 Body weight 76.3 kg Gomez Santa TRANSMISSION REBUILDER-[employer] INSTALLER Work Phone: [facility] 03-10-2024 09:25-0400 Diastolic blood pressure 75 mm[Hg] Gomez Santa TRANSMISSION REBUILDER-[employer] INSTALLER Work Phone: [facility] 03-10-2024 09:25-0400 Heart rate 88 /min Gomez Santa TRANSMISSION REBUILDER-[employer]IELD INSTALLER Work Phone: [facility] 03-10-2024 09:25-0400 Respiratory rate 20 /min Gomez Santa TRANSMISSION REBUILDER-[employer]IELD INSTALLER Work Phone: [facility] 03-10-2024 09:25-0400 SaO2% (BldA) [Mass fraction] 98 % Gomez Santa TRANSMISSION REBUILDER-[employer] INSTALLER Work Phone: [facility] 03-10-2024 09:25-0400 Systolic blood pressure 117 mm[Hg] Gomez Santa TRANSMISSION REBUILDER-[employer]IELD INSTALLER Work Phone: [facility] 12-05-2023 09:22-0500 Body height 155.3 cm Mercedes Moran MD MPH Work Phone: [facility] 12-05-2023 09:22-0500 Body mass index (BMI) [Ratio] 30.81 kg/m2 Mercedes Moran MD MPH Work Phone: [facility] 12-05-2023 09:22-0500 Body temperature 96.3 [degF] Mercedes Moran MD MPH Work Phone: [facility] 12-05-2023 09:22-0500 Body weight 74.3 kg Mercedes Moran MD MPH Work Phone: [facility] 12-05-2023 09:22-0500 Diastolic blood pressure 85 mm[Hg] Mercedes Moran MD MPH Work Phone: [facility] 12-05-2023 09:22-0500 Heart rate 67 /min Mercedes Moran MD MPH Work Phone: [facility] 12-05-2023 09:22-0500 Respiratory rate 16 /min Mercedes Moran MD MPH Work Phone: [facility] 12-05-2023 09:22-0500 Systolic blood pressure 124 mm[Hg] Mercedes Moran MD MPH Work Phone: [facility] 09-10-2023 11:17-0500 Body height 155.3 cm Gomez Santa TRANSMISSION REBUILDER-[employer]IELD INSTALLER Work Phone: [facility] 09-10-2023 11:17-0500 Body mass index (BMI) [Ratio] 30.47 kg/m2 Gomez Santa TRANSMISSION REBUILDER-[employer] INSTALLER Work Phone: [facility] 09-10-2023 11:17-0500 Body weight 73.48 kg Gomez Santa TRANSMISSION REBUILDER-[employer] INSTALLER Work Phone: [facility] 09-10-2023 11:17-0500 Diastolic blood pressure 75 mm[Hg] Gomez Santa TRANSMISSION REBUILDER-[employer] INSTALLER Work Phone: [facility] 09-10-2023 11:17-0500 Heart rate 66 /min Gomez Santa TRANSMISSION REBUILDER-[employer]IELD INSTALLER Work Phone: [facility] 09-10-2023 11:17-0500 Respiratory rate 18 /min Gomez Santa TRANSMISSION REBUILDER-[employer]IELD INSTALLER Work Phone: [facility] 09-10-2023 11:17-0500 SaO2% (BldA) [Mass fraction] 96 % Gomez Santa TRANSMISSION REBUILDER-[employer]IELD INSTALLER Work Phone: [facility] 09-10-2023 11:17-0500 Systolic blood pressure 118 mm[Hg] Gomez Santa TRANSMISSION REBUILDER-SHIELD INSTALLER Work Phone: [facility] 08-25-2023 06:59-0500 Diastolic blood pressure 86 mm[Hg] [facility] 08-25-2023 06:59-0500 Heart rate 76 /min [facility] 08-25-2023 06:59-0500 Respiratory rate 16 /min [facility] 08-25-2023 06:59-0500 SaO2% (BldA) [Mass fraction] 98 % [facility] 08-25-2023 06:59-0500 Systolic blood pressure 136 mm[Hg] [facility] 08-25-2023 04:37-0500 Body height 160.[address] [facility] 08-25-2023 04:37-0500 Body mass index (BMI) [Ratio] 29.6 kg/m2 [facility] 08-25-2023 04:37-0500 Body temperature 96.4 [degF] [facility] 08-25-2023 04:37-0500 Body weight 75.[address] [facility] 08-27-2022 09:30-0500 Body mass index (BMI) [Ratio] 33.44 kg/m2 Yoselin J Camacho Work Phone: [facility] Work Phone: 08-27-2022 09:30-0500 Body surface area Derived from formula 1.79 m2 Yoselin J Camacho Work Phone: [facility] Work Phone: 08-27-2022 09:30-0500 Body temperature 97.6 [degF] Yoselin J Camacho Work Phone: [facility] Work Phone: 08-27-2022 09:30-0500 Body weight 80.29 kg Yoselin J Camacho Work Phone: [facility] Work Phone: 08-27-2022 09:30-0500 Diastolic blood pressure 80 mm[Hg] Yoselin J Camacho Work Phone: [facility] Work Phone: 08-27-2022 09:30-0500 Systolic blood pressure 116 mm[Hg] Yoselin J Camacho Work Phone: [facility] Work Phone: 03-15-2022 10:07-0400 Body height 154.94 cm Yoselin J Camacho Work Phone: [place] [address] DO Work Phone: 03-15-2022 10:07-0400 Body mass index (BMI) [Ratio] 33.33 kg/m2 Yoselin J Camacho Work Phone: [facility] DO Work Phone: 03-15-2022 10:07-0400 Body surface area Derived from formula 1.79 m2 Yoselin Francois Camacho Work Phone: [facility] [address] DO Work Phone: 03-15-2022 10:07-0400 Body temperature 97.4 [degF] Yoselin Francois Camacho Work Phone: [facility] 400 DO Work Phone: 03-15-2022 10:07-0400 Body weight 80.02 kg Yoselin Francois Camacho Work Phone: [facility] 400 DO Work Phone: 03-15-2022 10:07-0400 Diastolic blood pressure 74 mm[Hg] Yoselin Huckletree Camacho Work Phone: [facility] 400 DO Work Phone: 03-15-2022 10:07-0400 Heart rate 68 /min Yoselin [employer] Work Phone: [facility] 400 DO Work Phone: 03-15-2022 10:07-0400 SaO2% (BldA) [Mass fraction] 96 % Yoselin Huckletree Camacho Work Phone: [facility] [address] DO Work Phone: 03-15-2022 10:07-0400 Systolic blood pressure 118 mm[Hg] Yoselin Huckletree Camacho Work Phone: [facility] 400 DO Work Phone: 03-02-2022 10:52-0400 Body mass index (BMI) [Ratio] 33.26 kg/m2 Yoselin Francois Camacho Work Phone: [facility] Work Phone: 03-02-2022 10:52-0400 Body surface area Derived from formula 1.79 m2 Yoselin Francois Camacho Work Phone: [facility] Work Phone: 03-02-2022 10:52-0400 Body temperature 97.7 [degF] Yoselin Priscila Camacho Work Phone: [facility] Work Phone: 03-02-2022 10:52-0400 Body weight 79.83 kg Yoselin Francois Camacho Work Phone: [facility] Work Phone: 03-02-2022 10:52-0400 Diastolic blood pressure 78 mm[Hg] Yoselin Francois Camacho [facility]: 03-02-2022 10:52-0400 Systolic blood pressure 130 mm[Hg] Yoselin Francois Camacho [facility] Work Phone: 09-05-2021 10:17-0500 Body height 154.94 cm Yoselin Francois Camacho Work Phone: [facility] [address] DO Work Phone: 09-05-2021 10:17-0500 Body mass index (BMI) [Ratio] 32 kg/m2 Yoselin Francois Camacho Work Phone: [facility] 400 DO Work Phone: 09-05-2021 10:17-0500 Body surface area Derived from formula 1.76 m2 Yoselin Francois Camacho Work Phone: [facility] 400 DO Work Phone: 09-05-2021 10:17-0500 Body temperature 97.1 [degF] Yoselin Francois Camacho Work Phone: [facility] [address] DO Work Phone: 09-05-2021 10:17-0500 Body weight 76.83 kg Yoselin J Camacho Work Phone: [facility] 400 DO Work Phone: 09-05-2021 10:17-0500 Diastolic blood pressure 62 mm[Hg] Yoselin J Camacho Work Phone: [facility] 400 DO Work Phone: 09-05-2021 10:17-0500 Heart rate 74 /min Yoselin J Camacho Work Phone: [facility] 400 DO Work Phone: 09-05-2021 10:17-0500 SaO2% (BldA) [Mass fraction] 97 % Yoselin J Camacho Work Phone: [facility] 400 DO Work Phone: 09-05-2021 10:17-0500 Systolic blood pressure 118 mm[Hg] Yoselin J Camacho Work Phone: [facility] 400 DO Work Phone: 08-25-2021 11:20-0400 Body mass index (BMI) [Ratio] 31.74 kg/m2 Yoselin J Camacho [facility] Work Phone: 08-25-2021 11:20-0400 Body surface area Derived from formula 1.75 m2 Yoselin J Camacho Work Phone: [facility] Work Phone: 08-25-2021 11:20-0400 Body temperature 97.3 [degF] Yoselin J Camacho Work Phone: [facility] Work Phone: 08-25-2021 11:20-0400 Body weight 76.2 kg [facility]elin J Camacho [facility] Work Phone: 08-25-2021 11:20-0400 Diastolic blood pressure 80 mm[Hg] Yoselin Francois Camacho [facility] Work Phone: 08-25-2021 11:20-0400 Systolic blood pressure 120 mm[Hg] Yoselin Priscila Camacho [facility] Work Phone: 04-05-2021 09:56-0400 Body height 154.94 cm Yoselin Francois Camacho Work Phone: [facility] [address] DO Work Phone: 04-05-2021 09:56-0400 Body mass index (BMI) [Ratio] 29.71 kg/m2 Yoselin Francois Camacho Work Phone: [facility] 400 DO Work Phone: 04-05-2021 09:56-0400 Body surface area Derived from formula 1.71 m2 Yoselin Francois Camacho Work Phone: [facility] 400 DO Work Phone: 04-05-2021 09:56-0400 Body temperature 97.8 [degF] Yoselin Francois Camacho Work Phone: [facility] 400 DO Work Phone: 04-05-2021 09:56-0400 Body weight 71.33 kg Yoselin Francois Camacho Work Phone: [facility] 400 DO Work Phone: 04-05-2021 09:56-0400 Diastolic blood pressure 66 mm[Hg] Yoselin J Camacho Work Phone: [facility] 400 DO Work Phone: 04-05-2021 09:56-0400 Heart rate 74 /min Yoselin Francois Camacho Work Phone: [facility] 400 DO Work Phone: 04-05-2021 09:56-0400 SaO2% (BldA) [Mass fraction] 93 % Yoselin Francois Camacho Work Phone: [facility] 400 DO Work Phone: 04-05-2021 09:56-0400 Systolic blood pressure 120 mm[Hg] Yoselin Francois Camacho Work Phone: [facility] 400 DO Work Phone: 03-27-2021 11:03-0400 Body height 154.94 cm Yoselin Francois Camacho Work Phone: [facility] 400 DO Work Phone: 03-27-2021 11:03-0400 Body mass index (BMI) [Ratio] 29.52 kg/m2 Yoselin Francois Camacho Work Phone: [facility] 400 DO Work Phone: 03-27-2021 11:03-0400 Body surface area Derived from formula 1.7 m2 Yoselin Francois Camacho Work Phone: [facility] 400 DO Work Phone: 03-27-2021 11:03-0400 Body temperature 97.3 [degF] Yoselin Francois Camacho Work Phone: [facility] 400 DO Work Phone: 03-27-2021 11:03-0400 Body weight 70.88 kg Yoselin Francois Camacho Work Phone: [facility] 400 DO Work Phone: 03-27-2021 11:03-0400 Diastolic blood pressure 64 mm[Hg] Yoselin Priscila Camacho Work Phone: [facility] 400 DO Work Phone: 03-27-2021 11:03-0400 Heart rate 68 /min Yoselin Francois Camacho [facility] Phone: [facility] 400 DO Work Phone: 03-27-2021 11:03-0400 SaO2% (BldA) [Mass fraction] 93 % Yoselin Francois Camacho Work Phone: [facility] 400 DO Work Phone: 03-27-2021 11:03-0400 Systolic blood pressure 112 mm[Hg] Yoselin Francois Camacho Work Phone: [facility] 400 DO Work Phone: 01-23-2021 11:59-0400 BMI (Body Mass Index) 29.31 kg/m2 Chanda Janee [facility] 400 DO Work Phone: 01-23-2021 11:59-0400 Body Temperature 97.5 [degF] Chanda Janee [facility] [place] [address] DO Work Phone: Comment on above: Method: Temporal 01-23-2021 11:59-0400 Body weight 70.36 kg [facility]anda Janee [facility] [address] DO Work Phone: 01-23-2021 11:59-0400 BP Diastolic 62 mm[Hg] [facility]anda [facility]amepham [facility] 400 DO Work Phone: 01-23-2021 11:59-0400 BP Systolic 114 mm[Hg] [facility]anda Weller [facility] 400 DO Work Phone: 01-23-2021 11:59-0400 BSA (Body Surface Area) 1.7 m2 Chanda Terrylaura [facility] 400 DO Work Phone: 01-23-2021 11:59-0400 Height 154.94 cm [facility]anda Weller [facility] [place] [address] DO Work Phone: 01-23-2021 11:59-0400 Pulse (Heart Rate) 74 /min Chanda Weller [facility] 400 DO Work Phone: 01-23-2021 11:59-0400 Pulse Oximetry 92 % Chanda Weller [facility] 400 DO Work Phone: Comment on above: Source: 10-26-2020 11:40-0500 BMI (Body Mass Index) 30.26 kg/m2 Chanda Weller [facility] 400 DO Work Phone: 10-26-2020 11:40-0500 Body Temperature 97.5 [degF] Chanda Weller [facility] 400 DO Work Phone: Comment on above: Method: Temporal 10-26-2020 11:40-0500 Body weight 72.63 kg Chanda Weller [facility] 400 DO Work Phone: 10-26-2020 11:40-0500 BP Diastolic 76 mm[Hg] Chanda Weller [facility] 400 DO Work Phone: Comment on above: Location: LUE; Position: Sitting 10-26-2020 11:40-0500 BP Systolic 116 mm[Hg] Chanda Weller [facility] 400 DO Work Phone: Comment on above: Location: LUE; Position: Sitting 10-26-2020 11:40-0500 BSA (Body Surface Area) 1.72 m2 Chanda Weller [facility] 400 DO Work Phone: 10-26-2020 11:40-0500 Height 154.94 cm Chanda Weller [facility] 400 DO Work Phone: 10-26-2020 11:40-0500 Pulse (Heart Rate) 76 /min Chanda Weller [facility] 400 DO Work Phone: 10-26-2020 11:40-0500 Pulse Oximetry 93 % Chanda Weller [facility] 400 DO Work Phone: Comment on above: Source: Nasal Cannula 10-15-2020 09:43-0500 Body temperature 37.0 {degrees_C} Chanda Weller [facility] 400 DO Work Phone: Comment on above: NOTE: PATIENT RESULTS ARE NOT CORRECTED FOR TEMPERATURE. 02-24-2019 11:20-0400 BMI (Body Mass Index) 30 kg/m2 Yoselin Camacho [facility] Work Phone: 02-24-2019 11:20-0400 Body weight 74.39 kg Yoselin Camacho [facility] Work Phone: 02-24-2019 11:20-0400 BP Diastolic 82 mm[Hg] Y[facility]elin Camacho [facility] Work Phone: 02-24-2019 11:20-0400 BP Systolic 126 mm[Hg] Y[facility]elin Camacho [facility] Work Phone: 02-24-2019 11:20-0400 BSA (Body Surface Area) 1.76 m2 Yoselin Camacho [facility] Work Phone: Encounters Encounter Date Encounter Type Care Provider Facility Start: 04-16-2025 End: 04-16-2025 ambulatory Nathalia Ho MD Work Phone: -[facility] Start: 04-16-2025 End: 04-16-[address] Chanda Shepard MD -[facility] Work Phone: Start: 04-16-2025 End: 04-16-2025 ambulatory Nathalia Ho Facility:[facility] Start: 03-11-2025 End: 03-11-2025 Office outpatient visit 25 minutes [facility] TRANSMISSION REBUILDER-SHIELD INSTALLER Work Phone: [facility] [place] Comment on above: Hodgkin lymphoma, un specified Hodgkin lymphoma type, unspecified body region (Multi) Start: 03-11-2025 End: 03-11-2025 ambulatory [facility] Start: 03-04-2025 End: 03-04-2025 ambulatory [facility] Start: 09-21-2024 End: 09-21-2024 Subsequent hospital visit by physician Tevin Olmedo 1 [facility] Comment on above: Hodgkin lymphoma, un specified Hodgkin lymphoma type, unspecified body region (Multi) Start: 09-21-2024 End: 09-21-2024 ambulatory [facility] Start: 09-10-2024 End: 09-10-2024 Office outpatient visit 25 minutes Gomez Estevez Kiet TRANSMISSION REBUILDER-SHIELD INSTALLER Work Phone: [facility] [place] Comment on above: Bladder problem (Francisca dino Dx); Hodgkin lymphoma, unspecified Hodgkin lymphoma type, unspecified body region (Multi); Cystocele with uterine prolapse Start: 09-10-2024 End: 09-10-2024 ambulatory [facility] Start: 09-07-2024 End: 09-07-2024 ambulatory CHALON [facility] Start: 07-08-2024 ambulatory [facility] Facility:[facility] Start: 07-08-2024 End: 07-08-[facility]24 [facility] Start: 03-30-2024 End: 03-30-2024 Office outpatient visit 15 minutes Gomez S Kiet TRANSMISSION REBUILDER-SHIELD INSTALLER Work Phone: [facility] [place] Comment on above: Hodgkin lymphoma, un specified Hodgkin lymphoma type, unspecified body region (Multi) Start: 03-30-2024 End: 03-30-2024 ambulatory [facility] Start: 03-23-2024 End: 03-23-2024 Subsequent hospital visit by physician Tevin Olmedo 1 [facility] Comment on above: Hodgkin lymphoma, un specified Hodgkin lymphoma type, unspecified body region (Multi) Start: 03-23-2024 End: 03-23-2024 ambulatory [facility] Start: 03-10-2024 End: 03-10-2024 Office outpatient visit 15 minutes Gomez Santa TRANSMISSION REBUILDER-SHIELD INSTALLER Work Phone: [facility] [place] Comment on above: Hodgkin lymphoma, un specified Hodgkin lymphoma type, unspecified body region (Multi) Start: 03-03-2024 End: 03-03-2024 ambulatory [facility] Start: 12-05-2023 End: 12-05-2023 Office consultation new/estab patient 60 min Mercedes Moran MD MPH Work Phone: [facility] Comment on above: POP-Q stage 3 cystoc bethany (Primary Dx); UTI symptoms; MOUSTAPHA (stress urinary incontinence, female); Hodgkin lymphoma, unspecified Hodgkin lymphoma type, unspecified body region (CMS/HCC) Start: 09-10-2023 End: 09-10-2023 Office outpatient visit 15 minutes Gomez Santa TRANSMISSION REBUILDER-SHIELD INSTALLER Work Phone: [facility] Office [facility] [place] Comment on above: Hodgkin lymphoma, un specified Hodgkin lymphoma type, unspecified body region (CMS/HCC) (Primary Dx) Start: 08-30-2023 End: 08-31-[address] PAPITO QUIÑONEZ MD Facility: Start: 08-30-2023 End: 08-30-[address] PAPITO QUIÑONEZ MD [facility] Start: 08-25-2023 End: 08-25-2023 Emergency department patient visit [facility] Work Phone: Start: 07-05-2023 End: 07-05-2023 ambulatory [facility] Work Phone: Start: 07-05-2023 End: 07-05-2023 Patient encounter procedure [facility] [place] Work Phone: Start: 03-04-[address] Yoselin Camacho [facility] Facility:[facility] Start: 02-25-2023 End: 02-25-2023 ambulatory YOSELIN [facility] Ambulatory Start: 09-28-2022 Chart Update Yoselin J Camacho Work Phone: [facility] Work Phone: Start: 08-30-[address] JASMEET MARAVILLA Facil ity:[id number] Start: 08-27-2022 Office outpatient vi sit 15 minutes Yoselin J Camacho Work Phone: [facility] Work Phone: Start: 08-27-[address] Yoselin Dash eph Camacho III Facility:[id number] Start: 08-23-[address] Yoselin Dash eph Camacho III Facility:[facility] Start: 03-15-2022 Office outpatient vi sit 15 minutes Yoselin J Camacho Work Phone: [facility] 400 DO Work Phone: Start: 03-15-[address] Yoselin Dash eph Camacho III Facility:[id number] Start: 03-06-2022 Chart Update Yoselin J Camacho Work Phone: [facility] 400 DO Work Phone: Start: 03-05-2022 ambulatory Chanda Weller Fa cility:[id number] Start: 03-02-2022 Office outpatient vi sit 25 minutes Yoselin J Camacho Work Phone: [facility] Work Phone: Start: 03-01-[address] JASMEET MARAVILLA [facility] ity:[id number] Start: 10-17-2021 End: 10-17-[address] DANIELLE COBURN [facility] Start: 09-08-2021 Chart Update Yoselin J Camacho Work Phone: [facility] 400 DO Work Phone: Start: 09-05-2021 Office outpatient vi sit 25 minutes Yoselin J Camacho Work Phone: [facility] 400 DO Work Phone: Start: 09-05-2021 ambulatory Chanda Vilchiscki Fa cility:[id number] Start: 08-29-2021 Chart Update Yoselin J Camacho Work Phone: [facility] Work Phone: Start: 08-25-2021 Office outpatient vi sit 25 minutes Yoselin J Camacho Work Phone: [facility] Work Phone: Start: 08-25-2021 Patient encounter procedure Yoselin J Camacho Work Phone: [facility] Work Phone: Start: 05-28-2021 Rx Renewal Yoselin J Camacho Work Phone: [facility] Work Phone: Start: 04-05-2021 Office outpatient vi sit 15 minutes Yoselin J Camacho Work Phone: -[facility] 400 DO Work Phone: Start: 04-05-2021 Patient encounter procedure Yoselin J Camacho Work Phone: -[facility] 400 DO Work Phone: Start: 02-23-2021 End: 02-23-[address] DANIELLE Fernando [facility] Start: 02-02-2021 End: 02-02-[address] [facility] Start: 01-23-2021 Patient encounter procedure Chanda Weller -[facility] 400 DO Work Phone: Start: 12-21-2020 Patient encounter procedure Chanda Weller -[facility] 400 DO Work Phone: Start: 11-30-2020 Patient encounter procedure Chanda Weller -[facility] 400 DO Work Phone: Start: 11-09-2020 Patient encounter procedure Chanda Weller -[facility] 400 DO Work Phone: Start: 11-01-2020 Patient encounter procedure Chanda Weller MP-[facility] 400 DO Work Phone: Start: 10-26-2020 Patient encounter procedure Chanda Weller [facility] 400 DO Work Phone: Start: 07-04-2020 Patient encounter procedure Yoselin Camacho [facility] Work Phone: Start: 06-07-2020 Patient encounter procedure Yoselin Camacho [facility] Work Phone: Start: 06-01-2020 Patient encounter procedure Yoselin Camacho [facility] Work Phone: Start: 05-18-2020 Patient encounter procedure Yoselin Camacho MP-[facility] Work Phone: Start: 05-09-2020 Patient encounter procedure Yoselin Camacho [facility] Work Phone: Start: 04-07-2020 Patient encounter procedure Yoselin Camacho [facility] Work Phone: Start: 02-12-2020 Patient encounter procedure Yoselin Camacho [facility] Work Phone: Start: 08-31-2019 Patient encounter procedure Yoselin Camacho [facility] Work Phone: Start: 06-10-2019 Patient encounter procedure Yoselin Camacho [facility] Work Phone: Start: 02-24-2019 Patient encounter procedure Yoselin Camacho [facility] Work Phone: Start: 09-09-2018 Patient encounter procedure Yoselin Camacho [facility] Work Phone: Start: 03-11-2018 Patient encounter procedure Yoselin Camacho [facility] Work Phone: Start: 12-27-2017 Patient encounter procedure Yoselin Camacho [facility] Work Phone: Start: 06-27-2017 Nursing evaluation o f patient and report Yoselin Camacho [facility] Work Phone: Start: 03-27-2017 Patient encounter procedure Yoselin Camacho [facility] Work Phone: Patient encounter status Yoselin Francois Camacho Work Phone: [facility] 400 DO Work Phone: Preoperative state Yoselin Francois Camacho Work Phone: [facility] 400 DO Work Phone: Procedures Date Procedure Procedure Detail Performing Clinician Start: 04-16-2025 CHINEDU measurement Nathalia Ho MD Work Phone: Comment on above: Performed at: [address] Director: Bronson Mejia PhD, Phone: [phone] Start: 03-03-2024 CBC W Auto Different ial panel - Blood YOSELIN CAMACHO Start: 03-03-2024 Comprehensive metabo lic 2000 panel - Serum or Plasma YOSELIN CAMACHO Start: 03-03-2024 Lactate dehydrogenas e [Enzymatic activity/volume] in Serum or Plasma YOSELIN CAMACHO Start: 03-03-2024 Lipid panel YOSELIN JEWEL H Start: 03-03-2024 Thyrotropin [Units/v olume] in Serum or Plasma YOSELIN CAMACHO Start: 03-03-2024 THYROXINE, FREE YOSELIN CAMACHO Start: 03-03-2024 Lipid 1996 panel - S yobani or Plasma Gomez Santa TRANSMISSION REBUILDER-SHIELD INSTALLER Work Phone: Start: 12-05-2023 MEASURE POST VOID RESIDUAL Mercedes Moran MD MPH Work Phone: Start: 08-25-2023 CT of abdomen and pe lvis without contrast Start: 02-25-2023 PNEUMOCOCCAL CONJUGA TE VACCINE 20-VALENT IM YOSELIN CAMACHO Start: 09-26-2022 Lipid 1996 panel - S yobani or Plasma Gomez Santa TRANSMISSION REBUILDER-SHIELD INSTALLER Work Phone: Start: 08-27-2022 Follow-up visit Start: 01-23-2021 Pulse Oximetry, Nocturnal Chanda Weller Start: 01-23-2021 Xray Chest 2 View PA + Lateral Chanda Vilchispham Start: 10-27-2020 Xray Chest 2 View PA + Lateral Chanda Flowersdhruv Start: 10-11-2020 Echocardiography Chanda Weller Start: 04-07-2020 Ct thorax w/contrast material Yoselin Camacho Start: 02-24-2019 25 hydroxy includes fractions if performed Yoselin Camacho Start: 02-24-2019 Basic metabolic 1998 panel - Serum or Plasma Yoselin Camacho Start: 02-24-2019 Lipid panel Yoselin Jewel h Start: 02-24-2019 MG Breast screening She lby Camacho Start: 02-24-2019 Xray Dexa 1 or More Sites, Axial Skeleton Yoselin Camacho Adenoid excision Yoselin Camacho Cholecystectomy Yoselin Camacho History Of Prior Surgery She lby Camacho Comment on above: no ears, nose or thr oat surgery; Repair of meniscus Yoselin Ca sh Surgical procedure o n eye proper Yoselin Camacho Tonsillectomy Yoselin Camacho Plan of Treatment Date Care Activity Detail Author Start: 03-03-2029 Lipid panel Lipid Panel [facility] Start: 09-26-2027 Lipid panel Lipid Panel [facility] Start: 09-13-2025 End: 09-13-2025 Patient encounter procedure 09/13/2025 9:00 AM EST Office Visit [facility] [address] [place] [phone] Gomez Santa S, TRANSMISSION REBUILDER-SHIELD INSTALLER [address] [place], [place] [id number] [facility] Start: 09-06-2025 End: 03-11-2026 CBC W Auto Differential panel - Blood CBC and Auto Differential Lab Routine Hodgkin lymphoma, unspecified Hodgkin lymphoma type, unspecified body region (Multi) Expected: 09/06/2025, Expires: 03/11/2026 [facility] Service Area Work Phone: Comment on above: Expected: 09/06/2025 , Expires: 03/11/2026 Start: 09-06-2025 End: 03-11-2026 Comprehensive metabolic 2000 panel - Serum or Plasma Comprehensive Metabolic Panel Lab Routine Hodgkin lymphoma, unspecified Hodgkin lymphoma type, unspecified body region (Multi) Expected: 09/06/2025, Expires: 03/11/2026 [facility] Work Phone: Comment on above: Expected: 09/06/2025 , Expires: 03/11/2026 Start: 09-06-2025 End: 03-11-2026 Lactate dehydrogenase [Enzymatic activity/volume] in Serum or Plasma by Lactate to pyruvate reaction Lactate dehydrogenase Lab Routine Hodgkin lymphoma, unspecified Hodgkin lymphoma type, unspecified body region (Multi) Expected: 09/06/2025, Expires: 03/11/2026 [facility] Work Phone: Comment on above: Expected: 09/06/2025 , Expires: 03/11/2026 Start: 03-11-2025 End: 03-11-2025 Patient encounter procedure 03/11/2025 9:00 AM EDT Office Visit [facility] [address] [place] [phone] Gomez Santa, TRANSMISSION REBUILDER-SHIELD INSTALLER [address] [place] [address] [facility] Medical Office [facility] Start: 03-01-2025 End: 09-10-2025 CBC W Auto Differential panel - Blood CBC and Auto Differential Lab Routine Hodgkin lymphoma, unspecified Hodgkin lymphoma type, unspecified body region (Multi) Expected: 03/01/2025, Expires: 09/10/2025 [facility] Work Phone: Comment on above: Expected: 03/01/2025 , Expires: 09/10/2025 Start: 03-01-2025 End: 09-10-2025 Comprehensive metabolic 2000 panel - Serum or Plasma Comprehensive Metabolic Panel Lab Routine Hodgkin lymphoma, unspecified Hodgkin lymphoma type, unspecified body region (Multi) Expected: 03/01/2025, Expires: 09/10/2025 [facility] Work Phone: Comment on above: Expected: 03/01/2025 , Expires: 09/10/2025 Start: 03-01-2025 End: 09-10-2025 Lactate dehydrogenase [Enzymatic activity/volume] in Serum or Plasma by Lactate to pyruvate reaction Lactate dehydrogenase Lab Routine Hodgkin lymphoma, unspecified Hodgkin lymphoma type, unspecified body region (Multi) Expected: 03/01/2025, Expires: 09/10/2025 [facility] Work Phone: Comment on above: Expected: 03/01/2025 , Expires: 09/10/2025 Start: 01-30-2025 DTaP/Tdap/Td Vaccine s (2 - Td or Tdap) DTaP/Tdap/Td Vaccines (2 - Td or Tdap) [facility] Start: 09-21-2024 End: 09-21-2024 Patient encounter procedure 09/21/2024 4:00 PM EST Appointment [facility] [address] [place] [phone] [facility] Start: 09-10-2024 End: 09-10-2025 CT Chest and Abdomen and Pelvis W contrast IV CT chest abdomen pelvis w IV contrast Imaging Routine Hodgkin lymphoma, unspecified Hodgkin lymphoma type, unspecified body region (Multi) Expected: 09/10/2024, Expires: 09/10/2025 [facility] Service Area Work Phone: Comment on above: Expected: 09/10/2024 , Expires: 09/10/2025 Start: 09-10-2024 End: 09-10-2024 Patient encounter procedure 09/10/2024 10:00 AM EST Office Visit [facility] Medical Office [facility] [place] [address] [place] [phone] Gomez Santa APRN-SOCORRO [address] [place], [place] [phone] [facility] Medical Office Building [facility] Start: 08-29-2024 Medicare Annual Wellness Visit Medicare Annual Wellness Visit (AWV) [facility] Start: 06-21-2024 COVID-19 Vaccine ( season) COVID-19 Vaccine () [facility] Start: 06-21-2024 Influenza vaccination [facility] Start: 03-30-2024 End: 03-30-2024 Patient encounter procedure 03/30/2024 11:00 AM EDT Office Visit [facility] Medical Office [facility] [address] [place] [phone] Gomez Santa, TRANSMISSION REBUILDER-SHIELD INSTALLER [address] [place] [address] [facility] Medical Office [facility] Start: 03-23-2024 End: 03-23-2024 Patient encounter procedure 03/23/2024 11:00 AM EDT Appointment [facility] [address] [place] [phone] [facility] Start: 03-10-2024 End: 09-10-2024 CBC W Auto Differential panel - Blood CBC and Auto Differential Lab Routine Hodgkin lymphoma, unspecified Hodgkin lymphoma type, unspecified body region (CMS/HCC) Expected: 03/10/2024, Expires: 09/10/2024 [facility] Service Area Work Phone: Comment on above: Expected: 03/10/2024 , Expires: 09/10/2024 Start: 03-10-2024 End: 09-10-2024 Comprehensive metabolic 2000 panel - Serum or Plasma Comprehensive metabolic panel Lab Routine Hodgkin lymphoma, unspecified Hodgkin lymphoma type, unspecified body region (CMS/HCC) Expected: 03/10/2024 (Approximate), Expires: 09/10/2024 [facility] Work Phone: Comment on above: Expected: 03/10/2024 (Approximate), Expires: 09/10/2024 Start: 03-10-2024 End: 03-10-2025 CT Chest and Abdomen and Pelvis W contrast IV CT chest abdomen pelvis w IV contrast Imaging Routine Hodgkin lymphoma, unspecified Hodgkin lymphoma type, unspecified body region (Multi) Expected: 03/10/2024, Expires: 03/10/2025 [facility] Service Area Work Phone: Comment on above: Expected: 03/10/2024 , Expires: 03/10/2025 Start: 03-10-2024 End: 09-10-2024 Lactate dehydrogenase [Enzymatic activity/volume] in Serum or Plasma by Lactate to pyruvate reaction Lactate dehydrogenase Lab Routine Hodgkin lymphoma, unspecified Hodgkin lymphoma type, unspecified body region (CMS/HCC) Expected: 03/10/2024 (Approximate), Expires: 09/10/2024 [facility] Work Phone: Comment on above: Expected: 03/10/2024 (Approximate), Expires: 09/10/2024 Start: 03-10-2024 End: 03-10-2024 Patient encounter procedure 03/10/2024 8:00 AM EDT Office Visit [facility] Office [address] [place] [address] Gomez Santa, TRANSMISSION REBUILDER-SHIELD INSTALLER [address] [facility] [address] [place] [address] [facility] Medical Office [facility] Start: 12-05-2023 End: 12-05-2023 Patient encounter procedure 12/05/2023 9:30 AM EST Office Visit [facility] [place] [id number] [address] [place] [address] Mercedes Moran MD MPH [address] [facility], [facility] [address] [place] [address] [facility] Medical Office Building Start: 08-25-2023 [facility] Start: 06-21-2023 COVID-19 Vaccine ( season) COVID-19 Vaccine () [facility] Start: 06-21-2023 Influenza vaccination Influenza Vacc ine (#1) [facility] Start: 02-25-2023 FUV, Provider: Yoselin Camacho, Status: Pen, Time: 9:15 AM FUV, Provider: Yoselin Camacho, Status: Pen, Time: 9:15 AM [facility] Work Phone: Start: 08-27-2022 EPV, Provider: Yoselin Camacho, Status: Pen, Time: 9:45 AM EPV, Provider: Yoselin Camacho, Status: Pen, Time: 9:45 AM [facility] Work Phone: Start: 04-03-2022 COVID-19 Vaccine (4 - Mixed Product risk series) COVID-19 Vaccine (4 - Mixed Product risk series) [facility] Start: 03-16-2022 FUV, Provider: Chanda Weller, Status: Pen, Time: 10:00 AM FUV, Provider: Chanda Weller, Status: Pen, Time: 10:00 AM [place] [address] DO Work Phone: Start: 03-15-2022 FUV, Provider: Chanda Weller, Status: Pen, Time: 10:00 AM FUV, Provider: Chanda Weller, Status: Pen, Time: 10:00 AM [facility] Work Phone: Start: 03-06-2022 COVID-19 Vaccine (2 - Moderna risk series) COVID-19 Vaccine (2 - Moderna risk series) [facility] Start: 03-02-2022 EPV, Provider: Yoselin Camacho, Status: Pen, Time: 10:30 AM EPV, Provider: Yoselin Camacho, Status: Pen, Time: 10:30 AM [facility] Work Phone: Start: 09-05-2021 FUV, Provider: Chanda Weller, Status: Pen, Time: 10:30 AM FUV, Provider: Chanda Weller, Status: Pen, Time: 10:30 AM [place] [address] DO Work Phone: Start: 08-25-2021 NPV, Provider: Yoselin Camacho, Status: Pen, Time: 11:30 AM NPV, Provider: Yoselin Camacho, Status: Pen, Time: 11:30 AM [place] [address] DO Work Phone: Start: 03-25-2021 Xray Chest 2 V iew PA + Lateral [place] [address] DO Work Phone: Start: 02-24-2019 MG Breast screening Mamm - Scr eening Mammogram w/ Tomosynthesis [facility] Work Phone: Start: 02-24-2019 Xray Dexa 1 or More Sites, Axial Skeleton [facility] Work Phone: Start: 2017 RSV High Risk: (Elde rly (60+) or Population) (1 - 1-dose 75+ series) RSV High Risk: (Elderly (60+) or Population) (1 - 1-dose 75+ series) [facility] Start: 2002 Hepatitis B Vaccines (1 of 3 - Risk 3-dose series) Hepatitis B Vaccines (1 of 3 - Risk 3-dose series) [facility] Start: 2002 RSV patient s and/or patients aged 60+ years (1 - 1-dose 60+ series) RSV patients and/or patients aged 60+ years (1 - 1-dose 60+ series) [facility] Start: 1961 Hepatitis A Vaccines (1 of 2 - Risk 2-dose series) Hepatitis A Vaccines (1 of 2 - Risk 2-dose series) [facility] Start: 1961 Urine screening for protein CKD: Urine Protein Screening [facility] Start: 03-19-1941 Examination of skin Derm Melan agustin Skin Check [facility] Start: 1940 Medicare Annual Wellness Visit Medicare Annual Wellness Visit (AWV) [facility] End: 03-10-2025 CBC W Auto Differential panel - Blood CBC and Auto Differential Lab Routine Hodgkin lymphoma, unspecified Hodgkin lymphoma type, unspecified body region (Multi) 6 months for 2 Occurrences starting 03/10/2024 until 03/10/2025 [facility] Work Phone: Comment on above: 6 months for 2 Occur rences starting 03/10/2024 until 03/10/2025 End: 03-10-2025 Comprehensive metabolic 2000 panel - Serum or Plasma Comprehensive Metabolic Panel Lab Routine Hodgkin lymphoma, unspecified Hodgkin lymphoma type, unspecified body region (Multi) 6 months for 2 Occurrences starting 03/10/2024 until 03/10/2025 [facility] Work Phone: Comment on above: 6 months for 2 Occur rences starting 03/10/2024 until 03/10/2025 End: 03-23-2024 CT Chest and Abdomen and Pelvis W contrast IV [facility] Service Area Work Phone: Comment on above: Once for 1 Occurrenc es starting 03/23/2024 until 03/23/2024 End: 09-21-2024 CT Chest and Abdomen and Pelvis W contrast IV [facility] Service Area Work Phone: Comment on above: Once for 1 Occurrenc es starting 09/21/2024 until 09/21/2024 End: 03-10-2025 Lactate dehydrogenase [Enzymatic activity/volume] in Serum or Plasma by Lactate to pyruvate reaction Lactate dehydrogenase Lab Routine Hodgkin lymphoma, unspecified Hodgkin lymphoma type, unspecified body region (Multi) 6 months for 2 Occurrences starting 03/10/2024 until 03/10/2025 [facility] Work Phone: Comment on above: 6 months for 2 Occur rences starting 03/10/2024 until 03/10/2025 Patient Education ED Kidney Ston e w/ Colic [facility] Work Phone: Patient referral [facility] Work Phone: [facility] Work Phone: NEGATED: Highlighted row has been ruled out! Planned Goals not documented -[facility] Work Phone: Immunizations Immunization Date Immunization Notes Care Provider Fa jerald 05-08-2023 Pneumococcal conjuga te vaccine, 20-valent (PREVNAR 20) Gomez Santa Trist Work Phone: [facility] Work Phone: 08-27-2022 influenza, high dose seasonal, preservative-free; Translations: [Fluzone High-Dose 0.5 ML Intramuscular Suspension Prefilled Syringe] [employer] Work Phone: [facility] Work Phone: Comment on above: Series: 08-27-2022 influenza virus vacc ine, unspecified formulation Gomez Santa Trist Work Phone: [facility] Work Phone: 02-06-2022 Moderna COVID-19 Vac cine 100 MCG/0.5ML Intramuscular Suspension [employer] Work Phone: [facility] Work Phone: 08-25-2021 influenza, high dose seasonal, preservative-free; Translations: [Fluzone High-Dose 0.5 ML Intramuscular Suspension Prefilled Syringe] [employer] Work Phone: [facility] Work Phone: Comment on above: Series: 02-23-2021 Pfizer-BioNTech COVI D-19 Vacc 30 MCG/0.3ML Intramuscular Suspension [employer] Work Phone: [place] [address] DO Work Phone: Comment on above: Series: 02-02-2021 Pfizer-BioNTech COVI D-19 Vacc 30 MCG/0.3ML Intramuscular Suspension [employer] Work Phone: [place] [address] DO Work Phone: Comment on above: Series: 07-29-2020 Fluzone High-Dose Quadrivalent 0.7 ML Intramuscular Suspension Prefilled Syringe [employer] Work Phone: [facility] Work Phone: 08-31-2019 influenza, high dose seasonal, preservative-free; Translations: [Fluzone High-Dose 0.5 ML Intramuscular Suspension Prefilled Syringe] [facility] Work Phone: Comment on above: Series: 09-17-2018 zoster vaccine recombinant [facility] Work Phone: Comment on above: Series: 05-28-2018 zoster vaccine recombinant [facility] Work Phone: [facility] [address] Work Phone: Comment on above: Series: 05-21-2018 zoster vaccine recombinant [facility] Work Phone: 03-11-2018 zoster vaccine recombinant; Translations: [Shingrix 50 MCG Intramuscular Suspension Reconstituted] [facility] Work Phone: 06-27-2017 influenza, high dose seasonal, preservative-free; Translations: [Fluzone High-Dose 0.5 ML Intramuscular Suspension Prefilled Syringe] [facility] Work Phone: Comment on above: Series: 08-17-2015 pneumococcal conjuga te vaccine, 13 valent; Translations: [Prevnar 13 Intramuscular Suspension] [facility] Work Phone: Comment on above: Series: 08-01-2015 influenza, seasonal, injectable Gomez Santa [facility] Work Phone: [facility] Work Phone: 08-01-2015 influenza, high dose seasonal, preservative-free; Translations: [Fluzone High-Dose SUSP] [facility] Work Phone: Comment on above: Series: 01-30-2015 tetanus toxoid, redu mae diphtheria toxoid, and acellular pertussis vaccine, adsorbed [facility] Work Phone: Comment on above: Series: 08-02-2014 influenza, injectabl e, quadrivalent, contains preservative Gomez Santa [employer]SM[employer] RE[employer] Work Phone: [facility] 08-02-2014 influenza, injectabl e, quadrivalent, preservative free; Translations: [Fluarix Quadrivalent 0.5 ML SUSP] Yoselin Camacho [facility] Work Phone: Comment on above: Series: 08-04-2013 influenza virus vacc ine, unspecified formulation Yoselin J Camacho Work Phone: [facility] [place] [address] DO Work Phone: Comment on above: Series: 08-04-2013 influenza, seasonal, injectable [facility] Camacho [facility] Work Phone: 07-10-2012 influenza virus vacc ine, unspecified formulation Yoselin J Camacho Work Phone: [facility] [place] [address] DO Work Phone: Comment on above: Series: 07-10-2012 influenza, seasonal, injectable Yoselin Camacho [facility] Work Phone: 07-13-2011 influenza virus vacc ine, unspecified formulation Yoselin J [employer] Work Phone: [place] [address] DO Work Phone: Comment on above: Series: 07-13-2011 influenza, seasonal, injectable [facility] Camacho [facility] Work Phone: 01-30-2008 pneumococcal polysaccharide vaccine, 23 valent Y[facility] Camacho [facility] Work Phone: Comment on above: Series: 01-30-2008 zoster vaccine, live [facility] Work Phone: Comment on above: Series: 08-17-1994 influenza, seasonal, injectable Yoselin J Camacho Work Phone: [facility] Work Phone: Payers Date Payer Category Payer Self-pay 2022 Medicare [employer] [place] [employer] [employer] [place] MED[place] [id number] 2022-Present [address] [place] [address] [id number] 2022 Medicare (Managed Care) [id number]. [id number] 2022 Medicare [id number] 1942 Unknown [id number] [id number] .651 1942 Unknown [id number] 2.16.840.1.401501.3.579.2 .651 1942 Unknown [id number] 2.16.840.1.817497.3.579.2 .651 1942 Unknown [id number] 2.16.840.1.433435.3.579.2 .1069 1942 Unknown [id number] 2.16.840.1.770659.3.579.2 .1069 1942 Unknown [id number] 2.16.840.1.427172.3.579.2 .1069 1942 Unknown [id number] 2.16.840.1.942293.3.579.2 .1069 1942 Unknown [id number] 2.16.840.1.320649.3.579.2 .356 1942 Unknown [id number] 2.16.840.1.831391.3.579.2 .356 1942 Unknown [id number] 2.16.840.1.364962.3.579.2 .1244 1942 Unknown [id number] 2.16.840.1.537474.3.579.2 .627 1942 Unknown [id number] 2.16.840.1.375543.3.579.2 .1245 1942 Unknown [id number] 2.16.840.1.989681.3.579.2 .1245 1942 Unknown [id number] 2.16.840.1.093211.3.579.2 .1243 1942 Unknown [id number] 2.16.840.1.694546.3.579.2 .124 1942 Unknown [id number] 2.16.840.1.977738.3.579.2 .124 1942 Unknown [id number] 2.16.840.1.481885.3.579.2 .1243 1942 Unknown [id number] 2.16.840.1.043800.3.579.2 .1243 1942 Unknown [id number] 2.16.840.1.507416.3.579.2 .1243 Medicare [id number] Unknown Unknown [id number] 2.16.840.1.461075.3.579.2 .462 Unknown [id number] 2.16.840.1.420053.3.579.2 .462 Unknown [id number] 2.16.840.1.084338.3.579.2 .462 Social History Date Type Detail Facility Start: 08-27-2023 End: 03-11-2025 Denies alcohol consumption Denies alcohol consumption -[facility] [address] DO Work Phone: Start: 1940 Sex Assigned At Female W [facility] Start: 08-25-2023 Tobacco smoking stat us CAIS Unknown if ever smoked [facility] Tobacco smoking status No Smokin g Status Entered [facility] Start: 02-25-2023 End: 08-25-2023 Tobacco smoking status NHIS Never smoked tobacco [facility] Work Phone: Start: 02-25-2023 Tobacco use and exposure Smokeless tobacco non-user [facility] Work Phone: Start: 08-27-2023 End: 03-11-2025 Tobacco use panel [facility] Work Phone: Start: 1940 [facility] Start: 08-31-2023 End: 03-11-2025 Exposure to SARS-CoV-2 (event) Not sure [facility] NEGATED: Highlighted row - - [facility] Work Phone: Functional Status Date Assessment Result Facility 03-11-2025 Patient Health Questionnaire 2 item (PHQ-2) [Reported] [facility] Work Phone: 03-11-2025 [place] - suicide severity rating scale screener - recent [C-SSRS] [facility] Work Phone: NEGATED: Highlighted row Functional performance Functional status health issues are not documented Disease [facility] Work Phone: Mental Status Date Assessment Result Facility NEGATED: Highlighted row Cognitive function [Interpretation] Cognitive status health issues are not documented Disease [facility] Work Phone: Clinical Notes 03-01-2022 to 03-11-2025 MARCELINO Talbot - 03/11/2025 9:00 AM Charisma Pearson RN - 03/11/2025 9:00 AM EDTPatient InstructionsRaMARCELINO Jones - 09/10/2024 10:00 AM ESTPatient Instructions Note Date & Type Note Facility 03-11-2025 History of Present illness Narrative Patient ID: Johana Chin is a 84 y.o. female. Subjective HPI HPI Chief Complaint: Hodgkin's Lymphoma Interval History: Referred by Dr. 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 Follow up CT chest w/ contrast on 04/26/2020 showed irregular predominantly peripheral interstitial thickening and probable developing fibrosis seen throughout both lungs, within the right lower neck/superior mediastinum 2.5x2.8cm mass, with encasement of regional vascular branches. An 1.1cm precarinal node and 1.6cm ken cluster. Right hilar region large enhancing mass 4x5.5x4.5cm which encases regional bronchovascular branches CT A/P on 02/29/2020 was unremarkable other than a small kidney stone. CT neck on 05/18/20 showed a 2.5 x 2.7 cm mass abutting the superior margin of the right subclavian artery and encasing the proximal right vertebral artery and thyrocervical trunk. PET scan on 05/31/20 showed intensely hypermetabolic right perihilar mass consistent with malignancy, conglomerate hypermetabolic right supraclavicular ken mass as well as multiple hypermetabolic AP window nodes, subcarinal nodes and contralateral left perihilar activity are identified concerning most consistent with ken metastatic disease. EBUS, core biopsy from hilar mass, and FNA from mediastinal nodes was done on 05/26/20 and was negative, patient needed incisional biopsy by ENT on 06/24/20 of right deep neck mass with pathology most consistent with cHL. She was discussed on TB and planned for treatment with only dacarbazine + Brentuximab secondary to her baseline comorbidities and pulmonary function. She commenced C1D1 of A + D on 07/07/20 and tolerated first 2 cycles fairly well however after C3D1 on 09/26/20 she developed worsened SOB, cough, FTT. She was admitted to [facility] from 10/10/20 to 10/19/20, investigations included CT chest showing worsened GGO in the background of her known pulmonary fibrosis, and decreased hilar LAD, negative COVID testing x 2 , Bronchoscopy and BAL with negative cultures, negative VZV, negative funtigell, negative cytology, no viral panel sent. Echo showed EF of 45-50%. She was managed for a likely drug induced pneumonitis with high dose steroids , she was discharged on a prednisone taper. She had new oxygen requirements of 2-4 L/min. PET scan for restaging done 11/12/20 showed marked interval decrease in the metabolic activity and size of right hilar and supraclavicular LAD, residual stable hypermetabolic activity of subcarinal and left hilar LN, Deauville score 4 PET scan done 02/11/21: further decrease in metabolic activity in different right hilar, right supraclavicular and left hilar LN, Deauville score 2 , improvement of pneumonitis consolidations Interval history - 03/11/25 Patient in office today with spouse. She reports having slight increased difficulty breathing, her home PO2 ranges 84-93%. She reported that having extreme difficulty breathing while visiting family in [place], PO2 ranged from 74-86% due to the elevated altitude. Coughing with mucus production seems to be slightly worse, discussed following up with pulmonology, pt has deferred at this time. She states breathing recovers quickly once she is sits down or rests. Chest discomfort, weekly, deep breathing relieves the pain, she stated PCP ordered an Echo unsure of the results. Denies any episodes of dizziness/lightheadedness or headaches. Balance is unsteady at times, takes her time and is more cautious about her surroundings. Denies any recent falls, ambulates with no assistance devices. Remains active, by going to [employer] several times weekly and gardening. Denies any fevers, recurrent illness. No lymphadenopathy. She feels that she is doing well over all. We discussed following with pulmonology/PCP regarding increased breathing difficulty, she may benefit having supplemental oxygen as needed. Patient is reluctant at this time, she would like to discuss with pcp. Objective BSA: There is no height or weight on file to calculate BSA. There were no vitals taken for this visit. Physical Exam Vitals and nursing note reviewed. Constitutional: Appearance: Normal appearance. HENT: Head: Normocephalic and atraumatic. Nose: Nose normal. Mouth/Throat: Mouth: Mucous membranes are moist. Pharynx: Oropharynx is clear. Eyes: General: No scleral icterus. Extraocular Movements: Extraocular movements intact. Conjunctiva/sclera: Conjunctivae normal. Cardiovascular: Rate and Rhythm: Normal rate and regular rhythm. Pulses: Normal pulses. Heart sounds: Normal heart sounds. Pulmonary: Effort: Pulmonary effort is normal. Breath sounds: Rhonchi present. Abdominal: Palpations: Abdomen is soft. There is no mass. Tenderness: There is no abdominal tenderness. Musculoskeletal: General: Normal range of motion. Cervical back: Normal range of motion and neck supple. Lymphadenopathy: Cervical: No cervical adenopathy. Skin: General: Skin is warm and dry. Coloration: Skin is pale. Findings: Bruising present. Neurological: General: No focal deficit present. Mental Status: She is alert and oriented to person, place, and time. Motor: Weakness present. Psychiatric: Mood and Affect: Mood normal. Behavior: Behavior normal. Thought Content: Thought content normal. Judgment: Judgment normal. Performance Status: Symptomatic; fully ambulatory Assessment/Plan 1. Stage IIA classical HL- likely initial unfavorable risk group with more than [address] areas s/p total of 5 doses of BV + Dacarbazine c/b pulmonary toxicity initial restaging PET scan shows Deauville 4, however there is a marked response in the size and metabolic activity of right perihilar and supraclavicular LAD , her repeat PET scan showed further improvement and decreased metabolic activity of LAD, Deauville score 2 she is feeling better and recovering well now, we will continue clinical monitor only, and imaging if concerns or new signs or symptoms, this is especially in light that she expressed no desire of any other forms of treatment should they be needed today she has no new signs or symptoms of concerns , she prefers to defer imaging and to be seen every 6 months rather than sooner, we discussed worrisome symptoms that would prompt re-evaluation had HRCT of lungs in february 2022 with persistent ILD changes borderline enlared LN, the hilar area not well visualized 03/10/24- Patient reports increased SOB. Episodes of chest discomfort, relieved with breathing techniques. Fatigues easily, but remains active. Appetite is good. Weight is stable., Denies any constitutional B Symptoms. No abnormal bleeding or bruising. Patient denies any new clinical concerns. Remains to have daily right-sided pain, states it feels as though her stomach is twisted at times. The pain is mainly with certain movements, such as twisting or bending down, relieved with change of positioning. Discussed repeat imaging with a CT scan, pt has deferred at this time. Remains to have frequent episodes of dizziness, recommended neuro-consult or imaging pt deferred both at this time. Patient reported signs/symptoms of a prolapsed uterus- recommended referral to uro/obstetrician/gynecologist Discussed C/A/P CT scan for further evaluation of increased SOB, and episodes of chest discomfort, patient is agreeable to proceed. Reviewed labs- CBC essentially stable, LDH 175, CMP stable. Will continue to monitor patient labs, with follow-up H&P in 6 months pending the results of the CT Scan remain stable Labs ordered- (CBC, CMP, Sed rate, LDH) 03/30/24: Patient is in office with today for imaging results. CT Scan remains stable. (Stable enlarged mediastinal lymph nodes-2.5 x 1.4 hilar lymph node- 2.8 x 1.9 cm, Subcarinal lymph- 2.0 x 0.6 cm), CT Scan revealed- 3 mm nonobstructing lower pole left intrarenal calculus along with severe pulmonary fibrosis. Discussed will continue to monitor patient q 6 months with labs and H&P. 09/10/24: In office today for routine follow-up. Patient reports daily right-sided pain, states it feels as though her stomach is twisted at times. The pain is mainly with certain movements, such as twisting or bending down, relieved with change of positioning. Discussed repeat imaging with a CT scan, patient is agreeable. She remains to have shortness of breath with exertion, unchanged. She monitors her pulse ox closely, and takes breaks as needed if she feels fatigued or winded. She is staying active, going to [employer] times weekly. Feels as though overall her energy has improved. Appetite is unchanged, weight is stable. Denies any B symptoms. Chronic constipation, manages with prune juice as needed. Remains to report incomplete voiding of urine, or prolonged urination. She was seen by Uro/Auto Mechanic Apprentice and discussed treatment options. She reports that kegels were helping, but not seeming to be as effected. She is not wanting to pursue surgery at this time. Discussed referral for pelvic floor therapy for evaluation and treatment options. Patient is agreeable, discussed sending referral to samira Méndez. 09/21/24: Repeat CT Scan remains stable when compared to imaging on 03/2024- stable thoracic lymphadenopathy. No new or enlarging thoracic or abdominal lymph nodes. Additional stable chronic incidental findings as described including severe interstitial pulmonary fibrosis and bilateral solid noncalcified pulmonary nodules measuring up to 11 mm in left upper lobe, continued attention on follow-up imaging is recommended. 03/11/25: Counts remain stable. WBC 9.3, H/H-14.6/44.8, Platelets 236,000. ANC is mildly elevated at 5.97. LDH is stable at 180. Patient has no B symptoms. C/o increasing difficulty breathing, and coughing with mucus production. Discussed follow-up with pulmonology for evaluation and treatment, she could possibly benefit having oxygen as needed. Remains to have Patient would like to further discuss with PCP. Discussed repeating CT Scan for surveillance of pulmonary nodule and right sided abdominal pain, patient has deferred at this time. 2. ILD exacerbated by BV on top of her baseline pulmonary fibrosis she is followed locally by pulmonary and is now off oxygen and off of prednisone with signs of improvement clinically and radiographically on PET scan follows pulmonary off oxygen at this time 3. Poor nutrition c/b her respiratory status and sicca history this has improved and is able to maintain her nutrition status and weight has increased 4. Low EF EF borderline 45-50% she is not retaining fluids and did not wish for a laboratory equipment cleaner follow up currently 5. Neutrophilic Leukocytosis most likely secondary to steroids normal on current labs Plan: Discussed medical and history Reviewed labs- essentially remains stable Deferred repeat surveillance CT Encouraged to follow-up with pulmonology Return to see TRANSMISSION REBUILDER in 6 months with labs prior MARCELINO Talbot Labs at the hosp the week of 09/06 Rtc 09/13 9am SHIELD INSTALLER Reviewed AVS with patient- patient verbalizes understanding documented in this encounter [facility] Work Phone: 03-11-2025 Instructions MARCELINO Talbot - 03/11/2025 9:00 AM EDT Discussed and reviewed medical history Reviewed labs- remain stable Return to see TRANSMISSION REBUILDER in 6 months with labs prior documented in this encounter [facility] Work Phone: 09-10-2024 History of Present illness Narrative Patient ID: Johana Chin is a 83 y.o. female. Subjective HPI HPI Chief Complaint: Hodgkin's Lymphoma Interval History: Referred by Dr. 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 Follow up CT chest w/ contrast on 04/26/2020 showed irregular predominantly peripheral interstitial thickening and probable developing fibrosis seen throughout both lungs, within the right lower neck/superior mediastinum 2.5x2.8cm mass, with encasement of regional vascular branches. An 1.1cm precarinal node and 1.6cm ken cluster. Right hilar region large enhancing mass 4x5.5x4.5cm which encases regional bronchovascular branches CT A/P on 02/29/2020 was unremarkable other than a small kidney stone. CT neck on 05/18/20 showed a 2.5 x 2.7 cm mass abutting the superior margin of the right subclavian artery and encasing the proximal right vertebral artery and thyrocervical trunk. PET scan on 05/31/20 showed intensely hypermetabolic right perihilar mass consistent with malignancy, conglomerate hypermetabolic right supraclavicular ken mass as well as multiple hypermetabolic AP window nodes, subcarinal nodes and contralateral left perihilar activity are identified concerning most consistent with ken metastatic disease. EBUS, core biopsy from hilar mass, and FNA from mediastinal nodes was done on 05/26/20 and was negative, patient needed incisional biopsy by ENT on 06/24/20 of right deep neck mass with pathology most consistent with cHL. She was discussed on TB and planned for treatment with only dacarbazine + Brentuximab secondary to her baseline comorbidities and pulmonary function. She commenced C1D1 of A + D on 07/07/20 and tolerated first 2 cycles fairly well however after C3D1 on 09/26/20 she developed worsened SOB, cough, FTT. She was admitted to [facility] from 10/10/20 to 10/19/20, investigations included CT chest showing worsened GGO in the background of her known pulmonary fibrosis, and decreased hilar LAD, negative COVID testing x 2 , Bronchoscopy and BAL with negative cultures, negative VZV, negative funtigell, negative cytology, no viral panel sent. Echo showed EF of 45-50%. She was managed for a likely drug induced pneumonitis with high dose steroids , she was discharged on a prednisone taper. She had new oxygen requirements of 2-4 L/min. PET scan for restaging done 11/12/20 showed marked interval decrease in the metabolic activity and size of right hilar and supraclavicular LAD, residual stable hypermetabolic activity of subcarinal and left hilar LN, Deauville score 4 PET scan done 02/11/21: further decrease in metabolic activity in different right hilar, right supraclavicular and left hilar LN, Deauville score 2 , improvement of pneumonitis consolidations Interval history - 09/10/24Oct/March had both artificial lens No headaches Staying active by going to [employer] 3 time weekly Energy is down Fatigues fast Episodes of dizziness, and balance issues- no falls SOB and JORGENSEN- typically runs between 86-92% Resting relieves any SOB, recovers after she rests quickly Chest discomfort, 3 deeps breaths relieves the pain Occasional constipation, manages with prune juice Denies any blood in stool, or melanic stool Urinary frequency- pt also describes a prolapsed uterus she has sputum production has acid reflux she has been active recently with making cabinetry still have dizziness and her balance is not the best she has been eating well, her weight is stable no chest pain or fever No swelling in feet or hands No abnormal bleeding or bruising problems bowel movements regular mostly no new swelling or LN enlargement Objective BSA: There is no height or weight on file to calculate BSA. There were no vitals taken for this visit. Physical Exam Vitals and nursing note reviewed. Constitutional: Appearance: Normal appearance. HENT: Head: Normocephalic and atraumatic. Nose: Nose normal. Mouth/Throat: Mouth: Mucous membranes are moist. Pharynx: Oropharynx is clear. Comments: No lesions or mouth sores, present Eyes: General: No scleral icterus. Extraocular Movements: Extraocular movements intact. Conjunctiva/sclera: Conjunctivae normal. Cardiovascular: Rate and Rhythm: Normal rate and regular rhythm. Pulses: Normal pulses. Heart sounds: Normal heart sounds. Pulmonary: Effort: Pulmonary effort is normal. Comments: Bilateral crackles in bases Abdominal: General: Bowel sounds are normal. There is no distension. Palpations: Abdomen is soft. There is no mass. Tenderness: There is no abdominal tenderness. There is no right CVA tenderness or guarding. Musculoskeletal: General: Normal range of motion. Cervical back: Normal range of motion. Skin: General: Skin is warm and dry. Coloration: Skin is pale. Neurological: General: No focal deficit present. Mental Status: She is alert and oriented to person, place, and time. Psychiatric: Mood and Affect: Mood normal. Behavior: Behavior normal. Thought Content: Thought content normal. Judgment: Judgment normal. Performance Status: Asymptomatic Assessment/Plan 1. Stage IIA classical HL- likely initial unfavorable risk group with more than 3 LN areas s/p total of 5 doses of BV + Dacarbazine c/b pulmonary toxicity initial restaging PET scan shows Deauville 4, however there is a marked response in the size and metabolic activity of right perihilar and supraclavicular LAD , her repeat PET scan showed further improvement and decreased metabolic activity of LAD, Deauville score 2 she is feeling better and recovering well now, we will continue clinical monitor only, and imaging if concerns or new signs or symptoms, this is especially in light that she expressed no desire of any other forms of treatment should they be needed today she has no new signs or symptoms of concerns , she prefers to defer imaging and to be seen every 6 months rather than sooner, we discussed worrisome symptoms that would prompt re-evaluation had HRCT of lungs in february 2022 with persistent ILD changes borderline enlared LN, the hilar area not well visualized 03/10/24- Patient reports increased SOB. Episodes of chest discomfort, relieved with breathing techniques. Fatigues easily, but remains active. Appetite is good. Weight is stable., Denies any constitutional B Symptoms. No abnormal bleeding or bruising. Patient denies any new clinical concerns. Remains to have frequent episodes of dizziness, recommended neuro-consult or imaging pt deferred both at this time. Patient reported signs/symptoms of a prolapsed uterus- recommended referral to uro/obstetrician/gynecologist Discussed C/A/P CT scan for further evaluation of increased SOB, and episodes of chest discomfort, patient is agreeable to proceed. Reviewed labs- CBC essentially stable, LDH 175, CMP stable. Will continue to monitor patient labs, with follow-up H&P in 6 months pending the results of the CT Scan remain stable Labs ordered- (CBC, CMP, Sed rate, LDH) 03/30/24: Patient is in office with today for imaging results. CT Scan remains stable. ( Stable enlarged mediastinal lymph nodes-2.5 x 1.4 hilar lymph node- 2.8 x 1.9 cm, Subcarinal lymph- 2.0 x 0.6 cm), CT Scan revealed- 3 mm nonobstructing lower pole left intrarenal calculus along with severe pulmonary fibrosis. Discussed will continue to monitor patient q 6 months with labs and H&P. 09/10/24: In office today for routine follow-up. Patient reports daily right-sided pain, states it feels as though her stomach is twisted at times. The pain is mainly with certain movements, such as twisting or bending down, relived with change of positioning. Discussed repeat imaging with a CT scan, patient is agreeable. She remains to have shortness of breath with exertion, unchanged. She monitors her pulse ox closely, and takes breaks as needed if she feels fatigued or winded. She is staying active, going to [id number] times weekly. Feels as though overall her energy has improved. Appetite is unchanged, weight is stable. Denies any B symptoms. Chronic constipation, manages with prune juice as needed. Remains to report incomplete voiding of urine, or prolonged urination. She was seen by Uro/Auto Mechanic Apprentice and discussed treatment options. She reports that kegels were helping, but not seeming to be as effected. She is not wanting to pursue surgery at this time. Discussed referral for pelvic floor therapy for evaluation and treatment options. Patient is agreeable, discussed sending referral to [facility] in [place]. 2. ILD exacerbated by BV on top of her baseline pulmonary fibrosis she is followed locally by pulmonary and is now off oxygen and off of prednisone with signs of improvement clinically and radiographically on PET scan follows pulmonary off oxygen at this time 3. Poor nutrition c/b her respiratory status and sicca history this has improved and is able to maintain her nutrition status and weight has increased 4. Low EF EF borderline 45-50% she is not retaining fluids and did not wish for a laboratory equipment cleaner follow up currently 5. Neutrophilic Leukocytosis most likely secondary to steroids normal on current labs Plan: Discussed medical and history Reviewed labs- essentially remains stable Discussed referral to [facility]- for pelvic floor rehab Discussed trying Cylois mouthwash for burning mouth syndrome (can only order on [employer]) Scheduled for a CT Scan chest/abdominal/pelvis for the right sided pain Will contact with results Return to see TRANSMISSION REBUILDER in 6 months with labs prior MARCELINO Talbot Pt setup for CT scans 09/21 3pm arrival- prep given and sent for PA SHIELD INSTALLER will call pt with CT results Referral faxed to [facility]- for pelvic floor excercises- she will call pt to schedule- pt wants to go to [place] location. Labs at the hosp prior to next appt Rtc 03/11 9am for SHIELD INSTALLER visit Reviewed AVS with patient- patient verbalizes understanding documented in this encounter [facility] Work Phone: 09-10-2024 Instructions MARCELINO Talbot - 09/10/2024 10:00 AM EST Discussed medical and history Reviewed labs- essentially remains stable Discussed referral to [facility]- for pelvic floor rehab Discussed trying Cylois mouthwash for burning mouth syndrome (can only order on [employer]) Scheduled for a CT Scan chest/abdominal/pelvis for the right sided pain Will contact with results Return to see TRANSMISSION REBUILDER in 6 months with labs prior documented in this encounter [facility] Work Phone: 03-30-2024 History of Present illness Narrative HPI Chief Complaint: Hodgkin's Lymphoma Interval History: Referred by Dr. 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 Follow up CT chest w/ contrast on 04/26/2020 showed irregular predominantly peripheral interstitial thickening and probable developing fibrosis seen throughout both lungs, within the right lower neck/superior mediastinum 2.5x2.8cm mass, with encasement of regional vascular branches. An 1.1cm precarinal node and 1.6cm ken cluster. Right hilar region large enhancing mass 4x5.5x4.5cm which encases regional bronchovascular branches CT A/P on 02/29/2020 was unremarkable other than a small kidney stone. CT neck on 05/18/20 showed a 2.5 x 2.7 cm mass abutting the superior margin of the right subclavian artery and encasing the proximal right vertebral artery and thyrocervical trunk. PET scan on 05/31/20 showed intensely hypermetabolic right perihilar mass consistent with malignancy, conglomerate hypermetabolic right supraclavicular ken mass as well as multiple hypermetabolic AP window nodes, subcarinal nodes and contralateral left perihilar activity are identified concerning most consistent with ken metastatic disease. EBUS, core biopsy from hilar mass, and FNA from mediastinal nodes was done on 05/26/20 and was negative, patient needed incisional biopsy by ENT on 06/24/20 of right deep neck mass with pathology most consistent with cHL. She was discussed on TB and planned for treatment with only dacarbazine + Brentuximab secondary to her baseline comorbidities and pulmonary function. She commenced C1D1 of A + D on 07/07/20 and tolerated first 2 cycles fairly well however after C3D1 on 09/26/20 she developed worsened SOB, cough, FTT. She was admitted to [facility] from 10/10/20 to 10/19/20, investigations included CT chest showing worsened GGO in the background of her known pulmonary fibrosis, and decreased hilar LAD, negative COVID testing x 2 , Bronchoscopy and BAL with negative cultures, negative VZV, negative funtigell, negative cytology, no viral panel sent. Echo showed EF of 45-50%. She was managed for a likely drug induced pneumonitis with high dose steroids , she was discharged on a prednisone taper. She had new oxygen requirements of 2-4 L/min. PET scan for restaging done 11/12/20 showed marked interval decrease in the metabolic activity and size of right hilar and supraclavicular LAD, residual stable hypermetabolic activity of subcarinal and left hilar LN, Deauville score 4 PET scan done 02/11/21: further decrease in metabolic activity in different right hilar, right supraclavicular and left hilar LN, Deauville score 2 , improvement of pneumonitis consolidations Interval history - 03/10/24 Left eye lens repair Energy is down Fatigues fast Episodes of dizziness, and balance issues- no falls SOB and JORGENSEN- typically runs between 86-92% Resting relieves any SOB, recovers after she rests quickly Chest discomfort, 3 deeps breaths relieves the pain Occasional constipation, manages with prune juice Denies any blood in stool, or melanic stool Urinary frequency- pt also describes a prolapsed uterus she has sputum production has acid reflux she has been active recently with making cabinetry still have dizziness and her balance is not the best she has been eating well, her weight is stable no chest pain or fever No swelling in feet or hands No abnormal bleeding or bruising problems bowel movements regular mostly no new swelling or LN enlargement Objective BSA: There is no height or weight on file to calculate BSA. There were no vitals taken for this visit. Physical Exam Vitals and nursing note reviewed. Constitutional: Appearance: Normal appearance. HENT: Mouth/Throat: Pharynx: Oropharynx is clear. Eyes: General: No scleral icterus. Extraocular Movements: Extraocular movements intact. Conjunctiva/sclera: Conjunctivae normal. Cardiovascular: Rate and Rhythm: Normal rate and regular rhythm. Pulses: Normal pulses. Heart sounds: Normal heart sounds. Pulmonary: Effort: Pulmonary effort is normal. Musculoskeletal: Cervical back: Normal range of motion. Neurological: General: No focal deficit present. Mental Status: She is alert and oriented to person, place, and time. Psychiatric: Mood and Affect: Mood normal. Behavior: Behavior normal. Thought Content: Thought content normal. Judgment: Judgment normal. Performance Status: Asymptomatic Assessment/Plan 1. Stage IIA classical HL- likely initial unfavorable risk group with more than [address] areas s/p total of 5 doses of BV + Dacarbazine c/b pulmonary toxicity initial restaging PET scan shows Deauville 4, however there is a marked response in the size and metabolic activity of right perihilar and supraclavicular LAD , her repeat PET scan showed further improvement and decreased metabolic activity of LAD, Deauville score 2 she is feeling better and recovering well now, we will continue clinical monitor only, and imaging if concerns or new signs or symptoms, this is especially in light that she expressed no desire of any other forms of treatment should they be needed today she has no new signs or symptoms of concerns , she prefers to defer imaging and to be seen every 6 months rather than sooner, we discussed worrisome symptoms that would prompt re-evaluation had HRCT of lungs in february 2022 with persistent ILD changes borderline enlared LN, the hilar area not well visualized 03/10/24- Patient reports increased SOB. Episodes of chest discomfort, relieved with breathing techniques. Fatigues easily, but remains active. Appetite is good. Weight is stable., Denies any constitutional B Symptoms. No abnormal bleeding or bruising. Patient denies any new clinical concerns. Remains to have frequent episodes of dizziness, recommended neuro-consult or imaging pt deferred both at this time. Patient reported signs/symptoms of a prolapsed uterus- recommended referral to uro/obstetrician/gynecologist Discussed C/A/P CT scan for further evaluation of increased SOB, and episodes of chest discomfort, patient is agreeable to proceed. Reviewed labs- CBC essentially stable, LDH 175, CMP stable. Will continue to monitor patient labs, with follow-up H&P in 6 months pending the results of the CT Scan remain stable Labs ordered- (CBC, CMP, Sed rate, LDH) 03/30/24: Patient is in office with today for imaging results. CT Scan remains stable. ( Stable enlarged mediastinal lymph nodes-2.5 x 1.4 hilar lymph node- 2.8 x 1.9 cm, Subcarinal lymph- 2.0 x 0.6 cm), CT Scan revealed- 3 mm nonobstructing lower pole left intrarenal calculus along with severe pulmonary fibrosis. Discussed will continue to monitor patient q 6 months with labs and H&P. 2. ILD exacerbated by BV on top of her baseline pulmonary fibrosis she is followed locally by pulmonary and is now off oxygen and off of prednisone with signs of improvement clinically and radiographically on PET scan follows pulmonary off oxygen at this time 3. Poor nutrition c/b her respiratory status and sicca history this has improved and is able to maintain her nutrition status and weight has increased 4. Low EF EF borderline 45-50% she is not retaining fluids and did not wish for a laboratory equipment cleaner follow up currently 5. Neutrophilic Leukocytosis most likely secondary to steroids normal on current labs Plan: Schedule 6 month follow-up with Labs (CBC, CMP, Sed rate, LDH) MARCELINO Talbot Pt already has appts scheduled for follow up documented in this encounter [facility] Work Phone: 03-10-2024 History of Present illness Narrative Patient ID: Johana Chin is a 83 y.o. female. Subjective HPI Chief Complaint: Hodgkin's Lymphoma Interval History: Referred by Dr. 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 Follow up CT chest w/ contrast on 04/26/2020 showed irregular predominantly peripheral interstitial thickening and probable developing fibrosis seen throughout both lungs, within the right lower neck/superior mediastinum 2.5x2.8cm mass, with encasement of regional vascular branches. An 1.1cm precarinal node and 1.6cm ken cluster. Right hilar region large enhancing mass 4x5.5x4.5cm which encases regional bronchovascular branches CT A/P on 02/29/2020 was unremarkable other than a small kidney stone. CT neck on 05/18/20 showed a 2.5 x 2.7 cm mass abutting the superior margin of the right subclavian artery and encasing the proximal right vertebral artery and thyrocervical trunk. PET scan on 05/31/20 showed intensely hypermetabolic right perihilar mass consistent with malignancy, conglomerate hypermetabolic right supraclavicular ken mass as well as multiple hypermetabolic AP window nodes, subcarinal nodes and contralateral left perihilar activity are identified concerning most consistent with ken metastatic disease. EBUS, core biopsy from hilar mass, and FNA from mediastinal nodes was done on 05/26/20 and was negative, patient needed incisional biopsy by ENT on 06/24/20 of right deep neck mass with pathology most consistent with cHL. She was discussed on TB and planned for treatment with only dacarbazine + Brentuximab secondary to her baseline comorbidities and pulmonary function. She commenced C1D1 of A + D on 07/07/20 and tolerated first 2 cycles fairly well however after C3D1 on 09/26/20 she developed worsened SOB, cough, FTT. She was admitted to [facility] from 10/10/20 to 10/19/20, investigations included CT chest showing worsened GGO in the background of her known pulmonary fibrosis, and decreased hilar LAD, negative COVID testing x 2 , Bronchoscopy and BAL with negative cultures, negative VZV, negative funtigell, negative cytology, no viral panel sent. Echo showed EF of 45-50%. She was managed for a likely drug induced pneumonitis with high dose steroids , she was discharged on a prednisone taper. She had new oxygen requirements of 2-4 L/min. PET scan for restaging done 11/12/20 showed marked interval decrease in the metabolic activity and size of right hilar and supraclavicular LAD, residual stable hypermetabolic activity of subcarinal and left hilar LN, Deauville score 4 PET scan done 02/11/21: further decrease in metabolic activity in different right hilar, right supraclavicular and left hilar LN, Deauville score 2 , improvement of pneumonitis consolidations Interval history - 03/10/24 Left eye lens repair Energy is down Fatigues fast Episodes of dizziness, and balance issues- no falls SOB and JORGENSEN- typically runs between 86-92% Resting relieves any SOB, recovers after she rests quickly Chest discomfort, 3 deeps breaths relieves the pain Occasional constipation, manages with prune juice Denies any blood in stool, or melanic stool Urinary frequency- pt also describes a prolapsed uterus she has sputum production has acid reflux she has been active recently with [employer] still have dizziness and her balance is not the best she has been eating well, her weight is stable no chest pain or fever No swelling in feet or hands No abnormal bleeding or bruising problems bowel movements regular mostly no new swelling or LN enlargement Objective BSA: There is no height or weight on file to calculate BSA. There were no vitals taken for this visit. Physical Exam Vitals and nursing note reviewed. Constitutional: Appearance: Normal appearance. HENT: Head: Normocephalic and atraumatic. Mouth/Throat: Pharynx: Oropharynx is clear. Eyes: General: No scleral icterus. Extraocular Movements: Extraocular movements intact. Conjunctiva/sclera: Conjunctivae normal. Cardiovascular: Rate and Rhythm: Normal rate and regular rhythm. Pulses: Normal pulses. Heart sounds: Normal heart sounds. Pulmonary: Effort: Pulmonary effort is normal. Breath sounds: Normal breath sounds. Abdominal: Palpations: Abdomen is soft. Tenderness: There is no abdominal tenderness. Musculoskeletal: General: Normal range of motion. Cervical back: Normal range of motion. Skin: General: Skin is warm and dry. Neurological: General: No focal deficit present. Mental Status: She is alert and oriented to person, place, and time. Motor: Weakness present. Psychiatric: Mood and Affect: Mood normal. Behavior: Behavior normal. Thought Content: Thought content normal. Judgment: Judgment normal. Performance Status: Symptomatic; fully ambulatory Assessment/Plan 1. Stage IIA classical HL- likely initial unfavorable risk group with more than 3 LN areas s/p total of 5 doses of BV + Dacarbazine c/b pulmonary toxicity initial restaging PET scan shows Deauville 4, however there is a marked response in the size and metabolic activity of right perihilar and supraclavicular LAD , her repeat PET scan showed further improvement and decreased metabolic activity of LAD, Deauville score 2 she is feeling better and recovering well now, we will continue clinical monitor only, and imaging if concerns or new signs or symptoms, this is especially in light that she expressed no desire of any other forms of treatment should they be needed today she has no new signs or symptoms of concerns , she prefers to defer imaging and to be seen every 6 months rather than sooner, we discussed worrisome symptoms that would prompt re-evaluation had HRCT of lungs in february 2022 with persistent ILD changes borderline enlared LN, the hilar area not well visualized 03/10/24- Patient reports increased SOB. Episodes of chest discomfort, relieved with breathing techniques. Fatigues easily, but remains active. Appetite is good. Weight is stable., Denies any constitutional B Symptoms. No abnormal bleeding or bruising. Patient denies any new clinical concerns. Remains to have frequent episodes of dizziness, recommended neuro-consult or imaging pt deferred both at this time. Patient reported signs/symptoms of a prolapsed uterus- recommended referral to uro/obstetrician/gynecologist Discussed C/A/P CT scan for further evaluation of increased SOB, and episodes of chest discomfort, patient is agreeable to proceed. Reviewed labs- CBC essentially stable, LDH 175, CMP stable. Will continue to monitor patient labs, with follow-up H&P in 6 months pending the results of the CT Scan remain stable Labs ordered- (CBC, CMP, Sed rate, LDH) 2. ILD exacerbated by BV on top of her baseline pulmonary fibrosis she is followed locally by pulmonary and is now off oxygen and off of prednisone with signs of improvement clinically and radiographically on PET scan follows pulmonary off oxygen at this time 3. Poor nutrition c/b her respiratory status and sicca history this has improved and is able to maintain her nutrition status and weight has increased 4. Low EF EF borderline 45-50% she is not retaining fluids and did not wish for a laboratory equipment cleaner follow up currently 5. Neutrophilic Leukocytosis most likely secondary to steroids normal on current labs Plan: C/A/P CT scan Schedule 6 month follow-up with labs- pending results of CT Scan remains stable Labs (CBC, CMP, Sed rate, LDH) MARCELINO Talbot Pt set up for CT scans 03/23- prep given- sent for PA Rtc for results with SHIELD INSTALLER 03/30 11am- may cancel if scans are normal Copies of labs given to pt and faxed to her PCP in [facility] again before 6 month visit Rtc 09/10 10am for SHIELD INSTALLER Reviewed AVS with patient- patient verbalizes understanding documented in this encounter [facility] Work Phone: 03-10-2024 Instructions MARCELINO Talbot - 03/10/2024 9:30 AM EDT Schedule for CT Scan RTC after to discuss results Please send Dr. Ho at [facility] lab results documented in this encounter [facility] Work Phone: 12-05-2023 History of Present illness Narrative [facility] Department of Urogynecology Mercedes Moran MD, MPH [phone] ASSESSMENT AND PLAN: 83 y.o. female being assessed for cystocele. Co morbidities: stage IIA classical HL, HTN, GERD, baseline pulmonary fibrosis, squamous cell cancer of the skin. Diagnoses: #1 Cystocele, POP-Q stage 3 Plan: 1. Cystocele - We reviewed her anterior vaginal wall is the bulge that she is feeling. - Treatment for POP depends on how bothersome patients find prolapse. She does not have to treat prolapse if she is not bothered by it and it does not affect quality of life. The bulge can get larger and more noticeable over time. - Management options are PFPT, pessary use, and surgery. At this stage of prolapse, PFPT is unlikely to resolve all of her bulge sxs. As she is not sexually active and never wants to be, the safest and most effective procedure is a colpocleisis. The colpocleisis is suturing the front and back mendoza of the vagina together to prevent the prolapse from bulging out of the vagina and she would not need a hysterectomy. This procedure has a high success rate of around 95%. - At this time, she elects to not treat her prolapse as it is not bothersome enough. - RTC PRN Follow-up PRN with Dr. Moran. Scribe Attestation: I, Gay Flower, am scribing for virtually, and in the presence of Mercedes Moran MD MPH on 12/05/23 at 11:51 AM. Problem List Items Addressed This Visit Hematology and Neoplasia Hodgkin's lymphoma (CMS/HCC) Other Visit Diagnoses UTI symptoms - Primary MOUSTAPHA (stress urinary incontinence, female) Relevant Orders Measure post void residual (Completed) I spent a total of 45 minutes in face to face and non face to face time. Mercedes Moran MD, MPH, FACOG I Dr. Moran, personally performed the services described in the documentation as scribed in my presence and confirm it is both complete and accurate. Mercedes Moran MD, MPH, FACOG New HISTORY OF PRESENT ILLNESS: Johana Chin is a 83 y.o. female who presents for pelvic organ prolapse. Referred by Gomez BENSON. Record Review: - 09/10/23 Gomez BENSON note: Stage IIA classical HL- likely initial unfavorable risk group with more than [address] areas. Also diagnosed with poor nutrition, ILD, neutrophilic leukocytosis and low EF. Prolapse Symptoms : - Here for concern of prolapsed uterus. - She can feel the vaginal bulge. - Tries to do Kegels, which she feels has helped. - Today, she tried to void but only a few drops came out. - Denies she has ever pushed on the bulge to urinate. Usually, she can void normally. - The bulge can be bothersome. Urinary Symptoms: - In 2022, she had several kidney stones. On 09/06/23, she then had a laser and had a stent placed for 10 days. - Maybe 2x in the past year she leaked with cough/laugh/sneeze. - She can usually make it to the bathroom even with a strong urge. She is able to go long periods of time holding her bladder. - Denies noting any changes in her bladder after chemo. - She had her first kidney stone 6.5 years ago. Bowel Symptoms: - Endorses constipation, which causes POP to be more noticeable. - BMs daily; if she goes 1-2 days without a BM she will drink prune juice which helps. - Denies FI. Sexual Activity: - Not sexually active due to lack of interest and previous discomfort. If intercourse was comfortable, she would still be uninterested in returning to intercourse. OBGYN Hx: - ; miscarriage x4 and 2 vaginal deliveries - Largest baby: 10 lbs 2 oz - Hx of forceps use with first delivery. Denies large tears. - Denies hx of abnormal pap. 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 Past Medical History: - Stage IIA classical HL, HTN, GERD, baseline pulmonary fibrosis, squamous cell cancer of the skin - she has a floating lens and is going to have surgery for that on 12/12/23 Past Medical History: Diagnosis Date Other specified health status No pertinent past medical history Personal history of other diseases of the digestive system History of gastroesophageal reflux (GERD) Personal history of other endocrine, nutritional and metabolic disease History of hypercholesterolemia Past Surgical History: - cholecystectomy - s/p lithotripsy on 09/06/23, she had a stent in place for 10 days after Past Surgical History: Procedure Laterality Date OTHER SURGICAL HISTORY 04/10/2016 History Of Prior Surgery OTHER SURGICAL HISTORY 05/09/2020 Adenoidectomy OTHER SURGICAL HISTORY 05/09/2020 Cholecystectomy OTHER SURGICAL HISTORY 05/09/2020 Eye surgery OTHER SURGICAL HISTORY 05/09/2020 Tonsillectomy OTHER SURGICAL HISTORY 05/09/2020 Meniscus repair Medications: Prior to Admission medications Medication Sig Start Date End Date Taking? Authorizing Provider aspirin 81 mg EC tablet Take by mouth. 03/27/17 Yes Historical Provider, cholecalciferol (Vitamin D-3) 125 MCG (5000 UT) capsule Take by mouth. Yes Historical Provider, dexAMETHasone 0.5 mg/5 mL solution USE DIRECTED 04/07/23 Yes Yoselin Camacho MD multivitamin with minerals (ofieenvxncub-kwdo-bkfgo acid) tablet Take 1 tablet by mouth once daily. 12/05/23 Historical Provider, ughvlguybtau-wva-qjap-FA-vit K (Adults Multivitamin) 18 mg iron-400 mcg-25 mcg tablet Take 1 tablet by mouth once daily. 03/26/16 12/05/23 Historical ProviderMD rosuvastatin (Crestor) 20 mg tablet TAKE 1 TABLET DAILY Patient not taking: Reported on 12/05/2023 09/23/23 12/05/23 Yoselin Camacho MD ROS Review of Systems PHYSICAL EXAM: BP 124/85 (BP Location: Left arm, Patient Position: Sitting, BP Cuff Size: Adult) Pulse 67 Temp 35.7 C (96.3 F) (Skin) Resp 16 Ht 1.553 m (5' 1.14) Wt 74.3 kg (163 lb 12.8 oz) BMI 30.81 kg/m No LMP recorded. Declines marketing finance manager for physical exam. Well developed, well nourished, in no apparent distress. Neurologic/Psychiatric: Awake, Alert and Oriented times 3. Affect normal. GENITAL/URINARY: External Genitalia: The patient has normal appearing external genitalia, normal skenes and bartholins glands, and a normal hair distribution. Her vulva is without lesions, erythema or discharge. It is non-tender with appropriate sensation. Urethral Meatus: Size normal, Location normal, Lesions absent, Prolapse absent, Urethra: Fullness absent, Masses absent, Bladder: Fullness absent, Masses absent, Tenderness absent, Vagina: General appearance normal, hypo estrogenic, no abnormal discharge, Lesions absent, no pain with bimanual Cervix: Normal appearing cervix. Uterus: non tender, no masses Adnexa: no pain over bilateral adnexa Anus/Perineum: Lesions absent and Masses absent defer exam Normal Perineum Stress urinary incontinence not demonstrable. Physical Exam Genitourinary: POP-Q measurements were: Aa: +2, Ba: C: -5 gH: 5, pB: 5, TVL: Ap: -2, Bp: -2, D: -6 The patient has 3 out of 5 pelvic floor muscle strength. She does have myofascial tenderness on exam. Moderate pain over bilateral levators. Data and DIAGNOSTIC STUDIES REVIEWED No results found. No results found for: URINECULTURE, UAMICCOMM Lab Results Component Value Date GLUCOSE 101 (H) 08/30/2023 CALCIUM 10.1 08/30/2023 NA 139 08/30/2023 K 3.9 08/30/2023 CO2 28 08/30/2023 CL 104 08/30/2023 BUN 14 08/30/2023 CREATININE 0.83 08/30/2023 Lab Results Component Value Date WBC 9.6 08/30/2023 HGB 14.6 08/30/2023 HCT 44.9 08/30/2023 MCV 90 08/30/2023 PLT 255 08/30/2023 documented in this encounter [facility] Work Phone: 09-10-2023 History of Present illness Narrative Patient ID: Johana Chin is a 82 y.o. female. Subjective HPI ID Statement: JOHANA CHIN is a 82 year old Female Chief Complaint: Hodgkin's Lymphoma Interval History: Referred by Dr. 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 Follow up CT chest w/ contrast on 04/26/2020 showed irregular predominantly peripheral interstitial thickening and probable developing fibrosis seen throughout both lungs, within the right lower neck/superior mediastinum 2.5x2.8cm mass, with encasement of regional vascular branches. An 1.1cm precarinal node and 1.6cm ken cluster. Right hilar region large enhancing mass 4x5.5x4.5cm which encases regional bronchovascular branches CT A/P on 02/29/2020 was unremarkable other than a small kidney stone. CT neck on 05/18/20 showed a 2.5 x 2.7 cm mass abutting the superior margin of the right subclavian artery and encasing the proximal right vertebral artery and thyrocervical trunk. PET scan on 05/31/20 showed intensely hypermetabolic right perihilar mass consistent with malignancy, conglomerate hypermetabolic right supraclavicular ken mass as well as multiple hypermetabolic AP window nodes, subcarinal nodes and contralateral left perihilar activity are identified concerning most consistent with ken metastatic disease. EBUS, core biopsy from hilar mass, and FNA from mediastinal nodes was done on 05/26/20 and was negative, patient needed incisional biopsy by ENT on 06/24/20 of right deep neck mass with pathology most consistent with cHL. She was discussed on TB and planned for treatment with only dacarbazine + Brentuximab secondary to her baseline comorbidities and pulmonary function. She commenced C1D1 of A + D on 07/07/20 and tolerated first 2 cycles fairly well however after C3D1 on 09/26/20 she developed worsened SOB, cough, FTT. She was admitted to [facility] from 10/10/20 to 10/19/20, investigations included CT chest showing worsened GGO in the background of her known pulmonary fibrosis, and decreased hilar LAD, negative COVID testing x 2 , Bronchoscopy and BAL with negative cultures, negative VZV, negative funtigell, negative cytology, no viral panel sent. Echo showed EF of 45-50%. She was managed for a likely drug induced pneumonitis with high dose steroids , she was discharged on a prednisone taper. She had new oxygen requirements of 2-4 L/min. PET scan for restaging done 11/12/20 showed marked interval decrease in the metabolic activity and size of right hilar and supraclavicular LAD, residual stable hypermetabolic activity of subcarinal and left hilar LN, Deauville score 4 PET scan done 02/11/21: further decrease in metabolic activity in different right hilar, right supraclavicular and left hilar LN, Deauville score 2 , improvement of pneumonitis consolidations Interval history - 09/10/23 feeling well overall her and her are building a house themselves Recently had a kidney stone- lipotripsy Remains to have stent, which is causing some pain Episodes of dizziness, no falls she has no new complaints overall SOB and JORGENSEN- typically runs between 90-92% Resting relieves any SOB, recovers after she rests quickly Occasional constipation, manages with prune juice Denies any blood in stool, or melanic stool Urinary frequency- pt also describes a prolapsed uterus she has sputum production has acid reflux she has been active recently with making cabinetry still have dizziness and her balance is not the best she has been eating well, her weight is stable no chest pain or fever No swelling in feet or hands No abnormal bleeding or bruising problems bowel movements regular mostly no new swelling or LN enlargement Objective BSA: There is no height or weight on file to calculate BSA. There were no vitals taken for this visit. Physical Exam Vitals and nursing note reviewed. Constitutional: Appearance: Normal appearance. HENT: Head: Normocephalic and atraumatic. Nose: Nose normal. Mouth/Throat: Mouth: Mucous membranes are moist. Pharynx: Oropharynx is clear. Eyes: General: No scleral icterus. Extraocular Movements: Extraocular movements intact. Conjunctiva/sclera: Conjunctivae normal. Cardiovascular: Rate and Rhythm: Normal rate and regular rhythm. Pulses: Normal pulses. Heart sounds: Normal heart sounds. Pulmonary: Effort: Pulmonary effort is normal. Breath sounds: Normal breath sounds. Abdominal: General: There is no distension. Palpations: Abdomen is soft. There is no mass. Tenderness: There is no abdominal tenderness. Musculoskeletal: General: Normal range of motion. Cervical back: Normal range of motion and neck supple. Skin: General: Skin is warm and dry. Neurological: General: No focal deficit present. Mental Status: She is alert and oriented to person, place, and time. Psychiatric: Mood and Affect: Mood normal. Behavior: Behavior normal. Thought Content: Thought content normal. Judgment: Judgment normal. Performance Status: Asymptomatic Assessment/Plan Assessment: 1. Stage IIA classical HL- likely initial unfavorable risk group with more than 3 [address] areas s/p total of 5 doses of BV + Dacarbazine c/b pulmonary toxicity initial restaging PET scan shows Deauville 4, however there is a marked response in the size and metabolic activity of right perihilar and supraclavicular LAD , her repeat PET scan showed further improvement and decreased metabolic activity of LAD, Deauville score 2 she is feeling better and recovering well now, we will continue clinical monitor only, and imaging if concerns or new signs or symptoms, this is especially in light that she expressed no desire of any other forms of treatment should they be needed today she has no new signs or symptoms of concerns , she prefers to defer imaging and to be seen every 6 months rather than sooner, we discussed worrisome symptoms that would prompt re-evaluation had HRCT of lungs in february 2022 with persistent ILD changes borderline enlared LN, the hilar area not well visualized 09/10/23 Patient denies any new clinical concerns. No constitutional B symptoms. Patient does report frequent episodes of dizziness, recommended neuro-consult or imaging pt deferred both at this time. Patient reported signs/symptoms of a prolapsed uterus- recommended referral to uro/obstetrician/gynecologist no new symptoms or concerns, will the plan to continue surveillance Follow-up in 6 months with H&P and labs (CBC, CMP, Sed rate, LDH) will reserve imaging if new symptoms are reported. 2. ILD exacerbated by BV on top of her baseline pulmonary fibrosis she is followed locally by pulmonary and is now off oxygen and off of prednisone with signs of improvement clinically and radiographically on PET scan follows pulmonary off oxygen at this time 3. Poor nutrition c/b her respiratory status and sicca history this has improved and is able to maintain her nutrition status and weight has increased 4. Low EF EF borderline 45-50% she is not retaining fluids and did not wish for a laboratory equipment cleaner follow up currently 5. Neutrophilic Leukocytosis most likely secondary to steroids normal on current labs RTC 6 m with labs (CBC, CMP, Sed rate, LDH) MARCELINO Talbot Registrant set pt up for 6 mo follow up with Gomez Santa cnp Instructed to get labs at the hosp the week prior documented in this encounter [facility] Work Phone: 09-10-2023 Instructions MARCELINO Talbot - 09/10/2023 11:30 AM EST RTC in 6 months with labs prior documented in this encounter [facility] Work Phone: 08-25-2023 Discharge summary Note Date/Time August 25, 2023 4:59am [facility] Medical Records Department [address] [place] [address] Emergency Department Summary 08/25/23 MR#: [id number] Acct: [id number] Name: JOHANA CHIN Rep #:[id number] : 1940 82 From: Cesario Real MD PCP: Dr. Nathalia Ho MD Status:REG ER Location: ED HPI History of Present Illness Chief Complaint: Flank Pain Detail of Chief Complaint: Acute left flank pain Informant: patient and spouse/S.O. Onset/Context/Timing Onset: Hours (5) Context: Sudden Onset Timing: Continuous and Waxes and wanes Quality: Pain Location: Left flank Current Severity: Moderate Maximum Severity: Moderate Worsened by: Nothing Relieved by: Nothing Associated Symptoms Associated Symptoms: Nausea Narrative Narrative: Patient is a 82-year-old woman on no medication who was diagnosed with a kidney stone several years ago. At the time of her kidney stone she was diagnosed withlymphoma. She underwent treatment. She states she had a recurrent stone 2 months ago left side. She does not believe she ever passed it. She presents because of severe pain that started at 12 midnight. She does endorse nausea without vomiting diarrhea. She denies fever or chills. She does have slight discomfort with urination. She has not noted any blood in her urine. She states she has trouble initiating urination. Prior similar symptoms: Yes Recent Illness/Hospitalization: Yes PFSH PFSH Medical History (Updated 08/25/23 @ 06:[address] Cesario Real MD) Classical Hodgkin lymphoma Kidney stone Nasal fracture Home Medications aspirin 81 mg capsule 81 mg PO DAILY 08/25/23 [History Last Taken Unknown] hydrocodone-acetaminophen 5-325mg 5mg-325mg 1 tab PO Q6H PRN PRN Pain 3 days #10TABLETS 08/25/23 [Rx Last Taken Unknown] multivitamin (Daily Value tablet) 1 tab PO DAILY 08/25/23 [History Last Taken Unknown] ondansetron 4 mg disintegrating tablet 4 mg PO Q8H PRN PRN Nausea #10 tabs 08/25/23 [Rx Last Taken Unknown] Allergy/AdvReac Type Severity Reaction Status Date / Time No Known Allergies Allergy Verified 08/25/23 04:37 Surgical History (Updated 08/25/23 @ 04:44 by Herminio Rios) History of cholecystectomy Social History Smoking Status: Never smoker ROS ROS ED Constitutional Constitutional ED: Denies chills, fever(s), subjective, sweats or weight loss Eyes Eyes: Denies blurry vision or change in vision Cardiovascular Cardiovascular: Denies chest pain or palpitations Respiratory/Chest Respiratory/Chest: Denies cough or dyspnea Gastrointestinal Gastrointestinal: Reports abdominal pain and nausea; Denies constipation, diarrhea, melena or vomiting Genitourinary Genitourinary ED: Reports dysuria; Denies hematuria or urinary frequency Musculoskeletal Musculoskeletal: Reports back pain; Denies arthralgias, myalgias or neck pain Integumentary Denies abscess, Abrasions or rash Neurologic Neurologic: Denies headache(s), paresthesias or weakness Psychiatric Psychiatric: Denies anxiety or depression Endocrine Endocrinology: Denies cold intolerance or heat intolerance Hematologic/Lymphatic Hematologic/Lymphatic: Reports systems reviewed and no addt'l complaints, exceptas documented EXAM Physical Exam Const Vital Signs: 08/25/23 04:37 08/25/23 06:10 Temperature 96.4 F L Temperature Source Temporal Pulse Rate 72 74 Respiratory Rate 20 H 16 Blood Pressure 156/73 H 121/62 H Blood Pressure Mean 100 81 Pulse Ox 97 98 Oxygen Delivery Method Room Air Room Air Positive well nourished, well developed and obese Constitutional Narrative: And appears uncomfortable. General Appearance ED: well developed; Negative for cyanotic, diaphoretic, NAD or pallor Nutritional Appearance: obese HEENT Reports dry mucous membranes HEENT Narrative: Head is atraumatic and normocephalic. Ears are normal. Nares are patent. Mouth ED: Yes dry mucous membranes Mouth: dry mucous membranes Eyes PERRL and EOMs intact bilaterally General Eye ED: Negative for pale conjunctiva or scleral icterus Neck no lymphadenopathy, supple and no JVD Resp normal respiratory effort and clear to auscultation bilaterally Cardio regular rate, regular rhythm, S1 normal heart sound, S2 normal heart sound and no murmurs GI normal to inspection, nondistended, normoactive bowel sounds, non-tender, non-distended and no masses; Negative for hepatosplenomegaly Palpation: soft Back/Spine General Back: CVA tenderness left Cervical Spine: Negative for cervical spine tenderness Thoracic Spine / Upper Back: Negative for thoracic spinal tenderness or paraspinal muscle tenderness Lumbar Spine / Lower Back: Negative for lumbar spinal tenderness Extremity normal to inspection General Extremety ED: Negative for edema or tenderness General Extremity: Negative for edema Neuro oriented x3, CN's II-XII intact bilaterally and no sensory deficits noted Sensorium / Orientation: alert Motor Exam: strength 5/5 throughout Psych mental status grossly normal Skin no rashes or lesions noted and no wounds General Skin Exam: Negative for elasticity normal, jaundice or pallor MDM MDM MDM Narrative Medical decision making narrative: With abrupt onset of left flank pain with prior history of kidney stone. Suspect she has obstructing ureterolithiasis. She has urinary symptoms obtain UA to rule out infection. Doubt this is related to her Hodgkin's lymphoma. Patient was medicated with Zofran for her nausea and morphine for her pain. Valine is infusing at 250 cc/h. CBC was obtained assess white count differential. BMP to assess renal function. UA to evaluate for infection. History & Record Review Additional record(s) reviewed:: No prior records Lab Data Attestation: I reviewed the patient's lab results. Lab results narrative: CBC is unremarkable. There is a slight shift. Basic metabolic panel reveals slight elevation of creatinine to 1.14 with a GFR of 49. Glucose 131 with a normal CO2 anion gap. Urinalysis is not consistent with infection. Patient was discharged home with antiemetic and pain medicine. She was referred to Dr. Quiñonez who is on-call forurology. Labs: Laboratory Results - last 24 hr 08/25/23 08/25/23 04:45 06:15 WBC 10.0 RBC 5.09 Hgb 14.7 Hct 45.3 MCV 89.0 MCH 28.9 MCHC 32.5 RDW Std Deviation 45.5 H RDW Coeff of Brown 13.9 Plt Count 246 MPV 10.1 Immature Gran % (Auto) 0.600 Neut % (Auto) 78.8 H Lymph % (Auto) 13.1 L Wolfe % (Auto) 6.4 Eos % (Auto) 0.5 Baso % (Auto) 0.6 Absolute Neuts (auto) 7.9 H Absolute Lymphs (auto) 1.32 Nucleated RBC % 0 Sodium 133 L Potassium 3.6 Chloride 101 Carbon Dioxide 26.0 Anion Gap 6 BUN 20 H Creatinine 1.14 H Estim Creat Clear Calc 32.56 Est GFR (MDRD) Af Amer 59 L Est GFR (MDRD) Non-Af 49 L BUN/Creatinine Ratio 17.5 Glucose 131 H Calcium 9.3 Urine Color Yellow Urine Clarity Clear Urine pH 6.5 Ur Specific [place] 1.015 Urine Protein Negative Urine Glucose (UA) Normal Urine Ketones Negative Urine Occult Blood 10 H Urine Nitrite Negative Urine Bilirubin Negative Urine Urobilinogen Normal Ur Leukocyte Esterase 25 H Urine RBC 0 SEEN Urine WBC 0-5 SEEN Ur Squamous Epith Cells 0 SEEN Urine Bacteria RARE Urine Mucus 0 SEEN Radiography Diagnostic Testing: Clinical Impression(s) from Imaging Studies Abdomen/Pelvis CT 08/25/23 04:55 IMPRESSION: 1. 5 mm wide distal left ureteral calculus at the S3 level. There is associated moderate left hydronephrosis and prominent left perinephric fat infiltration. 2. Nonobstructive renal calculi bilaterally. 3. Atherosclerosis. 4. Previous cholecystectomy. 5. Colonic diverticulosis without evidence for acute diverticulitis. Electronically Signed: Yair Avila MD at 6:10 EST , CT of the abdomen and pelvis without contrast reveals left renal calculus. There is evidence of left hydroureter and nephrosis. There appears to be a distal left ureteral stone that is causing this obstruction. Phleboliths were noted as well. There is minimal atherosclerotic disease. Awaiting formal read by radiologist, 0529. Treatment and Re-Evaluation :: Performed of her laboratory results and CAT scan results. Presently awaiting UAresults. 0620 Discharge Plan Triage Chief Complaint: Flank Pain ED Provider: Cesario Real Dx/Rx/DC Orders Clinical Impression: Diverticulosis, Hydronephrosis with urinary obstruction due to ureteral calculus, Bilateral kidney stones, Creatinine elevation Instructions: ED Kidney Stone w/ Colic Prescriptions: New hydrocodone-acetaminophen [hydrocodone-acetaminophen] 5-325 mg tablet 1 tab PO Q6H PRN PRN (Reason: Pain) 3 Days Qty: 10 0RF ondansetron [ondansetron] 4 mg tablet,disintegrating 4 mg PO Q8H PRN PRN (Reason: Nausea) Qty: 10 0RF No Action aspirin 81 mg capsule 81 mg PO DAILY multivitamin [Daily Value] Tablet 1 tab PO DAILY Primary Care Provider: Nathalia Ho Referrals: Nathalia Ho MD [Primary Care Provider] - Papito Quiñonez MD [Med Staff - Active Staff] - 5-7 Days Disposition Disposition: Home, Self Care What to do if you have Problems For any increased pain, shortness of breath, bleeding, nausea or vomiting, chestpain, or any unexpected problems, contact your Primary Care Provider. Call [facility] ([phone]) or report to the closest Emergency Room. Call 911 if necessary. 08/25/23 0647 <Electronically signed by Cesario Real MD> Cosigner Signature (if applicable): CC: Dr. Nathalia oH MD ~ Signed [facility] Work Phone: [phone]) 323-833611-10-2022 NoteClinic Note: Education Assessment: Learning BarriersNo barriers TaughtPatient Primary Language of PatientEnglish Name of Downs Learner & Relationshiphusband present Clinic Visit: Topic(s): Clinic VisitFollow-up plan MethodVerbal, Teach-Back, Handout Nursing Note: Nursing Notept setup for labs at the [facility] the week prior. rtc 02/28 at 2pm for md visit Electronic Signatures: Jessica Pearson (RN) (Signed 30-Aug-2022 14:48) Authored: Education Assessment, Clinic Visit, Nursing Note Last Updated: 30-Aug-2022 14:48 by Jessica Pearson (RN)[facility]05-16-2022 History of Present illness Narrative* Patient was seen today in the office on a 6-month follow-up visit. I was happy to review with her the results of her high-resolution CT scan of the chest done on 03/05/2022 which shows significant improvement in the interstitial changes bilaterally. Patient reports to me that she finished her chemotherapy on 09/26/2021 and a agree with radiology that there is a very good likelihood that the changeson her x-ray were due to that treatment. * Patient reports that she is without significant respiratory symptoms. Her oxygen saturation today on room air was 96%. Patient denies a dyspnea with her usual daily activities. -[place] [id number] DO Work Phone: [phone]) 699-854305-12-2022 NoteClinic Note: Education Assessment: Learning BarriersNo barriers TaughtPatient Primary Language of PatientEnglish Name of Downs Learner & Relationshiphusband present Clinic Visit: Topic(s): Clinic VisitFollow-up plan MethodVerbal, Teach-Back, Handout EvaluationTeaches back Nursing Note: Nursing Notept set up for 6 mo. lab the week prior at the [facility]- orders placed. rtc 08/30 at 2pm Electronic Signatures: Jessica Pearson (RN) (Signed 01-Mar-2022 13:37) Authored: Education Assessment, Clinic Visit, Nursing Note Last Updated: 01-Mar-2022 13:37 by Jessica Pearson (GLORIA)[facility] + Plan note No data available for this section [facility] Evaluation noteNo assessment information available [facility] Work Phone: Evaluation note* Diagnosis Hodgkin lymphoma, unspecified Hodgkin lymphoma type, unspecified body region (CMS/HCC)- Primary documented in this encounter [facility] Work Phone: Evaluation note* Diagnosis POP-Q stage 3 cystocele- Primary UTI symptoms MOUSTAPHA (stress urinary incontinence, female) Hodgkin lymphoma, unspecified Hodgkin lymphoma type, unspecified body region (CMS/HCC) documented in this encounter [facility] Work Phone: Evaluation note* Diagnosis Hodgkin lymphoma, unspecified Hodgkin lymphoma type, unspecified body region (Multi) documented in this encounter [facility] Work Phone: Evaluation note* Diagnosis Hodgkin lymphoma, unspecified Hodgkin lymphoma type, unspecified body region (Multi) documented in this encounter [facility] Work Phone: Evaluation note* Diagnosis Hodgkin lymphoma, unspecified Hodgkin lymphoma type, unspecified body region (Multi) documented in this encounter [facility] Work Phone: Evaluation note* Diagnosis Bladder problem- Primary Unspecified disorder of bladder Hodgkin lymphoma, unspecified Hodgkin lymphoma type, unspecified body region (Multi) Cystocele with uterine prolapse documented in this encounter [facility] Work Phone: Evaluation note* Diagnosis Hodgkin lymphoma, unspecified Hodgkin lymphoma type, unspecified body region (Multi) documented in this encounter [facility] Work Phone: Evaluation note* Diagnosis Hodgkin lymphoma, unspecified Hodgkin lymphoma type, unspecified body region (Multi) documented in this encounter [facility] Work Phone: History of Present illness Narrative* This is a very pleasant lady and her were seen today in the office on a follow-up after herSST. This study showed she desaturated only to 90% on her SST and was able to walk 1100 feet with her main complaint being shortness of breath and very severe dyspnea. She has not been using the oxygen at nighttime or during the day with activity. Her oxygen is through [facility]. * The patient has no plans of getting any further chemotherapy for her Hodgkin's lymphoma. She does have a known history of chronic interstitial lung disease that was present prior to the initiation ofthe chemotherapy. * Patient denies having any cough or sputum production she has not been having any wheezing or nocturnal symptoms. She denies any dyspnea with her usual daily activities. [facility] Work Phone: History of Present illness Narrative* This is a very pleasant lady and her were seen today in the office on a follow-up after herSST. This study showed she desaturated only to 90% on her SST and was able to walk 1100 feet with her main complaint being shortness of breath and very severe dyspnea. She has not been using the oxygen at nighttime or during the day with activity. Her oxygen is through [facility]. * The patient has no plans of getting any further chemotherapy for her Hodgkin's lymphoma. She does have a known history of chronic interstitial lung disease that was present prior to the initiation ofthe chemotherapy. * Patient denies having any cough or sputum production she has not been having any wheezing or nocturnal symptoms. She denies any dyspnea with her usual daily activities. [facility] Work Phone: History of Present illness Narrative* The patient is being seen for the subsequent annual wellness visit. * Past Medical, Surgical and Family History: reviewed and updated in chart. * Medications and Supplements: Medications and supplements, including calcium and vitamins reviewed and updated in chart. * No, the patient is not using opioids. * Patient Self Assessment of Health Status: fair. * Tobacco use: Non-User * Alcohol use: Non-User, As noted in social history * Illicit drug use: Non-User * Current diet: well balanced diet. * Exercise Frequency: regularly. * Depression/Suicide Screening: . * During the past 2 weeks, the patient has not felt down, depressed or hopeless. * Hearing Impairment: Patient has slight hearing impairment. * Cognitive Impairment: No cognitive impairment observed. * Bathing: performs independently. * Dressing: performs independently. * Walking: performs independently. * Toileting: performs independently. * Feeding: performs independently. * Personal Hygiene: performs independently. * Bowels: continent. * Bladder: continent. * Managing Finances: performs independently. * Shopping: performs independently. * Managing Medications: performs independently. * Housework / Basic Home Maintenance: performs independently. * Handling Transportation: performs independently. * Preparing Meals: performs independently. * Using the Telephone/ Communication Devices: performs independently. * Falls Risk Screening:. JOHANA has not fallen in the last 6 months. * Home safety risk factors: none. * 80-year-old woman with Hodgkin's lymphoma presenting in follow-up. Overall much improved. Does haveinterstitial lung disease presumably as a result of chemotherapy, remarkable improvement. Not usingoxygen. Very active with minimal difficulty. * Mood remains good. Following closely with hematology as well as pulmonology. Able to do heavy yard work with only minimal shortness of breath. * No further mouth pain. Appetite improving. -[facility] Work Phone: History of Present illness NarrativePatient was seen today in the office on a follow-up of her interstitial lung disease. Patient reports that her breathing has been stable and her chemotherapy has been discontinued for her Hodgkin's lymphoma. She denies any cough or significant sputum production. She has no wheezing. She does have some mild dyspnea with increased outdoor activity. She has no problems with her usual ADLs. I reviewed her chest x-ray from today and compared that to her previous x-ray from 5 months ago which was on 03/27/2021 and I do not see a significant change in her interstitial lung disease.-Pulmonary Medicine-[place] [id number] DO Work Phone: History of Present illness Narrative* 80-year-old woman with Hodgkin's lymphoma presenting in follow-up. Overall much improved. Does haveinterstitial lung disease presumably as a result of chemotherapy, remarkable improvement. Not usingoxygen. Very active with minimal difficulty. * Mood remains good. Following closely with hematology as well as pulmonology. Able to do heavy yard work with only minimal shortness of breath. * No further mouth pain. Appetite improving. [facility] Work Phone: History of Present illness Narrative* The patient is being seen for the subsequent annual wellness visit. * Past Medical, Surgical and Family History: reviewed and updated in chart. * Medications and Supplements: Review of all medications by a prescribing practitioner or clinical pharmacist (such as prescriptions, OTCs, herbal therapies and supplements) documented in the medical record. * No, the patient is not using opioids. * Patient Self Assessment of Health Status: fair. * Tobacco use: Non-User * Alcohol use: Non-User, As noted in social history * Illicit drug use: Non-User * Current diet: well balanced diet. * Exercise Frequency: regularly. * Depression/Suicide Screening: . * During the past 2 weeks, the patient has not felt down, depressed or hopeless. * During the past 2 weeks, the patient has not felt little interest or pleasure in doing things. * Hearing Impairment: Patient has slight hearing impairment. * Cognitive Impairment: No cognitive impairment observed. * Bathing: performs independently. * Dressing: performs independently. * Walking: performs independently. * Toileting: performs independently. * Feeding: performs independently. * Personal Hygiene: performs independently. * Bowels: continent. * Bladder: continent. * Managing Finances: performs independently. * Shopping: performs independently. * Managing Medications: performs independently. * Housework / Basic Home Maintenance: performs independently. * Handling Transportation: performs independently. * Preparing Meals: performs independently. * Using the Telephone/ Communication Devices: performs independently. * Falls Risk Screening:. JOHANA has not fallen in the last 6 months. * Home safety risk factors: none. * 81-year-old woman with Hodgkin's lymphoma presenting in follow-up. Overall much improved. Does haveinterstitial lung disease presumably as a result of chemotherapy, remarkable improvement. Not usingoxygen. Very active with minimal difficulty. * Mood remains good. Following closely with hematology as well as pulmonology. Able to do heavy yard work with only minimal shortness of breath. * No further mouth pain. Appetite improving. [facility] Work Phone: Hospital Discharge instructions No data available for this section [facility] Progress note No data available for this section [facility] Reason for referral (narrative)No reason for referral information availableWKettering Health [facility] Work Phone: Reason for visit Narrative* Imaging (Routine) - Authorized Specialty Diagnoses / Procedures Referred By Contac t Referred To Contact Radiology Diagnoses Hodgkin lymphoma, unspecified Hodgkin lymphoma type, unspecified body region (Multi) Procedures CT chest abdomen pelvis w IV contrast Gomez Santa, [employer]SMISS[employer] REBU[employer] IN[employer] [address] [place] [address] Phone: tel: fax: Referral ID Status Reason Start Date Expiration Date Visits Requested Visits Authorized [id number] Authorized Perform Procedure 4 09/10/2025 1 1 [facility] Work Phone: Family History No Family History Records Found Mother Name Dates Details Family history of Alzheimer' s disease(V17.2, Z82.0) Status:Active Family history of cardiac di sorder(V17.49, Z82.49) Status:Active Father Name Dates Details Family history of cardiac di sorder(V17.49, Z82.49) Status:Active Brother Name Dates Details Family history of cardiac di sorder(V17.49, Z82.49) Status:Active Mother Name Dates Details Family history of Alzheimer' s disease(V17.2, Z82.0) Status:Active Family history of cardiac di sorder(V17.49, Z82.49) Status:Active Family history of cerebrovas cular accident (CVA)(V17.1, Z82.3) Status:Active Father Name Dates Details Family history of cardiac di sorder(V17.49, Z82.49) Status:Active Brother Name Dates Details Family history of cardiac di sorder(V17.49, Z82.49) Status:Active Family history of malignant neoplasm(V16.9, Z80.9) Status:Active Mother Name Dates Details Family history of Alzheimer' s disease(V17.2, Z82.0) Status:Active Family history of cardiac di sorder(V17.49, Z82.49) Status:Active Father Name Dates Details Family history of cardiac di sorder(V17.49, Z82.49) Status:Active Brother Name Dates Details Family history of cardiac di sorder(V17.49, Z82.49) Status:Active Mother Name Dates Details Family history of cardiac di sorder(V17.49, Z82.49) Status:Active Family history of Alzheimer' s disease(V17.2, Z82.0) Status:Active Father Name Dates Details Family history of cardiac di sorder(V17.49, Z82.49) Status:Active Brother Name Dates Details Family history of cardiac di sorder(V17.49, Z82.49) Status:Active Mother Name Dates Details Family history of cardiac di sorder(V17.49, Z82.49) Status:Active Family history of Alzheimer' s disease(V17.2, Z82.0) Status:Active Father Name Dates Details Family history of cardiac di sorder(V17.49, Z82.49) Status:Active Brother Name Dates Details Family history of cardiac di sorder(V17.49, Z82.49) Status:Active Mother Name Dates Details Family history of cardiac di sorder(V17.49, Z82.49) Status:Active Family history of Alzheimer' s disease(V17.2, Z82.0) Status:Active Father Name Dates Details Family history of cardiac di sorder(V17.49, Z82.49) Status:Active Brother Name Dates Details Family history of cardiac di sorder(V17.49, Z82.49) Status:Active Mother Name Dates Details Family history of Alzheimer' s disease(V17.2, Z82.0) Status:Active Family history of cardiac di sorder(V17.49, Z82.49) Status:Active Family history of cerebrovas cular accident (CVA)(V17.1, Z82.3) Status:Active Father Name Dates Details Family history of cardiac di sorder(V17.49, Z82.49) Status:Active Brother Name Dates Details Family history of cardiac di sorder(V17.49, Z82.49) Status:Active Family history of malignant neoplasm(V16.9, Z80.9) Status:Active Mother Name Dates Details Family history of Alzheimer' s disease(V17.2, Z82.0) Status:Active Family history of cardiac di sorder(V17.49, Z82.49) Status:Active Family history of cerebrovas cular accident (CVA)(V17.1, Z82.3) Status:Active Father Name Dates Details Family history of cardiac di sorder(V17.49, Z82.49) Status:Active Brother Name Dates Details Family history of cardiac di sorder(V17.49, Z82.49) Status:Active Family history of malignant neoplasm(V16.9, Z80.9) Status:Active Unknown Family Member Name Dates Details Family history of Alzheimer' s disease: Mother(V17.2, Z82.0) Status:Active Family history of cardiac di sorder: Mother, Father, Brother(V17.49, Z82.49) Comments:father- 50s. -tobmo m - 80sbrother - 50s, +tob; Status:Active Family history of cerebrovas cular accident (CVA): Mother(V17.1, Z82.3) Status:Active Family history of malignant neoplasm: Brother(V16.9, Z80.9) Status:Active Unknown Family Member Name Dates Details Family history of Alzheimer' s disease: Mother(V17.2, Z82.0) Status:Active Family history of cardiac di sorder: Mother, Father, Brother(V17.49, Z82.49) Comments:father- 50s. -tobmo m - 80sbrother - 50s, +tob; Status:Active Family history of cerebrovas cular accident (CVA): Mother(V17.1, Z82.3) Status:Active Family history of malignant neoplasm: Brother(V16.9, Z80.9) Status:Active Unknown Family Member Name Dates Details Family history of Alzheimer' s disease: Mother(V17.2, Z82.0) Status:Active Family history of cardiac di sorder: Mother, Father, Brother(V17.49, Z82.49) Comments:father- 50s. -tobmo m - 80sbrother - 50s, +tob; Status:Active Family history of cerebrovas cular accident (CVA): Mother(V17.1, Z82.3) Status:Active Family history of malignant neoplasm: Brother(V16.9, Z80.9) Status:Active Unknown Family Member Name Dates Details Family history of Alzheimer' s disease: Mother(V17.2, Z82.0) Status:Active Family history of cardiac di sorder: Mother, Father, Brother(V17.49, Z82.49) Comments:father- 50s. -tobmo m - 80sbrother - 50s, +tob; Status:Active Family history of cerebrovas cular accident (CVA): Mother(V17.1, Z82.3) Status:Active Family history of malignant neoplasm: Brother(V16.9, Z80.9) Status:Active Unknown Family Member Name Dates Details Family history of Alzheimer' s disease: Mother(V17.2, Z82.0) Status:Active Family history of cardiac di sorder: Mother, Father, Brother(V17.49, Z82.49) Comments:father- 50s. -tobmo m - 80sbrother - 50s, +tob; Status:Active Family history of cerebrovas cular accident (CVA): Mother(V17.1, Z82.3) Status:Active Family history of malignant neoplasm: Brother(V16.9, Z80.9) Status:Active Unknown Family Member Name Dates Details Family history of Alzheimer' s disease: Mother(V17.2, Z82.0) Status:Active Family history of cardiac di sorder: Mother, Father, Brother(V17.49, Z82.49) Comments:father- 50s. -tobmo m - 80sbrother - 50s, +tob; Status:Active Family history of cerebrovas cular accident (CVA): Mother(V17.1, Z82.3) Status:Active Family history of malignant neoplasm: Brother(V16.9, Z80.9) Status:Active Unknown Family Member Name Dates Details Family history of Alzheimer' s disease: Mother(V17.2, Z82.0) Status:Active Family history of cardiac di sorder: Mother, Father, Brother(V17.49, Z82.49) Comments:father- 50s. -tobmo m - 80sbrother - 50s, +tob; Status:Active Family history of cerebrovas cular accident (CVA): Mother(V17.1, Z82.3) Status:Active Family history of malignant neoplasm: Brother(V16.9, Z80.9) Status:Active Unknown Family Member Name Dates Details Family history of Alzheimer' s disease: Mother(V17.2, Z82.0) Status:Active Family history of cardiac di sorder: Mother, Father, Brother(V17.49, Z82.49) Comments:father- 50s. -tobmo m - 80sbrother - 50s, +tob; Status:Active Family history of cerebrovas cular accident (CVA): Mother(V17.1, Z82.3) Status:Active Family history of malignant neoplasm: Brother(V16.9, Z80.9) Status:Active Unknown Family Member Name Dates Details Family history of Alzheimer' s disease: Mother(V17.2, Z82.0) Status:Active Family history of cardiac di sorder: Mother, Father, Brother(V17.49, Z82.49) Comments:father- 50s. -tobmo m - 80sbrother - 50s, +tob; Status:Active Family history of cerebrovas cular accident (CVA): Mother(V17.1, Z82.3) Status:Active Family history of malignant neoplasm: Brother(V16.9, Z80.9) Status:Active Unknown Family Member Name Dates Details Family history of Alzheimer' s disease: Mother(V17.2, Z82.0) Status:Active Family history of cardiac di sorder: Mother, Father, Brother(V17.49, Z82.49) Comments:father- 50s. -tobmo m - 80sbrother - 50s, +tob; Status:Active Family history of cerebrovas cular accident (CVA): Mother(V17.1, Z82.3) Status:Active Family history of malignant neoplasm: Brother(V16.9, Z80.9) Status:Active Unknown Family Member Name Dates Details Family history of Alzheimer' s disease: Mother(V17.2, Z82.0) Status:Active Family history of cardiac di sorder: Mother, Father, Brother(V17.49, Z82.49) Comments:father- 50s. -tobmo m - 80sbrother - 50s, +tob; Status:Active Family history of cerebrovas cular accident (CVA): Mother(V17.1, Z82.3) Status:Active Family history of malignant neoplasm: Brother(V16.9, Z80.9) Status:Active Unknown Family Member Name Dates Details Family history of Alzheimer' s disease: Mother(V17.2, Z82.0) Status:Active Family history of cardiac di sorder: Mother, Father, Brother(V17.49, Z82.49) Comments:father- 50s. -tobmo m - 80sbrother - 50s, +tob; Status:Active Family history of cerebrovas cular accident (CVA): Mother(V17.1, Z82.3) Status:Active Family history of malignant neoplasm: Brother(V16.9, Z80.9) Status:Active Unknown Family Member Name Dates Details Family history of Alzheimer' s disease: Mother(V17.2, Z82.0) Status:Active Family history of cardiac di sorder: Mother, Father, Brother(V17.49, Z82.49) Comments:father- 50s. -tobmo m - 80sbrother - 50s, +tob; Status:Active Family history of cerebrovas cular accident (CVA): Mother(V17.1, Z82.3) Status:Active Family history of malignant neoplasm: Brother(V16.9, Z80.9) Status:Active Unknown Family Member Name Dates Details Family history of Alzheimer' s disease: Mother(V17.2, Z82.0) Status:Active Family history of cardiac di sorder: Mother, Father, Brother(V17.49, Z82.49) Comments:father- 50s. -tobmo m - 80sbrother - 50s, +tob; Status:Active Family history of cerebrovas cular accident (CVA): Mother(V17.1, Z82.3) Status:Active Family history of malignant neoplasm: Brother(V16.9, Z80.9) Status:Active Summary Purpose Advance Directives No Advanced Directives Records Found Advance Directive Response Recorded Date/ Time Name of Medical Power of Hot Packer lawanda August 25, 2023 4:42am Living Will Yes August 25 4:42am Power of Hot Packer Yes August 25, 2023 4:42am Chief Complaint * Here with , Lawanda CHIN is here for a follow-up visit. * Reason for Visit: SST results. * Appointment requested by: Galdino Camacho. * Here with , Lawanda CHIN is here for a follow-up visit. * Reason for Visit: SST results. * Appointment requested by: Galdino Camacho. * Here with , Lawanda CHIN is here for a follow-up visit. * Reason for Visit: SST results. * Appointment requested by: Galdino Camacho. WELLNESS EXAMWELLNESS EXAM* JOHANA CHIN is here for a follow-up visit. * Reason for Visit: ILD; F/U CXR. * Appointment requested by: Galdino Camacho. 6 month fu* JOHANA CHIN is here for a 6 month follow-up. * Reason for Visit: HRCT Chest. * Appointment requested by: Dr. Camacho. Chief Complaint and Reason for Visit Chief Complaint right flank pain Chief Complaint Admit Date LABS/ SEE ORDER April 16, 2025 8:32 am Reason for Referral Specialty Diagnoses / Procedures Referred By Mar mendoza Referred To Contact Radiology Diagnoses Hodgkin lymphoma, unspecified Hodgkin lymphoma type, unspecified body region (Multi) Procedures CT chest abdomen pelvis w IV contrast Gomez Santa, TRANSMISSION REBUILDER-SHIELD INSTALLER [address] [place] [address] Referral ID Status Reason Start Date Expiration Date Visits Requested Visits Authorized [id number] Authorized Perform Procedure 03/10/2024 03/10/2025 1 1 Additional Source Comments INFORMATION SOURCE (unrecogn ized section and content) DATE CREATED AUTHOR 05/13/[address] [facility] DATE CREATED AUTHOR AUTHOR'S ORGANIZ ATION 10/25/2021 [facility] DATE CREATED AUTHOR AUTHOR'S ORGANIZ ATION 08/27/2022 [facility] DATE CREATED AUTHOR AUTHOR'S ORGANIZ ATION 09/01/2022 [facility] DATE CREATED AUTHOR AUTHOR'S ORGANIZ ATION 03/04/2023 [facility] DATE CREATED AUTHOR AUTHOR'S ORGANIZ ATION 04/01/2023 [facility] DATE CREATED AUTHOR AUTHOR'S ORGANIZ ATION 09/01/[address] [facility] ([place]) DATE CREATED AUTHOR AUTHOR'S ORGANIZ ATION 09/14/2024 [facility] DATE CREATED AUTHOR AUTHOR'S ORGANIZ ATION 03/20/2025 [facility] DATE CREATED AUTHOR AUTHOR'S ORGANIZ ATION 04/24/2025 [facility] Care Teams (unrecognized sec tion and content) Team Status: Active Member Role Status Dates Nathalia Ho MD Primary Care Provider Active Team Status: Inactive Member Role Status Dates Nathalia Ho MD Primary Care Provide r, Attending Provider, Referring Provider Active Team Status: Inactive Member Role Status Dates Nathalia Ho MD Primary Care Provider Active Dr. Cesario Real MD Emergency Provider Active Animation Director Relationship Specialty Start Date End Date Yoselin Camacho MD [address] [facility] [address] [place] [address] PCP - General 05/30/11 Yoselin Camacho MD [address] [facility], [facility] [address] [place] [address] PCP - MMO Medicare Advantage PCP 03/21/22 Animation Director Relationship Specialty Start Date End Date Yoselin Camacho MD [address] [facility], [address] [place] [address] PCP - General 05/30/11 Gomez Santa, TRANSMISSION REBUILDER-SHIELD INSTALLER [address] [facility] [address] [place] [address] PCP - MMO Medicare Advantage PCP 09/20/23 Animation Director Relationship Specialty Start Date End Date Yoselin Camacho MD [address] [facility], [address] [place] [address] PCP - General 05/30/11 Animation Director Relationship Specialty Start Date End Date Nathalia Ho MD [address] [place] [address] PCP - General Family Medicine 03/23/24 Animation Director Relationship Specialty Start Date End Date Nathalia Ho MD [address] [facility] [address] [place] [address] PCP - General Family Medicine 03/23/24 Animation Director Relationship Specialty Start Date End Date Nathalia Ho MD [address] [facility] [address] [place] [address] PCP - General Family Medicine 09/08/24 Animation Director Relationship Specialty Start Date End Date Nathalia Ho MD [address] [facility] [address] [place] [address] PCP - General Family Medicine 09/08/24 Animation Director Relationship Specialty Start Date End Date Nathalia Ho MD [address] [facility] [address] [place] [address] PCP - General Family Medicine 09/08/24 Team Status: Active Member Role/Relationship Status Shaquille Ho MD Primary Care Provider Active Team Status: Inactive Member Role/Relationship Status Dates Nathalia Ho MD Primary Care Provider Active St art: April 16, 2025 End: April 16, 2025 Dr. Chanda Shepard MD Attending Provider Active Start: April 16, 2025 End: April 16, 2025 Dr. hCanda Shepard MD Referring Provider Active Start: April 16, 2025 End: April 16, 2025 Goals (unrecognized section and content) Goals may be documented in a n alternate sectionGoals may be documented in an alternate section No data available for this sectionGoals may be documented in an alternate section Reason for Visit (unrecogniz ed section and content) Reason Comments Lymphoma Reason Comments Uterine Prolapse Reason Comments Lymphoma Specialty Diagnoses / Procedures Referred By Contac t Referred To Contact Radiology Diagnoses Hodgkin lymphoma, unspecified Hodgkin lymphoma type, unspecified body region (Multi) Procedures CT chest abdomen pelvis w IV contrast Gomez Santa, TRANSMISSION REBUILDER[employer]SHIELD INSTALLER [address] [place] [address] Referral ID Status Reason Start Date Expiration Date Visits Requested Visits Authorized [id number] Authorized Perform Procedure 03/10/2024 03/10/2025 1 1 Reason Comments Follow-up Follow-up on Hodgkin lymphoma, resent lab work FOR RECORDS PERTAINING TO PATIENTS WHO ARE OR HAVE BEEN ENROLLED IN A CHEMICAL DEPENDENCY/SUBSTANCEABUSE PROGRAM, SOME INFORMATION MAY BE OMITTED. This clinical summary was aggregated from multiple sources. Caution should be exercised in using it in the provision of clinical care. This summary normalizes information from multiple sources, and as a consequence, information in this document may materially change the coding, format and clinical context of patient data. In addition, data may be omitted in some cases. CLINICAL DECISIONS SHOULD BE BASED ON THE PRIMARY CLINICAL RECORDS. [employer] [facility]. provides no warranty or guarantee of the accuracy or completeness of information in this document.
== END | disposition home or self-care (01) ==
LOC: CVS 07:42
PROVIDERS: PCP Family Medicine; Referring Provider Internal Medicine Pulmonary Disease; Visit Provider Internal Medicine Pulmonary Disease
DX: J84.9 Interstitial pulmonary disease, unspecified (principal); R07.9 Chest pain, unspecified
CPT/HCPCS: 93306

== ENCOUNTER → 2025-09-23 | Outpatient (CLI) | payer MEDICARE, SELFPAY ==
--- OUTSIDE RECORDS SUMMARY | 2025-09-23 06:20 | XMS RPT_ITS | CCD ---
Author Organization [facility] Care Team Providers Care Cemetery Warden Name Role Phone Camacho, Yoselin Unavailable Unavailable Camacho, Yoselin J Unavailable Unavailable Javon Rojas Unavailable Unavailable Piaseckdhruv, Chanda Unavailable Unavailable Camacho, Yoselin Unavailable Unavailable Camacho, Yoselin J Unavailable Unavailable Unavailable Unavailable Unavailable IRISH, DR DANIELLE Fernando Primary Care Unavaila ble IRISH, DR DANIELLE Fernando Attending Unavaila ble CAMACHO Consulting Unavailable IRISH, DR DANIELLE Fernando Admitting Unavaila ble PROVIDER, UNKNOWN Consulting Unavailable IRISH, DR DANIELLE Fernando Attending Unavaila ble IRISH, DR DANILELE Fernando Admitting Unavaila ble CAMACHO Consulting Unavailable [...] Unavailabl e Camacho III, Dr. Yoselin Andrews [facility] Unav ailable HAMAD, Dr. ALAMO Admitting Unavailable HAMAD, Dr. ALAMO Attending Unavailable Teston, Dr. Savita Quiroga Referring Unavailabl e Camacho III, Dr. Yoselin Andrews [facility] Unav ailable Chanda Weller Attending Unavailabl e Camacho III, Dr. Yoselin Andrews [facility] Unav ailable Chanda Weller Attending Unavailabl e Camacho III, Dr. Yoselin Andrews [facility] Unav ailable Camacho III, Dr. Yoselin Andrews [facility] Unav ailable Camacoh III, Dr. Yoselin Andrews Primary Care Unav ailable Camacho III, Dr. Yoselin Andrews Primary Care Unav ailable Piasecki, Dr. Chanda Camacho Attending Unavai lable Piasecki, Dr. Chanda Camacho Referring Unavai lable Camacho III, Dr. Yoselin Andrews Primary Care Unav ailable Camacho III, Dr. Yoselin Andrews Attending Unav ailable Camacho III, Dr. Yoselin Andrews Referring Unav ailable DAVION, YOSELIN Francois Attending Unavailable YOSELIN CAMACHO Primary Care Unavailable GEORGIA TITUS, NATHALIA Primary Care Physician KHANG TITUS, DR PAPITO BLANCAS Attending Soheila HO MD, NATHALIA Primary Care Unavailable Yoselin Camacho MD Primary Care Provider Yoselin Camacho MD Unavailable Kiet MATE SHIP-Gomez QUINTANILLA Unavailable Nathalia Ho MD Primary Care Provider Nathalia Ho MD Primary Care Provider YOSELIN CAMACHO Primary Care Unavailable NATHALIA HO Primary Care Unavailable Nathalia Ho MD Primary Care Provider Drea TITUS, Dr. Chanda Daniel Attending Provider Dr. Chanda Shepard MD, V Referring Provider Yayo TITUS, Dr. Leos Attending Provider [phone] Amadou Hoon Referring Unavailable Georgia, Chalon Primary Care Unavailable GeorgiaNathalia Attending Unavailable Georgia, Chalon Primary Care Unavailable Sibilia, Chanda V Attending Unavailable Roberto Liang Attending Unavailable Georgia, Chalon Primary Care Unavailable Deric Zee Attending Unavailable Georgia, Chalon Primary Care Unavailable Sibilia, Chanda Daniel Attending Unavailable Sibilia, Chanda V Referring Unavailable Georgia, Chalon Primary Care Unavailable Sibilia, Chanda Daniel Attending Unavailable Sibilia, Chanda V Referring Unavailable Georgia, Chalon Primary Care Unavailable Nathalia Ho MD Primary Care Provider AMADOU HOON J Primary Care Unavailable GOMEZ SANTA Attending Unavailable GOMEZ SANTA Referring Unavailable GEORGIA, AMADOUON Priscila Primary Care Unavailable GOMEZ SANTA Attending Unavailable GOMEZ SANTA Referring Unavailable NATHALIA HO Primary Care Unavailable GOMEZ SANTA Referring Unavailable NATHALIA HO Primary Care Unavailable NATHALIA HO Primary Care Unavailable GOMEZ SANTA Attending Unavailable GOMEZ SANTA Referring Unavailable NATHALIA HO Primary Care Unavailable Medications Current Medications Medication Drug Class(es) Dates Sig (Normalized) Sig (Original) acetaminophen 325 mg / HYDROcodone bitartrate 5 mg oral tablet (3 sources) Opioid Agonist Start: 08-25-2023 take 1 [...] daily prn Quantity: 2 Refills: 2 Ordered: 5-Nov-2021 Yoselin Camacho MD Start : 10-Sep-2018 Active Start: 09-10-2018 Dexamethasone 0.5 MG/5ML Oral Elixir TAKE 0.5mgs,5ml 4 times daily Quantity: 30 Refills: 0 Yoselin Camacho MD Start : 10-Sep-2018 Active Multivitamin (Daily Value) tablet (3 sources) Start: 08-25-2023 Multivitamin ( Daily Value) tablet Active 1 {tbl} PO DAILY August 25, 2023 12:00am Start: 08-25-2023 take 1 tablet by wandy th once daily Multivitamin (Daily Value) tablet Active 1 TABLET PO DAILY August 24, 2023 11:00pm multivitamin tablet (7 sources) take 1 tablet by mouth once daily multivitamin tablet Take 1 tablet by mouth once daily. Active multivitamin with minerals (icpdgnpgvicd-muid-sixok acid) tablet (2 sources) End: 12-05-2023 take 1 tablet by mouth once daily multivitamin with minerals (odpilqaldliu-yzcc-ktsob acid) tablet Take 1 tablet by mouth once daily. 0 12/05/2023 Discontinued (Therapy completed) take 1 tablet by mouth once andres y multivitamin with minerals (zhbqprjgkgrk-knms-ubczq acid) tablet Take 1 tablet by mouth once daily. 0 Active fcxvpvfxrbsu-jfa-mthl-FA-vit K (Adults Multivitamin) 18 mg iron-400 mcg-25 mcg tablet (2 sources) Start: 03-26-2016 End: 12-05-2023 take 1 tablet by mouth once daily tznogcchctiu-gzv-qjtu-FA-vit K (Adults Multivitamin) 18 mg iron-400 mcg-25 mcg tablet Take 1 tablet by mouth once daily. 0 03/26/2016 12/05/2023 Discontinued (Therapy completed) Start: 03-26-2016 take 1 tablet by wandy th once daily dcxasoiarbnj-lil-kewv-FA-vit K (Adults Multivitamin) 18 mg iron-400 mcg-25 mcg tablet Take 1 tablet by mouth once daily. 0 03/26/2016 Active ondansetron 4 mg disintegrating oral tablet (3 sources) Serotonin-3 Receptor Antagonist Start: 08-25-2023 take [...] zinc methionine sulfate/shawn er (ZINC BALANCE ORAL) (5 sources) zinc methionine sulfate/copper (ZINC BALANCE ORAL) [...] TABLET TWICE DAILY. Quantity: 10 Refills: 0 Camacho Yoselin TITUS Start : 12-Feb-2020 Active vitamin d 1000 unt oral tablet (3 sources) Start: 01-29-2014 Vitamin D 1000 UNIT Oral Tablet Refills: 0 Camacho Yoselin TITUS Start : 29-Jan-2014 Active Problems Active Problems Problem Classification Problem Date Documented Da te Episodic/Chronic Abdominal pain (19 sources) Flank pain; Translations: [Abdominal pain, other specified site] Episodic Allergic reactions (20 sources) Aspirin allergy; Translations: [Personal history of allergy to other specified medicinal agents] Episodic Calculus of urinary tract (6 sources) Kidney stone; Translations: [Calculus of kidney] 08-25-2023 Episodic Cataract (19 sources) Cataract; Translations: [Unspecified cataract] Chronic Chronic kidney disease (18 sources) Chronic kidney disease stage 3; Translations: [Chronic kidney disease, Stage III (moderate)] Onset: 3 02-25-2023 Chronic Chronic kidney disease (2 sources) Chronic kidney disease; Translations: [Chronic kidney disease, stage 3a (CMS/HCC)] Onset: 3 Disorders of lipid metabolism (20 sources) Hyperlipidemia; Translations: [Other and unspecified hyperlipidemia] Onset: 3 Chronic Diverticulosis and diverticulitis (3 sources) Diverticular disease; Translations: [Diverticulosis of intestine, [...] Chronic Other diseases of kidney and ureters (3 sources) Hydronephrosis with renal and ureteral calculous [...] Onset: 2 Chronic Other lower respiratory disease (8 sources) Interstitial pulmonary disease, unspecified; Translations: [Interstitial [...] influencing health status] Episodic Residual codes; unclassified (2 sources) Creatinine level - finding 09-02-2023 Episodic Unclassified [...] Patient encounter status; Translations: [Pre-op evaluation] Unclassified (9 sources) Onset: 02-25-2023 02-25-2023 Unclassified (1 source) Cystocele with uterine prolapse 09-10-2024 NEGATED: Highlighted row has not occurred!Residual codes; unclassified (20 sources) Disease Episodic Results Test Name Value Interpretation Reference Range Facility CBC W Auto Differential pane l (Bld)on 08-18-2025 Basophils (Bld) [#/Vol] 0.06 10*3/uL [facility] Basophils/100 WBC (Bld) 0.7 % 0.0 - 2.0 % [facility] Eosinophils (Bld) [#/Vol] 0.21 10*3/uL [facility] Eosinophils/100 WBC (Bld) 2.3 % 0.0 - 6.0 % [facility] Erythrocyte distribution width (RBC) [Ratio] 14.8 % High 11.5 - 14.5 % [facility] Hematocrit (Bld) [Volume fraction] 43.1 % 36.0 - 46.0 % [facility] Hemoglobin (Bld) [Mass/Vol] 13.9 g/dL 12.0 - 16.0 g/dL [facility] Immature granulocytes (Bld) [#/Vol] 0.04 10*3/uL [facility] Immature granulocytes/100 WBC (Bld) 0.4 % 0.0 - 0.9 % [facility] Comment on above: Immature Granulocyte Count (IG) includes promyelocytes, myelocytes and metamyelocytes but does not include bands. Percent differential counts (%) should be interpreted in the context of the absolute cell counts (cells/UL). Interpretation and review of laboratory results Abnormal [facility] Lymphocytes (Bld) [#/Vol] 1.76 10*3/uL [facility] Lymphocytes/100 WBC (Bld) 19.4 % 13.0 - 44.0 % [facility] MCH (RBC) [Entitic mass] 28.7 pg 26.0 - 34.0 pg [facility] MCHC (RBC) [Mass/Vol] 32.3 g/dL 32.0 - 36.0 g/dL [facility] MCV (RBC) [Entitic vol] 89 fL 80 - 100 fL [facility] Monocytes (Bld) [#/Vol] 0.75 10*3/uL [facility] Monocytes/100 WBC (Bld) 8.3 % 2.0 - 10.0 % [facility] Neutrophils (Bld) [#/Vol] 6.23 10*3/uL High [facility] Comment on above: Percent differential counts (%) should be interpreted in the context of the absolute cell counts (cells/uL). Neutrophils/100 WBC (Bld) 68.9 % 40.0 - 80.0 % [facility] Nucleated RBC/100 WBC (Bld) [Ratio] 0.0 % [facility] Platelets (Bld) [#/Vol] 267 10*3/uL [facility] RBC (Bld) [#/Vol] 4.85 10*6/uL [facility] WBC (Bld) [#/Vol] 9.1 10*3/uL [facility] Basophils (Bld) [#/Vol] 0.06 x10*3/uL Normal 0.00-0.10 [facility] Comment on above: Performed By: #### 5 7021-8 #### VERITO NINA ([id number]) [facility] ([facility]) [address] [place] [address] Basophils/100 WBC (Bld) 0.7 % Normal 0.0-2.0 [facility] Comment on above: Performed By: #### 5 7021-8 #### VERITO NINA ([id number]) [facility] ([facility]) [address] [place] [address] 26640 Eosinophils (Bld) [#/Vol] 0.21 x10*3/uL Normal 0.00-0.40 [facility] Comment on above: Performed By: #### 5 7021-8 #### VERITO NINA ([id number]) [facility] ([facility]) [address] [place] [address] 44990 Eosinophils/100 WBC (Bld) 2.3 % Normal 0.0-6.0 [facility] Comment on above: Performed By: #### 5 7021-8 #### VERITO NINA ([id number]) [facility] ([facility]) [address] [place], [place] [address] Erythrocyte distribution width (RBC) [Ratio] 14.8 % High 11.5-14.5 [facility] Comment on above: Performed By: #### 5 7021-8 #### VERITO NINA ([id number]) [facility] ([facility]) [address] [place] [address] Hematocrit (Bld) [Volume fraction] 43.1 % Normal 36.0-46.0 [facility] Comment on above: Performed By: #### 5 7021-8 #### VERITO NINA ([id number]) [facility] ([facility]) [address] [place] [address] Hemoglobin (Bld) [Mass/Vol] 13.9 g/dL Normal 12.0-16.0 [facility] Comment on above: Performed By: #### 5 7021-8 #### VERITO NINA ([id number]) [facility] ([facility]) [address] [place] [address] Immature granulocytes (Bld) [#/Vol] 0.04 x10*3/uL Normal 0.00-0.50 [facility] Comment on above: Performed By: #### 5 7021-8 #### VERITO NINA ([id number]) [facility] ([facility]) [address] [place], [place] [address] Immature granulocytes/100 WBC (Bld) 0.4 % Normal 0.0-0.9 [facility] Comment on above: Result Comment: Ban ture Granulocyte Count (IG) includes promyelocytes, myelocytes and metamyelocytes but does not include bands. Percent differential counts (%) should be interpreted in the context of the absolute cell counts (cells/UL). Performed By: #### 5 7021-8 #### VERITO NINA ([id number]) [facility] ([facility]) [address] [place] [address]19 Lymphocytes (Bld) [#/Vol] 1.76 x10*3/uL Normal 0.80-3.00 [facility] Comment on above: Performed By: #### 5 7021-8 #### VERITO NINA ([id number]) [facility] ([facility]) [address] [place] [address] 29545 Lymphocytes/100 WBC (Bld) 19.4 % Normal 13.0-44.0 [facility] Comment on above: Performed By: #### 5 7021-8 #### VERITO NINA ([id number]) [facility] ([facility]) [address] [place] [address]11 MCH (RBC) [Entitic mass] 28.7 pg Normal 26.0-34.0 [facility] Comment on above: Performed By: #### 5 7021-8 #### VERITO NINA ([id number]) [facility] ([facility]) [address] [place] [address] 47661 MCHC (RBC) [Mass/Vol] 32.3 g/dL Normal 32.0-36.0 [facility] Comment on above: Performed By: #### 5 7021-8 #### VERITO NINA ([id number]) [facility] ([facility]) [address] [place] [address] 44781 MCV (RBC) [Entitic vol] 89 fL Normal 80-100 [facility] Comment on above: Performed By: #### 5 7021-8 #### VERITO NINA ([id number]) [facility] ([facility]) [address] [place] [address] 59636 Monocytes (Bld) [#/Vol] 0.75 x10*3/uL Normal 0.05-0.80 [facility] Comment on above: Performed By: #### 5 7021-8 #### VERITO NINA ([id number]) [facility] ([facility]) [address] [place] [address] 40719 Monocytes/100 WBC (Bld) 8.3 % Normal 2.0-10.0 [facility] Comment on above: Performed By: #### 5 7021-8 #### VERITO NINA ([id number]) [facility] ([facility]) [address] [place] [address] 85608 Neutrophils (Bld) [#/Vol] 6.23 x10*3/uL High 1.60-5.50 [facility] Comment on above: Result Comment: Perc ent differential counts (%) should be interpreted in the context of the absolute cell counts (cells/uL). Performed By: #### 5 7021-8 #### VERITO NINA ([id number]) [facility] ([facility]) [address] [place] [address] 69594 Neutrophils/100 WBC (Bld) 68.9 % Normal 40.0-80.0 [facility] Comment on above: Performed By: #### 5 7021-8 #### VERITO NINA ([id number]) [facility] ([facility]) [address] [place] [address] 00530 Nucleated RBC/100 WBC (Bld) [Ratio] 0.0 /100 WBCs Normal 0.0-0.0 [facility] Comment on above: Performed By: #### 5 7021-8 #### VERITO NINA ([id number]) [facility] ([facility]) [address] [place] [address] 57251 Platelets (Bld) [#/Vol] 267 x10*3/uL Normal 150-450 [facility] Comment on above: Performed By: #### 5 7021-8 #### VERITO NINA ([id number]) [facility] ([facility]) [address] [place] [address] 25436 RBC (Bld) [#/Vol] 4.85 x10*6/uL Normal 4.00-5.20 [facility] Comment on above: Performed By: #### 5 7021-8 #### VERITO NNIA ([id number]) [facility] ([facility]) [address] [place] [address] 39173 WBC (Bld) [#/Vol] 9.1 x10*3/uL Normal 4.4-11.[address] [facility] Comment on above: Performed By: #### 5 7021-8 #### SELLERS TEJINDERGUTIERREZ ([id number]) [facility] ([facility]) [address] [place] [address] Comprehensive metabolic 2000 panelon 08-18-2025 Albumin BCP dye [Mass/Vol] 4.0 g/dL 3.4 - 5.0 g/dL [facility] ALP [Catalytic activity/Vol] 74 U/L 33 - 136 U/L [facility] ALT With P-5'-P [Catalytic activity/Vol] 15 U/L 7 - 45 U/L [facility] Comment on above: Patients treated wit h Sulfasalazine may generate falsely decreased results for ALT. Anion gap [Moles/Vol] 12 mmol/L 10 - 2 0 mmol/L [facility] AST With P-5'-P [Catalytic activity/Vol] 22 U/L 9 - 39 U/L [facility] Bilirubin [Mass/Vol] 0.6 mg/dL 0.0 - 1 .2 mg/dL [facility] Calcium [Mass/Vol] 9.9 mg/dL 8.6 - 10. 3 mg/dL [facility] Chloride [Moles/Vol] 104 mmol/L 98 - 10 7 mmol/L [facility] CO2 [Moles/Vol] 27 mmol/L 21 - 32 mmol/L [facility] Comment on above: Bicarbonate results may be falsely elevated when Lactate Dehydrogenase (LDH) concentrations exceed 2,000 U/L due to a temporary reagent manufacturing issue. If significantly elevated LDH levels are suspected, interpret bicarbonate results with caution, correlate with the patient s clinical status, and consider confirming CO2 values using a blood gas analyzer. Creatinine [Mass/Vol] 0.95 mg/dL 0.50 - 1.05 mg/dL [facility] GFR/1.73 sq M.predicted among non-blacks MDRD (S/P/Bld) [Vol rate/Area] 60 mL/min/{1.73_m2} Low - PINF [facility] Comment on above: Calculations of татьяна mated GFR are performed using the 2020 CKD-EPI Study Refit equation without the race variable for the IDMS-Traceable creatinine methods. https://jasn.asnjournals.org/content/early/ASN.20177 36028 Glucose [Mass/Vol] 97 mg/dL 74 - 99 mg/dL [facility] Interpretation and review of laboratory results Abnormal [facility] Potassium [Moles/Vol] 4.0 mmol/L 3.5 - 5.3 mmol/L [facility] Protein [Mass/Vol] 6.5 g/dL 6.4 - 8.2 g/dL [facility] Sodium [Moles/Vol] 139 mmol/L 136 - 145 mmol/L [facility] Urea nitrogen [Mass/Vol] 15 mg/dL 6 - 23 mg/dL [facility] Albumin BCP dye [Mass/Vol] 4.0 g/dL Normal 3.4-5.0 [facility] Comment on above: Performed By: #### 2 4323-8 #### VERITO NINA ([id number]) [facility] ([facility]) [facility] [place] [address] ALP [Catalytic activity/Vol] 74 U/L Normal 33-136 [facility] Comment on above: Performed By: #### 2 4323-8 #### VERITO NINA ([id number]) [facility] ([facility]) [facility] [place] [address] ALT With P-5'-P [Catalytic activity/Vol] 15 U/L Normal 7-45 [facility] Comment on above: Result Comment: Duyen ents treated with Sulfasalazine may generate falsely decreased results for ALT. Performed By: #### 2 4323-8 #### VERITO NINA ([id number]) [facility] ([facility]) [address] [place] [address] Anion gap [Moles/Vol] 12 mmol/L Normal 10-20 [facility] Comment on above: Performed By: #### 2 4323-8 #### VERITO NINA ([id number]) [facility] ([facility]) [facility] [place] [address] AST With P-5'-P [Catalytic activity/Vol] 22 U/L Normal 9-39 [facility] Comment on above: Performed By: #### 2 4323-8 #### VERITO NINA ([id number]) [facility] ([facility]) [address] [place] [address] Bilirubin [Mass/Vol] 0.6 mg/dL Normal 0.0-1.2 [facility] Comment on above: Performed By: #### 2 4323-8 #### VERITO NINA ([id number]) [facility] ([facility]) [address] [place] [address] Calcium [Mass/Vol] 9.9 mg/dL Normal 8.6-10.3 [facility] Comment on above: Performed By: #### 2 4323-8 #### VERITO NINA ([id number]) [facility] ([facility]) [address] [place] [address] Chloride [Moles/Vol] 104 mmol/L Normal 98-107 [facility] Comment on above: Performed By: #### 2 432-8 #### VERITO NINA ([id number]) [facility] ([facility]) [address] [place] [address] CO2 [Moles/Vol] 27 mmol/L Normal 21-32 [facility] Comment on above: Result Comment: Bica rbonate results may be falsely elevated when Lactate Dehydrogenase (LDH) concentrations exceed 2,000 U/L due to a temporary reagent manufacturing issue. If significantly elevated LDH levels are suspected, interpret bicarbonate results with caution, correlate with the patient's clinical status, and consider confirming CO2 values using a blood gas analyzer. Performed By: #### 2 4323-8 #### VERITO NINA ([id number]) [facility] ([facility]) [address] [place] [address] Creatinine [Mass/Vol] 0.95 mg/dL Normal 0.50-1.05 [facility] Comment on above: Performed By: #### 2 4323-8 #### VERITO NINA ([id number]) [facility] ([facility]) [address] [place] [address] Glomerular filtration rate 60 mL/min/1.73m*2 Low >60 [facility] Comment on above: Result Comment: Calc ulations of estimated GFR are performed using the 2020 CKD-EPI Study Refit equation without the race variable for the IDMS-Traceable creatinine methods. https://jasn.asnjournals.org/content/early//ASN.07822 16750 Performed By: #### 2 4323-8 #### VERITO NINA ([id number]) [facility] ([facility]) [address] [place] [address] 059[address] Glucose [Mass/Vol] 97 mg/dL Normal 74-99 [facility] Comment on above: Performed By: #### 2 4323-8 #### VERITO NINA ([id number]) [facility] ([facility]) [address] [place] [address] 48[address] Potassium [Moles/Vol] 4.0 mmol/L Normal 3.5-5.3 [facility] Comment on above: Performed By: #### 2 4323-8 #### VERITO NINA ([id number]) [facility] ([facility]) [address] [place] [address] 80057 Protein [Mass/Vol] 6.5 g/dL Normal 6.4-8.2 [facility] Comment on above: Performed By: #### 2 4323-8 #### VERITO NINA ([id number]) [facility] ([facility]) [address] [place] [address] 84932 Sodium [Moles/Vol] 139 mmol/L Normal 136-145 [facility] Comment on above: Performed By: #### 2 4323-8 #### VERITO NINA ([id number]) [facility] ([facility]) [address] [place] [address] Urea nitrogen [Mass/Vol] 15 mg/dL Normal 6-23 [facility] Comment on above: Performed By: #### 2 4323-8 #### VERITO NINA ([id number]) [facility] ([facility]) [address] [place] [address] LDH Lactate to pyruvate reac tion [Catalytic activity/Vol]on 08-18-2025 Interpretation and review of laboratory results Normal [facility] Lactate dehydrogenaseon 07-22 LDH Lactate to pyruvate reaction [Catalytic activity/Vol] 193 U/L 84 - 246 U/L [facility] LDH Lactate to pyruvate reaction [Catalytic activity/Vol] 193 U/L Normal 84-246 [facility] Comment on above: Performed By: #### 1 4804-9 #### SELLERS KELLE ([id number]) [facility] ([facility]) [address] [place] [address] Echo Completeon 05-21-2025 Echo Complete [facility] [address] [place] [address] Echo Complete 05/21/25 0817 MR#: [id number] Acct: [id number] Name: JOHANA CHIN Rep #: [id number] : 1940 84 From: Deric Zee MD Attending Dr: Dr. Chanda Shepard MD Status: REG CLI Ordering Dr: Chanda Shepard MD Date: 05/21/25 Location: [facility] Sex: F C Admitted: Reason For Study Reason For Study: CHEST PAIN Procedure This was a 2D Doppler, Color Flow transthoracic echocardiogram. Exam performed in department. Left Ventricle Normal LV size. Left ventricular systolic function is lower limits of normal. The left ventricular ejection fraction is 50 %. There is borderline global hypokinesis of the left ventricle. Right Ventricle Normal RV size. Normal systolic function. Atria Normal left atrium. Normal right atrium. Mitral Valve Normal mitral valve. Mild (1+) eccentric mitral valve insufficiency. Tricuspid Valve Normal tricuspid valve. Aortic Valve Trisinus/trileaflet aortic valve. Mild focal aortic valve thickening. Pulmonic Valve Normal pulmonic valve. Great Vessels Normal aortic root. The pulmonary artery is normal size. Inferior vena cava collapse with respiration. Pericardium/Pleural No pericardial effusion. MMode/2D Measurements Calculations LVIDd: 3.7 cm IVSd: 1.0 cm Ao root diam: 3.3 cm LVIDs: 3.1 cm LVPWd: 1.2 cm RVDd: 3.2 cm FS: 17.5 % LAV(MOD-bp): 39.9 ml LVAd ap4: 26.8 cm2 SV(MOD-sp4): 42.9 ml LAV(MOD-bp) Indexed: 22.8 ml/m2 LVLd ap4: 7.1 cm SI(MOD-sp4): 24.5 ml/m2 LAV(MOD-sp2): 43.9 ml EDV(MOD-sp4): 84.6 ml LAV(MOD-sp4): 34.2 ml EDV(sp4-el): 86.3 ml LVAs ap4: 17.3 cm2 LVLs ap4: 6.0 cm ESV(MOD-sp4): 41.7 ml ESV(sp4-el): 42.3 ml EF(MOD-sp4): 50.7 % EF(sp4-el): 50.9 % SV(sp4-el): 43.9 ml LA A4 area: 15.0 cm2 LA dimension(2D): 3.8 cm RA A4 area: 13.1 cm2 Time Measurements MV dec time: 0.20 sec Doppler Measurements Calculations MV E max sheldon: 44.0 cm/sec Lat Peak E' Sheldon: 7.7 cm/sec Med Peak E' Sheldon: 7.7 cm/sec MV A max sheldon: 88.8 cm/sec E/E' lat: 5.7 E/E' med: 5.7 MV E/A: 0.50 MV V2 max: 98.8 cm/sec Ao V2 max: 92.0 cm/sec MV max P.9 mmHg MV dec slope: 215.1 cm/sec2 Ao max P.4 mmHg MV V2 mean: 47.7 cm/sec Ao V2 mean: 66.6 cm/sec MV mean P.2 mmHg Ao mean P.0 mmHg MV V2 VTI: 28.2 cm Ao V2 VTI: 20.9 cm AV (velocity ratio): 0.82 LV V1 max: 82.8 cm/sec PA V2 max: 120.1 cm/sec TR max sheldon: 232.1 cm/sec LV V1 max P.7 mmHg PA V2 mean: 64.6 cm/sec TR max P.5 mmHg LV V1 mean P.5 mmHg LV V1 mean: 55.6 cm/sec LV V1 VTI: 17.2 cm ECHO/Echo Complete Interpretation Summary Normal LV size. Left ventricular systolic function is lower limits of normal. The left ventricular ejection fraction is 50 %. ___ Ordering Physician: Chanda Shepard V Referring Physician: Chanda Shepard V Performed By: Leeann Cordero RCS 05/21/25 1028 Date Deric Zee MD CC: Dr. Nathalia Ho MD; Dr. Chanda Shepard MD Date Dictated: 05/21/25816 Date Transcribed: 05/21/25 102 Boiler Plant Operator: Signed Normal [facility] Echocardiogram study reportO rdered By: Deric Zee on 05-21-2025 Study report [facility] [address] [place] [address] Echo Complete 05/21/25816 MR#: [id number] Acct: [id number] Name: JOHANA CHIN Rep #:[id number] : 1940 84 From: Deric Giraldo Attending Dr: Dr. Chanda Shepard MD Status: REG CLI Ordering Dr: Chanda Shepard MD Date: 05/21/25 Location: [facility] Sex: F C Admitted: Reason For Study Reason For Study: CHEST PAIN Procedure This was a 2D Doppler, Color Flow transthoracic echocardiogram. Exam performed in department. Left Ventricle Normal LV size. Left ventricular systolic function is lower limits of normal. The left ventricular ejection fraction is 50 %. There is borderline global hypokinesis of the left ventricle. Right Ventricle Normal RV size. Normal systolic function. Atria Normal left atrium. Normal right atrium. Mitral Valve Normal mitral valve. Mild (1+) eccentric mitral valve insufficiency. Tricuspid Valve Normal tricuspid valve. Aortic Valve Trisinus/trileaflet aortic valve. Mild focal aortic valve thickening. Pulmonic Valve Normal pulmonic valve. Great Vessels Normal aortic root. The pulmonary artery is normal size. Inferior vena cava collapse with respiration. Pericardium/Pleural No pericardial effusion. MMode/2D Measurements & Calculations LVIDd: 3.7 cm IVSd: 1.0 cm Ao root diam: 3.3 cm LVIDs: 3.1 cm LVPWd: 1.2 cm RVDd: 3.2 cm FS: 17.5 % LAV(MOD-bp): 39.9 ml LVAd ap4: 26.8 cm2 SV(MOD-sp4): 42.9 ml LAV(MOD-bp) Indexed: 22.8 ml/m2 LVLd ap4: 7.1 cm SI(MOD-sp4): 24.5 ml/m2 LAV(MOD-sp2): 43.9 ml EDV(MOD-sp4): 84.6 ml LAV(MOD-sp4): 34.2 ml EDV(sp4-el): 86.3 ml LVAs ap4: 17.3 cm2 LVLs ap4: 6.0 cm ESV(MOD-sp4): 41.7 ml ESV(sp4-el): 42.3 ml EF(MOD-sp4): 50.7 % EF(sp4-el): 50.9 % SV(sp4-el): 43.9 ml LA A4 area: 15.0 cm2 LA dimension(2D): 3.8 cm RA A4 area: 13.1 cm2 Time Measurements MV dec time: 0.20 sec Doppler Measurements & Calculations MV E max sheldon: 44.0 cm/sec Lat Peak E' Sheldon: 7.7 cm/sec Med Peak E' Sheldon: 7.7 cm/sec MV A max sheldon: 88.8 cm/sec E/E' lat: 5.7 E/E' med: 5.7 MV E/A: 0.50 MV V2 max: 98.8 cm/sec Ao V2 max: 92.0 cm/sec MV max P.9 mmHg MV dec slope: 215.1 cm/sec2 Ao max P.4 mmHg MV V2 mean: 47.7 cm/sec Ao V2 mean: 66.6 cm/sec MV mean P.2 mmHg Ao mean P.0 mmHg MV V2 VTI: 28.2 cm Ao V2 VTI: 20.9 cm AV (velocity ratio): 0.82 LV V1 max: 82.8 cm/sec PA V2 max: 120.1 cm/sec TR max sheldon: 232.1 cm/sec LV V1 max P.7 mmHg PA V2 mean: 64.6 cm/sec TR max P.5 mmHg LV V1 mean P.5 mmHg LV V1 mean: 55.6 cm/sec LV V1 VTI: 17.2 cm ECHO/Echo Complete Interpretation Summary Normal LV size. Left ventricular systolic function is lower limits of normal. The left ventricular ejection fraction is 50 %. ___ Ordering Physician: Chanda Shepard V Referring Physician: Chanda Shepard V Performed By: Leeann Cordero RCS 05/21/25 1028 Date _ Deric Zee MD CC: Dr. Nathalia Ho MD; Dr. Chanda Shepard MD ~ Date Dictated: 05/21/25816 Date Transcribed: 05/21/25 102 Boiler Plant Operator: Signed [facility] Work Phone: ANTINUCLEAR ANTIBODIES DIREC Ton 04-19-2025 CHINEDU,DIRECT Negative Normal Negative [facility] Comment on above: Result Comment: Perf ormed at: - [facility] [address] [id number] Tool Pusher: Bronson Mejia PhD, Phone: [phone] Performed By: #### L 232.6823, F438.7116, R053.3942, L3100.6900, L3100.5475 #### [facility] [address] [place], [address] Angiotensin Convert Enzymeon 04-19-2025 ANGIOT-CONV.ENZ 56 U/L Normal 14-82 [facility] Comment on above: Result Comment: Perf ormed at: [facility] [id number] Tool Pusher: Bronson Mejia PhD, Phone: [phone] Performed By: #### L 101.9900, L501.6710, L505.7010, L3100.6900, L3100.5475 #### [facility] [address] [place], [place], [id number] CRPon 04-16-2025 C-REACTIVE PROT < 3.00 Normal 0.0-3.0 [facility] Comment on above: Performed By: #### L 101.9900, L501.6710, L505.7010, L3100.6900, L3100.5475 #### [facility] [address] [place], [place], [id number] Erythrocyte Sed Rateon 04-16 SED RATE 34 mm/hr High 0-30 [facility] Comment on above: Performed By: #### L 101.9900, L501.6710, L505.7010, L3100.6900, L3100.5475 #### [facility] [address] [place], [place], [address] Erythrocyte sedimentation ra teOrdered By: Chanda Shepard on 04-16-2025 ESR (Bld) [Velocity] 34 mm/h High 0-30 [facility] Rheumatoid Factoron 04-16-20 25 RHEUMATOID FAC 57.2 IU/mL High <15 [facility] Comment on above: Performed By: #### L 101.9900, L501.6710, L505.7010, L3100.6900, L3100.5475 #### [facility] [address] [place], [address] Serum or plasma C reactive p rotein measurement (mass/volume)Ordered By: Chanda Shepard on 04-16-2025 CRP [Mass/Vol] mg/L 0.0-3.0 [facility] Serum or plasma angiotensin converting enzyme measurement (enzymatic activity/volume)Ordered By: Chanda Shepard on 04-16-2025 Angiotensin converting enzyme [Catalytic activity/Vol] 56 U/L 14-82 [facility] Comment on above: Performed at: [address] [id number] Director: Bronson Mejia PhD, Phone: [phone] Serum rheumatoid factor dete ctionOrdered By: Chanda Shepard on 04-16-2025 Rheumatoid factor Ql (S) 57.2 IU/mL High <15 [facility] CBC W Auto Differential pane l (Bld)on 03-04-2025 Basophils (Bld) [#/Vol] 0.05 x10*3/uL Normal 0.00-0.10 [facility] Comment on above: Performed By: #### 5 7021-8 #### VERITO NINA ([id number]) [facility] ([facility]) [address] [place] [address] Basophils/100 WBC (Bld) 0.5 % Normal 0.0-2.0 [facility] Comment on above: Performed By: #### 5 7021-8 #### VERITO NINA ([id number]) [facility] ([facility]) [address] [place] [address] Eosinophils (Bld) [#/Vol] 0.29 x10*3/uL Normal 0.00-0.40 [facility] Comment on above: Performed By: #### 5 7021-8 #### VERITO NINA ([id number]) [facility] ([facility]) [address] [place] [address] Eosinophils/100 WBC (Bld) 3.1 % Normal 0.0-6.0 [facility] Comment on above: Performed By: #### 5 7021-8 #### VERITO NINA ([id number]) [facility] ([facility]) [address] [place] [address] Erythrocyte distribution width (RBC) [Ratio] 14.6 % High 11.5-14.5 [facility] Comment on above: Performed By: #### 5 7021-8 #### VERITO NINA ([id number]) [facility] ([facility]) [address] [place] [address] Hematocrit (Bld) [Volume fraction] 44.8 % Normal 36.0-46.0 [facility] Comment on above: Performed By: #### 5 7021-8 #### VERITO NINA ([id number]) [facility] ([facility]) [address] [place] [address] Hemoglobin (Bld) [Mass/Vol] 14.6 g/dL Normal 12.0-16.0 [facility] Comment on above: Performed By: #### 5 7021-8 #### VERITO NINA ([id number]) [facility] ([facility]) [address] [place] [address] Immature granulocytes (Bld) [#/Vol] 0.04 x10*3/uL Normal 0.00-0.50 [facility] Comment on above: Performed By: #### 5 7021-8 #### VERITO NINA ([id number]) [facility] ([facility]) [address] [place] [address] Immature granulocytes/100 WBC (Bld) 0.4 % Normal 0.0-0.9 [facility] Comment on above: Result Comment: Ban ture Granulocyte Count (IG) includes promyelocytes, myelocytes and metamyelocytes but does not include bands. Percent differential counts (%) should be interpreted in the context of the absolute cell counts (cells/UL). Performed By: #### 5 7021-8 #### VERITO NINA ([id number]) [facility] ([facility]) [address] [place] [address] Lymphocytes (Bld) [#/Vol] 2.15 x10*3/uL Normal 0.80-3.00 [facility] Comment on above: Performed By: #### 5 7021-8 #### VERITO NINA ([id number]) [facility] ([facility]) [address] [place] [address]7520 Lymphocytes/100 WBC (Bld) 23.0 % Normal 13.0-44.0 [facility] Comment on above: Performed By: #### 5 7021-8 #### VERITO NINA ([id number]) [facility] ([facility]) [address] [place] [address]105 MCH (RBC) [Entitic mass] 28.5 pg Normal 26.0-34.0 [facility] Comment on above: Performed By: #### 5 7021-8 #### VERITO NINA ([id number]) [facility] ([facility]) [address] [place] [address] 40155 MCHC (RBC) [Mass/Vol] 32.6 g/dL Normal 32.0-36.0 [facility] Comment on above: Performed By: #### 5 7021-8 #### VERITO NINA ([id number]) [facility] ([facility]) [address] [place] [address]3388 MCV (RBC) [Entitic vol] 87 fL Normal 80-100 [facility] Comment on above: Performed By: #### 5 7021-8 #### VERITO NINA ([id number]) [facility] ([facility]) [address] [place] [address] 53897 Monocytes (Bld) [#/Vol] 0.83 x10*3/uL High 0.05-0.80 [facility] Comment on above: Performed By: #### 7021-8 #### VERITO NINA ([id number]) [facility] ([facility]) [address] [place] [address] 13817 Monocytes/100 WBC (Bld) 8.9 % Normal 2.0-10.0 [facility] Comment on above: Performed By: #### 5 7021-8 #### VERITO NINA ([id number]) [facility] ([facility]) [address] [place] [address] 48628 Neutrophils (Bld) [#/Vol] 5.97 x10*3/uL High 1.60-5.50 [facility] Comment on above: Result Comment: Perc ent differential counts (%) should be interpreted in the context of the absolute cell counts (cells/uL). Performed By: #### 5 7021-8 #### VERITO NINA ([id number]) [facility] ([facility]) [address] [place] [address] 74782 Neutrophils/100 WBC (Bld) 64.1 % Normal 40.0-80.0 [facility] Comment on above: Performed By: #### 5 7021-8 #### VERITO NINA ([id number]) [facility] ([facility]) [address] [place] [address]35 Nucleated RBC/100 WBC (Bld) [Ratio] 0.0 /100 WBCs Normal 0.0-0.0 [facility] Comment on above: Performed By: #### 5 7021-8 #### VERITO NINA ([id number]) [facility] ([facility]) [address] [place] [address]44 Platelets (Bld) [#/Vol] 236 x10*3/uL Normal 150-450 [facility] Comment on above: Performed By: #### 5 7021-8 #### VERITO NINA ([id number]) [facility] ([facility]) [address] [place] [address] 95962 RBC (Bld) [#/Vol] 5.13 x10*6/uL Normal 4.00-5.20 [facility] Comment on above: Performed By: #### 5 7021-8 #### VERITO NINA ([id number]) [facility] ([facility]) [address] [place] [address] 13953 WBC (Bld) [#/Vol] 9.3 x10*3/uL Normal 4.4-11.[address] [facility] Comment on above: Performed By: #### 5 7021-8 #### VERITO NINA ([id number]) [facility] ([facility]) [address] [place] [address] Comprehensive metabolic 2000 panelon 03-04-2025 Albumin BCP dye [Mass/Vol] 4.0 g/dL Normal 3.4-5.0 [facility] Comment on above: Performed By: #### 2 4323-8 #### VERITO NINA ([id number]) [facility] ([facility]) [address] [place] [address] ALP [Catalytic activity/Vol] 64 U/L Normal 33-136 [facility] Comment on above: Performed By: #### 2 4323-8 #### VERITO NINA ([id number]) [facility] ([facility]) [address] [place] [address]7637 ALT With P-5'-P [Catalytic activity/Vol] 13 U/L Normal 7-45 [facility] Comment on above: Result Comment: Duyen ents treated with Sulfasalazine may generate falsely decreased results for ALT. Performed By: #### 2 4323-8 #### VERITO NINA ([id number]) [facility] ([facility]) [address] [place] [address] Anion gap [Moles/Vol] 11 mmol/L Normal 10-20 [facility] Comment on above: Performed By: #### 2 4323-8 #### VERITO NINA ([id number]) [facility] ([facility]) [facility] [place] [address] AST With P-5'-P [Catalytic activity/Vol] 21 U/L Normal 9-39 [facility] Comment on above: Performed By: #### 2 4323-8 #### VERITO NINA ([id number]) [facility] ([facility]) [address] [place] [address] Bilirubin [Mass/Vol] 0.5 mg/dL Normal 0.0-1.2 [facility] Comment on above: Performed By: #### 2 4323-8 #### VERITO NINA ([id number]) [facility] ([facility]) [address] [place] [address] Calcium [Mass/Vol] 9.7 mg/dL Normal 8.6-10.3 [facility] Comment on above: Performed By: #### 2 4323-8 #### VERITO NINA ([id number]) [facility] ([facility]) [address] [place] [address] Chloride [Moles/Vol] 105 mmol/L Normal 98-107 [facility] Comment on above: Performed By: #### 2 4323-8 #### VERITO NINA ([id number]) [facility] ([facility]) [facility] [place] [address] CO2 [Moles/Vol] 26 mmol/L Normal 21-32 [facility] Comment on above: Performed By: #### 2 4323-8 #### VERITO NINA ([id number]) [facility] ([facility]) [address] [place] [address]2740 Creatinine [Mass/Vol] 0.85 mg/dL Normal 0.50-1.05 [facility] Comment on above: Performed By: #### 2 4323-8 #### VERITO NINA ([id number]) [facility] ([facility]) [address] [place] [address]01 Glomerular filtration rate/1.73 sq M.predicted 69 mL/min/1.73m*2 Normal >60 [facility] Comment on above: Result Comment: Calc ulations of estimated GFR are performed using the 2020 CKD-EPI Study Refit equation without the race variable for the IDMS-Traceable creatinine methods. https://jasn.asnjournals.org/content/early//ASN.75943 54359 Performed By: #### 2 4323-8 #### VERITO NINA ([id number]) [facility] ([facility]) [address] [place] [address]386 Glucose [Mass/Vol] 92 mg/dL Normal 74-99 [facility] Comment on above: Performed By: #### 2 4323-8 #### VERITO NINA ([id number]) [facility] ([facility]) [address] [place] [address] 61025 Potassium [Moles/Vol] 4.1 mmol/L Normal 3.5-5.3 [facility] Comment on above: Performed By: #### 2 4323-8 #### VERITO NINA ([id number]) [facility] ([facility]) [address] [place] [address] 48724 Protein [Mass/Vol] 6.9 g/dL Normal 6.4-8.2 [facility] Comment on above: Performed By: #### 2 4323-8 #### VERITO NINA ([id number]) [facility] ([facility]) [address] [place] [address] 97509 Sodium [Moles/Vol] 138 mmol/L Normal 136-145 [facility] Comment on above: Performed By: #### 2 4323-8 #### VERITO NINA ([id number]) [facility] ([facility]) [address] [place], [place] [address] Urea nitrogen [Mass/Vol] 11 mg/dL Normal 6-23 [facility] Comment on above: Performed By: #### 2 4323-8 #### VERITO NINA ([id number]) [facility] ([facility]) [address] [place] [address] Lactate dehydrogenaseon 05- LDH Lactate to pyruvate reaction [Catalytic activity/Vol] 180 U/L Normal 84-246 [facility] Comment on above: Performed By: #### 1 4804-9 #### VERITO NINA ([id number]) [facility] ([facility]) [address] [place] [address] CHEST ABDOMEN PELVIS W IV CONTRASTon 09-21-2024 CT CHEST ABDOMEN PELVIS W IV CONTRAST Interpreted By: Franck Moore and Ebai Jerky STUDY: CT CHEST ABDOMEN PELVIS W IV [...] surveillance. COMPARISON: 03/23/2024 and 02/11/2021. ACCESSION NUMBER(S): [id number] ORDERING CLINICIAN: GOMEZ SANTA TECHNIQUE: Contiguous axial [...] Franck Moore 09/23/2024 7:25 PM Dictation workstation: [id number] Normal [facility] CBC W Auto Differential pane l (Bld)on 09-07-2024 Basophils (Bld) [#/Vol] 0.07 x10*3/uL Normal 0.00-0.10 [facility] Comment on above: Performed By: #### 5 7021-8 #### VERITO NINA ([id number]) [facility] ([facility]) [address] [place] [address]33 Basophils/100 WBC (Bld) 0.9 % Normal 0.0-2.0 [facility] Comment on above: Performed By: #### 5 7021-8 #### VERITO NINA ([id number]) [facility] ([facility]) [address] [place] [address] 08378 Eosinophils (Bld) [#/Vol] 0.32 x10*3/uL Normal 0.00-0.40 [facility] Comment on above: Performed By: #### 5 7021-8 #### VERITO NINA ([id number]) [facility] ([facility]) [address] [place] [address] 25318 Eosinophils/100 WBC (Bld) 4.0 % Normal 0.0-6.0 [facility] Comment on above: Performed By: #### 5 7021-8 #### VERITO NINA ([id number]) [facility] ([facility]) [address] [place] [address] 19437 Erythrocyte distribution width (RBC) [Ratio] 15.5 % High 11.5-14.5 [facility] Comment on above: Performed By: #### 5 7021-8 #### VERITO NINA (81012) [facility] ([facility]) [address] [place] [address] 94569 Hematocrit (Bld) [Volume fraction] 46.5 % High 36.0-46.0 [facility] Comment on above: Performed By: #### 5 7021-8 #### VERITO NINA ([id number]) [facility] ([facility]) [address] [place] [address] 23910 Hemoglobin (Bld) [Mass/Vol] 14.9 g/dL Normal 12.0-16.0 [facility] Comment on above: Performed By: #### 5 7021-8 #### VERITO NINA ([id number]) [facility] ([facility]) [address] [place] [address] 80318 Immature granulocytes (Bld) [#/Vol] 0.04 x10*3/uL Normal 0.00-0.50 [facility] Comment on above: Performed By: #### 5 7021-8 #### VERITO NINA ([id number]) [facility] ([facility]) [address] [place] [address] 32634 Immature granulocytes/100 WBC (Bld) 0.5 % Normal 0.0-0.9 [facility] Comment on above: Result Comment: Ban ture Granulocyte Count (IG) includes promyelocytes, myelocytes and metamyelocytes but does not include bands. Percent differential counts (%) should be interpreted in the context of the absolute cell counts (cells/UL). Performed By: #### 5 7021-8 #### VERITO NINA ([id number]) [facility] ([facility]) [address] [place] [address] Lymphocytes (Bld) [#/Vol] 1.51 x10*3/uL Normal 0.80-3.00 [facility] Comment on above: Performed By: #### 5 7021-8 #### VERITO NINA ([id number]) [facility] ([facility]) [address] [place] [address] Lymphocytes/100 WBC (Bld) 18.8 % Normal 13.0-44.0 [facility] Comment on above: Performed By: #### 5 7021-8 #### VERITO NINA ([id number]) [facility] ([facility]) [address] [place] [address] MCH (RBC) [Entitic mass] 29.0 pg Normal 26.0-34.0 [facility] Comment on above: Performed By: #### 5 7021-8 #### VERITO NINA ([id number]) [facility] ([facility]) [address] [place] [address] MCHC (RBC) [Mass/Vol] 32.0 g/dL Normal 32.0-36.0 [facility] Comment on above: Performed By: #### 5 7021-8 #### VERITO NINA ([id number]) [facility] ([facility]) [address] [place] [address] MCV (RBC) [Entitic vol] 91 fL Normal 80-100 [facility] Comment on above: Performed By: #### 5 7021-8 #### VERITO NINA ([id number]) [facility] ([facility]) [address] [place] [address] Monocytes (Bld) [#/Vol] 0.76 x10*3/uL Normal 0.05-0.80 [facility] Comment on above: Performed By: #### 5 7021-8 #### VERITO NINA ([id number]) [facility] ([facility]) [address] [place] [id number] Monocytes/100 WBC (Bld) 9.5 % Normal 2.0-10.0 [facility] Comment on above: Performed By: #### 5 7021-8 #### VERITO NINA ([id number]) [facility] ([facility]) [address] [place] [id number] Neutrophils (Bld) [#/Vol] 5.34 x10*3/uL Normal 1.60-5.50 [facility] Comment on above: Result Comment: Perc ent differential counts (%) should be interpreted in the context of the absolute cell counts (cells/uL). Performed By: #### 5 7021-8 #### VERITO NINA ([id number]) [facility] ([facility]) [address] [place] [id number] Neutrophils/100 WBC (Bld) 66.3 % Normal 40.0-80.0 [facility] Comment on above: Performed By: #### 5 7021-8 #### VERITO NINA ([id number]) [facility] ([facility]) [address] [place] [address] 35054 Nucleated RBC/100 WBC (Bld) [Ratio] 0.0 /100 WBCs Normal 0.0-0.0 [facility] Comment on above: Performed By: #### 5 7021-8 #### VERITO NINA ([id number]) [facility] ([facility]) [address] [place] [address] 41792 Platelets (Bld) [#/Vol] 240 x10*3/uL Normal 150-450 [facility] Comment on above: Performed By: #### 5 7021-8 #### VERITO NINA ([id number]) [facility] ([facility]) [address] [place] [address] 49277 RBC (Bld) [#/Vol] 5.13 x10*6/uL Normal 4.00-5.20 [facility] Comment on above: Performed By: #### 5 7021-8 #### VERITO NINA ([id number]) [facility] ([facility]) [address] [place] [address] 71154 WBC (Bld) [#/Vol] 8.0 x10*3/uL Normal 4.4-11.[address] [facility] Comment on above: Performed By: #### 5 7021-8 #### VERITO NINA ([id number]) [facility] ([facility]) [address] [place] [address] Comprehensive metabolic 2000 panelon 09-07-2024 Albumin BCP dye [Mass/Vol] 3.9 g/dL Normal 3.4-5.0 [facility] Comment on above: Performed By: #### 2 4323-8 #### VERITO NINA ([id number]) [facility] ([facility]) [address] [place] [address] ALP [Catalytic activity/Vol] 68 U/L Normal 33-136 [facility] Comment on above: Performed By: #### 2 4323-8 #### VERITO NINA ([id number]) [facility] ([facility]) [address] [place] [address] 32815 ALT With P-5'-P [Catalytic activity/Vol] 15 U/L Normal 7-45 [facility] Comment on above: Result Comment: Duyen ents treated with Sulfasalazine may generate falsely decreased results for ALT. Performed By: #### 2 4323-8 #### VERITO NINA ([id number]) [facility] ([facility]) [address] [place] [address] 99709 Anion gap [Moles/Vol] 10 mmol/L Normal 10-20 [facility] Comment on above: Performed By: #### 2 4323-8 #### VERITO NINA ([id number]) [facility] ([facility]) [address] [place] [address] 90506 AST With P-5'-P [Catalytic activity/Vol] 20 U/L Normal 9-39 [facility] Comment on above: Performed By: #### 2 4323-8 #### VERITO NINA ([id number]) [facility] ([facility]) [address] [place] [address] Bilirubin [Mass/Vol] 0.5 mg/dL Normal 0.0-1.2 [facility] Comment on above: Performed By: #### 2 4323-8 #### VERITO NINA ([id number]) [facility] ([facility]) [address] [place] [address] 51982 Calcium [Mass/Vol] 9.7 mg/dL Normal 8.6-10.3 [facility] Comment on above: Performed By: #### 2 4323-8 #### VERITO NINA ([id number]) [facility] ([facility]) [address] [place] [address] 01232 Chloride [Moles/Vol] 104 mmol/L Normal 98-107 [facility] Comment on above: Performed By: #### 2 4323-8 #### VERITO NINA ([id number]) [facility] ([facility]) [address] [place] [address] 01854 CO2 [Moles/Vol] 30 mmol/L Normal 21-32 [facility] Comment on above: Performed By: #### 2 4323-8 #### VERITO NINA ([id number]) [facility] ([facility]) [address] [place] [address] 13337 Creatinine [Mass/Vol] 1.06 mg/dL High 0.50-1.05 [facility] Comment on above: Performed By: #### 2 4323-8 #### VERITO NINA ([id number]) [facility] ([facility]) [address] [place] [address] 91679 Glomerular filtration rate/1.73 sq M.predicted 53 mL/min/1.73m*2 Low >60 [facility] Comment on above: Result Comment: Calc ulations of estimated GFR are performed using the 2020 CKD-EPI Study Refit equation without the race variable for the IDMS-Traceable creatinine methods. https://jasn.asnjournals.org/content//ASN.54575 39947 Performed By: #### 2 4323-8 #### VERITO NINA ([id number]) [facility] ([facility]) [address] [place] [address] 52437 Glucose [Mass/Vol] 97 mg/dL Normal 74-99 [facility] Comment on above: Performed By: #### 2 4323-8 #### VERITO NINA ([id number]) [facility] ([facility]) [address] [place] [address] 00629 Potassium [Moles/Vol] 4.8 mmol/L Normal 3.5-5.3 [facility] Comment on above: Performed By: #### 2 432-8 #### VERITO NINA ([id number]) [facility] ([facility]) [address] [place] [address] 17046 Protein [Mass/Vol] 6.9 g/dL Normal 6.4-8.2 [facility] Comment on above: Performed By: #### 2 4323-8 #### VERITO NINA ([id number]) [facility] ([facility]) [address] [place] [address] 01119 Sodium [Moles/Vol] 139 mmol/L Normal 136-145 [facility] Comment on above: Performed By: #### 2 4323-8 #### VERITO NINA ([id number]) [facility] ([facility]) [address] [place] [address] 97768 Urea nitrogen [Mass/Vol] 16 mg/dL Normal 6-23 [facility] Comment on above: Performed By: #### 2 4323-8 #### VERITO NINA ([id number]) [facility] ([facility]) [address] [place] [address] 64963 Lactate dehydrogenaseon 08-21 LDH Lactate to pyruvate reaction [Catalytic activity/Vol] 165 U/L Normal 84-246 [facility] Comment on above: Performed By: #### 1 4804-9 #### SELLERS KELLE ([id number]) [facility] ([facility]) [address] [place] [address] Echo, Limited Studyon 2023 Echo, Limited Study [facility] [address] [place] [address] Echo, Limited Study 07/08/24 1414 MR#: [id number] Acct: [id number] Name: JOHANA CHIN Rep #: [id number] : 1940 83 From: Roberto Liang MD Attending Dr: Dr. Nathalia Ho MD Status: REG C Ordering Dr: Nathalia Ho MD Date: 07/08/24 Location: [facility] Sex: F C Admitted: Reason For Study: [...] Ho Performed By: Catina Roy, ROBIN, RVT 07/08/241640 Date Roberto Liang MD CC: Dr. Nathalia Ho MD Date Dictated: 07/08/241413 Date Transcribed: 07/08/241640 [employer] Operator: Signed Normal [facility] CBC W Auto Differential pane l (Bld)on 03-03-2024 Basophils (Bld) [#/Vol] 0.07 x10*3/uL Normal 0.00-0.10 [facility] Comment on above: Performed By: #### 5 7021-8 #### LARRY Pagan ([id number]) [facility] ([facility]) [address] [place] [address] 90145 Basophils/100 WBC (Bld) 0.8 % Normal 0.0-2.0 [facility] Comment on above: Performed By: #### 5 7021-8 #### LARRY Pagan ([id number]) [facility] ([facility]) [address] [place] [address] 41456 Eosinophils (Bld) [#/Vol] 0.20 x10*3/uL Normal 0.00-0.40 [facility] Comment on above: Performed By: #### 5 7021-8 #### LARRY Pagan ([id number]) [facility] ([facility]) [address] [place] [address] 71918 Eosinophils/100 WBC (Bld) 2.3 % Normal 0.0-6.0 [facility] Comment on above: Performed By: #### 5 7021-8 #### LARRY Pagan ([id number]) [facility] ([facility]) [address] [place] [address] 43364 Erythrocyte distribution width (RBC) [Ratio] 14.5 % Normal 11.5-14.5 [facility] Comment on above: Performed By: #### 5 7021-8 #### LARRY Pagan ([id number]) [facility] ([facility]) [address] [place] [address] 09015 Hematocrit (Bld) [Volume fraction] 47.2 % High 36.0-46.0 [facility] Comment on above: Performed By: #### 5 7021-8 #### LARRY Pagan ([id number]) [facility] ([facility]) [address] [place] [address] 12998 Hemoglobin (Bld) [Mass/Vol] 15.4 g/dL Normal 12.0-16.0 [facility] Comment on above: Performed By: #### 5 7021-8 #### LARRY Pagan ([id number]) [facility] ([facility]) [address] [place] [address] 07589 Immature granulocytes (Bld) [#/Vol] 0.04 x10*3/uL Normal 0.00-0.50 [facility] Comment on above: Performed By: #### 5 7021-8 #### LARRY Pagan ([id number]) [facility] ([facility]) [address] [place] [address] 36354 Immature granulocytes/100 WBC (Bld) 0.5 % Normal 0.0-0.9 [facility] Comment on above: Result Comment: Ban ture Granulocyte Count (IG) includes promyelocytes, myelocytes and metamyelocytes but does not include bands. Percent differential counts (%) should be interpreted in the context of the absolute cell counts (cells/UL). Performed By: #### 5 7021-8 #### LARRY Pagan ([id number]) [facility] ([facility]) [address] [place] [address] 34811 Lymphocytes (Bld) [#/Vol] 2.08 x10*3/uL Normal 0.80-3.00 [facility] Comment on above: Performed By: #### 5 7021-8 #### LARRY Pagan ([id number]) [facility] ([facility]) [address] [place] [address] 44570 Lymphocytes/100 WBC (Bld) 24.2 % Normal 13.0-44.0 [facility] Comment on above: Performed By: #### 5 7021-8 #### LARRY Pagan ([id number]) [facility] ([facility]) [address] [place] [address] 76310 MCH (RBC) [Entitic mass] 29.1 pg Normal 26.0-34.0 [facility] Comment on above: Performed By: #### 5 7021-8 #### LARRY Pagan ([id number]) [facility] ([facility]) [address] [place] [address] 43078 MCHC (RBC) [Mass/Vol] 32.6 g/dL Normal 32.0-36.0 [facility] Comment on above: Performed By: #### 5 7021-8 #### LARRY Pagan ([id number]) [facility] ([facility]) [address] [place] [address] 59101 MCV (RBC) [Entitic vol] 89 fL Normal 80-100 [facility] Comment on above: Performed By: #### 5 7021-8 #### LARRY Pagan ([id number]) [facility] ([facility]) [address] [place] [address] 84728 Monocytes (Bld) [#/Vol] 0.76 x10*3/uL Normal 0.05-0.80 [facility] Comment on above: Performed By: #### 5 7021-8 #### LARRY Pagan ([id number]) [facility] ([facility]) [address] [place] [address] 41078 Monocytes/100 WBC (Bld) 8.8 % Normal 2.0-10.0 [facility] Comment on above: Performed By: #### 5 7021-8 #### LARRY Pagan ([id number]) [facility] ([facility]) [address] [place] [address] Neutrophils (Bld) [#/Vol] 5.44 x10*3/uL Normal 1.60-5.50 [facility] Comment on above: Result Comment: Perc ent differential counts (%) should be interpreted in the context of the absolute cell counts (cells/uL). Performed By: #### 5 7021-8 #### LARRY Pagan ([id number]) [facility] ([facility]) [address] [place] [address] Neutrophils/100 WBC (Bld) 63.4 % Normal 40.0-80.0 [facility] Comment on above: Performed By: #### 5 7021-8 #### LARRY Pagan ([id number]) [facility] ([facility]) [address] [place] [address] 45188 Nucleated RBC/100 WBC (Bld) [Ratio] 0.0 /100 WBCs Normal 0.0-0.0 [facility] Comment on above: Performed By: #### 5 7021-8 #### LARRY Pagan ([id number]) [facility] ([facility]) [address] [place] [address] Platelets (Bld) [#/Vol] 240 x10*3/uL Normal 150-450 [facility] Comment on above: Performed By: #### 5 7021-8 #### LARRY Pagan ([id number]) [facility] ([facility]) [address] [place] [address] 71328 RBC (Bld) [#/Vol] 5.29 x10*6/uL High 4.00-5.20 [facility] Comment on above: Performed By: #### 5 7021-8 #### LARRY Pagan ([id number]) [facility] ([facility]) [address] [place] [address] WBC (Bld) [#/Vol] 8.6 x10*3/uL Normal 4.4-11.[address] [facility] Comment on above: Performed By: #### 5 7021-8 #### LARRY Pagan ([id number]) [facility] ([facility]) [address] [place] [address] 30770 Comprehensive metabolic 2000 panelon 03-03-2024 Albumin BCP dye [Mass/Vol] 4.2 g/dL Normal 3.4-5.0 [facility] Comment on above: Performed By: #### 2 4323-8 #### LARRY Pagan ([id number]) [facility] ([facility]) [address] [place] [address] ALP [Catalytic activity/Vol] 70 U/L Normal 33-136 [facility] Comment on above: Performed By: #### 2 4323-8 #### LARRY Pagan ([id number]) [facility] ([facility]) [address] [place] [address] 83276 ALT With P-5'-P [Catalytic activity/Vol] 16 U/L Normal 7-45 [facility] Comment on above: Result Comment: Duyen ents treated with Sulfasalazine may generate falsely decreased results for ALT. Performed By: #### 2 4323-8 #### LARRY Pagan (55657) [facility] ([facility]) [address] [place] [address] Anion gap [Moles/Vol] 14 mmol/L Normal 10-20 [facility] Comment on above: Performed By: #### 2 4323-8 #### LARRY Pagan ([id number]) [facility] ([facility]) [address] [place] [address] AST With P-5'-P [Catalytic activity/Vol] 20 U/L Normal 9-39 [facility] Comment on above: Performed By: #### 2 4323-8 #### LARRY Pagan ([id number]) [facility] ([facility]) [address] [place] [address] Bilirubin [Mass/Vol] 0.7 mg/dL Normal 0.0-1.2 [facility] Comment on above: Performed By: #### 2 4323-8 #### LARRY BERMANER L (52672) [facility] ([facility]) [address] [place] [address] Calcium [Mass/Vol] 10.0 mg/dL Normal 8.6-10.6 [facility] Comment on above: Performed By: #### 2 4323-8 #### LARRY SCHMOTZER L (58102) [facility] ([facility]) [address] [place] [address] 57879 Chloride [Moles/Vol] 102 mmol/L Normal 98-107 [facility] Comment on above: Performed By: #### 2 4323-8 #### LARRY HAIRMOTZER L ([id number]) [facility] ([facility]) [address] [place] [address] 09439 CO2 [Moles/Vol] 28 mmol/L Normal 21-32 [facility] Comment on above: Performed By: #### 2 4323-8 #### LARRY HAIRMOTZER L (74923) [facility] ([facility]) [address] [place] [address] Creatinine [Mass/Vol] 0.87 mg/dL Normal 0.50-1.05 [facility] Comment on above: Performed By: #### 2 4323-8 #### LARRY HAIRMOTZER L (05893) [facility] ([facility]) [address] [place] [address] 50122 Glomerular filtration rate/1.73 sq M.predicted 67 mL/min/1.73m*2 Normal >60 [facility] Comment on above: Result Comment: Calc ulations of estimated GFR are performed using the 2020 CKD-EPI Study Refit equation without the race variable for the IDMS-Traceable creatinine methods. https://jasn.asnjournals.org/content//ASN.41063 95499 Performed By: #### 2 4323-8 #### LARRY HAIRMOTZER L ([id number]) [facility] ([facility]) [address] [place] [address] Glucose [Mass/Vol] 94 mg/dL Normal 74-99 [facility] Comment on above: Performed By: #### 2 4323-8 #### LARRY Pagan ([id number]) [facility] ([facility]) [address] [place] [address] 37030 Potassium [Moles/Vol] 4.4 mmol/L Normal 3.5-5.3 [facility] Comment on above: Performed By: #### 2 4323-8 #### LARRY Pagan ([id number]) [facility] ([facility]) [address] [place] [address] 68275 Protein [Mass/Vol] 7.5 g/dL Normal 6.4-8.2 [facility] Comment on above: Performed By: #### 2 4323-8 #### LARRY Pagan ([id number]) [facility] ([facility]) [address] [place] [address] 65353 Sodium [Moles/Vol] 140 mmol/L Normal 136-145 [facility] Comment on above: Performed By: #### 2 4323-8 #### LARRY Pagan ([id number]) [facility] ([facility]) [address] [place] [address] 10028 Urea nitrogen [Mass/Vol] 20 mg/dL Normal 6-23 [facility] Comment on above: Performed By: #### 2 4323-8 #### LARRY Pagan ([id number]) [facility] ([facility]) [address] [place] [address] 57793 Lactate dehydrogenaseon 02-18 LDH Lactate to pyruvate reaction [Catalytic activity/Vol] 175 U/L Normal 84-246 [facility] Comment on above: Performed By: #### 1 4804-9 #### LARRY Pagan ([id number]) [facility] ([facility]) [address] [place] [address] 46712 Lipid 1996 panelon Cholesterol [Mass/Vol] 322 mg/dL High 0-199 Un [facility] Comment on above: Result Comment: Age Desirable [...] By: #### 2 4331-1 #### LARRY Pagan ([id number]) [facility] ([facility]) [address] [place] [address] 74855 Cholesterol in HDL [Mass/Vol] 78.4 mg/dL Normal [facility] Comment on above: Result Comment: Age Very Low Low Normal High 0-19 Y < 35 < 40 40-45 ---- 20-24 Y ---- < 40 >45 ---- >24 Y ---- < 40 40-60 >60 Performed By: #### 2 4331-1 #### LARRY Pagan ([id number]) [facility] ([facility]) [address] [place] [address] 13810 Cholesterol in LDL [Mass/Vol] 217 mg/dL High <=99 [facility] Comment on above: Result Comment: Near Borderline AGE Desirable Optimal High High Very High 0-19 Y 0 - 109 --- 110-129 >/= 130 ---- 20-24 Y 0 - 119 --- 120-159 >/= 160 ---- >24 Y 0 - 99 100-129 130-159 160-189 >/=190 Performed By: #### 2 4331-1 #### LARRY Pagan ([id number]) [facility] ([facility]) [address] [place] [address] 76415 Cholesterol in VLDL [Mass/Vol] 26 mg/dL Normal 0-40 [facility] Comment on above: Performed By: #### 2 4331-1 #### LARRY Pagan ([id number]) [facility] ([facility]) [address] [place] [address] CHOLESTEROL/HDL RATIO 4.1 Normal [facility] Comment on above: Result Comment: Ref Values Desirable < 3.4 High Risk > 5.0 Performed By: #### 2 4331-1 #### LARRY Pagan ([id number]) [facility] ([facility]) [address] [place] [address] 40106 NON HDL CHOLESTEROL 244 mg/dL High 0-[address] [facility] Comment on above: Result Comment: Age Desirable Borderline High High Very High 0-19 Y 0 - 119 120 - 144 >/= 145 >/= 160 20-24 Y 0 - 149 150 - 189 >/= 190 ---- >24 Y 30 mg/dL above LDL Cholesterol goal Performed By: #### 2 4331-1 #### LARRY Pagan ([id number]) [facility] ([facility]) [address] [place] [address] 53927 Triglyceride [Mass/Vol] 132 mg/dL Normal 0-149 [facility] Comment on above: Result Comment: Age Desirable [...] By: #### 2 4331-1 #### LARRY Pagan ([id number]) [facility] ([facility]) [address] [place] [address] Thyrotropinon 03-03-2024 TSH Qn 2.30 m[IU]/L Normal 0.44-3.98 [facility] Comment on above: Order Comment: TSH t esting is performed using different testing methodology at [facility] than at other [facility]. Direct result comparisons should only be made within the same method. Performed By: #### 3 016-3 #### LARRY Pagan ([id number]) [facility] ([facility]) [address] [place] [id number] Thyroxine.freeon 03-03-2024 Free T4 [Mass/Vol] 1.22 ng/dL Normal 0.78-1.48 [facility] Comment on above: Order Comment: Thyro xine Free testing is performed using different testing methodology at [facility] than at other [facility]. Direct result comparisons should only be made within the same method. Performed By: #### 3 024-7 #### LARRY Pagan ([id number]) [facility] ([facility]) [address] [place], [place] [id number] Measure post void residualon 12-05-2023 84 me [facility] Work Phone: [facility] Work Phone: Absolute lymphocyte countOrd ered By: Cesario Real on 08-25-2023 Lymphocytes Auto (Unsp spec) [#/Vol] 1.32 10*3/uL 0.83-4.51 [facility] Basophil percentageOrdered B y: Cesario Real on 08-25-2023 Basophil percentage 0-5 SEEN /hpf 0-5 [facility] Basophils/100 WBC (Bld) 0.6 % 0-1 [facility] Chloride [Moles/Vol] 101 mmol/L 98-107 [facility] Eosinophils/100 WBC (Bld) 0.5 % 0-5 [facility] Glucose [Mass/Vol] 131 mg/dL 74-106 [facility] Comment on above: Fasting Glucose resu lt greater than or equal to 126 mg/dL suggests DIABETES MELLITUS per A.D.A. criteria. Neutrophils (Bld) [#/Vol] 7.9 10*3/uL 2.0-7.7 [facility] Neutrophils/100 WBC (Bld) 78.8 % 47-70 [facility] Potassium [Moles/Vol] 3.6 mmol/L 3.5-5.1 [facility] Sodium [Moles/Vol] 133 mmol/L 136-145 [facility] WBC (Bld) [#/Vol] 10.0 10*3/uL 4.4-11.0 [facility] Bilirubin Test strip Ql (U)O rdered By: Cesario Real on 08-25-2023 Bilirubin Ql (U) Negative Negative [facility] Blood erythrocytes count (nu mber/volume)Ordered By: Cesario Real on 08-25-2023 RBC (Bld) [#/Vol] 5.09 10*6/uL 4.2-5.4 [facility] Blood hemoglobin measurement (mass/volume)Ordered By: Cesario Real on 08-25-2023 Hemoglobin (Bld) [Mass/Vol] 14.7 g/dL 12.0-15.0 [facility] Blood lymphocytes/100 leukoc ytesOrdered By: Cesario Real on 08-25-2023 Lymphocytes/100 WBC (Bld) 13.1 % 19-41 [facility] Blood monocytes/100 leukocyt esOrdered By: Cesariobailey Real on 08-25-2023 Monocytes/100 WBC (Bld) 6.4 % 0-10 [facility] Blood platelet mean volumeOr dered By: Cesario Real on 08-25-2023 Platelet mean volume (Bld) [Entitic vol] 10.1 fL 6.2-12.0 [facility] Determination of erythrocyte mean corpuscular volume (MCV)Ordered By: Cesario Real on 08-25-2023 MCV (RBC) [Entitic vol] 89.0 fL 81-99 [facility] Hematocrit Auto (Bld) [Volum e fraction]Ordered By: Cesario Real on 08-25-2023 Hematocrit (Bld) [Volume fraction] 45.3 % 37-47 [facility] Ketones Test strip Ql (U)Ord ered By: Cesario Real on 08-25-2023 Ketones Ql (U) Negative Negative [facility] Laboratory - Chemistry and C hemistry - challengeOrdered By: Cesario Real on 08-25-2023 CO2 [Moles/Vol] 26.0 mmol/L 21.0-32.0 [facility] Urea nitrogen/Creatinine [Mass ratio] 17.5 mg/mg 10-20 [facility] Laboratory - Hematology and Cell countsOrdered By: Cesario Real on 08-25-2023 Erythrocyte distribution width (RBC) [Entitic vol] 45.5 fL 35.1-43.9 [facility] Erythrocyte distribution width (RBC) [Ratio] 13.9 % 11.6-14.6 [facility] Immature granulocytes/100 WBC (Bld) 0.600 % 0.0-0.9 [facility] Comment on above: IG% - Immature Granu locytes (promyelocytes, myelocytes and metamyelocytes) > 1% indicates that a LEFT SHIFT is Present. MCH (RBC) [Entitic mass] 28.9 pg 27.0-32.0 [facility] Nucleated RBC/100 WBC (Bld) [Ratio] 0 % 0-5 [facility] MCHC Auto (RBC) [Mass/Vol]Or dered By: Cesario Real on 08-25-2023 MCHC (RBC) [Mass/Vol] 32.5 g/dL 32-36 [facility] Mucus LM Ql (Urine sed)Order ed By: Cesario Real on 08-25-2023 Mucus Ql (Urine sed) 0 SEEN /hpf [facility] Nitrite Test strip Ql (U)Ord ered By: Cesario Real on 08-25-2023 Nitrite Ql (U) Negative Negative [facility] No Panel InformationOrdered By: Cesario Real on 08-25-2023 Estimated Creatinine Clearance Calc 32.56 ml/min [facility] Estimated GFR (MDRD) Amer 59 mL/min >60 [facility] Comment on above: GFR Calc Estimated GFR (MDRD) Non-Af Amer 49 mL/min >60 [facility] Comment on above: Non- GFR Calc Platelets bldOrdered By: Cesario Real on 08-25-2023 Platelets (Bld) [#/Vol] 246 10*3/uL 150-450 [facility] Protein Test strip Ql (U)Ord ered By: Cesario Real on 08-25-2023 Protein Ql (U) Negative Negative [facility] Serum or plasma calcium gareth urement (mass/volume)Ordered By: Cesario Real on 08-25-2023 Calcium [Mass/Vol] 9.3 mg/dL 8.5-10.1 [facility] Serum or plasma creatinine m easurement (mass/volume)Ordered By: Cesario Real on 08-25-2023 Creatinine [Mass/Vol] 1.14 mg/dL 0.55-1.02 [facility] Comment on above: The validity of the calculated GFR & GFRAA in patients over 70 years has not been determined. Clinical correlation is essential. Serum or plasma urea nitroge n measurement (mass/volume)Ordered By: Cesario Real on 08-25-2023 Urea nitrogen [Mass/Vol] 20 mg/dL 7-18 [facility] Squamous epithelial cells de tection in urine sediment by light microscopyOrdered By: Cesario Real on 08-25-2023 Epithelial cells.squamous LM Ql (Urine sed) 0 SEEN /hpf 5-10 [facility] Thin prep Papanicolaou smear with manual screeningOrdered By: Cesario Real on 08-25-2023 Thin prep Papanicolaou smear with manual screening 6 5-15 [facility] Urine blood detectionOrdered By: Cesario Real on 08-25-2023 RBC Ql (U) 10 /ul Negative [facility] RBC Ql (U) 0 SEEN /hpf 0-5 [facility] Urine clarityOrdered By: Cesario Real on 08-25-2023 Clarity (U) Clear Clear [facility] Urine color determinationOrd ered By: Cesario Real on 08-25-2023 Color (U) Yellow Yellow [facility] Urine glucose detectionOrder ed By: Cesario Real on 08-25-2023 Glucose Ql (U) Normal mg/dl Normal [facility] Urine leukocyte esterase det ection by dipstickOrdered By: Cesario Real on 08-25-2023 Leukocyte esterase Test strip Ql (U) 25 /ul Negative [facility] Urine pHOrdered By: Cesario avalos on 08-25-2023 pH (U) 6.5 [pH] 5.0 - 8.0 [facility] Urine sediment bacteria coun t by microscopy (number/high power field)Ordered By: Cesario Real on 08-25-2023 Bacteria LM.HPF (Urine sed) [#/Area] RARE /hpf None Seen [facility] Urine specific gravity measu rementOrdered By: Cesario Real on 08-25-2023 Specific gravity (U) [Rel density] 1.015 1.002-1.030 [facility] Urobilinogen Auto test strip Ql (U)Ordered By: Cesario Real on 08-25-2023 Urobilinogen Ql (U) Normal mg/dl Normal [facility] Absolute lymphocyte countOrd ered By: Nathalia Greenke on 07-05-2023 Lymphocytes Auto (Unsp spec) [#/Vol] 1.61 10*3/uL 0.83-4.51 [facility] Basophil percentageOrdered B y: Amadoucristhian [place] on 07-05-2023 Basophils/100 WBC (Bld) 0.6 % 0-1 [facility] Bilirubin [Mass/Vol] 0.60 mg/dL 0.20-1.00 [facility] Comment on above: For patients on eltr ombopag therapy, use of Dimension [place] TBIL is not recommended. Chloride [Moles/Vol] 106 mmol/L 98-107 [facility] Cholesterol [Mass/Vol] 171 mg/dL <200 [facility] Comment on above: <200 mg/dL Desirable 200-240 mg/dL Borderline >240 mg/dL High Risk Eosinophils/100 WBC (Bld) 3.0 % 0-5 [facility] Glucose [Mass/Vol] 98 mg/dL 74-106 [facility] Neutrophils (Bld) [#/Vol] 5.4 10*3/uL 2.0-7.7 [facility] Neutrophils/100 WBC (Bld) 66.2 % 47-70 [facility] Potassium [Moles/Vol] 4.1 mmol/L 3.5-5.1 [facility] Protein [Mass/Vol] 7.9 g/dL 6.4-8.2 [facility] Sodium [Moles/Vol] 137 mmol/L 136-145 [facility] Triglyceride [Mass/Vol] 94 mg/dL <199 [facility] Comment on above: The drugs N-Acetylcy steine and Metamizole may falsely depress this assay.Serum Triglycerides Reference Interval Normal <150 mg/dL Borderline high 150 - 199 mg/dL High 200 - 499 mg/dL Very High > or = 500 mg/dL WBC (Bld) [#/Vol] 8.1 10*3/uL 4.4-11.0 [facility] Blood erythrocytes count (nu mber/volume)Ordered By: Nathalia Ho on 07-05-2023 RBC (Bld) [#/Vol] 4.91 10*6/uL 4.2-5.4 [facility] Blood hemoglobin measurement (mass/volume)Ordered By: Nathalia Ho on 07-05-2023 Hemoglobin (Bld) [Mass/Vol] 14.6 g/dL 12.0-15.0 [facility] Blood lymphocytes/100 leukoc ytesOrdered By: Nathalia Ho on 07-05-2023 Lymphocytes/100 WBC (Bld) 20.0 % 19-41 [facility] Blood monocytes/100 leukocyt esOrdered By: [facility] on 07-05-2023 Monocytes/100 WBC (Bld) 9.8 % 0-10 [facility] Blood platelet mean volumeOr dered By: [facility] on 07-05-2023 Platelet mean volume (Bld) [Entitic vol] 9.9 fL 6.2-12.0 [facility] Determination of erythrocyte mean corpuscular volume (MCV)Ordered By: Nathalia Ho on 07-05-2023 MCV (RBC) [Entitic vol] 91.2 fL 81-99 [facility] Hematocrit Auto (Bld) [Volum e fraction]Ordered By: Nathalia Georgia on 07-05-2023 Hematocrit (Bld) [Volume fraction] 44.8 % 37-47 [facility] Laboratory - Chemistry and C hemistry - challengeOrdered By: [facility] on 07-05-2023 ALP [Catalytic activity/Vol] 74 U/L 45-117 [facility] ALT [Catalytic activity/Vol] 24 U/L 13-56 [facility] CO2 [Moles/Vol] 27.0 mmol/L 21.0-32.0 [facility] Globulin (S) [Mass/Vol] 4.3 g/dL 2.2-4.2 [facility] Urea nitrogen/Creatinine [Mass ratio] 14.2 mg/mg 10-20 [facility] Laboratory - Hematology and Cell countsOrdered By: Nathalia Ho on 07-05-2023 Erythrocyte distribution width (RBC) [Entitic vol] 50.5 fL 35.1-43.9 [facility] Erythrocyte distribution width (RBC) [Ratio] 15.0 % 11.6-14.6 [facility] Immature granulocytes/100 WBC (Bld) 0.400 % 0.0-0.9 [facility] Comment on above: IG% - Immature Granu locytes (promyelocytes, myelocytes and metamyelocytes) > 1% indicates that a LEFT SHIFT is Present. MCH (RBC) [Entitic mass] 29.7 pg 27.0-32.0 [facility] Nucleated RBC/100 WBC (Bld) [Ratio] 0 % 0-5 [facility] MCHC Auto (RBC) [Mass/Vol]Or dered By: Nathalia Ho on 07-05-2023 MCHC (RBC) [Mass/Vol] 32.6 g/dL 32-36 [facility] No Panel InformationOrdered By: Nathalia Ho on 07-05-2023 Estimated GFR (MDRD) Amer 76 mL/min >60 [facility] Comment on above: GFR Calc Estimated GFR (MDRD) Non-Af Amer 63 mL/min >60 [facility] Comment on above: Non- GFR Calc Thyroid Stimulating Hormone (TSH) 1.41 uIU/mL 0.358-3.74 [facility] Platelets bldOrdered By: Princess Ho on 07-05-2023 Platelets (Bld) [#/Vol] 223 10*3/uL 150-450 [facility] Serum or plasma albumin gareth urement (mass/volume)Ordered By: Nathalia Ho on 07-05-2023 Albumin [Mass/Vol] 3.6 g/dL 3.2-5.0 [facility] Serum or plasma albumin/glob ulin mass ratioOrdered By: Nathalia Ho on 07-05-2023 Albumin/Globulin [Mass ratio] 0.8 {ratio} 0.9-2.4 [facility] Serum or plasma calcium gareth urement (mass/volume)Ordered By: Nathalia Ho on 07-05-2023 Calcium [Mass/Vol] 9.9 mg/dL 8.5-10.1 [facility] Serum or plasma cholesterol in HDL measurement (mass/volume)Ordered By: Nathalia Ho on 07-05-2023 Cholesterol in HDL [Mass/Vol] 77 mg/dL >40 [facility] Comment on above: The drugs N-Acetylcy steine and Metamizole may falsely depress this assay. Reference Range HDL <40 mg/dL Low HDL Cholesterol HDL >or= 60 mg/dL High HDL Cholesterol Serum or plasma cholesterol in VLDL measurement (mass/volume)Ordered By: Nathalia Ho on 07-05-2023 Cholesterol in VLDL [Mass/Vol] 19 mg/dL 5-40 [facility] Serum or plasma creatinine m easurement (mass/volume)Ordered By: Nathalia Ho on 07-05-2023 Creatinine [Mass/Vol] 0.91 mg/dL 0.55-1.02 [facility] Comment on above: The validity of the calculated GFR & GFRAA in patients over 70 years has not been determined. Clinical correlation is essential. Serum or plasma low density lipoprotein (LDL) cholesterol measurement (mass/volume)Ordered By: Nathalia Ho on 07-05-2023 Cholesterol in LDL [Mass/Vol] 75 mg/dL 0-130 [facility] Serum or plasma urea nitroge n measurement (mass/volume)Ordered By: Nathalia Ho on 07-05-2023 Urea nitrogen [Mass/Vol] 13 mg/dL 7-18 [facility] Thin prep Papanicolaou smear with manual screeningOrdered By: Nathalia Ho on 07-05-2023 Thin prep Papanicolaou smear with manual screening 25 U/L 15-37 [facility] Thin prep Papanicolaou smear with manual screening 4 5-15 [facility] CBC AND DIFFERENTIALon 03-04 % AUTOMATED IMMATURE GRAN 0.3 % Normal 0.0 - 0.9 [facility] [place] Comment on above: Result Comment: Ban ture Granulocyte Count (IG) includes promyelocytes, myelocytes and metamyelocytes but does not include bands. Percent differential counts (%) should be interpreted in the context of the absolute cell counts (cells/L). Performed By: #### C BCDF #### [address] [address] DIFFERENTIAL SEE MANUAL DIFF Normal [facility] [place] Comment on above: Performed By: #### C BCDF #### [address] [address] Erythrocyte distribution width (RBC) [Ratio] 14.5 % Normal 11.5 - 14.5 [facility] [place] Comment on above: Performed By: #### C BCDF #### [place] [id number] Hematocrit (Bld) [Volume fraction] 44.6 % Normal 36.0 - 46.0 [facility] [place] Comment on above: Performed By: #### C BCDF #### [place] [id number] Hemoglobin (Bld) [Mass/Vol] 14.1 g/dL Normal 12.0 - 16.0 [facility] [place] Comment on above: Performed By: #### C BCDF #### [place] [id number] MCHC (RBC) [Mass/Vol] 31.6 g/dL Low 32.0 - 36.0 [facility] [place] Comment on above: Performed By: #### C BCDF #### [address] [address] MCV (RBC) [Entitic vol] 90 fL Normal 80 - 100 [facility] [place] Comment on above: Performed By: #### C BCDF #### [address] [address] Platelets (Bld) [#/Vol] 224 10*3/uL Normal 150 - 450 [facility] [place] Comment on above: Performed By: #### C BCDF #### [address] [address] RBC 4.94 x10E12/L Normal 4.00 - 5.20 [facility] [place] Comment on above: Performed By: #### C BCDF #### [address] [address] WBC (Bld) [#/Vol] 7.7 10*3/uL Normal 4.4 - 11.3 [facility] [place] Comment on above: Performed By: #### C BCDF #### [address] [address] COMPREHENSIVE PANELon 2022 Albumin [Mass/Vol] 4.0 g/dL Normal 3.4 - 5.0 [facility] [place] Comment on above: Performed By: #### C MP #### [address] [address] ALP [Catalytic activity/Vol] 56 U/L Normal 33 - 136 [facility] [place] Comment on above: Performed By: #### C MP #### [address] [address] ALT [Catalytic activity/Vol] 15 U/L Normal 7 - 45 [facility] [place] Comment on above: Result Comment: Duyen ents treated with Sulfasalazine may generate falsely decreased results for ALT. Performed By: #### C MP #### [address] [address] Anion gap [Moles/Vol] 9 mmol/L Low 10 - 20 [facility] [place] Comment on above: Performed By: #### C MP #### [address] [address] AST [Catalytic activity/Vol] 22 U/L Normal 9 - 39 [facility] [place] Comment on above: Performed By: #### C MP #### [address] [address] Bilirubin [Mass/Vol] 0.5 mg/dL Normal 0.0 - 1.2 [facility] [place] Comment on above: Performed By: #### C MP #### [address] [address] Calcium [Mass/Vol] 9.8 mg/dL Normal 8.6 - 10.3 [facility] [place] Comment on above: Performed By: #### C MP #### [address] [address] Chloride [Moles/Vol] 105 mmol/L Normal 98 - 107 [facility] [place] Comment on above: Performed By: #### C MP #### [address] [address] Creatinine [Mass/Vol] 0.91 mg/dL Normal 0.50 - 1.05 [facility] [place] Comment on above: Performed By: #### C MP #### [address] [address] GFR/1.73 sq M.predicted among non-blacks MDRD (S/P/Bld) [Vol rate/Area] 64 mL/min/{1.73_m2} Normal >90 [facility] [place] Comment on above: Result Comment: CALC ULATIONS OF ESTIMATED GFR ARE PERFORMED USING THE 2020 CKD-EPI STUDY REFIT EQUATION WITHOUT THE RACE VARIABLE FOR THE IDMS-TRACEABLE CREATININE METHODS. https://jasn.asnjournals.org/content/early//ASN.82132 75114 Performed By: #### C MP #### [address] [address] Glucose [Mass/Vol] 98 mg/dL Normal 74 - 99 [facility] [place] Comment on above: Performed By: #### C MP #### [address] [address] HCO3 (Bld) [Moles/Vol] 30 mmol/L Normal 21 - 32 [facility] [place] Comment on above: Performed By: #### C MP #### [address] [address] Potassium [Moles/Vol] 4.1 mmol/L Normal 3.5 - 5.3 [facility] [place] Comment on above: Performed By: #### C MP #### [address] [address] Protein [Mass/Vol] 7.0 g/dL Normal 6.4 - 8.2 [facility] [place] Comment on above: Performed By: #### C MP #### [address] [address] Sodium [Moles/Vol] 140 mmol/L Normal 136 - 145 [facility] [place] Comment on above: Performed By: #### C MP #### [address] [address] Urea nitrogen [Mass/Vol] 14 mg/dL Normal 6 - 23 [facility] [place] Comment on above: Performed By: #### C MP #### [address] [address] LDHon 03-04-2023 LDH 176 U/L Normal 84 - 246 [facility] [place] Comment on above: Performed By: #### L DH #### [address] [address] MANUAL DIFFERENTIALon 2022 % BAND NEUTROPHIL 1.0 % Normal 0.0 - 5.0 [facility] [place] Comment on above: Performed By: #### M DIFF #### [address] [address] % BASOPHIL 0.0 % Normal 0.0 - 2.0 [facility] [place] Comment on above: Performed By: #### M DIFF #### [address] [address] % EOSINOPHIL 4.0 % Normal 0.0 - 6.0 [facility] [place] Comment on above: Performed By: #### M DIFF #### [address] [address] % LYMPH-ATYPICAL 13.0 % Normal 0.0 - 2.0 [facility] [place] Comment on above: Performed By: #### M DIFF #### [address] [address] % LYMPHOCYTE 13.0 % Normal 13.0 - 44.0 [facility] [place] Comment on above: Performed By: #### M DIFF #### [address] [address] % METAMYELOCYTE 1.0 % Normal 0.0 - 0.0 [facility] [place] Comment on above: Performed By: #### M DIFF #### [address] [address] % MONOCYTE 12.0 % Normal 2.0 - 10.0 [facility] [place] Comment on above: Performed By: #### M DIFF #### [address] [address] % SEG NEUTROPHIL 56.0 % Normal 40.0 - 80.0 [facility] [place] Comment on above: Result Comment: Perc ent differential counts (%) should be interpreted in the context of the absolute cell counts (cells/L). Performed By: #### M DIFF #### [place] [address] ANC 4.39 x10E9/L Normal 1.60 - 5.50 [facility] [place] Comment on above: Performed By: #### M DIFF #### [place] [address] BAND NEUTROPHIL 0.08 x10E9/L Normal 0.00 - 0.50 [facility] [place] Comment on above: Performed By: #### M DIFF #### [address] [address] BASOPHIL 0.00 x10E9/L Normal 0.00 - 0.10 [facility] [place] Comment on above: Performed By: #### M DIFF #### [place] [id number] EOSINOPHIL 0.31 x10E9/L Normal 0.00 - 0.40 [facility] [place] Comment on above: Performed By: #### M DIFF #### [address] [address] LYMPH-ATYPICAL 1.00 x10E9/L High 0.00 - 0.30 [facility] [place] Comment on above: Performed By: #### M DIFF #### [address] [address] LYMPHOCYTE 1.00 x10E9/L Normal 0.80 - 3.00 [facility] [place] Comment on above: Performed By: #### M DIFF #### [address] [address] METAMYELOCYTE 0.08 x10E9/L Abnormal 0.00 - 0.00 [facility] [place] Comment on above: Performed By: #### M DIFF #### [address] [address] MONOCYTE 0.92 x10E9/L High 0.05 - 0.80 [facility] [place] Comment on above: Performed By: #### M DIFF #### [address] [address] SEG NEUTROPHIL 4.31 x10E9/L Normal 1.60 - 5.00 [facility] [place] Comment on above: Performed By: #### M DIFF #### [address] [address] RED CELL MORPHOLOGYon 2022 RBC morphology finding Nom (Bld) SEE COMMENT Normal [facility] [place] Comment on above: Result Comment: NO S IGNIFICANT RBC ABNORMALITIES SEEN ON SMEAR REVIEW. Performed By: #### L DH #### [address] [address] SEDIMENTATION RATE, ERYTHROC YTEon 03-04-2023 SEDIMENTATION RATE, ERYTHROCYTE 7 mm/h Normal 0 - 30 [facility] [place] Comment on above: Performed By: #### E SRWS #### [address] [address] Allison 09-27-2022 ALT [Catalytic activity/Vol] 14 U/L Normal 7 - 45 [facility] [place] Comment on above: Result Comment: Duyen ents treated with Sulfasalazine may generate falsely decreased results for ALT. Performed By: #### A LT #### [address] [address] LIPID PANEL (CORONARY RISK 2 )on 09-27-2022 [...] dosing. Performed By: #### L IPID #### [facility] [address] [address] Cholesterol in HDL [Mass/Vol] 81.6 mg/dL Normal [facility] [place] Comment on above: Result Comment: . AGE VERY LOW LOW NORMAL HIGH 0-19 Y < 35 < 40 40-45 ---- 20-24 Y ---- < 40 >45 ---- >24 Y ---- < 40 40-60 >60 . Performed By: #### L IPID #### [address] [address] Cholesterol in LDL [Mass/Vol] 111 mg/dL High [...] . Performed By: #### L IPID #### [address] [address] Cholesterol in VLDL [Mass/Vol] 28 mg/dL Normal 0 - 40 [facility] [place] Comment on above: Performed By: #### L IPID #### [address] [address] Cholesterol.total/Chol esterol in HDL [Mass ratio] 2.7 {ratio} Normal [facility] [place] Comment on above: Result Comment: REF VALUES DESIRABLE < 3.4 HIGH RISK > 5.0 Performed By: #### L IPID #### [address] [address] Triglyceride [Mass/Vol] 142 mg/dL Normal 0 - [...] dosing. Performed By: #### L IPID #### [facility] [address] [place] [address] ALT - Alanine Aminotransfera se, Serumon 09-26-2022 ALT With P-5'-P [Catalytic activity/Vol] 14 U/L 7 - 45 [facility] [employer] Work Phone: Comment on above: Patients treated wit h Sulfasalazine may generate falsely decreased results for ALT. Lipid Panelon 09-26-2022 Cholesterol [Mass/Vol] 221 mg/dL above hig h threshold 0 - 199 [facility] Work Phone: Comment on above: . AGE [...] dosing. Cholesterol in HDL [Mass/Vol] 81.6 mg/dL [facility] [employer] Work Phone: Comment on above: . AGE VERY LOW LOW N ORMAL HIGH 0-19 Y < 35 < 40 40-45 ---- 20-24 Y ---- < 40 >45 ---- >24 Y ---- < 40 40-60 >60. Cholesterol in LDL [Mass/Vol] 111 mg/dL above high threshold 0 - 99 [facility] [employer] Work Phone: Comment on above: . NEAR BORD AGE ISABELLE RABLE OPTIMAL HIGH HIGH VERY HIGH 0-19 Y 0 - 109 --- 110-129 >/= 130 ---- 20-24 Y 0 - 119 --- 120-159 >/= 160 ---- >24 Y 0 - 99 100-129 130-159 160-189 >/=190. Cholesterol.total/Chol esterol in HDL [Mass ratio] 2.7 {ratio} [facility] [employer] Work Phone: Comment on above: REF VALUESDESIRABLE < 3.4HIGH RISK > 5.0 Triglyceride [Mass/Vol] 142 mg/dL 0 - 149 [facility] [employer] Work Phone: Comment on above: . AGE [...] Lipid Panel 28 mg/dL 0 - 40 [facility] [employer] Work Phone: Clinic Note - Heme Onc-Follo [...] SOB, cough, FTT. 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 Normal [facility] Note - Intakeon 08-30 Clinic Note - [...] Last Updated: 30-Aug-2022 14:01 by Alyssa Mchugh (MA II) Normal [facility] Medicare Annual Wellness Vis pamela 08-27-2022 Medicare Annual Wellness Visit History of [...] Health Maintenance Colonoscopy; every 10 years; Last [id number]; Next Due: [id number]; Overdue Fall prevention, home; every 1 year; Next Due: [id number]; Overdue Healt (more content not included)... Normal [employer] Tobacco Screening.on 022 Adult depression screening assessment No [id number] [email or web address] Work Phone: Fall risk assessment b) One or more fall s in the last year [employer] Phone: Tobacco use status CPHS b) No [employer] Phone: CBC AND DIFFERENTIALon 08-23 % AUTOMATED IMMATURE GRAN 0.4 % Normal 0.0 - 0.9 [facility] [place] Comment on above: Result Comment: Ban ture Granulocyte Count (IG) includes promyelocytes, myelocytes and metamyelocytes but does not include bands. Percent differential counts (%) should be interpreted in the context of the absolute cell counts (cells/L). Performed By: #### C BCDF #### [address] [address] Basophils (Bld) [#/Vol] 0.05 10*3/uL Normal 0.00 - 0.10 [facility] [place] Comment on above: Performed By: #### C BCDF #### [address] [address] Basophils/100 WBC (Bld) 0.6 % Normal 0.0 - 2.0 [facility] [place] Comment on above: Performed By: #### C BCDF #### [address] [address] Eosinophils (Bld) [#/Vol] 0.26 10*3/uL Normal 0.00 - 0.40 [facility] [place] Comment on above: Performed By: #### C BCDF #### [address] [address] Eosinophils/100 WBC (Bld) 3.3 % Normal 0.0 - 6.0 [facility] [place] Comment on above: Performed By: #### C BCDF #### [address] [address] Erythrocyte distribution width (RBC) [Ratio] 15.6 % High 11.5 - 14.5 [facility] [place] Comment on above: Performed By: #### C BCDF #### [address] [address] Hematocrit (Bld) [Volume fraction] 43.9 % Normal 36.0 - 46.0 [facility] [place] Comment on above: Performed By: #### C BCDF #### [address] [address] Hemoglobin (Bld) [Mass/Vol] 14.2 g/dL Normal 12.0 - 16.0 [facility] [place] Comment on above: Performed By: #### C BCDF #### [address] [address] Lymphocytes (Bld) [#/Vol] 1.75 10*3/uL Normal 0.80 - 3.00 [facility] [place] Comment on above: Performed By: #### C BCDF #### [address] [address] Lymphocytes/100 WBC (Bld) 22.0 % Normal 13.0 - 44.0 [facility] [place] Comment on above: Performed By: #### C BCDF #### [address] [address] MCHC (RBC) [Mass/Vol] 32.3 g/dL Normal 32.0 - 36.0 [facility] [place] Comment on above: Performed By: #### C BCDF #### [address] [address] MCV (RBC) [Entitic vol] 87 fL Normal 80 - 100 [facility] [place] Comment on above: Performed By: #### C BCDF #### [address] [address] Monocytes (Bld) [#/Vol] 0.76 10*3/uL Normal 0.05 - 0.80 [facility] [place] Comment on above: Performed By: #### C BCDF #### [address] [address] Monocytes/100 WBC (Bld) 9.5 % Normal 2.0 - 10.0 [facility] [place] Comment on above: Performed By: #### C BCDF #### [address] [address] Neutrophils (Bld) [#/Vol] 5.12 10*3/uL Normal 1.60 - 5.50 [facility] [place] Comment on above: Result Comment: Perc ent differential counts (%) should be interpreted in the context of the absolute cell counts (cells/L). Performed By: #### C BCDF #### [address] [address] Neutrophils/100 WBC (Bld) 64.2 % Normal 40.0 - 80.0 [facility] [place] Comment on above: Performed By: #### C BCDF #### [address] [address] Platelets (Bld) [#/Vol] 239 10*3/uL Normal 150 - 450 [facility] [place] Comment on above: Performed By: #### C BCDF #### [address] [address] RBC 5.03 x10E12/L Normal 4.00 - 5.20 [facility] [place] Comment on above: Performed By: #### C BCDF #### [address] [address] WBC (Bld) [#/Vol] 8.0 10*3/uL Normal 4.4 - 11.3 [facility] [place] Comment on above: Performed By: #### C BCDF #### [address] [address] COMPREHENSIVE PANELon 2021 Albumin [Mass/Vol] 3.9 g/dL Normal 3.4 - 5.0 [facility] [place] Comment on above: Performed By: #### L DH #### [address] [address] ALP [Catalytic activity/Vol] 65 U/L Normal 33 - 136 [facility] [place] Comment on above: Performed By: #### L DH #### [address] [address] ALT [Catalytic activity/Vol] 16 U/L Normal 7 - 45 [facility] [place] Comment on above: Result Comment: Duyen ents treated with Sulfasalazine may generate falsely decreased results for ALT. Performed By: #### L DH #### [address] [address] Anion gap [Moles/Vol] 10 mmol/L Normal 10 - 20 [facility] [place] Comment on above: Performed By: #### L DH #### [address] [address] AST [Catalytic activity/Vol] 21 U/L Normal 9 - 39 [facility] [place] Comment on above: Performed By: #### L DH #### [address] [address] Bilirubin [Mass/Vol] 0.5 mg/dL Normal 0.0 - 1.2 [facility] [place] Comment on above: Performed By: #### L DH #### [address] [address] Calcium [Mass/Vol] 9.8 mg/dL Normal 8.6 - 10.3 [facility] [place] Comment on above: Performed By: #### L DH #### [address] [address] Chloride [Moles/Vol] 104 mmol/L Normal 98 - 107 [facility] [place] Comment on above: Performed By: #### L DH #### [address] [address] Creatinine [Mass/Vol] 0.90 mg/dL Normal 0.50 - 1.05 [facility] [place] Comment on above: Performed By: #### L DH #### [address] [address] GFR/1.73 sq M.predicted among non-blacks MDRD (S/P/Bld) [Vol rate/Area] 65 mL/min/{1.73_m2} Normal >90 [facility] [place] Comment on above: Result Comment: CALC ULATIONS OF ESTIMATED GFR ARE PERFORMED USING THE 2020 CKD-EPI STUDY REFIT EQUATION WITHOUT THE RACE VARIABLE FOR THE IDMS-TRACEABLE CREATININE METHODS. https://jasn.asnjournals.org/content//ASN.51082 11045 Performed By: #### L DH #### [address] [address] Glucose [Mass/Vol] 86 mg/dL Normal 74 - 99 [facility] [place] Comment on above: Performed By: #### L DH #### [address] [address] HCO3 (Bld) [Moles/Vol] 29 mmol/L Normal 21 - 32 [facility] [place] Comment on above: Performed By: #### L DH #### [address] [address] Potassium [Moles/Vol] 4.1 mmol/L Normal 3.5 - 5.3 [facility] [place] Comment on above: Performed By: #### L DH #### [address] [address] Protein [Mass/Vol] 6.6 g/dL Normal 6.4 - 8.2 [facility] [place] Comment on above: Performed By: #### L DH #### [address] [address] Sodium [Moles/Vol] 139 mmol/L Normal 136 - 145 [facility] [place] Comment on above: Performed By: #### L DH #### [address] [address] Urea nitrogen [Mass/Vol] 16 mg/dL Normal 6 - 23 [facility] [place] Comment on above: Performed By: #### L DH #### [address] [address] Complete Blood Count + Diffe kamar 08-23-2022 Basophils/100 WBC (Bld) 0.6 % 0.0 - 2.0 [facility] Work Phone: Erythrocyte distribution width (RBC) [Ratio] 15.6 % above high threshold See Below [facility] Work Phone: Comment on above: Reference Range: 11. 5 - 14.5 Hematocrit (Bld) [Volume fraction] 43.9 % See Below [facility] Work Phone: Comment on above: Reference Range: 36. 0 - 46.0 Hemoglobin (Bld) [Mass/Vol] 14.2 g/dL See Below [facility] Work Phone: Comment on above: Reference Range: 12. 0 - 16.0 Lymphocytes/100 WBC (Bld) 22.0 % See Below [facility] Work Phone: Comment on above: Reference Range: 13. 0 - 44.0 MCHC (RBC) [Mass/Vol] 32.3 g/dL See Below [facility] Work Phone: Comment on above: Reference Range: 32. 0 - 36.0 MCV (RBC) [Entitic vol] 87 fL 80 - 100 [facility] Work Phone: Monocytes/100 WBC (Bld) 9.5 % 2.0 - 10.0 [facility] Work Phone: Neutrophils/100 WBC (Bld) 64.2 % See Below [facility] Work Phone: Comment on above: Reference Range: 40. 0 - 80.0 Platelets (Bld) [#/Vol] 239 10*3/uL 150 - 450 [facility] Work Phone: RBC (Bld) [#/Vol] 5.03 {x10E12/L} See Below [facility] Work Phone: Comment on above: Reference Range: 4.0 0 - 5.20 WBC (Bld) [#/Vol] 8.0 10*3/uL 4.4 - 11.3 [facility] Work Phone: Complete Blood Count + Differential 0.05 {x10E9/L} See Below [facility] Work Phone: Comment on above: Reference Range: 0.0 0 - 0.10 Complete Blood Count + Differential 0.26 {x10E9/L} See Below [facility] Work Phone: Comment on above: Reference Range: 0.0 0 - 0.40 Complete Blood Count + Differential 0.76 {x10E9/L} See Below [facility] Work Phone: Comment on above: Reference Range: 0.0 5 - 0.80 Complete Blood Count + Differential 1.75 {x10E9/L} See Below [facility] Work Phone: Comment on above: Reference Range: 0.8 0 - 3.00 Complete Blood Count + Differential 5.12 {x10E9/L} See Below [facility] Work Phone: Comment on above: Reference Range: 1.6 0 - 5.50 Percent differential counts (%) should be interpreted in the context of the absolute cell counts (cells/L). Complete Blood Count + Differential 3.3 % 0.0 - 6.0 [facility] Work Phone: Complete Blood Count + Differential 0.4 % 0.0 - 0.9 [facility] Work Phone: Comment on above: Immature Granulocyte Count (IG) includes promyelocytes, myelocytes and metamyelocytes but does not include bands. Percent differential counts (%) should be interpreted in the context of the absolute cell counts (cells/L). LDHon 08-23-2022 LDH 187 U/L Normal 84 - 246 [facility] [place] Comment on above: Performed By: #### L #### [place] [address] Laboratory - Chemistry and C hemistry - challengeon 08-23-2022 Albumin BCP dye [Mass/Vol] 3.9 g/dL 3.4 - 5.0 [facility] Work Phone: ALP [Catalytic activity/Vol] 65 U/L 33 - 136 [facility] Work Phone: ALT With P-5'-P [Catalytic activity/Vol] 16 U/L 7 - 45 [facility] Work Phone: Comment on above: Patients treated wit h Sulfasalazine may generate falsely decreased results for ALT. Anion gap [Moles/Vol] 10 mmol/L 10 - 20 [facility] Work Phone: AST With P-5'-P [Catalytic activity/Vol] 21 U/L 9 - 39 [facility] Work Phone: Bilirubin [Mass/Vol] 0.5 mg/dL 0.0 - 1.2 [facility] Work Phone: Calcium [Mass/Vol] 9.8 mg/dL 8.6 - 10.3 [facility] Work Phone: Chloride [Moles/Vol] 104 mmol/L 98 - 107 [facility] Work Phone: CO2 [Moles/Vol] 29 mmol/L 21 - 32 [facility] Work Phone: Creatinine [Mass/Vol] 0.90 mg/dL See Below [facility] Work Phone: Comment on above: Reference Range: 0.5 0 - 1.05 Glucose [Mass/Vol] 86 mg/dL 74 - 99 [facility] Work Phone: LDH [Catalytic activity/Vol] 187 U/L 84 - 246 [facility] Work Phone: Potassium [Moles/Vol] 4.1 mmol/L 3.5 - 5.3 [facility] Work Phone: Protein [Mass/Vol] 6.6 g/dL 6.4 - 8.2 [facility] Work Phone: Sodium [Moles/Vol] 139 mmol/L 136 - 145 [facility] Work Phone: Urea nitrogen [Mass/Vol] 16 mg/dL 6 - 23 [facility] Work Phone: No Panel Informationon 08-23 65 {mL/min/1.73m2} >90 [facility] Work Phone: Comment on above: CALCULATIONS OF ТАТЬЯНА MATED GFR ARE PERFORMED USING THE 2020 CKD-EPI STUDY REFIT EQUATION WITHOUT THE RACE VARIABLE FOR THE IDMS-TRACEABLE CREATININE METHODS.https://jasn.asnjournals.org/content/early/A .8387322009 SEDIMENTATION RATE, ERYTHROC YTEon 08-23-2022 SEDIMENTATION RATE, ERYTHROCYTE 18 mm/h Normal 0 - 30 [facility] [place] Comment on above: Performed By: #### E SRWS #### [facility] [address] [place] [address] Sedimentation Rate, Erythroc yteon 08-23-2022 ESR (Bld) [Velocity] 18 mm/h 0 - 30 [facility] [place] Work Phone: Follow Up (Pulmonary Medicin e)on 03-15-2022 Follow Up (Pulmonary Medicine) Diagnoses/Problems ILD (interstitial lung disease) (759) (J84.9) Provider Impressions Impressions: 1. Significant improvement [...] me. This note was transcribed using the [employer] Dictation system. There may be grammatical, punctuation, [...] 1000 UNIT TABS Vitals Vital Signs Recorded: 15Mar2022 10:07AM Iathygybafs58.4 F, Temporal Heart Rate68 Ebwqejep170 Gyivvvehv88 Height5 ft 1 in Ihcsmg085 lb 6.4 oz BMI Fyjpbmbjca63.33 kg/m2 (more content not included)... Normal [employer] Tobacco Screening.on Fall risk assessment a) No falls within the last year [facility] [address] DO Work Phone: [phone] Tobacco use status CPHS b) No [facility] [facility] [address] DO Work Phone: CT Chest High Resolutionon 0 03-05-2022 CT Chest High Resolution Normal [facility] [address] DO Work Phone: [phone] CHEST HIGH RESOLUTIONo n 03-05-[address] CHEST HIGH RESOLUTION Patient Name: JOHANA CHIN STUDY: CT CHEST HIGH RESOLUTION; 03/05/2022 9:50 am INDICATION: ILD J84.9: ILD (interstitial lung disease). COMPARISON: Prior chest CTs most recent from 10/11/2020 and prior PET-CT from 02/11/2021 ACCESSION NUMBER(S): [id number] ORDERING CLINICIAN: CHANDA WELLER TECHNIQUE: Using helical [...] be needed for final diagnosis. Consult a corporate travel consultant for further workup and biopsy evaluation. (Austin G, Ale M, Bar BOWSER, et al. Diagnosis of Idiopathic Pulmonary Fibrosis. An Official ATS/ERS/JRS/ALAT Clinical Practice Guideline. Am J Respir Crit Care Med. 2018;198(5):e44-e68. doi:10.1164/rccm.[id number] 255ST) 2. Stable few small subcentimeter to borderline enlarged mediastinal lymph nodes. Limited assessment of hilar adenopathy on the current nonenhanced study. 3. Borderline dilated 4-cm ascending thoracic aorta. Mild cardiomegaly. 4. Mild coronary artery calcifications, indicating the presence of coronary artery disease. If the patient has associated symptoms recommend management as per chest pain guidelines (e.g. https://doi.org/10.1161/C IR.4013949388543109). If the patient is asymptomatic consider reviewing modifiable cardiovascular risk factors and managing as per guidelines for primary prevention (e.g. https://doi.org/10.1161/C IR.4971440539142521) 5. Other findings as above. 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 Normal [facility] Tobacco Screening.on Adult depression screening assessment [facility] Phone: Fall risk assessment a) No falls within the last year [facility] [place] [facility] Phone: Tobacco use status CPHS b) No [facility] [place] [facility] Phone: Clinic Note - Heme Onc-Follo w [...] SOB, cough, FTT. 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 VITAL (more content not included)... Normal [facility] Note - Intakeon 03-01 Clinic Note - [...] 01-Mar-2022 13:18 by Alyssa Mchugh (NATALI STINSON) [facility] Complete Blood Count + Diffe kamar 02-26-2022 Basophils/100 WBC (Bld) 0.4 % 0.0 - 2.0 [facility] Work Phone: Erythrocyte distribution width (RBC) [Ratio] 15.0 % above high threshold See Below [facility] Work Phone: Comment on above: Reference Range: 11. 5 - 14.5 Hematocrit (Bld) [Volume fraction] 41.4 % See Below [facility] Work Phone: Comment on above: Reference Range: 36. 0 - 46.0 Hemoglobin (Bld) [Mass/Vol] 14.0 g/dL See Below [facility] Work Phone: Comment on above: Reference Range: 12. 0 - 16.0 Lymphocytes/100 WBC (Bld) 17.2 % See Below [facility] Work Phone: Comment on above: Reference Range: 13. 0 - 44.0 MCHC (RBC) [Mass/Vol] 33.8 g/dL See Below [facility] Work Phone: Comment on above: Reference Range: 32. 0 - 36.0 MCV (RBC) [Entitic vol] 87 fL 80 - 100 [facility] Work Phone: Monocytes/100 WBC (Bld) 9.8 % 2.0 - 10.0 [facility] Work Phone: Neutrophils/100 WBC (Bld) 69.4 % See Below [facility] Work Phone: Comment on above: Reference Range: 40. 0 - 80.0 Platelets (Bld) [#/Vol] 238 10*3/uL 150 - 450 [facility] Work Phone: RBC (Bld) [#/Vol] 4.75 {x10E12/L} See Below [facility] Work Phone: Comment on above: Reference Range: 4.0 0 - 5.20 WBC (Bld) [#/Vol] 9.5 10*3/uL 4.4 - 11.3 [facility] Work Phone: Complete Blood Count + Differential 0.00 {x10E9/L} See Below [facility] Work Phone: Comment on above: Reference Range: 0.0 0 - 0.10 Complete Blood Count + Differential 0.30 {x10E9/L} See Below [facility] Work Phone: Comment on above: Reference Range: 0.0 0 - 0.40 Complete Blood Count + Differential 0.90 {x10E9/L} above high threshold See Below [facility] Work Phone: Comment on above: Reference Range: 0.0 5 - 0.80 Complete Blood Count + Differential 1.60 {x10E9/L} See Below [facility] Work Phone: Comment on above: Reference Range: 0.8 0 - 3.00 Complete Blood Count + Differential 6.60 {x10E9/L} above high threshold See Below [facility] Work Phone: Comment on above: Reference Range: 1.6 0 - 5.50 Percent differential counts (%) should be interpreted in the context of the absolute cell counts (cells/L). Complete Blood Count + Differential 3.2 % 0.0 - 6.0 [facility] Work Phone: Ferritin, Serumon 02-26-2022 Ferritin [Mass/Vol] 94 ug/L 8 - [address] [facility] Work Phone: Laboratory - Chemistry and C hemistry - challengeon 02-26-2022 Albumin BCP dye [Mass/Vol] 3.9 g/dL 3.4 - 5.0 [facility] Work Phone: ALP [Catalytic activity/Vol] 71 U/L 33 - 136 [facility] Work Phone: ALT With P-5'-P [Catalytic activity/Vol] 19 U/L 7 - 45 [facility] Work Phone: Comment on above: Patients treated wit h Sulfasalazine may generate falsely decreased results for ALT. Anion gap [Moles/Vol] 10 mmol/L 10 - 20 [facility] Work Phone: AST With P-5'-P [Catalytic activity/Vol] 21 U/L 9 - 39 [facility] [place] Work Phone: Bilirubin [Mass/Vol] 0.4 mg/dL 0.0 - 1.2 [facility] [place] Work Phone: Calcium [Mass/Vol] 9.4 mg/dL 8.6 - 10.3 [facility] [place] Work Phone: Chloride [Moles/Vol] 104 mmol/L 98 - 107 [facility] [place] Work Phone: CO2 [Moles/Vol] 29 mmol/L 21 - 32 [facility] [place] Work Phone: Creatinine [Mass/Vol] 0.86 mg/dL See Below [facility] Work Phone: Comment on above: Reference Range: 0.5 0 - 1.05 Glucose [Mass/Vol] 95 mg/dL 74 - 99 [facility] Work Phone: Iron [Mass/Vol] 53 ug/dL 35 - 150 [facility] [place] Work Phone: Iron binding capacity [Mass/Vol] 302 ug/dL 240 - 445 [facility] Work Phone: Potassium [Moles/Vol] 4.3 mmol/L 3.5 - 5.3 [facility] Work Phone: Protein [Mass/Vol] 7.2 g/dL 6.4 - 8.2 [facility] Work Phone: Sodium [Moles/Vol] 139 mmol/L 136 - 145 [facility] Work Phone: Urea nitrogen [Mass/Vol] 16 mg/dL 6 - 23 [facility] Work Phone: No Panel Informationon 02-26 18 % below low threshold 25 - 45 [facility] Work Phone: 68 {mL/min/1.73m2} >90 [facility] Work Phone: Comment on above: CALCULATIONS OF ТАТЬЯНА MATED GFR ARE PERFORMED USING THE 2020 CKD-EPI STUDY REFIT EQUATION WITHOUT THE RACE VARIABLE FOR THE IDMS-TRACEABLE CREATININE METHODS.https://jasn.asnjournals.org/content/early//A SN.2535884822 Vitamin B12, Serumon 022 Cobalamin (Vitamin B12) [Mass/Vol] 900 pg/mL 211 - 911 [facility] Work Phone: CORONAVIRUS PCR - [facility] 10-19-2021 SARS-CoV-2 (COVID-19) RNA AMINTA+probe Ql (Unsp spec) Positive Abnormal NORMAL: NEGATIVE [facility] Comment on above: Result Comment: { CA LLED TO FAXED TO AG { READ BACK BY Performed By: #### [id number] #### [facility],[address] [place] [address] SEND TO ? YES Normal [facility] Comment on above: Result Comment: RESU LTS FAXED TO INFECTION CONTROL. SARS-CoV-2 THIS TEST IS BEING USED UNDER THE FDA EUA PROCEDURE. THIS ASSAY HAS BEEN VALIDATED IN THE [facility] FOR USE WITH NASOPHARYNGEAL SPECIMENS IN [facility]. INTERPRETIVE DATA LABORATORY TEST RESULTS SHOULD ALWAYS [...] PUBLIC HEALTH AUTHORITIES. Performed By: #### 2 [id number] #### [facility],[address] [place] [id number] CHEST 2 VIEW PA AND LATon CHEST 2 VIEW PA AND LAT Patient Name: JOHANA CHIN STUDY: TH CHEST 2 VIEW PA AND LAT; 09/05/2021 9:00 am INDICATION: ILD. 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 This note was transcribed using the [employer] system. There may be grammatical, punctuation, [...] MG/5ML Ora (more content not included)... Normal [facility] Radiologyon 09-05-2021 XR Chest 2 Views Normal [facility] [address] DO Work Phone: XR Chest 2 Views Please click on the link to view the study images Normal [facility] [address] DO Work Phone: Tobacco Screening.on 021 Fall risk assessment b) One or more fall s in the last year [facility] [address] DO Work Phone: Tobacco use status CPHS b) No [facility] [address] DO Work Phone: Complete Blood Count + Diffe rentialon 08-28-2021 Basophils/100 WBC (Bld) 0.8 % 0.0 - 2.0 [facility] Work Phone: Erythrocyte distribution width (RBC) [Ratio] 14.1 % See Below [facility] Work Phone: Comment on above: Reference Range: 11. 5 - 14.5 Hematocrit (Bld) [Volume fraction] 42.6 % See Below [facility] Work Phone: Comment on above: Reference Range: 36. 0 - 46.0 Hemoglobin (Bld) [Mass/Vol] 14.1 g/dL See Below [facility] Work Phone: Comment on above: Reference Range: 12. 0 - 16.0 Lymphocytes/100 WBC (Bld) 18.0 % See Below [facility] Work Phone: Comment on above: Reference Range: 13. 0 - 44.0 MCHC (RBC) [Mass/Vol] 33.1 g/dL See Below [facility] Work Phone: Comment on above: Reference Range: 32. 0 - 36.0 MCV (RBC) [Entitic vol] 88 fL 80 - 100 [facility] Work Phone: Monocytes/100 WBC (Bld) 9.3 % 2.0 - 10.0 [facility] Work Phone: Neutrophils/100 WBC (Bld) 69.8 % See Below [facility] Work Phone: Comment on above: Reference Range: 40. 0 - 80.0 Platelets (Bld) [#/Vol] 217 10*3/uL 150 - 450 [facility] Work Phone: RBC (Bld) [#/Vol] 4.86 {x10E12/L} See Below [facility] Work Phone: Comment on above: Reference Range: 4.0 0 - 5.20 WBC (Bld) [#/Vol] 8.5 10*3/uL 4.4 - 11.3 [facility] Work Phone: Complete Blood Count + Differential 0.10 {x10E9/L} See Below [facility] Work Phone: Comment on above: Reference Range: 0.0 0 - 0.10 Complete Blood Count + Differential 0.20 {x10E9/L} See Below [facility] Work Phone: Comment on above: Reference Range: 0.0 0 - 0.40 Complete Blood Count + Differential 0.80 {x10E9/L} See Below [facility] Work Phone: Comment on above: Reference Range: 0.0 5 - 0.80 Complete Blood Count + Differential 1.50 {x10E9/L} See Below [facility] Work Phone: Comment on above: Reference Range: 0.8 0 - 3.00 Complete Blood Count + Differential 6.00 {x10E9/L} above high threshold See Below [facility] Work Phone: Comment on above: Reference Range: 1.6 0 - 5.50 Percent differential counts (%) should be interpreted in the context of the absolute cell counts (cells/L). Complete Blood Count + Differential 2.1 % 0.0 - 6.0 [facility] Work Phone: Laboratory - Chemistry and C hemistry - challengeon 08-28-2021 Albumin BCP dye [Mass/Vol] 3.9 g/dL 3.4 - 5.0 [facility] Work Phone: ALP [Catalytic activity/Vol] 60 U/L 33 - 136 [facility] Work Phone: ALT With P-5'-P [Catalytic activity/Vol] 13 U/L 7 - 45 [facility] Work Phone: Comment on above: Patients treated wit h Sulfasalazine may generate falsely decreased results for ALT. Anion gap [Moles/Vol] 13 mmol/L 10 - 20 [facility] Work Phone: AST With P-5'-P [Catalytic activity/Vol] 20 U/L 9 - 39 [facility] Work Phone: Bilirubin [Mass/Vol] 0.4 mg/dL 0.0 - 1.2 [facility] Work Phone: Calcium [Mass/Vol] 10.1 mg/dL 8.6 - 10.3 [facility] Work Phone: Chloride [Moles/Vol] 103 mmol/L 98 - 107 [facility] Work Phone: CO2 [Moles/Vol] 28 mmol/L 21 - 32 [facility] Work Phone: Creatinine [Mass/Vol] 0.90 mg/dL See Below [facility] Work Phone: Comment on above: Reference Range: 0.5 0 - 1.05 Glucose [Mass/Vol] 91 mg/dL 74 - 99 [facility] Work Phone: Potassium [Moles/Vol] 4.2 mmol/L 3.5 - 5.3 [facility] Work Phone: Protein [Mass/Vol] 6.9 g/dL 6.4 - 8.2 [facility] Work Phone: Sodium [Moles/Vol] 140 mmol/L 136 - 145 [facility] Work Phone: Urea nitrogen [Mass/Vol] 14 mg/dL 6 - 23 [facility] Work Phone: Lipid Panelon 08-28-2021 Cholesterol [Mass/Vol] 188 mg/dL 0 - 199 [facility] [employer] Work Phone: Comment on above: . AGE [...] guidelines reference: NCEP ATPIII Guidelines, TATI 2001, [id number]. Venipuncture immediately after or during the administration of Metamizole may lead to falsely low results. Testing should be performed immediately prior to Metamizole dosing. Cholesterol in HDL [Mass/Vol] 81.0 mg/dL [facility] [employer] Work Phone: Comment on above: . AGE VERY LOW LOW N ORMAL HIGH 0-19 Y < 35 < 40 40-45 ---- 20-24 Y ---- < 40 >45 ---- >24 Y ---- < 40 40-60 >60. Cholesterol in LDL [Mass/Vol] 82 mg/dL 0 - 99 [facility] [employer] Work Phone: Comment on above: . NEAR BORD AGE ISABELLE RABLE OPTIMAL HIGH HIGH VERY HIGH 0-19 Y 0 - 109 --- 110-129 >/= 130 ---- 20-24 Y 0 - 119 --- 120-159 >/= 160 ---- >24 Y 0 - 99 100-129 130-159 160-189 >/=190. Cholesterol.total/Chol esterol in HDL [Mass ratio] 2.3 {ratio} [facility] [employer] Work Phone: Comment on above: REF VALUESDESIRABLE < 3.4HIGH RISK > 5.0 Triglyceride [Mass/Vol] 123 mg/dL 0 - 149 [facility] [place] [employer] Phone: Comment on above: . AGE DESIRABLE [...] Lipid Panel 25 mg/dL 0 - 40 [facility] Work Phone: No Panel Informationon 08-28 73 {mL/min/1.73m2} >60 [facility] [employer] Phone: Comment on above: CALCULATIONS OF ТАТЬЯНА MATED GFR ARE PERFORMED USING THE MDRD STUDY EQUATION FOR THE IDMS-TRACEABLE CREATININE METHODS. CLIN CHEM 2007;53:766-72 60 {mL/min/1.73m2} Abnormal >60 [facility] Work Phone: Sedimentation Rate, Erythroc yteon 08-28-2021 ESR (Bld) [Velocity] 29 mm/h 0 - 30 [facility] Work Phone: Tobacco Screening.on 021 Tobacco use status CP b) No [facility] Work Phone: Complete Blood Count + Diffe rentialon 05-22-2021 Basophils/100 WBC (Bld) 1.0 % 0.0 - 2.0 [facility] Work Phone: Erythrocyte distribution width (RBC) [Ratio] 16.1 % above high threshold See Below [facility] [employer] Phone: Comment on above: Reference Range: 11. 5 - 14.5 Hematocrit (Bld) [Volume fraction] 42.3 % See Below [facility] [employer] Phone: Comment on above: Reference Range: 36. 0 - 46.0 Hemoglobin (Bld) [Mass/Vol] 13.8 g/dL See Below [facility] Work Phone: Comment on above: Reference Range: 12. 0 - 16.0 Lymphocytes/100 WBC (Bld) 15.7 % See Below [facility] Work Phone: Comment on above: Reference Range: 13. 0 - 44.0 MCHC (RBC) [Mass/Vol] 32.7 g/dL See Below [facility] Work Phone: Comment on above: Reference Range: 32. 0 - 36.0 MCV (RBC) [Entitic vol] 87 fL 80 - 100 [facility] Work Phone: Monocytes/100 WBC (Bld) 8.0 % 2.0 - 10.0 [facility] Work Phone: Neutrophils/100 WBC (Bld) 73.2 % See Below [facility] Work Phone: Comment on above: Reference Range: 40. 0 - 80.0 Platelets (Bld) [#/Vol] 225 10*3/uL 150 - 450 [facility] Work Phone: RBC (Bld) [#/Vol] 4.87 {x10E12/L} See Below [facility] Work Phone: Comment on above: Reference Range: 4.0 0 - 5.20 WBC (Bld) [#/Vol] 8.8 10*3/uL 4.4 - 11.3 [facility] Work Phone: Complete Blood Count + Differential 0.10 {x10E9/L} See Below [facility] Work Phone: Comment on above: Reference Range: 0.0 0 - 0.10 Complete Blood Count + Differential 0.20 {x10E9/L} See Below [facility] Work Phone: Comment on above: Reference Range: 0.0 0 - 0.40 Complete Blood Count + Differential 0.70 {x10E9/L} See Below [facility] Work Phone: Comment on above: Reference Range: 0.0 5 - 0.80 Complete Blood Count + Differential 1.40 {x10E9/L} See Below [facility] Work Phone: Comment on above: Reference Range: 0.8 0 - 3.00 Complete Blood Count + Differential 6.40 {x10E9/L} above high threshold See Below [facility] Work Phone: Comment on above: Reference Range: 1.6 0 - 5.50 Percent differential counts (%) should be interpreted in the context of the absolute cell counts (cells/L). Complete Blood Count + Differential 2.1 % 0.0 - 6.0 [facility] Work Phone: Laboratory - Chemistry and C hemistry - challengeon 05-22-2021 Albumin BCP dye [Mass/Vol] 3.9 g/dL 3.4 - 5.0 [facility] Work Phone: ALP [Catalytic activity/Vol] 62 U/L 33 - 136 [facility] Work Phone: ALT With P-5'-P [Catalytic activity/Vol] 14 U/L 7 - 45 [facility] Work Phone: Comment on above: Patients treated wit h Sulfasalazine may generate falsely decreased results for ALT. Anion gap [Moles/Vol] 9 mmol/L below low threshold 10 - 20 [facility] Work Phone: AST With P-5'-P [Catalytic activity/Vol] 22 U/L 9 - 39 [facility] Work Phone: Bilirubin [Mass/Vol] 0.5 mg/dL 0.0 - 1.2 [facility] Work Phone: Calcium [Mass/Vol] 9.9 mg/dL 8.6 - 10.3 [facility] Work Phone: Chloride [Moles/Vol] 108 mmol/L above high threshold 98 - 107 [facility] Work Phone: CO2 [Moles/Vol] 26 mmol/L 21 - 32 [facility] Work Phone: Creatinine [Mass/Vol] 0.82 mg/dL See Below [facility] [employer] Phone: Comment on above: Reference Range: 0.5 0 - 1.05 Glucose [Mass/Vol] 84 mg/dL 74 - 99 [facility] Work Phone: Potassium [Moles/Vol] 4.0 mmol/L 3.5 - 5.3 [facility] Work Phone: Protein [Mass/Vol] 6.9 g/dL 6.4 - 8.2 [facility] Work Phone: Sodium [Moles/Vol] 139 mmol/L 136 - 145 [facility] [employer] Phone: Urea nitrogen [Mass/Vol] 16 mg/dL 6 - 23 [facility] Work Phone: No Panel Informationon 05-22 >60 >60 [facility] Work Phone: Comment on above: CALCULATIONS OF ТАТЬЯНА MATED GFR ARE PERFORMED USING THE MDRD STUDY EQUATION FOR THE IDMS-TRACEABLE CREATININE METHODS. CLIN CHEM 2007;53:766-72 Sedimentation Rate, Erythroc yteon 05-22-2021 ESR (Bld) [Velocity] 37 mm/h above high threshold 0 - 30 [facility] Work Phone: Tobacco Screening.on 021 Fall risk [...] [facility] [facility] Work Phone: [phone] Otheron 01-23-2021 XR Chest 2 views Please click on the link to view the study images Normal [facility] [facility] DO Work Phone: Otheron 10-26-2020 XR Chest 2 views Interpreted by: FOFIZQ54/07/21 15:57MRN: [id number] Name: JOHANA CHIN STUDY:TH CHEST 2 VIEW [...] lly signed by: JILL 10/27/20 15:57 Normal [facility] [facility] DO Work Phone: Complete Blood Count + Diffe [facility] 10-19-2020 Basophils (Bld) [#/Vol] 0.09 {x10E9/L} See Below [facility] [facility] Work Phone: Comment on above: Reference Range: 0.0 0 - 0.10Automated WBC differential has been confirmed by manual smear. Basophils/100 WBC (Bld) 0.6 % 0.0 - 2.0 [facility] [facility] Work Phone: [phone] Eosinophils (Bld) [#/Vol] 0.15 {x10E9/L} See Below [facility] [facility] Work Phone: Comment on above: Reference Range: 0.0 0 - 0.40 Eosinophils/100 WBC (Bld) 0.9 % 0.0 - 6.0 [facility] [facility] DO Work Phone: [phone] Erythrocyte distribution width (RBC) [Ratio] 20.8 % above high threshold [facility] Work [facility]: Comment on above: Reference Range: 11. 5 - 14.5 Hematocrit (Bld) [Volume fraction] 41.2 % See Below [facility] [facility] Work Phone: Comment on above: Reference Range: 36. 0 - 46.0 Hemoglobin (Bld) [Mass/Vol] 13.2 g/dL See Below [facility] Work Phone: Comment on above: Reference Range: 12. 0 - 16.0 Lymphocytes (Bld) [#/Vol] 1.69 {x10E9/L} See Below [facility] Work Phone: Comment on above: Reference Range: 0.8 0 - 3.00 Lymphocytes/100 WBC (Bld) 10.6 % See Below [facility] [facility] Work Phone: Comment on above: Reference Range: 13. 0 - 44.0 MCHC (RBC) [Mass/Vol] 32.0 g/dL See Below [facility] [facility] DO Work Phone: Comment on above: Reference Range: 32. 0 - 36.0 MCV (RBC) [Entitic vol] 90 fL 80 - 100 [facility] [facility] DO Work Phone: [phone] Monocytes (Bld) [#/Vol] 1.36 {x10E9/L} above high threshold See Below [facility] [facility] DO Work Phone: [phone] Comment on above: Reference Range: 0.0 5 - 0.80 Monocytes/100 WBC (Bld) 8.5 % 2.0 - 10.0 [facility] [facility] DO Work Phone: [phone] Neutrophils/100 WBC (Bld) 75.4 % See Below [facility] [facility] DO Work Phone: [phone] Comment on above: Reference Range: 40. 0 - 80.0 Platelets (Bld) [#/Vol] 589 {x10E9/L} above high threshold 150 - 450 [facility] [facility] DO Work Phone: [phone] RBC (Bld) [#/Vol] 4.58 {x10E12/L} See Below [facility] [facility] DO Work Phone: [phone] Comment on above: Reference Range: 4.0 0 - 5.20 WBC (Bld) [#/Vol] 0.0 {/100_WBC} 0.0-0.0 [facility] [facility] DO Work Phone: [phone] WBC (Bld) [#/Vol] 16.0 {x10E9/L} above high threshold 4.4 - 11.3 [facility] [facility] DO Work Phone: [phone] Complete Blood Count + Differential 12.06 {x10E9/L} [...] [facility] [facility] Work Phone: [phone] See Below [facility] [facility] DO Work Phone: Few [facility] [facility] DO Work Phone: Renal Function Panelon 10-19 Albumin BCP dye [...] [place] [address] [facility] Work Phone: Creatinine [Mass/Vol] 0.98 mg/dL See Below [facility] [facility] DO Work Phone: Comment on above: Reference Range: 0.5 0 - 1.05 Glucose [Mass/Vol] 102 mg/dL above high threshold 74 - 99 [facility] [facility] Work Phone: Phosphate [Mass/Vol] 3.0 mg/dL 2.5 - 4.9 [...] Phone: Renal Function Panel 67 {mL/min/1.73m2} >60 [facility] [facility] Work Phone: Comment on above: CALCULATIONS OF ТАТЬЯНА MATED GFR ARE PERFORMED USING THE MDRD STUDY EQUATION FOR THE IDMS-TRACEABLE CREATININE METHODS. CLIN CHEM 2007;53:766-72 Renal Function Panel 55 {mL/min/1.73m2} Abnormal >60 [facility] [facility] Work Phone: Complete Blood [facility] + [facility] Basophils (Bld) [#/Vol] 0.07 {x10E9/L} See Below [facility] [facility] Work Phone: Comment on above: Reference Range: 0.0 0 - 0.10Automated WBC differential has been confirmed by manual smear. Basophils/100 WBC (Bld) 0.6 % 0.0 - 2.0 [facility] [facility] Work Phone: Eosinophils (Bld) [#/Vol] 0.12 {x10E9/L} See Below [facility] [facility] Work Phone: [phone] Comment on above: Reference Range: 0.0 0 - 0.40 Eosinophils/100 WBC (Bld) 1.0 % 0.0 - 6.0 [facility] [facility] Work Phone: [phone] Erythrocyte distribution width (RBC) [Ratio] 21.0 % above high threshold See Below [facility] [facility] Work Phone: [phone] Comment on above: Reference Range: 11. 5 - 14.5 Hematocrit (Bld) [Volume fraction] 39.7 % See Below [facility] [facility] Work Phone: [phone] Comment on above: Reference Range: 36. 0 - 46.0 Hemoglobin (Bld) [Mass/Vol] 13.0 g/dL See Below [facility] [facility] DO Work Phone: [phone] Comment on above: Reference Range: 12. 0 - 16.0 Lymphocytes (Bld) [#/Vol] 1.80 {x10E9/L} See Below [facility] [facility] DO Work Phone: [phone] Comment on above: Reference Range: 0.8 0 - 3.00 Lymphocytes/100 WBC (Bld) 14.9 % See Below [facility] [facility] Work Phone: [phone] Comment on above: Reference Range: 13. 0 - 44.0 MCHC (RBC) [Mass/Vol] 32.7 g/dL See Below [facility] [facility] Work Phone: [phone] Comment on above: Reference Range: 32. 0 - 36.0 MCV (RBC) [Entitic vol] 89 fL 80 - 100 [facility] [facility] Work Phone: [phone] Monocytes (Bld) [#/Vol] 1.17 {x10E9/L} above high threshold See Below [facility] [facility] Work Phone: Comment on above: Reference Range: 0.0 5 - 0.80 Monocytes/100 WBC (Bld) 9.7 % 2.0 - 10.0 [facility] [facility] DO Work Phone: [phone] Neutrophils/100 WBC (Bld) 70.1 % See Below [facility] [facility] Work Phone: Comment on above: Reference Range: 40. 0 - 80.0 Platelets (Bld) [#/Vol] 568 {x10E9/L} above high threshold 150 - 450 [facility] [facility] DO Work Phone: [phone] RBC (Bld) [#/Vol] 4.47 {x10E12/L} See Below [facility] [facility] Work Phone: Comment on above: Reference Range: 4.0 0 - 5.20 WBC (Bld) [#/Vol] 12.1 {x10E9/L} above high threshold 4.4 - 11.3 [facility] [facility] Work Phone: WBC (Bld) [#/Vol] 0.0 {/100_WBC} 0.0-0.0 [facility] [facility] Work Phone: Complete Blood Count + Differential 3.7 % [...] Range: 1.6 0 - 5.50 Magnesium, Serumon 12-29-202 0 Magnesium [Mass/Vol] 2.29 mg/dL See Below [facility] [facility] Work Phone: Comment on above: Reference Range: 1.6 0 - 2.40 Otheron 10-18-2020 Few [facility] [facility] DO Work Phone: Mild [facility] [facility] DO Work Phone: See Below [facility] [facility] Work Phone: Renal Function Panelon 10-18 Albumin BCP dye [Mass/Vol] 3.1 g/dL below low threshold 3.4 - 5.0 [facility] [facility] Work Phone: Anion gap [Moles/Vol] 15 mmol/L 10 - 20 [facility] [facility] DO Work Phone: Calcium [Mass/Vol] 9.7 mg/dL 8.6 - 10.6 [facility] [facility] DO Work Phone: Chloride [Moles/Vol] 102 mmol/L 98 - 107 [facility] [facility] DO Work Phone: CO2 [Moles/Vol] 28 mmol/L 21 - 32 [facility] [facility] DO Work Phone: Creatinine [Mass/Vol] 0.93 mg/dL See Below [facility]- [...] 400 DO Work Phone: Urea nitrogen [Mass/Vol] 21 mg/dL 6 - 23 [facility] [facility] DO Work Phone: Renal Function Panel 70 {mL/min/1.73m2} >60 [facility] [facility] DO Work Phone: Comment on above: CALCULATIONS OF ТАТЬЯНА MATED GFR ARE PERFORMED USING THE MDRD STUDY EQUATION FOR THE IDMS-TRACEABLE CREATININE METHODS. CLIN CHEM 2007;53:766-72 Renal Function Panel 58 {mL/min/1.73m2} Abnormal >60 [facility] [facility] DO Work Phone: Complete Blood Count + Diffe lukason 10-17-2020 Basophils (Bld) [#/Vol] 0.05 {x10E9/L} See Below [facility] [facility] Work Phone: Comment on above: Reference Range: 0.0 0 - 0.10Automated WBC differential has been confirmed by manual smear. Basophils/100 WBC (Bld) 0.4 % 0.0 - 2.0 [facility] [facility] DO Work Phone: Eosinophils (Bld) [#/Vol] 0.09 {x10E9/L} See Below [facility] [facility] DO Work Phone: Comment on above: Reference Range: 0.0 0 - 0.40 Eosinophils/100 WBC (Bld) 0.6 % 0.0 - 6.0 [facility] [facility] DO Work Phone: [phone] Erythrocyte distribution width (RBC) [Ratio] 20.2 % above high threshold See Below [facility] [facility] DO Work Phone: [phone] Comment on above: Reference Range: 11. 5 - 14.5 Hematocrit (Bld) [Volume fraction] 36.1 % See Below [facility] [facility] DO Work Phone: [phone] Comment on above: Reference Range: 36. 0 - 46.0 Hemoglobin (Bld) [Mass/Vol] 12.0 g/dL See Below [facility] [facility] DO Work Phone: [phone] Comment on above: Reference Range: 12. 0 - 16.0 Lymphocytes (Bld) [#/Vol] 1.64 {x10E9/L} See Below [facility] [facility] DO Work Phone: [phone] Comment on above: Reference Range: 0.8 0 - 3.00 Lymphocytes/100 WBC (Bld) 11.8 % See Below [facility] [facility] DO Work Phone: [phone] Comment on above: Reference Range: 13. 0 - 44.0 MCHC (RBC) [Mass/Vol] 33.2 g/dL See Below [facility] [facility] DO Work Phone: [phone] Comment on above: Reference Range: 32. 0 - 36.0 MCV (RBC) [Entitic vol] 86 fL 80 - 100 [facility] [facility] DO Work Phone: [phone] Monocytes (Bld) [#/Vol] 1.43 {x10E9/L} above high threshold See Below [facility] [facility] DO Work Phone: [phone] Comment on above: Reference Range: 0.0 5 - 0.80 Monocytes/100 WBC (Bld) 10.3 % 2.0 - 10.0 [facility] [facility] Work Phone: Neutrophils/100 WBC (Bld) 75.0 % See Below -[facility] [facility] DO Work Phone: Comment on above: Reference Range: 40. 0 - 80.0 Platelets (Bld) [#/Vol] 538 {x10E9/L} above high threshold 150 - 450 [facility] [facility] Work Phone: RBC (Bld) [#/Vol] 4.19 {x10E12/L} See Below [facility] [facility] DO Work Phone: Comment on above: Reference Range: 4.0 0 - 5.20 WBC (Bld) [#/Vol] 13.9 {x10E9/L} above high threshold 4.4 - 11.3 -[facility] [facility] DO Work Phone: WBC (Bld) [#/Vol] 0.0 {/100_WBC} 0.0-0.0 [facility] [facility] Work Phone: Complete Blood Count + Differential 10.45 {x10E9/L} above high threshold See Below [facility] [facility] DO Work Phone: Comment on above: Reference Range: 1.6 0 - 5.50 Complete Blood Count + Differential 1.9 % above high threshold 0.0 - 0.9 -[facility] [facility] DO Work Phone: Comment on above: Immature Granulocyte Count (IG) includes promyelocytes, myelocytes and metamyelocytes but does not include bands. Percent differential counts (%) should be interpreted in the context of the absolute cell counts (cells/L). Magnesium, Serumon 0 Magnesium [Mass/Vol] 2.27 mg/dL See Below [facility] [facility] DO Work [...] 400 DO Work Phone: Renal Function Panelon 10-17 Albumin BCP dye [Mass/Vol] 3.3 g/dL below low threshold 3.4 - 5.0 [facility] [facility] DO Work Phone: Anion gap [Moles/Vol] 16 mmol/L 10 - [...] [place] [address] [facility] Work Phone: Phosphate [Mass/Vol] 3.2 mg/dL 2.5 - 4.9 [...] [facility] [facility] DO Work Phone: [phone] Urea nitrogen [Mass/Vol] 17 mg/dL 6 - 23 [facility] [facility] DO Work Phone: Renal Function Panel >60 >60 [facility] [facility] DO Work Phone: Comment on above: CALCULATIONS OF ТАТЬЯНА MATED GFR ARE PERFORMED USING THE MDRD STUDY EQUATION FOR THE IDMS-TRACEABLE CREATININE METHODS. CLIN CHEM 2007;53:766-72 Albumin BCP dye [Mass/Vol] 2.8 g/dL below low threshold 3.4 - 5.0 [facility] [facility] Work Phone: Anion gap [Moles/Vol] 14 mmol/L 10 - 20 [facility] [facility] DO Work Phone: [phone] Calcium [Mass/Vol] 9.3 mg/dL 8.6 - 10.6 [facility] [facility] DO Work Phone: [phone] Chloride [Moles/Vol] 104 mmol/L 98 - 107 [facility] [facility] DO Work Phone: [phone] CO2 [Moles/Vol] 29 mmol/L 21 - 32 [facility] [facility] DO Work Phone: [phone] Creatinine [Mass/Vol] 0.88 mg/dL See Below [facility] [facility] DO Work Phone: Comment on above: Reference Range: 0.5 0 - 1.05 Glucose [Mass/Vol] 73 mg/dL below low threshold 74 - 99 [facility] [facility] DO Work Phone: Phosphate [Mass/Vol] 2.3 mg/dL below low threshold [...] 400 DO Work Phone: Urea nitrogen [Mass/Vol] 16 mg/dL 6 - 23 [facility] [facility] DO Work Phone: Renal Function Panel >60 >60 [facility] [facility] DO Work Phone: Comment on above: CALCULATIONS OF ТАТЬЯНА MATED GFR ARE PERFORMED USING THE MDRD STUDY EQUATION FOR THE IDMS-TRACEABLE CREATININE METHODS. CLIN CHEM 2007;53:766-72 CT Chest Abdomen Pelvis w IV Contraston 10-16-2020 CT Chest and Abdomen and Pelvis W contrast IV Interpreted by: CAMMY10/16/20 18:45MRN: [id number] Name: JOHANA CHIN STUDY:CT CHEST ABDOMEN PELVIS [...] metallic clip is again noted in the [id number]. BOWEL:The stomach is unremarkable. Hyperdense content within [...] Electronically signed by: CAMMY 10/16/20 18:45 Normal [facility] [facility] DO Work Phone: Complete Blood Count + Diffe wildtialon 10-16-2020 Basophils (Bld) [#/Vol] 0.04 {x10E9/L} See Below [facility] [facility] DO Work Phone: Comment on above: Reference Range: 0.0 0 - 0.10 Basophils/100 WBC (Bld) 0.3 % 0.0 - 2.0 [facility] [facility] DO Work Phone: Eosinophils (Bld) [#/Vol] 0.03 {x10E9/L} See Below [facility] [facility] DO Work Phone: Comment on above: Reference Range: 0.0 0 - 0.40 Eosinophils/100 WBC (Bld) 0.2 % 0.0 - 6.0 [facility] [facility] DO Work Phone: [phone] Erythrocyte distribution width (RBC) [Ratio] 20.0 % above high threshold See Below [facility] [facility] DO Work Phone: [phone] Comment on above: Reference Range: 11. 5 - 14.5 Hematocrit (Bld) [Volume fraction] 39.2 % See Below [facility] [facility] DO Work Phone: [phone] Comment on above: Reference Range: 36. 0 - 46.0 Hemoglobin (Bld) [Mass/Vol] 12.9 g/dL See Below [facility] [facility] DO Work Phone: [phone] Comment on above: Reference Range: 12. 0 - 16.0 Lymphocytes (Bld) [#/Vol] 1.86 {x10E9/L} See Below [facility] [facility] DO Work Phone: [phone] Comment on above: Reference Range: 0.8 0 - 3.00 Lymphocytes/100 WBC (Bld) 11.7 % See Below [facility] [place] [facility] DO Work Phone: [phone] Comment on above: Reference Range: 13. 0 - 44.0 MCHC (RBC) [Mass/Vol] 32.9 g/dL See Below [facility] [facility] DO Work Phone: [phone] Comment on above: Reference Range: 32. 0 - 36.0 MCV (RBC) [Entitic vol] 88 fL 80 - 100 [facility] [facility] DO Work Phone: [phone] Monocytes (Bld) [#/Vol] 1.56 {x10E9/L} above high threshold See Below [facility] 400 DO Work Phone: [phone] Comment on above: Reference Range: 0.0 5 - 0.80 Monocytes/100 WBC (Bld) 9.8 % 2.0 - 10.0 -[facility] 400 DO Work Phone: Neutrophils/100 WBC (Bld) 77.2 % See Below [facility] [facility] DO Work Phone: Comment on above: Reference Range: 40. 0 - 80.0 Platelets (Bld) [#/Vol] 536 {x10E9/L} above high threshold 150 - 450 [facility] 400 DO Work Phone: [phone] RBC (Bld) [#/Vol] 4.46 {x10E12/L} See Below [facility] 400 DO Work Phone: Comment on above: Reference Range: 4.0 0 - 5.20 WBC (Bld) [#/Vol] 15.9 {x10E9/L} above high threshold 4.4 - 11.3 [facility] 400 DO Work Phone: [phone] WBC (Bld) [#/Vol] 0.0 {/100_WBC} 0.0-0.0 - [facility] 400 DO Work Phone: [phone] Complete Blood Count + Differential 12.31 {x10E9/L} above high threshold See Below [facility] [facility] DO Work Phone: Comment on above: Reference Range: 1.6 0 - 5.50 Complete Blood Count + Differential 0.8 % 0.0 - 0.9 [facility] 400 DO Work Phone: Comment on above: Immature Granulocyte Count (IG) includes promyelocytes, myelocytes and metamyelocytes but does not include bands. Percent differential counts (%) should be interpreted in the context of the absolute cell counts (cells/L). Magnesium, Serumon 0 Magnesium [Mass/Vol] 2.09 mg/dL See Below -[facility] 400 DO Work Phone: Comment on above: Reference Range: 1.6 0 - 2.40 Renal Function Panelon 10-16 Albumin BCP dye [Mass/Vol] 3.1 g/dL below low threshold 3.4 - 5.0 [facility] 400 DO Work Phone: Comment on above: REBECCA FRANKS CALLED TO AGUSTIN EVARISTO , 10/16/2020 09:50 Anion gap [Moles/Vol] 17 mmol/L 10 - 20 [facility]- [facility] 400 DO Work Phone: Comment on above: REBECCA FRANKS CALLED TO AGUSTIN EVARISTO , 10/16/2020 09:50 Calcium [Mass/Vol] 9.2 mg/dL 8.6 - 10.6 [facility] 400 DO Work Phone: Comment on above: REBECCA FRANKS CALLED TO AGUSTIN EVARISTO , 10/16/2020 09:50 Chloride [Moles/Vol] 100 mmol/L 98 - 107 [facility] 400 DO Work Phone: Comment on above: REBECCA FRANKS CALLED TO AGUSTIN EVARISTO , 10/16/2020 09:50 CO2 [Moles/Vol] 28 mmol/L 21 - 32 [facility] 400 DO Work Phone: Comment on above: REBECCA FRANKS CALLED TO AGUSTIN EVARISTO , 10/16/2020 09:50 Creatinine [Mass/Vol] 0.94 mg/dL See Below MP- [facility] 400 DO Work Phone: Comment on above: Reference Range: 0.5 0 - 1.05 REBECCA FRANKS CALLED TO AGUSTIN EVARISTO , 10/16/2020 09:50 Glucose [Mass/Vol] 121 mg/dL above high threshold 74 - 99 [facility] 400 DO Work Phone: Comment on above: REBECCA FRANKS CALLED TO AGUSTIN EVARISTO , 10/16/2020 09:50 [...] FDA; however, such approval is not necessary. RODRINataliya Catherine RB CALLED TO AGUSTIN EVARISTO , 10/16/2020 09:50 Potassium [Moles/Vol] 2.9 mmol/L Critically low 3.5 - 5.3 [facility] 400 DO Work Phone: Comment on above: RODRIT K RB CALLED TO AGUSTIN EVARISTO , 10/16/2020 09:50 CRIT K RB CALLED TO AGUSTIN EVARISTO , 10/16/2020 09:50 Sodium [Moles/Vol] 142 mmol/L 136 - 145 [facility] 400 DO Work Phone: Comment on above: RODRIT K RB CALLED TO AGUSTIN EVARISTO , 10/16/2020 09:50 Urea nitrogen [Mass/Vol] 12 mg/dL 6 - 23 [facility] 400 DO Work Phone: Comment on above: CRIT K RB CALLED TO AGUSTIN EVARISTO , 10/16/2020 09:50 Renal Function Panel 70 {mL/min/1.73m2} >60 [facility] 400 DO Work Phone: Comment on above: CALCULATIONS OF ТАТЬЯНА MATED GFR ARE PERFORMED USING THE MDRD STUDY EQUATION FOR THE IDMS-TRACEABLE CREATININE METHODS. CLIN CHEM 2007;53:766-72 RODRIT K RB CALLED TO AGUSTIN EVARISTO , 10/16/2020 09:50 Renal Function Panel 58 {mL/min/1.73m2} Abnormal >60 [facility] 400 DO Work Phone: Comment on above: RODRIT K RB CALLED TO AGUSTIN EVARISTO , 10/16/2020 09:50 Vancomycin Level, Troughon 1 [...] (Bld) [Moles/Vol] 24.6 mmol/L [facility] Work Phone: [phone] Comment on above: Reference Range: 22. 0 - 26.0 Oxygen (Bld) [Partial pressure] 92 {mmHg} 85 - 95 [facility] [place] 400 DO Work Phone: CLOST DIFF. TOXIN, PCRon C. difficile toxin genes AMINTA+probe Ql (Stl) NOT DETECTED See Below [facility] [place] 400 DO Work Phone: [phone] Comment on above: SOURCE: StoolReferen ce Range: [...] 7 days. Complete Blood Count + Diffe rentialon 10-15-2020 Basophils (Bld) [#/Vol] 0.07 {x10E9/L} See Below [facility] [place] 400 DO Work Phone: Comment on above: Reference Range: 0.0 0 - 0.10 Basophils/100 WBC (Bld) 0.5 % 0.0 - 2.0 [facility] [place] 400 DO Work Phone: [phone] Eosinophils (Bld) [#/Vol] 0.07 {x10E9/L} See Below [facility] [place] 400 DO Work Phone: Comment on above: Reference Range: 0.0 0 - 0.40 Eosinophils/100 WBC (Bld) 0.5 % 0.0 - 6.0 [facility] 400 DO Work Phone: [phone] Erythrocyte distribution width (RBC) [Ratio] 19.9 % above high threshold See Below [facility] 400 DO Work Phone: Comment on above: Reference Range: 11. 5 - 14.5 Hematocrit (Bld) [Volume fraction] 35.2 % below low threshold See Below [facility] 400 DO Work Phone: [phone] Comment on above: Reference Range: 36. 0 - 46.0 Hemoglobin (Bld) [Mass/Vol] 11.5 g/dL below low threshold See Below [facility]-[place] 400 DO Work Phone: [phone] Comment on above: Reference Range: 12. 0 - 16.0 Lymphocytes (Bld) [#/Vol] 1.35 {x10E9/L} See Below [facility]-[place] 400 DO Work Phone: [phone] Comment on above: Reference Range: 0.8 0 - 3.00 Lymphocytes/100 WBC (Bld) 10.6 % See Below [facility]-[place] 400 DO Work Phone: [phone] Comment on above: Reference Range: 13. 0 - 44.0 MCHC (RBC) [Mass/Vol] 32.7 g/dL See Below [facility]-[place] 400 DO Work Phone: [phone] Comment on above: Reference Range: 32. 0 - 36.0 MCV (RBC) [Entitic vol] 86 fL 80 - 100 [facility] 400 DO Work Phone: [phone] Monocytes (Bld) [#/Vol] 1.88 {x10E9/L} above high threshold See Below [facility] 400 DO Work Phone: Comment on above: Reference Range: 0.0 5 - 0.80 Monocytes/100 WBC (Bld) 14.8 % 2.0 - 10.0 [facility] 400 DO Work Phone: Neutrophils/100 WBC (Bld) 72.6 % See Below [facility] 400 DO Work Phone: Comment on above: Reference Range: 40. 0 - 80.0 Platelets (Bld) [#/Vol] 509 {x10E9/L} above high threshold 150 - 450 [facility] 400 DO Work Phone: RBC (Bld) [#/Vol] 4.09 {x10E12/L} See Below -[facility] [...] 9.24 {x10E9/L} above high threshold See Below -[facility] [...] Hemoglobin (Bld) [Mass/Vol] 12.6 g/dL See Below [facility] 400 DO Work Phone: Comment on above: Reference Range: 12. 0 - 16.0 pH (Bld) 7.48 [pH] above high threshold See Below [facility] 400 DO Work Phone: Comment on above: Reference Range: 7.3 8 - 7.42 Magnesium, Serumon 0 Magnesium [Mass/Vol] 1.77 mg/dL See Below [facility] 400 DO Work Phone: Comment on above: Reference Range: 1.6 0 - 2.40 Metabolic Panelon 10-15-2020 Calcium.ionized (Bld) [Moles/Vol] 1.23 mmol/L See Below [facility] 400 [...] y [facility] 400 DO Work Phone: Lactate [Moles/Vol] 2.1 mmol/L above high threshold 0.4 - 2.0 [facility] 400 DO Work Phone: Potassium [Moles/Vol] 3.1 mmol/L below low threshold 3.5 - 5.3 [facility] 400 DO Work Phone: Sodium [Moles/Vol] 136 mmol/L 136 - 145 [facility] 400 DO Work Phone: Glucose [Mass/Vol] 104 mg/dL above high threshold [...] Phone: Interpreted by: Jose Alberto MORGAN10/15/20 11:32MRN: [id number] Name: JOHANA CHIN STUDY:CHEST 1 VIEW; 10/15/2020 [...] findingsas stated. This study was interpreted at [place], [place].Electronically signed by: Jose Alberto MORGAN 10/15/20 11:32 Normal [facility] 400 DO Work Phone: Renal Function Panelon 10-15 Albumin BCP dye [Mass/Vol] 2.8 g/dL below low threshold 3.4 - 5.0 [facility] 400 DO Work Phone: Anion gap [Moles/Vol] 17 mmol/L 10 - 20 [facility] 400 DO Work Phone: [phone] Calcium [Mass/Vol] 8.6 mg/dL 8.6 - 10.6 [facility] 400 DO Work Phone: [phone] Chloride [Moles/Vol] 105 mmol/L 98 - 107 [facility] 400 DO Work Phone: [phone] CO2 [Moles/Vol] 23 mmol/L 21 - 32 [facility] 400 DO Work Phone: [phone] Creatinine [Mass/Vol] 0.99 mg/dL See Below MP- [facility] 400 DO Work Phone: [phone] Comment on above: Reference Range: 0.5 0 - 1.05 Glucose [Mass/Vol] 103 mg/dL above high threshold 74 - 99 [facility] 400 DO Work Phone: [phone] Phosphate [Mass/Vol] 3.3 mg/dL 2.5 - 4.9 [facility] 400 DO Work Phone: [phone] Comment on above: The performance darshana acteristics of phosphorus testing in heparinized plasma have been validated by the individual laboratory site where testing is performed. Testing on heparinized plasma is not approved by the FDA; however, such approval is not necessary. Potassium [Moles/Vol] 3.6 mmol/L 3.5 - 5.3 [facility]- [facility] 400 DO Work Phone: [phone] Sodium [Moles/Vol] 141 mmol/L 136 - 145 [facility] 400 DO Work Phone: [phone] Urea nitrogen [Mass/Vol] 11 mg/dL 6 - 23 [facility] 400 DO Work Phone: [phone] Renal Function Panel 54 {mL/min/1.73m2} Abnormal >60 [facility] 400 DO Work Phone: [phone] Renal Function Panel 65 {mL/min/1.73m2} >60 [facility] 400 DO Work Phone: [phone] Comment on above: CALCULATIONS OF ТАТЬЯНА MATED GFR ARE PERFORMED USING THE MDRD STUDY EQUATION FOR THE IDMS-TRACEABLE CREATININE METHODS. CLIN CHEM 2007;53:766-72 Complete Blood Count + Diffe rentialon 10-14-2020 Erythrocyte distribution width (RBC) [Ratio] 20.2 % above high threshold See Below [facility] 400 DO Work Phone: [phone] Comment on above: Reference Range: 11. 5 - 14.5 Hematocrit (Bld) [Volume fraction] 38.0 % See Below [facility] 400 DO Work Phone: Comment on above: Reference Range: 36. 0 - 46.0 Hemoglobin (Bld) [Mass/Vol] 12.4 g/dL See Below [facility] 400 DO Work Phone: [phone] Comment on above: Reference Range: 12. 0 - 16.0 MCHC (RBC) [Mass/Vol] 32.6 g/dL See Below MP- [facility] 400 DO Work Phone: Comment on above: Reference Range: 32. 0 - 36.0 MCV (RBC) [Entitic vol] 89 fL 80 - 100 [facility] 400 DO Work Phone: [phone] Platelets (Bld) [#/Vol] 488 {x10E9/L} above high threshold 150 - 450 [facility] 400 DO Work Phone: [phone] RBC (Bld) [#/Vol] 4.26 {x10E12/L} See Below [facility] 400 DO Work Phone: Comment on above: Reference Range: 4.0 0 - 5.20 WBC (Bld) [#/Vol] 21.5 {x10E9/L} above high threshold 4.4 - 11.3 [facility] 400 DO Work Phone: WBC (Bld) [#/Vol] 0.0 {/100_WBC} 0.0-0.0 [facility] 400 DO Work Phone: Complete Blood Count + Differential 1.3 % above high threshold 0.0 - 0.9 -[facility] 400 DO Work Phone: Comment on above: Immature Granulocyte Count (IG) includes promyelocytes, myelocytes and metamyelocytes but does not include bands. Percent differential counts (%) should be interpreted in the context of the absolute cell counts (cells/L). Complete Blood Count + Differential SEE MANUAL DIFF -[facility]-[place] 400 DO Work Phone: Coronavirus 2019 RNA by PCR, Symptomaticon 10-14-2020 When did you start to experience these symptoms [Date and time] [PhenX] 20201013 1 [facility] Work Phone: Coronavirus 2019 RNA by PCR, Symptomatic NOT DETECTED See Below [facility] 400 DO Work Phone: Comment [...] this test method. Fact sheet for providers: www.fda.gov/media/914003/downloadFact sheet for patients: www.fda.gov/media/455649/downloadThis test has received FDA Emergency Use Authorization (EUA) and has been verified by [facility] ([facility]). This test is only authorized for the duration of time that circumstances exist to justify the authorization of the emergency use of in vitro diagnostic tests for the detection of SARS-CoV-2 virus and/or diagnosis of COVID-19 infection under section 564(b)(1) of the Act, 21 U.S.C. 360bbb-3(b)(1), unless the authorization is terminated or revoked sooner. [facility] is certified under CLIA-88 as qualified to perform high complexity testing. Testing is performed in the [facility] located at [address] [place] [address]. Hematologyon 10-14-2020 Band form neutrophils/100 WBC (Bld) 5.0 % 0.0 - 5.0 [facility] 400 DO Work Phone: [phone] Basophils (Bld) [#/Vol] 0.00 {x10E9/L} See Below [facility] 400 DO Work Phone: [phone] Comment on above: Reference Range: 0.0 0 - 0.10 Basophils/100 WBC (Bld) 0.0 % 0.0 - 2.0 [facility] 400 DO Work Phone: [phone] Eosinophils (Bld) [#/Vol] 0.00 {x10E9/L} See Below [facility] 400 DO Work Phone: [phone] Comment on above: Reference Range: 0.0 0 - 0.40 Eosinophils/100 WBC (Bld) 0.0 % 0.0 - 6.0 [facility] 400 DO Work Phone: [phone] Lymphocytes (Bld) [#/Vol] 2.15 {x10E9/L} See Below [facility] 400 DO Work Phone: Comment on above: Reference Range: 0.8 0 - 3.00 Lymphocytes/100 WBC (Bld) 10.0 % See Below [facility] 400 DO Work Phone: Comment on above: Reference Range: 13. 0 - 44.0 Monocytes (Bld) [#/Vol] 3.01 {x10E9/L} above high threshold See Below [facility] 400 DO Work Phone: Comment on above: Reference Range: 0.0 5 - 0.80 Monocytes/100 WBC (Bld) 14.0 % 2.0 - 10.0 [facility] 400 DO Work Phone: MRSA Screenon 10-14-2020 Staphylococcus sp identified Org specific cx Nom (Unsp spec) PATIENT: JOHANA CHIN LOCATION: [address]#: [id number] : 44 AGE: SEX: F ORDERED BY: KANWAL GONZALES: ANTERIOR NARES COLLECTED: 10/14/20 10:08ANTIBIOTICS AT [place].: RECEIVED : 10/14/20 11:45SITE: nasal swab R E S U L T S STAPH/MRSA SCREEN FINAL 10/16/20 07:52 NO Staphylococcus aureus ISOLATED. [facility] 400 DO Work Phone: Magnesium, Serumon 0 Magnesium [Mass/Vol] 2.10 mg/dL See Below [facility] 400 DO Work Phone: Comment on above: Reference Range: 1.6 0 - 2.40 Metabolic Panelon 10-14-2020 Glucose [Mass/Vol] 318 mg/dL above high threshold 74 - 99 [facility] 400 DO Work Phone: Otheron 10-14-2020 Fibrin D-dimer DDU (PPP) [Mass/Vol] 908 {ng/mL_FEU} Abnormal = 500 [facility] 400 DO Work Phone: Comment on above: THE D-DIMER ASSAY IS [...] y [facility] 400 DO Work Phone: 1.08 {x10E9/L} above high threshold See Below [facility] 400 DO Work Phone: Comment on above: Reference Range: 0.0 0 - 0.50 See Below [facility] 400 DO Work Phone: 16.35 {x10E9/L} above high threshold See Below [facility] 400 DO Work Phone: Comment on above: Reference Range: 1.6 0 - 5.50 Mild [facility] 400 DO Work Phone: 15.27 {x10E9/L} above high threshold See Below [facility] 400 DO Work Phone: Comment on above: Reference Range: 1.6 0 - 5.00 Interpreted by: ELIZABETH10/14/20 08:17MRN: [id number] Name: JOHANA CHIN STUDY:CHEST 1 VIEW; 10/13/2020 [...] findingsas stated. This study was interpreted at [place], [place].Electronically signed by: ELIZABETH 10/14/20 08:17 Normal [facility] 400 DO Work Phone: Renal Function Panelon 10-14 Albumin BCP dye [Mass/Vol] 3.0 g/dL below low threshold 3.4 - 5.0 [facility] 400 DO Work Phone: Anion gap [Moles/Vol] 18 mmol/L 10 - 20 [facility] 400 DO Work Phone: [phone] Calcium [Mass/Vol] 9.5 mg/dL 8.6 - 10.6 [...] Work Phone: Comment on above: CALCULATIONS OF ТАТЬЯНА MATED GFR ARE PERFORMED USING THE MDRD [...] Aspergillus Galactomannan EIA is a product of [employer] and is FDA approved for in vitro diagnostic use. _Performed At:[facility] [place], [place] [address] Lab Director: Yareli Dolan PhD HCLD(ABB)CLIA# [id number] Cell Count + Differential, B samira Fluidon [...] Phone: Cell Count + Differential, Body Fluid 58 % [facility] 400 DO Work Phone: Cell Count + Differential, Body Fluid 100 1 [facility] 400 DO Work Phone: Cell Count + Differential, Body Fluid Colorless YELLOW [facility] 400 DO Work Phone: Comment on above: SOURCE: Bronchial Wa sh Cell Count + Differential, Body Fluid 10 % [facility] 400 DO Work Phone: Complete Blood Count + Diffe rentialon 10-13-2020 Basophils (Bld) [#/Vol] 0.08 {x10E9/L} See Below [facility] 400 DO Work Phone: Comment on above: Reference Range: 0.0 0 - 0.10Automated WBC differential has been confirmed by manual smear. Basophils/100 WBC (Bld) 0.6 % 0.0 - 2.0 [facility] 400 DO Work Phone: [phone] Eosinophils (Bld) [#/Vol] 0.01 {x10E9/L} See Below -[facility] 400 DO Work Phone: [phone] Comment on above: Reference Range: 0.0 0 - 0.40 Eosinophils/100 WBC (Bld) 0.1 % 0.0 - 6.0 -[facility] 400 DO Work Phone: [phone] Erythrocyte distribution width (RBC) [Ratio] 20.6 % above high threshold See Below [facility] 400 DO Work Phone: [phone] Comment on above: Reference Range: 11. 5 - 14.5 Hematocrit (Bld) [Volume fraction] 36.9 % See Below [facility] 400 DO Work Phone: [phone] Comment on above: Reference Range: 36. 0 - 46.0 Hemoglobin (Bld) [Mass/Vol] 12.2 g/dL See Below [facility] 400 DO Work Phone: [phone] Comment on above: Reference Range: 12. 0 - 16.0 Lymphocytes (Bld) [#/Vol] 0.62 {x10E9/L} below low threshold See Below [facility] 400 DO Work Phone: [phone] Comment on above: Reference Range: 0.8 0 - 3.00 Lymphocytes/100 WBC (Bld) 4.5 % See Below [facility] 400 DO Work Phone: [phone] Comment on above: Reference Range: 13. 0 - 44.0 MCHC (RBC) [Mass/Vol] 33.1 g/dL See Below [facility] 400 DO Work Phone: [phone] Comment on above: Reference Range: 32. 0 - 36.0 MCV (RBC) [Entitic vol] 89 fL 80 - 100 -[facility] 400 DO Work Phone: [phone] Monocytes (Bld) [#/Vol] 0.81 {x10E9/L} above high threshold See Below [facility] 400 DO Work Phone: [phone] Comment on above: Reference Range: 0.0 5 - 0.80 Monocytes/100 WBC (Bld) 5.9 % 2.0 - 10.0 [facility] 400 DO Work Phone: [phone] Neutrophils/100 WBC (Bld) 87.9 % See Below [facility] 400 DO Work Phone: [phone] Comment on above: Reference Range: 40. 0 - 80.0 Platelets (Bld) [#/Vol] 418 {x10E9/L} 150 - 450 [facility] 400 DO Work Phone: [phone] RBC (Bld) [#/Vol] 4.14 {x10E12/L} See Below [facility] 400 DO Work Phone: [phone] Comment on above: Reference Range: 4.0 0 - 5.20 WBC (Bld) [#/Vol] 13.6 {x10E9/L} above high threshold 4.4 - 11.3 [facility] 400 DO Work Phone: [phone] WBC (Bld) [#/Vol] 0.0 {/100_WBC} 0.0-0.0 [facility] 400 DO Work Phone: [phone] Complete Blood Count + Differential 11.98 {x10E9/L} above high threshold See Below [facility] 400 DO Work Phone: [phone] Comment on above: Reference Range: 1.6 0 - 5.50 Complete Blood Count + Differential 1.0 % above high threshold 0.0 - 0.9 [facility] 400 DO Work Phone: [phone] Comment on above: Immature Granulocyte Count (IG) includes promyelocytes, myelocytes and metamyelocytes but does not include bands. Percent differential counts (%) should be interpreted in the context of the absolute cell counts (cells/L). Cult, AFB, Misc.+ smearon Mycobacterium sp identified Org specific cx Nom (Unsp spec) PATIENT: JOHANA CHIN LOCATION: [facility] [id number]#: [id number] : 44 AGE: SEX: F ORDERED BY: [...] WHEN POSITIVE OR AFTER 8 WEEKS INCUBATION. [facility] [address] DO Work Phone: Cult, Bloodon 10-13-2020 Bacteria identified Cx Nom (Bld) PATIENT: JOHANA CHIN LOCATION: [facility] [id number]#: [id number] : 44 AGE: SEX: F ORDERED BY: KANWAL GONZALES: Blood COLLECTED: 10/13/20 19:46ANTIBIOTICS AT [place].: RECEIVED : 10/13/20 21:10SITE: R E S U L T S BLOOD CULTURE, BACTERIAL FINAL 10/18/20 21:42 No Growth at 1 days No Growth at 2 days No Growth at 3 days No Growth at 4 days NO GROWTH - FINAL REPORT [facility] [place] [facility] DO Work Phone: Cult, Fungus +smearon 2019 Fungus identified Cx Nom (Unsp spec) PATIENT: JOHANA CHIN LOCATION: C400 [id number]#: [id number] : 44 AGE: SEX: F ORDERED BY: GAIL SIMMONS: BRONCHIAL COLLECTED: 10/13/20 12:00ANTIBIOTICS AT [place].: RECEIVED : 10/13/20 12:43SITE: RML BAL R E S U L T S FUNGAL SMEAR FINAL 10/15/20 14:57 FLUORESCENT FUNGAL STAIN: NEGATIVE FUNGAL CULTURE/SM, MISC PRELIM 10/24/20 11:06 CULTURE IS IN PROGRESS A REPORT WILL BE ISSUED EITHER WHEN POSITIVE OR AFTER TWO WEEKS INCUBATION. [facility] 400 DO Work Phone: Cult, Resp. Lower + smearon 10-13-2020 Bacteria identified Respiratory culture Nom (Unsp spec) PATIENT: JOHANA CHIN LOCATION: [address]#: [id number] : 44 AGE: SEX: F ORDERED BY: GAIL SIMMONS: BRONCHIAL COLLECTED: 10/13/20 12:00ANTIBIOTICS AT [place].: RECEIVED : 10/13/20 12:42SITE: \ R E S U L T S GRAM STAIN FINAL 10/13/20 21:36 3+ GRANULOCYTES. NO ORGANISMS SEEN. RESPIRATORY CULT./SM,LOWER FINAL 10/15/20 11:02 NORMAL THROAT RAMYA, CULTURE IN PROGRESS. 3+ NORMAL THROAT RAMYA. -[facility] 400 DO Work Phone: Fungitelli Beta-D Glucanon 1 12-14-2019 1,3 beta glucan (S) [Mass/Vol] <45 [facility] 400 DO Work Phone: Comment on above: SOURCE: [facility] performance characteristics of the Fungitell assay in BAL have been determined by [employer]; there are no established criteria for the interpretation of Fungitell results from BAL fluid. Research studies have evaluated the use of the Fungitell assay in BAL in both immunocompromised patients (Mycopathologia (2013) 175:33-41) and acute eosinophilic pneumonia (Chest (2003) 123:0075-4842).The Fungitell Beta-D Glucan assay detects (1,3)- Inhy-L-wqqhyb from the following pathogens: Tanika spp., Acremonium, Aspergillus spp., Coccidioides immitis, Fusarium spp., Histoplasma capsulatum, Trichosporon spp., Sporothrix schenckii, Saccharomyces cerevisiae, and Pneumocystis jiroveci.The Fungitell Beta-D Glucan assay does not detect certain fungal species such as the genus Cryptococcus, which produces very low levels of (1,3)- Swph-P-sahqaq, nor the Zygomycetes, such as Absidia, Mucor, and Rhizopus, which are not known to produce (1,3)- Ebpd-U-yvzjls. Studies indicate Blastomyces dermatitidis is usually not detected due to little (1,3)- Grqe-S-eldvbm produced in the yeast phase.If sample result is greater than 500 pg/mL, physician may order a titer of the sample. Please contact [employer] if you would like to order a retest of this sample to obtain an actual value. Samples are held for 1 week after initial testing date.Validation of bronchial specimens was performed on undiluted samples. Any dilution that occurs during processing before receipt at [employer] will affect the quantitation Performed At:[facility] [place], [place] [address] [facility] Director: Yareli Dolan PhD HCLD([facility])IA# [id number] Hematologyon 10-13-2020 Hematocrit (Bld) [Volume fraction] 37.0 [...] y [facility] [facility] DO Work Phone: [phone] Platelets (Bld) [#/Vol] 410 {x10E9/L} 150 - 450 [facility] 400 DO Work Phone: [phone] RBC (Bld) [#/Vol] 4.18 {x10E12/L} See Below [facility] -[facility] 400 DO Work Phone: [phone] Comment on above: Reference Range: 4.0 0 - 5.20 WBC (Bld) [#/Vol] 0.0 {/100_WBC} 0.0-0.0 MP- [facility] 400 DO Work Phone: [phone] WBC (Bld) [#/Vol] 11.1 {x10E9/L} 4.4 - 11.3 [facility]- [facility] 400 DO Work Phone: [phone] ABO group Nom (Bld) O MP-Pu [facility] 400 DO Work Phone: [phone] aPTT Coag (PPP) [Time] 26 {sec} 25 - 35 [facility] 400 DO Work Phone: [phone] Comment on above: THE APTT IS NO LONGE R USED FOR MONITORING UNFRACTIONATED HEPARIN THERAPY. FOR MONITORING HEPARIN THERAPY, USE THE HEPARIN ASSAY. Blood group antibody screen Ql Negative [facility] 400 DO Work Phone: [phone] INR Coag (PPP) [Relative time] 1.3 {INR} above high threshold 0.9 - 1.1 [facility] 400 DO Work Phone: [phone] PT Coag (PPP) [Time] 15.1 {sec} above high threshold See Below [facility] 400 DO Work Phone: Comment on above: Reference Range: 10. 1 - 13.3 Rh immune globulin screen (Bld) [Interp] Negative MP-Pulmona r [facility] 400 DO Work Phone: Magnesium, Serumon 0 Magnesium [Mass/Vol] 1.93 mg/dL [facility] Work Phone: Comment on above: Reference Range: 1.6 0 - 2.40 Metabolic Panelon 10-13-2020 Glucose [Mass/Vol] 189 mg/dL above high threshold 74 - 99 [facility] Work Phone: Otheron 10-13-2020 Erythrocyte distribution width (RBC) [Ratio] 20.0 % above high threshold See Below [facility] Work Phone: Comment on above: Reference Range: 11. 5 - 14.5 MCHC (RBC) [Mass/Vol] 32.4 g/dL See Below [facility] [place] 400 DO Work Phone: Comment on above: Reference Range: 32. 0 - 36.0 Procalcitonin [Mass/Vol] 0.12 ng/mL Abnormal <=0.07 [facility] [place] 400 DO Work Phone: [...] not been evaluated. Interpreted by: FELIX10/13/20 16:01MRN: [id number] Name: JOHANA CHIN STUDY:CHEST 1 VIEW; 10/13/2020 [...] findingsas stated. This study was interpreted at [place], [place].Electronically signed by: FELIX 10/13/20 16:01 Normal [facility] 400 DO Work Phone: Mild [facility] 400 DO Work Phone: [phone] See Below [facility] 400 DO Work Phone: [email or web address] belkis saavedra/[employer]key.aspx?={[email or web address] [id number]} [facility] [facility] DO Work Phone: [phone] Patient Name: Johana ChinProcedvasquez Date: 10/13/2020 7:16 AMMRN: [id number] Number: [id number] of : 2Room: [place] Procedure Room 8Attending MD: Evans Kennedy MDProcedure: BronchoscopyIndications: Bilateral infiltrateProviders: Evans Kennedy MD (Doctor), Beto Garcia RN (Nurse), Romel Trujillo, Technology Lead (Technology Lead), Jose D Ojeda MD (Fellow)Referring MD: Provider [...] Await BAL results.Procedure Code(s): --- Professional --- 67757, Bronchoscopy, rigid or flexible, including fluoroscopic guidance, when performed; with bronchial alveolar lavageDiagnosis Code(s): --- Professional --- R91.8, Other nonspecific abnormal finding of lung field C81.90, Hodgkin lymphoma, unspecified, unspecified siteCPT copyright 2019 [employer]. All rights reserved.The codes documented in this report are preliminary and upon slate handler review may be revised to meet current compliance requirements.Attending Participation: I was present and participated during the entire procedure, including non-downs portions.Evans Kennedy MD10/13/2020 9:20:49 AMThis report has been signed electronically.Number of Addenda: 0Note Initiated On: 10/13/2020 7:16 AMPatient Profile: This [...] DO Work Phone: Comment on above: SOURCE: Bronchial Wa sh By her/his signature above, the Pathologist listed [...] y [facility] 400 DO Work Phone: [phone] Chloride [Moles/Vol] 103 mmol/L 98 - 107 MP-P [facility]monar [facility] 400 DO Work Phone: [phone] CO2 [Moles/Vol] 24 mmol/L 21 - 32 [facility] 400 DO Work Phone: [phone] Creatinine [Mass/Vol] 0.80 mg/dL See Below MP- [...] Work Phone: Comment on above: CALCULATIONS OF ТАТЬЯНА MATED GFR ARE PERFORMED USING THE MDRD STUDY EQUATION FOR THE IDMS-TRACEABLE CREATININE METHODS. CLIN CHEM 2007;53:766-72 Albumin BCP dye [Mass/Vol] 3.0 g/dL below low threshold 3.4 - 5.0 [facility] 400 DO Work Phone: Anion gap [Moles/Vol] 14 mmol/L 10 - 20 MP- [facility] 400 DO Work Phone: Calcium [Mass/Vol] 9.1 mg/dL 8.6 - 10.6 [...] [Moles/Vol] 4.3 mmol/L 3.5 - 5.3 MP- Pulmonar y [...] Work Phone: Comment on above: CALCULATIONS OF ТАТЬЯНА MATED GFR ARE PERFORMED USING THE MDRD [...] developed and its performance characteristics determined by [employer]. It has not been cleared or approved by the U.S. Food and Drug Administration. Results should be used in conjunction with clinical findings, and should not form the sole basis for a diagnosis or treatment decision. Performed At:[facility] [place] [address] [facility] Director: Yareli Dolan PhD HCLD(ABB)CLIA# [id number] Complete Blood Count + Diffe rentialon 10-12-2020 Basophils (Bld) [#/Vol] 0.09 {x10E9/L} See Below [facility] 400 DO Work Phone: Comment on above: Reference Range: 0.0 0 - 0.10Automated WBC differential has been confirmed by manual smear. Basophils/100 WBC (Bld) 1.1 % 0.0 - 2.0 [facility] 400 DO Work Phone: [phone] Eosinophils (Bld) [#/Vol] 0.15 {x10E9/L} See Below [facility] 400 DO Work Phone: [phone] Comment on above: Reference Range: 0.0 0 - 0.40 Eosinophils/100 WBC (Bld) 1.8 % 0.0 - 6.0 [facility] 400 DO Work Phone: [phone] Erythrocyte distribution width (RBC) [Ratio] 20.8 % above high threshold See Below [facility] Work Phone: [phone] Comment on above: Reference Range: 11. 5 - 14.5 Hematocrit (Bld) [Volume fraction] 35.9 % below low threshold See Below [facility] [facility] DO Work Phone: [phone] Comment on above: Reference Range: 36. 0 - 46.0 Hemoglobin (Bld) [Mass/Vol] 11.8 g/dL below low threshold See Below [facility] Work Phone: [phone] Comment on above: Reference Range: 12. 0 - 16.0 Lymphocytes (Bld) [#/Vol] 0.96 {x10E9/L} See Below [facility] [facility] DO Work Phone: [phone] Comment on above: Reference Range: 0.8 0 - 3.00 Lymphocytes/100 WBC (Bld) 11.4 % See Below [facility] 400 DO Work Phone: Comment on above: Reference Range: 13. 0 - 44.0 MCHC (RBC) [Mass/Vol] 32.9 g/dL See Below MP- Pulmonar [facility] 400 DO Work Phone: [phone] Comment on above: Reference Range: 32. 0 - 36.0 MCV (RBC) [Entitic vol] 88 fL 80 - 100 [facility] 400 DO Work Phone: [phone] Monocytes (Bld) [#/Vol] 1.56 {x10E9/L} above high threshold See Below [facility] 400 DO Work Phone: [phone] Comment on above: Reference Range: 0.0 5 - 0.80 Monocytes/100 WBC (Bld) 18.6 % 2.0 - 10.0 [facility] 400 DO Work Phone: [phone] Neutrophils/100 WBC (Bld) 66.1 % See Below [facility] 400 DO Work Phone: [phone] Comment on above: Reference Range: 40. 0 - 80.0 Platelets (Bld) [#/Vol] 388 {x10E9/L} 150 - 450 [facility] 400 DO Work Phone: [phone] RBC (Bld) [#/Vol] 4.06 {x10E12/L} See Below [facility] 400 DO Work Phone: [phone] Comment on above: Reference Range: 4.0 0 - 5.20 WBC (Bld) [#/Vol] 0.0 {/100_WBC} 0.0-0.0 [facility]- [facility] 400 DO Work Phone: [phone] WBC (Bld) [#/Vol] 8.4 {x10E9/L} 4.4 - 11.3 MP-[facility]ar [facility] 400 DO Work Phone: [phone] Complete Blood Count + Differential 1.0 % [...] above: Reference Range: 1.6 0 - 5.50 Cult, Bloodon 10-12-2020 Bacteria identified Cx Nom (Bld) PATIENT: JOHANA CHIN LOCATION: C4 [id number]#: [id number] : 44 AGE: SEX: F ORDERED BY: KANWAL GONZALES: Blood COLLECTED: 10/12/20 07:34ANTIBIOTICS AT [facility].: RECEIVED : 10/12/20 08:27SITE: right PERIPHERAL R E S U L T S BLOOD CULTURE, BACTERIAL FINAL 10/17/20 09:42 No Growth at 1 days No Growth at 2 days No Growth at 3 days No Growth at 4 days NO GROWTH - FINAL REPORT -[facility] 400 DO Work Phone: Bacteria identified Cx Nom (Bld) PATIENT: JOHANA CHIN LOCATION: C400 [id number]#: [id number] : 44 AGE: SEX: F ORDERED BY: KANWAL GONZALES: Blood COLLECTED: 10/12/20 07:33ANTIBIOTICS AT [facility].: RECEIVED : 10/12/20 08:27SITE: left PERIPHERAL R E S U L T S BLOOD CULTURE, BACTERIAL FINAL 10/17/20 09:42 No Growth at 1 days No Growth at 2 days No Growth at 3 days No Growth at 4 days NO GROWTH - FINAL REPORT -[facility]ar [facility] 400 DO Work Phone: Cult, Resp. Lower + smearon 10-12-2020 Bacteria identified Respiratory culture Nom (Unsp spec) PATIENT: JOHANA CHIN LOCATION: C400 [id number]#: [id number] : 44 AGE: SEX: F ORDERED BY: [...] 10-12-2020 Procalcitonin [Mass/Vol] 0.08 ng/mL Abnormal <=0.07 [facility] [...] medications has not been evaluated. SEE COMMENT [facility] 400 DO Work Phone: Comment on above: NO SIGNIFICANT RBC A BNORMALITIES SEEN ONSMEAR REVIEW. Renal Function Panelon 10-12 Albumin BCP dye [Mass/Vol] 2.9 g/dL below low threshold 3.4 - 5.0 [facility] 400 DO Work Phone: Anion gap [Moles/Vol] 14 mmol/L 10 - 20 [facility] 400 DO Work Phone: Calcium [Mass/Vol] 8.9 mg/dL 8.6 - 10.6 [facility] 400 DO Work Phone: Chloride [Moles/Vol] 104 mmol/L 98 - 107 -[facility] 400 DO Work Phone: CO2 [Moles/Vol] 26 mmol/L 21 - 32 [facility] 400 DO Work Phone: Creatinine [Mass/Vol] 0.87 mg/dL See Below [facility] 400 DO Work Phone: Comment on above: Reference Range: 0.5 0 - 1.05 Glucose [Mass/Vol] 96 mg/dL 74 - 99 [facility] 400 DO Work Phone: Phosphate [Mass/Vol] 2.8 mg/dL 2.5 - 4.9 [facility] 400 DO Work Phone: Comment on above: The performance darshana acteristics of phosphorus testing in heparinized plasma have been validated by the individual laboratory site where testing is performed. Testing on heparinized plasma is not approved by the FDA; however, such approval is not necessary. Potassium [Moles/Vol] 4.0 mmol/L 3.5 - 5.3 [facility] [facility] DO Work Phone: [phone] Sodium [Moles/Vol] 140 mmol/L 136 - 145 MP-Pul monar y [facility] 400 DO Work Phone: [phone] Urea nitrogen [Mass/Vol] 8 mg/dL 6 - 23 [facility] 400 DO Work Phone: [phone] Renal Function Panel >60 >60 [facility] 400 DO Work Phone: [phone] Comment on above: CALCULATIONS OF ТАТЬЯНА MATED GFR ARE PERFORMED USING THE MDRD STUDY EQUATION FOR THE IDMS-TRACEABLE CREATININE METHODS. CLIN CHEM 2007;53:766-72 Complete Blood Count + Diffe rentialon 10-11-2020 Basophils (Bld) [#/Vol] 0.09 {x10E9/L} [facility] Below [facility] [facility] DO Work Phone: [phone] Comment on above: Reference Range: 0.0 0 - 0.10 Basophils/100 WBC (Bld) 0.9 % 0.0 - 2.0 -[facility] 400 DO Work Phone: [phone] Eosinophils (Bld) [#/Vol] 0.24 {x10E9/L} See Below [facility] [facility] DO Work Phone: [phone] Comment on above: Reference Range: 0.0 0 - 0.40 Eosinophils/100 WBC (Bld) 2.3 % 0.0 - 6.0 [facility] [facility] DO Work Phone: [phone] Erythrocyte distribution width (RBC) [Ratio] 20.0 % above high threshold See Below [facility] 400 DO Work Phone: [phone] Comment on above: Reference Range: 11. 5 - 14.5 Hematocrit (Bld) [Volume fraction] 35.2 % below low threshold See Below [facility] 400 DO Work Phone: Comment on above: Reference Range: 36. 0 - 46.0 Hemoglobin (Bld) [Mass/Vol] 12.1 g/dL See Below -Pulmonar [facility] 400 DO Work Phone: Comment on above: Reference Range: 12. 0 - 16.0 Lymphocytes (Bld) [#/Vol] 0.92 {x10E9/L} See Below -[facility] 400 DO Work Phone: Comment on above: Reference Range: 0.8 0 - 3.00 Lymphocytes/100 WBC (Bld) 8.9 % See Below -[facility] 400 DO Work Phone: Comment on above: Reference Range: 13. 0 - 44.0 MCHC (RBC) [Mass/Vol] 34.4 g/dL See Below - [facility] 400 DO Work Phone: Comment on above: Reference Range: 32. 0 - 36.0 MCV (RBC) [Entitic vol] 88 fL 80 - 100 [facility] 400 DO Work Phone: [phone] Monocytes (Bld) [#/Vol] 1.51 {x10E9/L} above high threshold See Below [facility] [facility] DO Work Phone: Comment on above: Reference Range: 0.0 5 - 0.80 Monocytes/100 WBC (Bld) 14.7 % 2.0 - 10.0 [facility] 400 DO Work Phone: [phone] Neutrophils/100 WBC (Bld) 71.0 % See Below -[facility] 400 DO Work Phone: Comment on above: Reference Range: 40. 0 - 80.0 Platelets (Bld) [#/Vol] 343 {x10E9/L} 150 - 450 [facility] 400 DO Work Phone: [phone] RBC (Bld) [#/Vol] 4.02 {x10E12/L} See Below [facility] -[facility] 400 DO Work Phone: Comment on above: Reference Range: 4.0 0 - 5.20 WBC (Bld) [#/Vol] 0.0 {/100_WBC} 0.0-0.0 MP- [facility]ar [facility] 400 DO Work Phone: WBC (Bld) [#/Vol] 10.3 {x10E9/L} 4.4 - 11.3 MP- [facility] 400 DO Work Phone: Complete Blood Count + Differential 2.2 % above high threshold 0.0 - 0.9 [facility] [facility] DO Work Phone: Comment on above: Immature Granulocyte Count (IG) includes promyelocytes, myelocytes and metamyelocytes but does not include bands. Percent differential counts (%) should be interpreted in the context of the absolute cell counts (cells/L). Complete Blood Count + Differential 7.31 {x10E9/L} above high threshold See Below -[facility] 400 DO Work Phone: Comment on above: Reference Range: 1.6 0 - 5.50 Legionella Antigen, Urineon 10-11-2020 L. pneumophila 1 Ag IA Ql (U) Negative Negative -Pul[facility]ar [facility] 400 DO Work Phone: Comment on above: SOURCE: NEGATIVE FOR LEGIONELLA PNEUMOPHILIASEROGROUP 1 ANTIGEN IN URINE,SUGGESTING NO CURRENT OR PAST INFECTION. Magnesium, Serumon 0 Magnesium [Mass/Vol] 1.81 mg/dL See Below -P ulmonar y [facility] 400 DO Work Phone: Comment on above: Reference Range: 1.6 0 - 2.40 Metabolic Panelon 10-11-2020 LDH [Catalytic activity/Vol] 269 U/L above high threshold 84 - 246 [facility] 400 DO Work Phone: Otheron 10-11-2020 US.doppler Upper extremity vein - bilateral Interpreted by: JOAQUIN SNADY12/12/19 04:48MRN: [id number] Name: JOHANA CHIN STUDY:DUPLEX LOWER EXTREMITY VEINS, [...] findingsas stated. This study was interpreted at [place], [place].Electronically signed by: JOAQUIN ALBRECHT 10/11/20 04:48 Normal [facility] 400 DO Work Phone: S. pneumoniae Ag Ql (U) Negative Negative [facility] 400 DO Work Phone: Comment on above: Presumptive negative for pneumococcal [...] y [facility] 400 DO Work Phone: [phone] Calcium [Mass/Vol] 9.3 mg/dL 8.6 - 10.6 [facility] 400 DO Work Phone: [phone] Chloride [Moles/Vol] 100 mmol/L 98 - 107 MP-[facility] 400 DO Work Phone: [phone] CO2 [Moles/Vol] 26 mmol/L 21 - 32 [facility] 400 DO Work Phone: [phone] Creatinine [Mass/Vol] 0.84 mg/dL See Below MP- Pul[facility]ar [facility] 400 DO Work Phone: [phone] Comment on above: Reference Range: 0.5 0 - 1.05 Glucose [Mass/Vol] 117 mg/dL above high threshold 74 - 99 [facility] 400 DO Work Phone: [phone] Phosphate [Mass/Vol] 2.9 mg/dL 2.5 - 4.9 MP-[facility] 400 DO Work Phone: [phone] Comment on above: The performance darshana acteristics of phosphorus testing in heparinized plasma have been validated by the individual laboratory site where testing is performed. Testing on heparinized plasma is not approved by the FDA; however, such approval is not necessary. Potassium [Moles/Vol] 3.3 mmol/L below low threshold 3.5 - 5.3 [facility] 400 DO Work Phone: [phone] Sodium [Moles/Vol] 137 mmol/L 136 - 145 [facility] 400 DO Work Phone: [phone] Urea nitrogen [Mass/Vol] 8 mg/dL 6 - 23 [facility] 400 DO Work Phone: [phone] Renal Function Panel >60 >60 MP-[facility] 400 DO Work Phone: Comment on above: CALCULATIONS OF ТАТЬЯНА MATED GFR ARE PERFORMED USING THE MDRD STUDY EQUATION FOR THE IDMS-TRACEABLE CREATININE METHODS. CLIN CHEM 2007;53:766-[address] Angio Chest For PEon 1 12-12-2019 CT Angio Chest For PE Interpreted by: Jose Alberto MORGAN10/11/20 15:46MRN: [id number] Name: JOHANA CHIN STUDY:CT ANGIO CHEST FOR [...] by: Jose Alberto MORGAN 10/11/20 15:46 Normal [facility] 400 DO Work Phone: [facility] 10-10-2020 Natriuretic peptide B (Bld) [Mass/Vol] 10 pg/mL 0 - 99 [facility] 400 DO Work Phone: Comment on above: . <100 pg/mL - Heart failure [id number] pg/mL - Intermediate probability of acute heart. [...] further information. Complete Blood Count + Diffe [facility] 10-10-2020 Basophils (Bld) [#/Vol] 0.07 {x10E9/L} See Below [facility] Work Phone: Comment on above: Reference Range: 0.0 0 - 0.10Automated WBC differential has been confirmed by manual smear. Basophils/100 WBC (Bld) 0.6 % 0.0 - 2.0 [facility] [place] 400 DO Work Phone: Eosinophils (Bld) [#/Vol] 0.14 {x10E9/L} See Below [facility] [place] 400 DO Work Phone: Comment on above: Reference Range: 0.0 0 - 0.40 Eosinophils/100 WBC (Bld) 1.1 % 0.0 - 6.0 [facility] [place] 400 DO Work Phone: Erythrocyte distribution width (RBC) [Ratio] 21.2 % above high threshold See Below [facility] [place] 400 DO Work Phone: Comment on above: Reference Range: 11. 5 - 14.5 Hematocrit (Bld) [Volume fraction] 42.4 % See Below [facility] Work Phone: Comment on above: Reference Range: 36. 0 - 46.0 Hemoglobin (Bld) [Mass/Vol] 14.1 g/dL See Below [facility] 400 DO Work Phone: [phone] Comment on above: Reference Range: 12. 0 - 16.0 Lymphocytes (Bld) [#/Vol] 0.99 {x10E9/L} See Below [facility] 400 DO Work Phone: [phone] Comment on above: Reference Range: 0.8 0 - 3.00 Lymphocytes/100 WBC (Bld) 7.8 % See Below [facility] 400 DO Work Phone: [phone] Comment on above: Reference Range: 13. 0 - 44.0 MCHC (RBC) [Mass/Vol] 33.3 g/dL See Below MP- [facility] 400 DO Work Phone: [phone] Comment on above: Reference Range: 32. 0 - 36.0 MCV (RBC) [Entitic vol] 88 fL 80 - 100 [facility] 400 DO Work Phone: [phone] Monocytes (Bld) [#/Vol] 1.86 {x10E9/L} above high threshold See Below [facility] 400 DO Work Phone: [phone] Comment on above: Reference Range: 0.0 5 - 0.80 Monocytes/100 WBC (Bld) 14.7 % 2.0 - 10.0 [facility] 400 DO Work Phone: [phone] Neutrophils/100 WBC (Bld) 75.8 % See Below [facility] 400 DO Work Phone: [phone] Comment on above: Reference Range: 40. 0 - 80.0 Platelets (Bld) [#/Vol] 354 {x10E9/L} 150 - 450 [facility] 400 DO Work Phone: [phone] RBC (Bld) [#/Vol] 4.81 {x10E12/L} See Below [facility] -[facility] 400 DO Work Phone: [phone] Comment on above: Reference Range: 4.0 0 - 5.20 WBC (Bld) [#/Vol] 12.7 {x10E9/L} above high threshold 4.4 - 11.3 [facility] 400 DO Work Phone: Complete Blood Count + Differential 9.62 {x10E9/L} above high threshold See Below [facility] [facility] DO Work Phone: Comment on above: Reference Range: 1.6 0 - 5.50 Percent differential counts (%) should be interpreted in the context of the absolute cell counts (cells/L). Coronavirus 2019 RNA by PCR, Screening Asymptomticon 10-10-2020 Coronavirus 2019 RNA by PCR, Screening Asymptomtic NOT DETECTED See Below MP-Pulmonar y Medicine-As [...] this test method. Fact sheet for providers: www.fda.gov/media/903562/downloadFact sheet for patients: www.fda.gov/media/777197/downloadThis test has received FDA Emergency Use Authorization (EUA) and has been verified by [facility] ([facility]). This test is only authorized for the duration of time that circumstances exist to justify the authorization of the emergency use of in vitro diagnostic tests for the detection of SARS-CoV-2 virus and/or diagnosis of COVID-19 infection under section 564(b)(1) of the Act, 21 U.S.C. 360bbb-3(b)(1), unless the authorization is terminated or revoked sooner. [facility] is certified under CLIA-88 as qualified to perform high complexity testing. Testing is performed in the [facility] located at [address] [place] [address]. Metabolic Panelon 10-10-2020 ALP [Catalytic activity/Vol] 106 U/L 33 - 136 [facility] 400 DO Work Phone: Anion gap [Moles/Vol] 16 mmol/L 10 - 20 MP- [facility] 400 DO Work Phone: Bilirubin [Mass/Vol] 0.7 mg/dL 0.0 - 1.2 [facility] 400 DO Work [phone] Calcium [Mass/Vol] 9.8 mg/dL 8.6 - 10.6 [facility] 400 DO Work Phone: [phone] Chloride [Moles/Vol] 98 mmol/L 98 - 107 [facility] 400 DO Work Phone: [phone] CO2 [Moles/Vol] 27 mmol/L 21 - 32 [facility] 400 DO Work Phone: Creatinine [Mass/Vol] 0.98 mg/dL See Below MP- [facility] 400 DO Work Phone: Comment on above: Reference Range: 0.5 0 - 1.05 Glucose [Mass/Vol] 139 mg/dL above high threshold 74 - 99 [facility] 400 DO Work Phone: Potassium [Moles/Vol] 3.4 mmol/L below low threshold 3.5 - 5.3 [facility] 400 DO Work Phone: Protein [Mass/Vol] 6.4 g/dL 6.4 - 8.2 [facility] 400 DO Work Phone: [phone] Sodium [Moles/Vol] 138 mmol/L 136 - 145 [facility] 400 DO Work Phone: Urea nitrogen [Mass/Vol] 8 mg/dL 6 - 23 [facility] [facility] DO Work Phone: Otheron 10-10-2020 Interpreted by: Jose Alberto MORGAN10/11/20 11:45MRN: [id number] Name: JOHANA CHIN STUDY:CHEST 1 VIEW; 10/10/2020 [...] findingsas stated. This study was interpreted at [facility], [place], [place].Electronically signed by: Jose Alberto MORGAN 10/11/20 [...] Work Phone: Comment on above: CALCULATIONS OF ТАТЬЯНА MATED GFR ARE PERFORMED USING THE MDRD STUDY EQUATION FOR THE IDMS-TRACEABLE CREATININE METHODS. CLIN CHEM 2007;53:766-72 55 {mL/min/1.73m2} Abnormal >60 [facility] [place] [facility] DO Work Phone: Complete Blood Count + Diffe [facility] 09-12-2020 Basophils (Bld) [#/Vol] 0.07 {x10E9/L} See Below [facility] Work Phone: Comment on above: Reference Range: 0.0 0 - 0.10 Basophils/100 WBC (Bld) 0.6 % 0.0 - 2.0 [facility] Work Phone: Eosinophils (Bld) [#/Vol] 0.36 {x10E9/L} See Below [facility] Work Phone: Comment on above: Reference Range: 0.0 0 - 0.40 Eosinophils/100 WBC (Bld) 3.3 % 0.0 - 6.0 [facility] Work Phone: Erythrocyte distribution width (RBC) [Ratio] 19.2 % above high threshold See Below [facility] Work Phone: Comment on above: Reference Range: 11. 5 - 14.5 Hematocrit (Bld) [Volume fraction] 43.2 % See Below [facility] Work Phone: Comment on above: Reference Range: 36. 0 - 46.0 Hemoglobin (Bld) [Mass/Vol] 14.0 g/dL See Below [facility] Work Phone: Comment on above: Reference Range: 12. 0 - 16.0 Lymphocytes (Bld) [#/Vol] 1.39 {x10E9/L} See Below [facility] Work Phone: Comment on above: Reference Range: 0.8 0 - 3.00 Lymphocytes/100 WBC (Bld) 12.7 % See Below [facility] Work Phone: Comment on above: Reference Range: 13. 0 - 44.0 MCHC (RBC) [Mass/Vol] 32.4 g/dL See Below [facility] Work Phone: Comment on above: Reference Range: 32. 0 - 36.0 MCV (RBC) [Entitic vol] 90 fL 80 - 100 [facility] Work Phone: Monocytes (Bld) [#/Vol] 1.19 {x10E9/L} above high threshold See Below [facility] Work Phone: Comment on above: Reference Range: 0.0 5 - 0.80 Monocytes/100 WBC (Bld) 10.9 % 2.0 - 10.0 [facility] Work Phone: Neutrophils/100 WBC (Bld) 72.5 % See Below [facility] Work Phone: Comment on above: Reference Range: 40. 0 - 80.0 Platelets (Bld) [#/Vol] 271 {x10E9/L} 150 - 450 [facility] Work Phone: RBC (Bld) [#/Vol] 4.80 {x10E12/L} See Below [facility] Work Phone: Comment on above: Reference Range: 4.0 0 - 5.20 WBC (Bld) [#/Vol] 10.9 {x10E9/L} 4.4 - 11.3 [facility] Work Phone: Complete Blood Count + Differential 7.91 {x10E9/L} above high threshold See Below [facility] Work Phone: Comment on above: Reference Range: 1.6 0 - 5.50 Percent differential counts (%) should be interpreted in the context of the absolute cell counts (cells/L). Metabolic Panelon 09-12-2020 ALP [Catalytic activity/Vol] 100 U/L 33 - 136 [facility] Work Phone: Anion gap [Moles/Vol] 15 mmol/L 10 - 20 [facility] Work Phone: Bilirubin [Mass/Vol] 0.5 mg/dL 0.0 - 1.2 [facility] Work Phone: Calcium [Mass/Vol] 9.7 mg/dL 8.6 - 10.6 [facility] [place] Work Phone: Chloride [Moles/Vol] 106 mmol/L 98 - 107 [facility] Work Phone: CO2 [Moles/Vol] 24 mmol/L 21 - 32 [facility] Work Phone: Creatinine [Mass/Vol] 0.89 mg/dL See Below [facility] Work Phone: Comment on above: Reference Range: 0.5 0 - 1.05 Glucose [Mass/Vol] 119 mg/dL above high threshold 74 - 99 [facility] Work Phone: Potassium [Moles/Vol] 3.7 mmol/L 3.5 - 5.3 [facility] Work Phone: Protein [Mass/Vol] 7.0 g/dL 6.4 - 8.2 [facility] Work Phone: Sodium [Moles/Vol] 141 mmol/L 136 - 145 [facility] Work Phone: Urea nitrogen [Mass/Vol] 10 mg/dL 6 - [facility] Work Phone: Otheron 09-12-2020 Albumin BCP dye [Mass/Vol] 4.1 g/dL 3.4 - 5.0 [facility] Work Phone: ALT With P-5'-P [Catalytic activity/Vol] 32 U/L 7 - 45 [facility] Work Phone: Comment on above: Patients treated wit h Sulfasalazine may generate falsely decreased results for ALT. AST With P-5'-P [Catalytic activity/Vol] 29 U/L 9 - 39 [facility] Work Phone: >60 >60 [facility] Work Phone: Comment on above: CALCULATIONS OF ТАТЬЯНА MATED GFR ARE PERFORMED USING THE MDRD STUDY EQUATION FOR THE IDNV-TRACEABLE CREATININE METHODS. CLIN CHEM 2007;53:766-72 Complete Blood Count + Diffe [facility] 08-29-2020 Basophils (Bld) [#/Vol] 0.05 {x10E9/L} See Below [facility] Work Phone: Comment on above: Reference Range: 0.0 0 - 0.10Automated WBC differential has been confirmed by manual smear. Basophils/100 WBC (Bld) 0.3 % 0.0 - 2.0 [facility] Work Phone: Eosinophils (Bld) [#/Vol] 0.24 {x10E9/L} See Below [facility] Work Phone: Comment on above: Reference Range: 0.0 0 - 0.40 Eosinophils/100 WBC (Bld) 1.5 % 0.0 - 6.0 [facility] Work Phone: Erythrocyte distribution width (RBC) [Ratio] 17.6 % above high threshold See Below [facility] Work Phone: Comment on above: Reference Range: 11. 5 - 14.5 Hematocrit (Bld) [Volume fraction] 41.6 % See Below [facility] Work Phone: Comment on above: Reference Range: 36. 0 - 46.0 Hemoglobin (Bld) [Mass/Vol] 13.5 g/dL See Below [facility] Work Phone: Comment on above: Reference Range: 12. 0 - 16.0 Lymphocytes (Bld) [#/Vol] 1.44 {x10E9/L} See Below [facility] Work Phone: Comment on above: Reference Range: 0.8 0 - 3.00 Lymphocytes/100 WBC (Bld) 9.2 % See Below [facility] Work Phone: Comment on above: Reference Range: 13. 0 - 44.0 MCHC (RBC) [Mass/Vol] 32.5 g/dL See Below [facility] Work Phone: Comment on above: Reference Range: 32. 0 - 36.0 MCV (RBC) [Entitic vol] 89 fL 80 - 100 [facility] Work Phone: Monocytes (Bld) [#/Vol] 1.34 {x10E9/L} above high threshold See Below [facility] Work Phone: Comment on above: Reference Range: 0.0 5 - 0.80 Monocytes/100 WBC (Bld) 8.6 % 2.0 - 10.0 [facility] Work Phone: Neutrophils/100 WBC (Bld) 80.4 % See Below [facility] Work Phone: Comment on above: Reference Range: 40. 0 - 80.0 Platelets (Bld) [#/Vol] 235 {x10E9/L} 150 - 450 [facility] Work Phone: RBC (Bld) [#/Vol] 4.67 {x10E12/L} See Below [facility] Work Phone: Comment on above: Reference Range: 4.0 0 - 5.20 WBC (Bld) [#/Vol] 15.6 {x10E9/L} above high threshold 4.4 - 11.3 [facility] Work Phone: Complete Blood Count + Differential 12.57 {x10E9/L} above high threshold See Below [facility] Work Phone: Comment on above: Reference Range: 1.6 0 - 5.50 Percent differential counts (%) should be interpreted in the context of the absolute cell counts (cells/L). Metabolic Panelon 08-29-2020 ALP [Catalytic activity/Vol] 101 U/L 33 - 136 [facility] Work Phone: Anion gap [Moles/Vol] 13 mmol/L 10 - 20 [facility] Work Phone: Bilirubin [Mass/Vol] 0.4 mg/dL 0.0 - 1.2 [facility] Work Phone: Calcium [Mass/Vol] 9.3 mg/dL 8.6 - 10.6 [facility] [place] Work Phone: Chloride [Moles/Vol] 105 mmol/L 98 - 107 [facility] Work Phone: CO2 [Moles/Vol] 27 mmol/L 21 - 32 [facility] Work Phone: Creatinine [Mass/Vol] 0.69 mg/dL See Below [facility] Work Phone: Comment on above: Reference Range: 0.5 0 - 1.05 Glucose [Mass/Vol] 107 mg/dL above high threshold 74 - 99 [facility] Work Phone: LDH [Catalytic activity/Vol] 233 U/L 84 - 246 [facility] Work Phone: Potassium [Moles/Vol] 3.7 mmol/L 3.5 - 5.3 [facility] Work Phone: Protein [Mass/Vol] 6.3 g/dL below low threshold 6.4 - 8.2 [facility] Work Phone: Sodium [Moles/Vol] 141 mmol/L 136 - 145 [facility] Work Phone: Urea nitrogen [Mass/Vol] 12 mg/dL 6 - 23 [facility] Work Phone: Otheron 08-29-2020 Albumin BCP dye [Mass/Vol] 4.0 g/dL 3.4 - 5.0 [facility] Work Phone: ALT With P-5'-P [Catalytic activity/Vol] 25 U/L 7 - 45 [facility] [employer] Phone: Comment on above: Patients treated wit h Sulfasalazine may generate falsely decreased results for ALT. AST With P-5'-P [Catalytic activity/Vol] 21 U/L 9 - 39 [facility] Work Phone: >60 >60 [facility] [employer] Phone: Comment on above: CALCULATIONS OF ТАТЬЯНА MATED GFR ARE PERFORMED USING THE MDRD STUDY EQUATION FOR THE IDMS-TRACEABLE CREATININE METHODS. CLIN CHEM 2007;53:766-72 SEE COMMENT [facility] Work Phone: Comment on above: NO SIGNIFICANT RBC A BNORMALITIES SEEN ONSMEAR REVIEW. CT CHEST W CONTRASTon 2019 CT CHEST W CONTRAST Patient Name: JOHANA CHIN STUDY: CT CHEST W CONTRAST; 04/25/2020 9:20 am INDICATION: rt hilar mass. COMPARISON: 03/25/2020. ACCESSION NUMBER(S): [id number] ORDERING CLINICIAN: YOSELIN CAMACHO TECHNIQUE: Helical data [...] mass. Electronically signed by: KILEY HARRISON MD [facility] Complete Blood Count + [place] [facility] 04-18-2020 Basophils (Bld) [#/Vol] 0.05 {x10E9/L} See Below [facility] Work Phone: Comment on above: Reference Range: 0.0 0 - 0.10 Basophils/100 WBC (Bld) 0.6 % 0.0 - 2.0 [facility] Work Phone: Eosinophils (Bld) [#/Vol] 0.21 {x10E9/L} See Below [facility] Work Phone: Comment on above: Reference Range: 0.0 0 - 0.40 Eosinophils/100 WBC (Bld) 2.4 % 0.0 - 6.0 [facility] Work Phone: Erythrocyte distribution width (RBC) [Ratio] 14.7 % above high threshold See Below [facility] Work Phone: Comment on above: Reference Range: 11. 5 - 14.5 Hematocrit (Bld) [Volume fraction] 46.4 % above high threshold See Below [facility] Work Phone: Comment on above: Reference Range: 36. 0 - 46.0 Hemoglobin (Bld) [Mass/Vol] 14.8 g/dL See Below [facility] Work Phone: Comment on above: Reference Range: 12. 0 - 16.0 Lymphocytes (Bld) [#/Vol] 1.42 {x10E9/L} See Below [facility] Work Phone: Comment on above: Reference Range: 0.8 0 - 3.00 Lymphocytes/100 WBC (Bld) 16.4 % See Below [facility] Work Phone: Comment on above: Reference Range: 13. 0 - 44.0 MCHC (RBC) [Mass/Vol] 31.9 g/dL below low threshold See Below [facility] Work Phone: Comment on above: Reference Range: 32. 0 - 36.0 MCV (RBC) [Entitic vol] 91 fL 80 - 100 [facility] Work Phone: Monocytes (Bld) [#/Vol] 0.90 {x10E9/L} above high threshold See Below [facility] Work Phone: Comment on above: Reference Range: 0.0 5 - 0.80 Monocytes/100 WBC (Bld) 10.4 % 2.0 - 10.0 [facility] Work Phone: Neutrophils/100 WBC (Bld) 69.4 % See Below [facility] Work Phone: Comment on above: Reference Range: 40. 0 - 80.0 Platelets (Bld) [#/Vol] 249 {x10E9/L} 150 - 450 [facility] Work Phone: RBC (Bld) [#/Vol] 5.12 {x10E12/L} See Below [facility] Work Phone: Comment on above: Reference Range: 4.0 0 - 5.20 WBC (Bld) [#/Vol] 8.7 {x10E9/L} 4.4 - 11.3 [facility] Work Phone: WBC (Bld) [#/Vol] 0.0 {/100_WBC} 0.0-0.0 [facility] Work Phone: Complete Blood Count + Differential 0.8 % 0.0 - 0.9 [facility] Work Phone: Comment on above: Immature Granulocyte Count (IG) includes promyelocytes, myelocytes and metamyelocytes but does not include bands. Percent differential counts (%) should be interpreted in the context of the absolute cell counts (cells/L). Complete Blood Count + Differential 6.01 {x10E9/L} above high threshold See Below [facility] Work Phone: Comment on above: Reference Range: 1.6 0 - 5.50 Metabolic Panelon 04-18-2020 Anion gap [Moles/Vol] 14 mmol/L 10 - 20 [facility] Work Phone: Calcium [Mass/Vol] 10.1 mg/dL 8.6 - 10.6 [facility] Work Phone: Chloride [Moles/Vol] 105 mmol/L 98 - 107 [facility] [employer] Work Phone: CO2 [Moles/Vol] 26 mmol/L 21 - 32 [facility] [employer] Work Phone: Creatinine [Mass/Vol] 0.95 mg/dL See Below [facility] Work Phone: Comment on above: Reference Range: 0.5 0 - 1.05 Glucose [Mass/Vol] 100 mg/dL above high threshold 74 - 99 [facility] Work Phone: Potassium [Moles/Vol] 4.4 mmol/L 3.5 - 5.3 [facility] Work Phone: Sodium [Moles/Vol] 141 mmol/L 136 - 145 [facility] Work Phone: Urea nitrogen [Mass/Vol] 13 mg/dL 6 - 23 [facility] Work Phone: Otheron 04-18-2020 69 {mL/min/1.73m2} >60 [facility] Work Phone: Comment on above: CALCULATIONS OF ТАТЬЯНА MATED GFR ARE PERFORMED USING THE MDRD STUDY EQUATION FOR THE IDMS-TRACEABLE CREATININE METHODS. CLIN CHEM 2007;53:766-72 57 {mL/min/1.73m2} Abnormal >60 -[facility] [place] Work Phone: CT CHEST WO CONTRASTon 03-25 CT CHEST WO CONTRAST Patient Name: JOHANA CHIN STUDY: CT CHEST WO CONTRAST; 03/25/2020 1:33 pm INDICATION: pulm fibrosis. COMPARISON: None. ACCESSION NUMBER(S): [id number] ORDERING CLINICIAN: YOSELIN CAMACHO TECHNIQUE: Helical data [...] contrast 3. Pulmonary fibrosis. Electronically signed by: MATILDE MONREAL MD [facility] CT Chest without Contraston 03-25-2020 CT Chest WO contrast Interpreted by: TERRY COLORADO ETCMHSX35/10/20 10:59MRN: [id number] Name: JOHANA CHIN STUDY:CT CHEST WO CONTRAST; [...] performed withintravenous contrast3. Pulmonary fibrosis.Electronically signed by: MATILDE MONREAL 03/30/20 10:59 Normal [facility] [place] Work Phone: Otheron 03-25-2020 CT Chest WO contrast Please click on the link to view the study images Normal [facility] Work Phone: CT ABDOMEN AND PELVIS WO CON TRASTon 02-29-2020 CT ABDOMEN AND PELVIS WO CONTRAST Patient Name: JOHANA CHIN STUDY: CT ABDOMEN AND PELVIS WO CONTRAST; 02/29/2020 9:06 am INDICATION: Flank pain. COMPARISON: None. ACCESSION NUMBER(S): [id number] ORDERING CLINICIAN: YOSELIN CAMACHO TECHNIQUE: Helical CT [...] bases. Electronically signed by: MACKENZIE ARTEAGA MD Normal [facility] Otheron 02-29-2020 CT Abdomen and Pelvis WO contrast Interpreted by: MACKENZIE ARTEAGA02/29/20 09:49MRN: [id number] Name: JOHANA CHIN STUDY:CT ABDOMEN AND PELVIS [...] signed by: MACKENZIE ARTEAGA 02/29/20 09:49 Normal [facility] [place] Work Phone: TH CT CARDIAC SCORINGon 08-21 CT CARDIAC SCORING Patient Name: JOHANA CHIN STUDY: CT CARDIAC SCORING; 09/03/2019 10:55 am INDICATION: screening. COMPARISON: None. ACCESSION NUMBER(S): [id number] ORDERING CLINICIAN: YOSELIN CAMACHO TECHNIQUE: Using prospective [...] measures 3.5 cm in diameter. There are [id number] scattered atherosclerotic calcifications the visualized thoracic aorta. [...] [email or web address] Paolo et al. JACC 2015 (http://dx.doi.org/10.101 6/j.j [email or web address]) Electronically signed by: HU JOHNSON MD Normal [facility] DIGITAL MAMM SCREENING W/ TO Ponce 06-08-2019 DIGITAL MAMM SCREENING W/ JES Patient Name: JOHANA CHIN STUDY: DIGITAL MAMM SCREENING W/ JES; 06/08/2019 10:04 am ACCESSION NUMBER(S): [id number] ORDERING CLINICIAN: YOSELIN CAMACHO INDICATION: Screening. Benign [...] any future breast imaging appointments, please call [phone] ([phone]). Patient letter sent SNORM Electronically signed by: MICHELE ARRIETA MD Normal [facility] Lipid Panelon 02-24-2019 Cholesterol [Mass/Vol] 229 mg/dL above hig h threshold 0 - 199 [employer] Work Phone: Comment on above: . AGE [...] FASTING Cholesterol in HDL [Mass/Vol] 70.2 mg/dL [employer] Work Phone: Comment on above: . AGE VERY LOW LOW N ORMAL HIGH 0-19 Y < 35 < 40 40-45 ---- 20-24 Y ---- < 40 >45 ---- >24 Y ---- < 40 40-60 >60. PATIENT FASTING Cholesterol in LDL [Mass/Vol] 137 mg/dL above high threshold 0 - 99 [employer] Work Phone: Comment on above: . NEAR BORD AGE ISABELLE RABLE OPTIMAL HIGH HIGH VERY HIGH 0-19 Y 0 - 109 --- 110-129 >/= 130 ---- 20-24 Y 0 - 119 --- 120-159 >/= 160 ---- >24 Y 0 - 99 100-129 130-159 160-189 >/=190. PATIENT FASTING Cholesterol.total/Chol esterol in HDL [Mass ratio] 3.3 {ratio} [employer] Phone: Comment on above: REF VALUESDESIRABLE < 3.4HIGH RISK > 5.0 PATIENT FASTING Triglyceride [Mass/Vol] 107 mg/dL 0 - 149 [employer] [place] [employer] Phone: Comment on above: . AGE DESIRABLE [...] Lipid Panel 21 mg/dL 0 - 40 [employer] Work Phone: Comment on above: PATIENT FASTING Metabolic Panelon 02-24-2019 Anion gap [Moles/Vol] 15 mmol/L 10 - 20 [employer] [place] [employer] Phone: Comment on above: PATIENT FASTING Calcium [Mass/Vol] 9.7 mg/dL 8.6 - 10.6 [facility] [employer] Work Phone: Comment on above: PATIENT FASTING Chloride [Moles/Vol] 106 mmol/L 98 - 107 [facility] [employer] Work Phone: Comment on above: PATIENT FASTING CO2 [Moles/Vol] 26 mmol/L 21 - 32 [facility] Work Phone: Comment on above: PATIENT FASTING Creatinine [Mass/Vol] 0.86 mg/dL See Below [facility] [employer] Phone: Comment on above: Reference Range: 0.5 0 - 1.05 PATIENT FASTING Glucose [Mass/Vol] 82 mg/dL 74 - 99 [facility] [employer] Work Phone: Comment on above: PATIENT FASTING Potassium [Moles/Vol] 4.0 mmol/L 3.5 - 5.3 [facility] [employer] Work Phone: Comment on above: PATIENT FASTING Sodium [Moles/Vol] 143 mmol/L 136 - 145 [facility] [employer] Work Phone: Comment on above: PATIENT FASTING Urea nitrogen [Mass/Vol] 18 mg/dL 6 - 23 [facility] Phone: Comment on above: PATIENT FASTING Otheron 02-24-2019 >60 >60 [facility] [employer] Work Phone: Comment on above: PATIENT FASTING CALCULATIONS OF ТАТЬЯНА MATED GFR ARE PERFORMED USING THE MDRD STUDY EQUATION FOR THE IDMS-TRACEABLE CREATININE METHODS. CLIN CHEM 2007;53:766-72 Please click on the link to view the study images Normal [facility] [employer] Work Phone: Vitamin D 25-Hydroxyon 02-24 Calcidiol [Mass/Vol] 61 ng/mL [facility] [employer] Work Phone: Comment on above: .DEFICIENCY: < 20 NG /MLINSUFFICIENCY: 20-29 NG/MLOPTIMUM LEVEL: 30-80 NG/MLPOSSIBLE TOXICITY: > 80 NG/MLTHIS ASSAY ACCURATELY QUANTIFIES THE SUM OFVITAMIN D3, 25-HYDROXY AND VIT D2,25-HYDROXY. PATIENT FASTING Vital Signs Date Time Vital Sign Value Performing Clinician Facility 08-24-2025 08:26-0500 Body mass index (BMI) [Ratio] 29.49 kg/m2 Gomez Santa [employer] Work Phone: [facility] 08-24-2025 08:26-0500 Body temperature 97.3 [degF] Gomez Santa [employer] Work Phone: [facility] 08-24-2025 08:26-0500 Body weight 71.12 kg Gmoez Santa [employer] Work Phone: [facility] 08-24-2025 08:26-0500 Diastolic blood pressure 83 mm[Hg] Gomez Santa [employer] Work Phone: [facility] 08-24-2025 08:26-0500 Heart rate 68 /min Gomez Santa [employer] Work Phone: [facility] 08-24-2025 08:26-0500 Respiratory rate 18 /min Gomez Santa [employer] Work Phone: [facility] 08-24-2025 08:26-0500 SaO2% (BldA) [Mass fraction] 96 % Gomez Santa [employer] Work Phone: [facility] 08-24-2025 08:26-0500 Systolic blood pressure 130 mm[Hg] Gomez Santa [employer] Work Phone: [facility] 03-11-2025 08:58-0400 Body mass index (BMI) [Ratio] 29.9 kg/m2 Gomez Santa [employer] Work Phone: [facility] 03-11-2025 08:58-0400 Body temperature 96.8 [degF] Gomez Santa [employer] Work Phone: [facility] 03-11-2025 08:58-0400 Body weight 72.12 kg Gomez Santa [employer] Work Phone: [facility] 03-11-2025 08:58-0400 Diastolic blood pressure 71 mm[Hg] Gomez Santa [employer] Work Phone: [facility] 03-11-2025 08:58-0400 Heart rate 78 /min Gomez Santa [employer] Work Phone: [facility] 03-11-2025 08:58-0400 Respiratory rate 16 /min Gomez Santa [employer] Work Phone: [facility] 03-11-2025 08:58-0400 SaO2% (BldA) [Mass fraction] 96 % Gomez Santa [employer] Work Phone: [facility] 03-11-2025 08:58-0400 Systolic blood pressure 127 mm[Hg] Gomez Santa [employer] Work Phone: [facility] 09-10-2024 09:53-0500 Body mass index (BMI) [Ratio] 30.89 kg/m2 Gomez Santa [employer] Work Phone: [facility] 09-10-2024 09:53-0500 Body temperature 98.2 [degF] Gomez Santa [employer] Work Phone: [facility] 09-10-2024 09:53-0500 Body weight 74.5 kg Gomez Santa [employer] Work Phone: [facility] 09-10-2024 09:53-0500 Diastolic blood pressure 80 mm[Hg] Gomez Santa [employer] Work Phone: [facility] 09-10-2024 09:53-0500 SaO2% (BldA) [Mass fraction] 95 % Gomez Santa [employer] Work Phone: [facility] 09-10-2024 09:53-0500 Systolic blood pressure 128 mm[Hg] Gomez Santa [employer] Work Phone: [facility] 03-30-2024 11:18-0400 Body mass index (BMI) [Ratio] 31.41 kg/m2 Gomez Santa [employer] Work Phone: [facility] 03-30-2024 11:18-0400 Body temperature 97.39 [degF] Gomez Santa [employer] Work Phone: [facility] 03-30-2024 11:180400 Body weight 75.75 kg Gomez Santa [employer] Work Phone: [facility] 03-30-2024 11:18-0400 Diastolic blood pressure 76 mm[Hg] Gomez Santa [employer] Work Phone: [facility] 03-30-2024 11:18-0400 Heart rate 70 /min Gomez Santa [employer] Work Phone: [facility] 03-30-2024 11:18-0400 Respiratory rate 16 /min Gomez Santa [employer] Work Phone: [facility] 03-30-2024 11:18-0400 SaO2% (BldA) [Mass fraction] 96 % Gomez Santa [employer] Work Phone: [facility] 03-30-2024 11:18-0400 Systolic blood pressure 123 mm[Hg] Gomez Santa [employer] Work Phone: [facility] 03-10-2024 09:25-0400 Body mass index (BMI) [Ratio] 31.63 kg/m2 Gomez Santa [employer] Work Phone: [facility] 03-10-2024 09:25-0400 Body temperature 97.2 [degF] Gomez Santa [employer] Work Phone: [facility] 03-10-2024 09:25-0400 Body weight 76.3 kg Gomez Santa [employer] Work Phone: [facility] 03-10-2024 09:25-0400 Diastolic blood pressure 75 mm[Hg] Gomez Kiet [employer] Work Phone: [facility] 03-10-2024 09:25-0400 Heart rate 88 /min Gomezchela Santa [employer] Work Phone: [facility] 03-10-2024 09:25-0400 Respiratory rate 20 /min Gomez Santa [employer] Work Phone: [facility] 03-10-2024 09:25-0400 SaO2% (BldA) [Mass fraction] 98 % Gomez Santa [employer] Work Phone: [facility] 03-10-2024 09:25-0400 Systolic blood pressure 117 mm[Hg] Gomez Santa [employer] Work Phone: [facility] 12-05-2023 09:22-0500 Body height 155.3 cm Mercedes Moran MD MPH Work Phone: [facility] 12-05-2023 09:22-0500 Body mass index (BMI) [Ratio] 30.81 kg/m2 Mercedes Moran MD MPH Work Phone: [facility] 12-05-2023 09:22-0500 Body temperature 96.3 [degF] Mercedes Moran MD MPH Work Phone: [facility] 12-05-2023 09:22-0500 Body weight 74.3 kg Mercedes Moran MD MPH Work Phone: [facility] 12-05-2023 09:22-0500 Diastolic blood pressure 85 mm[Hg] Mercedes Moran MD MPH Work Phone: [facility] 12-05-2023 09:22-0500 Heart rate 67 /min Mercedes Moran MD MPH Work Phone: [facility] 12-05-2023 09:22-0500 Respiratory rate 16 /min Mercedes Moran MD MPH Work Phone: [facility] 12-05-2023 09:22-0500 Systolic blood pressure 124 mm[Hg] Mercedes Moran MD MPH Work Phone: [facility] 09-10-2023 11:17-0500 Body height 155.3 cm Gomez Santa [employer] Work Phone: [facility] 09-10-2023 11:17-0500 Body mass index (BMI) [Ratio] 30.47 kg/m2 Gomez Santa [employer] Work Phone: [facility] 09-10-2023 11:17-0500 Body weight 73.48 kg Gomez Santa [employer] Work Phone: [facility] 09-10-2023 11:17-0500 Diastolic blood pressure 75 mm[Hg] Gomez Santa [employer] Work Phone: [facility] 09-10-2023 11:17-0500 Heart rate 66 /min Gomez Santa [employer] Work Phone: [facility] 09-10-2023 11:17-0500 Respiratory rate 18 /min Gomez Santa [employer] Work Phone: [facility] 09-10-2023 11:17-0500 SaO2% (BldA) [Mass fraction] 96 % Gomez Santa [employer] Work Phone: [facility] 09-10-2023 11:17-0500 Systolic blood pressure 118 mm[Hg] Gomez Santa [employer] Work Phone: [facility] 08-25-2023 06:59-0500 Diastolic blood pressure 86 mm[Hg] [facility] 08-25-2023 06:59-0500 Heart rate 76 /min [facility] 08-25-2023 06:59-0500 Respiratory rate 16 /min [facility] 08-25-2023 06:59-0500 SaO2% (BldA) [Mass fraction] 98 % [facility] 08-25-2023 06:59-0500 Systolic blood pressure 136 mm[Hg] [facility] 08-25-2023 04:37-0500 Body height 160.02 cm [facility] 08-25-2023 04:37-0500 Body mass index (BMI) [Ratio] 29.6 kg/m2 [facility] 08-25-2023 04:37-0500 Body temperature 96.4 [degF] [facility] 08-25-2023 04:37-0500 Body weight 75.9 kg [facility] 08-27-2022 09:30-0500 Body mass index (BMI) [Ratio] 33.44 kg/m2 [employer] Work Phone: [facility] Work Phone: 08-27-2022 09:30-0500 Body surface area Derived from formula 1.79 m2 [employer] Work Phone: [facility] Work Phone: 08-27-2022 09:30-0500 Body temperature 97.6 [degF] Yoselin J Camacho Work Phone: [facility] Work Phone: 08-27-2022 09:30-0500 Body weight 80.29 kg Yoselin J Camacho Work Phone: [facility] Work Phone: 08-27-2022 09:30-0500 Diastolic blood pressure 80 mm[Hg] Yoselin J Camacho Work Phone: [facility] Work Phone: 08-27-2022 09:30-0500 Systolic blood pressure 116 mm[Hg] Yoselin J Camacho Work Phone: [facility] Work Phone: 03-15-2022 10:07-0400 Body height 154.94 cm Yoselin Francois Camacho [facility] Phone: [facility] 400 DO Work Phone: 03-15-2022 10:07-0400 Body mass index (BMI) [Ratio] 33.33 kg/m2 Yoselin Francois Camacho Work Phone: [facility] 400 DO Work Phone: 03-15-2022 10:07-0400 Body surface area Derived from formula 1.79 m2 Yoselin Francois Camacho Work Phone: [facility] 400 DO Work Phone: 03-15-2022 10:07-0400 Body temperature 97.4 [degF] Yoselin Francois Camacho Work Phone: [facility] 400 DO Work Phone: 03-15-2022 10:07-0400 Body weight 80.02 kg Yoselin Francois Camacho Work Phone: [facility] 400 DO Work Phone: 03-15-2022 10:07-0400 Diastolic blood pressure 74 mm[Hg] Yoselin Francois Camacho Work Phone: [facility] 400 DO Work Phone: 03-15-2022 10:07-0400 Heart rate 68 /min Yoselin Francois Camacho Work Phone: [facility] 400 DO Work Phone: 03-15-2022 10:07-0400 SaO2% (BldA) [Mass fraction] 96 % Yoselin Francois Camacho Work Phone: [facility] 400 DO Work Phone: 03-15-2022 10:07-0400 Systolic blood pressure 118 mm[Hg] Yoselin Hitch Camacho Work Phone: [facility] 400 DO Work Phone: 03-02-2022 10:52-0400 Body mass index (BMI) [Ratio] 33.26 kg/m2 Yoselin J Camacho [facility]: 03-02-2022 10:52-0400 Body surface area Derived from formula 1.79 m2 Yoselin J Camacho [facility]: 03-02-2022 10:52-0400 Body temperature 97.7 [degF] Yoselin J Camacho [facility]: 03-02-2022 10:52-0400 Body weight 79.83 kg Yoselin Bomgar Work Phone: [facility] Work Phone: 03-02-2022 10:52-0400 Diastolic blood pressure 78 mm[Hg] Yoselin J Camacho Work Phone: [facility] Work Phone: 03-02-2022 10:52-0400 Systolic blood pressure 130 mm[Hg] Yoselin J Camacho Work Phone: [facility] Work Phone: 09-05-2021 10:17-0500 Body height 154.94 cm Yoselin J Camacho Work Phone: [facility] 400 DO Work Phone: 09-05-2021 10:17-0500 Body mass index (BMI) [Ratio] 32 kg/m2 Yoselin J Camacho Work Phone: [facility] 400 DO Work Phone: 09-05-2021 10:17-0500 Body surface area Derived from formula 1.76 m2 Yoselin J Camacho Work Phone: [facility] 400 DO Work Phone: 09-05-2021 10:17-0500 Body temperature 97.1 [degF] Yoselin Francois Camacho Work Phone: [facility] 400 DO Work Phone: 09-05-2021 10:17-0500 Body weight 76.83 kg Yoselni Francois Camacho Work Phone: [facility] 400 DO Work Phone: 09-05-2021 10:17-0500 Diastolic blood pressure 62 mm[Hg] Yoselin Hitch Camacho Work Phone: [place] [address] DO Work Phone: 09-05-2021 10:17-0500 Heart rate 74 /min Yoselin Francois Camacho Work Phone: [facility] 400 DO Work Phone: 09-05-2021 10:17-0500 SaO2% (BldA) [Mass fraction] 97 % Yoselin Hitch Camacho Work Phone: [facility] 400 DO Work Phone: 09-05-2021 10:17-0500 Systolic blood pressure 118 mm[Hg] Yoselin Bomgar Work Phone: [place] [address] DO Work Phone: 08-25-2021 11:20-0400 Body mass index (BMI) [Ratio] 31.74 kg/m2 Yoselin J Camacho Work Phone: [facility] Work Phone: 08-25-2021 11:20-0400 Body surface area Derived from formula 1.75 m2 Yoselin Hitch Camacho Work Phone: [facility] Work Phone: 08-25-2021 11:20-0400 Body temperature 97.3 [degF] Yoselin Francois Camacho Work Phone: [facility] Work Phone: 08-25-2021 11:20-0400 Body weight 76.2 kg Yoselin Francois Camacho Work Phone: [facility] Work Phone: 08-25-2021 11:20-0400 Diastolic blood pressure 80 mm[Hg] Yoselin Francois Camacho Work Phone: [facility] Work Phone: 08-25-2021 11:20-0400 Systolic blood pressure 120 mm[Hg] Yoselin Francois Camacho Work Phone: [facility] Work Phone: 04-05-2021 09:56-0400 Body height 154.94 cm Yoselin Francois Camacho Work Phone: [facility] 400 DO Work Phone: 04-05-2021 09:56-0400 Body mass index (BMI) [Ratio] 29.71 kg/m2 Yoselin Francois Camacho Work Phone: [facility] 400 DO Work Phone: 04-05-2021 09:56-0400 Body surface area Derived from formula 1.71 m2 Yoselin Francois Camacho Work Phone: [facility] 400 DO Work Phone: 04-05-2021 09:56-0400 Body temperature 97.8 [degF] Yoselin Francois Camacho Work Phone: [facility] 400 DO Work Phone: 04-05-2021 09:56-0400 Body weight 71.33 kg Yoselin Francois Camacho Work Phone: [facility] 400 DO Work Phone: 04-05-2021 09:56-0400 Diastolic blood pressure 66 mm[Hg] Yoselin Francois Camacho [facility] Phone[facility] 400 DO Work Phone: 04-05-2021 09:56-0400 Heart rate 74 /min Yoselin Francois Camacho Work Phone: [facility] 400 DO Work Phone: 04-05-2021 09:56-0400 SaO2% (BldA) [Mass fraction] 93 % Yoselin Francois Camacho Work Phone: [facility] 400 DO Work Phone: 04-05-2021 09:56-0400 Systolic blood pressure 120 mm[Hg] Yoselin Francois Camacho Work Phone: [facility] 400 DO Work Phone: 03-27-2021 11:03-0400 Body height 154.94 cm Yoselin Francois Camacho Work Phone: [facility] 400 DO Work Phone: 03-27-2021 11:03-0400 Body mass index (BMI) [Ratio] 29.52 kg/m2 Yoselin Francois Camacho Work Phone: [facility] 400 DO Work Phone: 03-27-2021 11:03-0400 Body surface area Derived from formula 1.7 m2 Yoselin Francois Camacho Work Phone: [facility] 400 DO Work Phone: 03-27-2021 11:03-0400 Body temperature 97.3 [degF] Yoselin Francois Camacho Work Phone: [facility] 400 DO Work Phone: 03-27-2021 11:03-0400 Body weight 70.88 kg Yoselin Francois Camacho Work Phone: [facility] 400 DO Work Phone: 03-27-2021 11:03-0400 Diastolic blood pressure 64 mm[Hg] Yoselin Priscila Camacho Work Phone: [facility] 400 DO Work Phone: 03-27-2021 11:03-0400 Heart rate 68 /min Yoselin Francois Camacho Work Phone: [facility] 400 DO Work Phone: 03-27-2021 11:03-0400 SaO2% (BldA) [Mass fraction] 93 % Yoselin Camacho Work Phone: [facility] 400 DO Work Phone: 03-27-2021 11:03-0400 Systolic blood pressure 112 mm[Hg] Yoselin Francois Camacho Work Phone: [facility] 400 DO Work Phone: 01-23-2021 11:59-0400 BMI (Body Mass Index) 29.31 kg/m2 Chanda Janee [facility] 400 DO Work Phone: 01-23-2021 11:59-0400 Body Temperature 97.5 [degF] Chanda Janee [facility] 400 DO Work Phone: Comment on above: Method: 01-23-2021 11:59-0400 Body weight 70.36 kg Chanda Janee [facility] 400 DO Work Phone: 01-23-2021 11:59-0400 BP Diastolic 62 mm[Hg] Chanda Weller [facility] 400 DO Work Phone: 01-23-2021 11:59-0400 BP Systolic 114 mm[Hg] Chanda Weller [facility] 400 DO Work Phone: 01-23-2021 11:59-0400 BSA (Body Surface Area) 1.7 m2 Chanda Weller [facility] [facility] 400 DO Work Phone: 01-23-2021 11:59-0400 Height 154.94 cm Chanda Weller [facility] 400 DO Work Phone: 01-23-2021 11:59-0400 Pulse (Heart Rate) 74 /min Chanda Weller [facility] 400 DO Work Phone: 01-23-2021 11:59-0400 Pulse Oximetry 92 % Chanda Weller [facility] 400 DO Work Phone: Comment on above: Source: 10-26-2020 11:40-0500 BMI (Body Mass Index) 30.26 kg/m2 Chanda Weller [facility] 400 DO Work Phone: 10-26-2020 11:40-0500 Body Temperature 97.5 [degF] Chanda Weller -[facility] 400 DO Work Phone: Comment on above: Method: Temporal 10-26-2020 11:40-0500 Body weight 72.63 kg Chanda Weller -[facility] 400 DO Work Phone: 10-26-2020 11:40-0500 BP Diastolic 76 mm[Hg] Chanda Weller -[facility] 400 DO Work Phone: Comment on above: Location: LUE; Position: Sitting 10-26-2020 11:40-0500 BP Systolic 116 mm[Hg] Chanda Flowersi [facility] 400 DO Work Phone: Comment on above: Location: LUE; Position: Sitting 10-26-2020 11:40-0500 BSA (Body Surface Area) 1.72 m2 Chanda Weller [facility] 400 DO Work Phone: 10-26-2020 11:40-0500 Height 154.94 cm Chanda Weller -[facility] 400 DO Work Phone: 10-26-2020 11:40-0500 Pulse (Heart Rate) 76 /min Chanda Flowersdhruv [facility] 400 DO Work Phone: 10-26-2020 11:40-0500 Pulse Oximetry 93 % Chanda Flowersdhruv [facility] 400 DO Work Phone: Comment on above: Source: Nasal Cannula 10-15-2020 09:43-0500 Body temperature 37.0 {degrees_C} Chanda Weller [facility] 400 DO Work Phone: Comment on above: NOTE: PATIENT RESULTS ARE NOT CORRECTED FOR TEMPERATURE. 02-24-2019 11:20-0400 BMI (Body Mass Index) 30 kg/m2 Yoselin Camacho [facility] Work Phone: 02-24-2019 11:20-0400 Body weight 74.39 kg Yoselin Camacho [facility] Work Phone: 02-24-2019 11:20-0400 BP Diastolic 82 mm[Hg] Y[facility]elin Camacho [facility] Work Phone: 02-24-2019 11:20-0400 BP Systolic 126 mm[Hg] Y[facility]elin Camacho [facility] Work Phone: 02-24-2019 11:20-0400 BSA (Body Surface Area) 1.76 m2 Yoselin Camacho [facility] Work Phone: Encounters Encounter Date Encounter Type Care Provider Facility Start: 08-24-2025 End: 08-24-2025 Office outpatient visit 25 minutes [facility] [employer] Work Phone: [facility] [place] Comment on above: Hodgkin lymphoma, un specified Hodgkin lymphoma type, unspecified body region (Multi) Start: 08-24-2025 End: 08-24-2025 ambulatory [facility] Start: 08-18-2025 End: 08-18-2025 ambulatory NATHALIA GREENKE [facility] Start: 06-01-2025 ambulatory Nathalia Ho Facility:[facility] Start: 05-21-2025 Non-patient / Non-visit Dr. Jhonatan [facility] Start: 05-21-2025 End: 05-21-2025 ambulatory Nathalia Ho MD Work Phone: -Cardiovascular Services Start: 05-21-2025 End: 05-21-[address] Chanda Shepard MD -Cardiovascular Services Work Phone: Start: 05-21-2025 End: 05-21-2025 ambulatory Chanda Shepard Facility:[facility] Start: 04-16-2025 End: 04-16-2025 ambulatory Nathalia Ho MD Work Phone: -Laboratory [place] Start: 04-16-2025 End: 04-16-[address] Chanda Shepard MD -[facility] [place] Work Phone: Start: 04-16-2025 End: 04-16-2025 ambulatory Chanda Shepard Facility:[facility] Start: 03-11-2025 End: 03-11-2025 Office outpatient visit 25 minutes Gomez Santa [employer] Work Phone: [facility] [place] Comment on above: Hodgkin lymphoma, un specified Hodgkin lymphoma type, unspecified body region (Multi) Start: 03-11-2025 End: 03-11-2025 ambulatory [facility] Start: 03-04-2025 End: 03-04-2025 ambulatory NATHALIA Francois [place] [facility] Start: 09-21-2024 End: 09-21-2024 Subsequent hospital visit by physician Tevin Olmedo 1 [facility] Comment on above: Hodgkin lymphoma, un specified Hodgkin lymphoma type, unspecified body region (Multi) Start: 09-21-2024 End: 09-21-2024 ambulatory [facility] Start: 09-10-2024 End: 09-10-2024 Office outpatient visit 25 minutes Gomez Santa [employer] Work Phone: [facility] [place] Comment on above: Bladder problem (Francisca dino Dx); Hodgkin lymphoma, unspecified Hodgkin lymphoma type, unspecified body region (Multi); Cystocele with uterine prolapse Start: 09-10-2024 End: 09-10-2024 ambulatory GOMEZ Estevez [facility] Start: 09-07-2024 End: 09-07-2024 ambulatory [facility] Start: 07-08-2024 ambulatory Roberto [facility] Facility:[facility] Start: 07-08-2024 End: 07-08-[address] [facility] Facility:[facility] Start: 03-30-2024 End: 03-30-2024 Office outpatient visit 15 minutes Gomez Santa [employer] Work Phone: [facility] [place] Comment on above: Hodgkin lymphoma, un specified Hodgkin lymphoma type, unspecified body region (Multi) Start: 03-23-2024 End: 03-23-2024 Subsequent hospital visit by physician Tevin Olmedo 1 [facility] Comment on above: Hodgkin lymphoma, un specified Hodgkin lymphoma type, unspecified body region (Multi) Start: 03-10-2024 End: 03-10-2024 Office outpatient visit 15 minutes Gomez Santa [employer] Work Phone: [facility] [place] Comment on above: Hodgkin lymphoma, un specified Hodgkin lymphoma type, unspecified body region (Multi) Start: 03-03-2024 End: 03-03-2024 ambulatory YOSELIN Francois [facility] Start: 12-05-2023 End: 12-05-2023 Office consultation new/estab patient 60 min Mercedes Moran MD MPH Work Phone: [facility] Comment on above: POP-Q stage 3 cystoc bethany (Primary Dx); UTI symptoms; MOUSTAPHA (stress urinary incontinence, female); Hodgkin lymphoma, unspecified Hodgkin lymphoma type, unspecified body region (CMS/HCC) Start: 09-10-2023 End: 09-10-2023 Office outpatient visit 15 minutes Gomez Santa [employer] Work Phone: [facility] Comment on above: Hodgkin lymphoma, un specified Hodgkin lymphoma type, unspecified body region (CMS/HCC) (Primary Dx) Start: 08-30-2023 End: 08-31-[address] PAPITO QUIÑONEZ MD Facility:B Start: 08-30-2023 End: 08-30-[address] PAPITO QUIÑONEZ MD [facility] Start: 08-25-2023 End: 08-25-2023 Emergency department patient visit [facility] Work Phone: Start: 07-05-2023 End: 07-05-2023 ambulatory [facility] Work Phone: Start: 07-05-2023 End: 07-05-2023 Patient encounter procedure [facility], [place] Work Phone: Start: 03-04-[address] Yoselin bhardwaj Camacho III Facility:[facility] Start: 02-25-2023 End: 02-25-2023 ambulatory [facility] Start: 09-28-2022 Chart Update [facility]oselin Camacho [facility] Work Phone: Start: 08-30-[address] JASMEET MARAVILLA [facility] ity:[id number] Start: 08-27-2022 Office outpatient vi sit 15 minutes Yoselin Camacho Work Phone: [facility] Work Phone: Start: 08-27-[address] Yoselin bhardwaj Camacho III Facility:[id number] Start: 08-23-[address] Yoselin bhardwaj Camacho III Facility:[facility] Start: 03-15-2022 Office outpatient vi sit 15 minutes Yoselin Camacho Work Phone: [facility] 400 [facility] Work Phone: Start: 03-15-[address] Yoselin bhardwaj Camacho III Facility:[id number] Start: 03-06-2022 Chart Update Yoselin Francois Camacho Work Phone: [facility] 400 DO Work Phone: Start: 03-05-2022 ambulatory Chanda Gomez cility:[id number] Start: 03-02-2022 Office outpatient vi sit 25 minutes Yoselin J Camacho Work Phone: [facility] Work Phone: Start: 03-01-[address] JASMEET MARAVILLA [facility] ity:[id number] Start: 10-17-2021 End: 10-17-[address] DANIELLE COBURN [facility] Start: 09-08-2021 Chart Update Yoselin Francois Camacho Work Phone: [facility] 400 DO Work Phone: Start: 09-05-2021 Office outpatient vi sit 25 minutes Yoselin J Camacho Work Phone: [facility] 400 DO Work Phone: Start: 09-05-2021 ambulatory Chanda Gomez cility:[id number] Start: 08-29-2021 Chart Update Yoselin Francois Camacho Work Phone: [facility] Work Phone: Start: 08-25-2021 Office outpatient vi sit 25 minutes Yoselin J Camacho Work Phone: [facility] Work Phone: Start: 08-25-2021 Patient encounter procedure Yoselin J Camacho Work Phone: [facility] Work Phone: Start: 05-28-2021 Rx Renewal Yoselin J Camacho Work Phone: [facility] Work Phone: Start: 04-05-2021 Office outpatient vi sit 15 minutes Yoselin J Camacho Work Phone: [facility] 400 DO Work Phone: Start: 04-05-2021 Patient encounter procedure Yoselin J Camacho Work Phone: [facility] 400 DO Work Phone: Start: 02-23-2021 End: 02-23-[address] DANIELLE HEREDIAISINGER [facility] Start: 02-02-2021 End: 02-02-[address] DANIELLE HEREDIAISINGER [facility] Start: 01-23-2021 Patient encounter procedure Chanda Weller [facility] 400 DO Work Phone: Start: 12-21-2020 Patient encounter procedure Chanda Weller [facility] 400 DO Work Phone: Start: 11-30-2020 Patient encounter procedure Chanda Janee [facility] 400 DO Work Phone: Start: 11-09-2020 Patient encounter procedure Chanda Janee [facility] 400 DO Work Phone: Start: 11-01-2020 Patient encounter procedure Chanda Lioneli [facility] 400 DO Work Phone: Start: 10-26-2020 Patient encounter procedure Chanda Janee [facility] 400 DO Work Phone: Start: 07-04-2020 Patient encounter procedure Yoselin Camacho -[facility] Work Phone: Start: 06-07-2020 Patient encounter procedure Yoselin Camacho -[facility] Work Phone: Start: 06-01-2020 Patient encounter procedure Yoselin Camacho -[facility] Work Phone: Start: 05-18-2020 Patient encounter procedure Yoselin Camacho -[facility] Work Phone: Start: 05-09-2020 Patient encounter procedure Yoselin Camacho -[facility] Work Phone: Start: 04-07-2020 Patient encounter procedure Yoselin Camacho -[facility] Work Phone: Start: 02-12-2020 Patient encounter procedure Yoselin Camacho -[facility] Work Phone: Start: 08-31-2019 Patient encounter procedure Yoselin Camacho -[facility] Work Phone: Start: 06-10-2019 Patient encounter procedure Yoselin Camacho -[facility] Work Phone: Start: 02-24-2019 Patient encounter procedure Yoselin Camacho -[facility] Work Phone: Start: 09-09-2018 Patient encounter procedure Yoselin Camacho -[facility] Work Phone: Start: 03-11-2018 Patient encounter procedure Yoselin Camacho -[facility] Work Phone: Start: 12-27-2017 Patient encounter procedure Yoselin Camacho -[facility] Work Phone: Start: 06-27-2017 Nursing evaluation o f patient and report Yoselin Camacho [facility] Work Phone: Start: 03-27-2017 Patient encounter procedure Yoselin Camacho -[facility] Work Phone: Patient encounter status Yoselin J Camacho Work Phone: [facility] 400 DO Work Phone: Preoperative state Yoselin J Camacho Work Phone: [facility] 400 DO Work Phone: Procedures Date Procedure Procedure Detail Performing Clinician Start: 04-16-2025 CHINEDU roman Ho MD Work Phone: Comment on above: Performed at: [facility] [place], [place] [id number] Director: Bronson Mejia PhD, Phone: [phone] Start: 03-03-2024 CBC W Auto Different ial [...] - S yobani or Plasma Gomez Santa [employer] Work Phone: Start: 12-05-2023 MEASURE POST VOID RESIDUAL Mercedes Moran MD MPH Work Phone: Start: 08-25-2023 CT of abdomen and pe lvis without contrast Start: 02-25-2023 PNEUMOCOCCAL CONJUGA TE VACCINE 20-VALENT IM YOSELIN CAMACHO Start: 09-26-2022 Lipid 1996 panel - S yobani or Plasma Gomez Santa [employer] Work Phone: Start: 08-27-2022 Follow-up visit Start: 01-23-2021 Pulse Oximetry, Nocturnal Chanda Weller Start: 01-23-2021 Xray Chest 2 View PA + Lateral Chanda Weller Start: 10-27-2020 Xray Chest 2 View PA + Lateral Chanda Weller Start: 10-11-2020 Echocardiography Chanda Weller Start: 04-07-2020 [...] Author Start: 03-03-2029 Lipid panel Lipid Panel [facility] Start: 09-26-2027 Lipid panel Lipid Panel [facility] Start: 09-13-2025 End: 09-13-2025 Patient encounter procedure 09/13/2025 9:00 AM EST Office Visit [facility] [address] [place] [id number] Gomez Santa, [employer]ATE [employer] [address] [place], [place] [id number] [facility] Start: 09-06-2025 End: 03-11-2026 CBC W Auto Differential panel - Blood CBC and Auto Differential Lab Routine Hodgkin lymphoma, unspecified Hodgkin lymphoma type, unspecified body region (Multi) Expected: 09/06/2025, Expires: 03/11/2026 [facility] Service Area Work Phone: Comment on above: Expected: 09/06/2025 , Expires: 03/11/2026 Start: 09-06-2025 End: 03-11-2026 Comprehensive metabolic 2000 panel - Serum or Plasma Comprehensive Metabolic Panel Lab Routine Hodgkin lymphoma, unspecified Hodgkin lymphoma type, unspecified body region (Multi) Expected: 09/06/2025, Expires: 03/11/2026 [facility] Work Phone: Comment on above: Expected: 09/06/2025 , Expires: 03/11/2026 Start: 09-06-2025 End: 03-11-2026 Lactate dehydrogenase [Enzymatic activity/volume] in Serum or Plasma by Lactate to pyruvate reaction Lactate dehydrogenase Lab Routine Hodgkin lymphoma, unspecified Hodgkin lymphoma type, unspecified body region (Multi) Expected: 09/06/2025, Expires: 03/11/2026 [facility] Work Phone: Comment on above: Expected: 09/06/2025 , Expires: 03/11/2026 Start: 05-21-2025 Influenza vaccination Influenza Vacc ine (#1) [facility] Start: 03-11-2025 End: 03-11-2025 Patient encounter procedure 03/11/2025 9:00 AM EDT Office Visit [facility] [address] [place] [address] Gomez Santa APRN-[employer] [address] [place] [address] [facility] Start: 03-01-2025 End: 09-10-2025 CBC W Auto Differential panel - Blood CBC and Auto Differential Lab Routine Hodgkin lymphoma, unspecified Hodgkin lymphoma type, unspecified body region (Multi) Expected: 03/01/2025, Expires: 09/10/2025 [facility] Work Phone: Comment on above: Expected: 03/01/2025 , Expires: 09/10/2025 Start: 03-01-2025 End: 09-10-2025 Comprehensive metabolic 2000 panel - Serum or Plasma Comprehensive Metabolic Panel Lab Routine Hodgkin lymphoma, unspecified Hodgkin lymphoma type, unspecified body region (Multi) Expected: 03/01/2025, Expires: 09/10/2025 [facility] Work Phone: Comment on above: Expected: 03/01/2025 , Expires: 09/10/2025 Start: 03-01-2025 End: 09-10-2025 Lactate dehydrogenase [Enzymatic activity/volume] in Serum or Plasma by Lactate to pyruvate reaction Lactate dehydrogenase Lab Routine Hodgkin lymphoma, unspecified Hodgkin lymphoma type, unspecified body region (Multi) Expected: 03/01/2025, Expires: 09/10/2025 [facility] Work Phone: Comment on above: Expected: 03/01/2025 , Expires: 09/10/2025 Start: 01-30-2025 DTaP/Tdap/Td Vaccine s (2 - Td or Tdap) DTaP/Tdap/Td Vaccines (2 - Td or Tdap) [facility] Start: 09-21-2024 End: 09-21-2024 Patient encounter procedure 09/21/2024 4:00 PM EST Appointment [facility] [address] [place] [phone] [facility] Start: 09-10-2024 End: 09-10-2025 CT Chest and Abdomen and Pelvis W contrast IV CT chest abdomen pelvis w IV contrast Imaging Routine Hodgkin lymphoma, unspecified Hodgkin lymphoma type, unspecified body region (Multi) Expected: 09/10/2024, Expires: 09/10/2025 [facility] Service Area Work Phone: Comment on above: Expected: 09/10/2024 , Expires: 09/10/2025 Start: 09-10-2024 End: 09-10-2024 Patient encounter procedure 09/10/2024 10:00 AM EST Office Visit [facility] [place] [address] Gomez Santa, [employer]ATE [employer]ER Damien Salineruthann [address] [place] [phone] [facility] Start: 08-29-2024 Medicare Annual Wellness Visit Medicare Annual Wellness Visit (AWV) [facility] Start: 06-21-2024 COVID-19 Vaccine ( season) COVID-19 Vaccine ( season) [facility] Start: 06-21-2024 Influenza vaccination [facility] Start: 03-30-2024 End: 03-30-2024 Patient encounter procedure 03/30/2024 11:00 AM EDT Office Visit [facility] [place] [address] Gomez Santa, [employer] Damien Salineruthann [address] [place] [phone] [facility] [place] Start: 03-23-2024 End: 03-23-2024 Patient encounter procedure 03/23/2024 11:00 AM EDT Appointment [facility] [address] [place] [address] [facility] Start: 03-10-2024 End: 09-10-2024 CBC W Auto Differential panel - Blood CBC and Auto Differential Lab Routine Hodgkin lymphoma, unspecified Hodgkin lymphoma type, unspecified body region (CMS/HCC) Expected: 03/10/2024, Expires: 09/10/2024 [facility] Service Area Work Phone: Comment on above: Expected: 03/10/2024 , Expires: 09/10/2024 Start: 03-10-2024 End: 09-10-2024 Comprehensive metabolic 2000 panel - Serum or Plasma Comprehensive metabolic panel Lab Routine Hodgkin lymphoma, unspecified Hodgkin lymphoma type, unspecified body region (CMS/HCC) Expected: 03/10/2024 (Approximate), Expires: 09/10/2024 [facility] Work Phone: Comment on above: Expected: 03/10/2024 (Approximate), Expires: 09/10/2024 Start: 03-10-2024 End: 03-10-2025 CT Chest and Abdomen and Pelvis W contrast IV CT chest abdomen pelvis w IV contrast Imaging Routine Hodgkin lymphoma, unspecified Hodgkin lymphoma type, unspecified body region (Multi) Expected: 03/10/2024, Expires: 03/10/2025 [facility] Area Work Phone: Comment on above: Expected: 03/10/2024 , Expires: 03/10/2025 Start: 03-10-2024 End: 09-10-2024 Lactate dehydrogenase [Enzymatic activity/volume] in Serum or Plasma by Lactate to pyruvate reaction Lactate dehydrogenase Lab Routine Hodgkin lymphoma, unspecified Hodgkin lymphoma type, unspecified body region (CMS/HCC) Expected: 03/10/2024 (Approximate), Expires: 09/10/2024 [facility] Work Phone: Comment on above: Expected: 03/10/2024 (Approximate), Expires: 09/10/2024 Start: 03-10-2024 End: 03-10-2024 Patient encounter procedure 03/10/2024 8:00 AM EDT Office Visit [facility] [address] [place] [phone] Gomez Santa, MATE [employer]ER [address] [facility] [address] [place] [phone] [facility] Start: 12-05-2023 End: 12-05-2023 Patient encounter procedure 12/05/2023 9:30 AM EST Office Visit [facility] [address] [place] [address] Mercedes Moran MD MPH [address] [facility] [facility] [address] [place], [place] [phone] [facility] Start: 08-25-2023 [facility] Start: 06-21-2023 COVID-19 Vaccine ( season) COVID-19 Vaccine ( season) [facility] Start: 06-21-2023 Influenza vaccination Influenza Vacc ine (#1) [facility] Start: 02-25-2023 FUV, Provider: Yoselin Camacho, Status: Pen, Time: 9:15 AM FUV, Provider: Yoselin Camacho, Status: Pen, Time: 9:15 AM [facility] Work Phone: Start: 08-27-2022 EPV, Provider: Yoselin Camacho, Status: Pen, Time: 9:45 AM EPV, Provider: Yoselin Camacho, Status: Pen, Time: 9:45 AM [facility] Work Phone: Start: 04-03-2022 COVID-19 Vaccine (4 - Mixed Product risk series) COVID-19 Vaccine (4 - Mixed Product risk series) [facility] Start: 03-16-2022 FUV, Provider: Chanda Weller, Status: Pen, Time: 10:00 AM FUV, Provider: Chanda Weller, Status: Pen, Time: 10:00 AM [place] [address] DO Work Phone: Start: 03-15-2022 FUV, Provider: Chanda Weller, Status: Pen, Time: 10:00 AM FUV, Provider: Chanda Weller, Status: Pen, Time: 10:00 AM [facility] Work Phone: Start: 03-06-2022 COVID-19 Vaccine (2 - Moderna risk series) COVID-19 Vaccine (2 - Moderna risk series) [facility] Start: 03-02-2022 EPV, Provider: Yoselin Camacho, Status: Pen, Time: 10:30 AM EPV, Provider: Yoselin Camacho, Status: Pen, Time: 10:30 AM [facility] Work Phone: Start: 09-05-2021 FUV, Provider: Chanda Weller, Status: Pen, Time: 10:30 AM FUV, Provider: Chanda Weller, Status: Pen, Time: 10:30 AM [place] [address] DO Work Phone: Start: 08-25-2021 NPV, Provider: Yoselin Camacho, Status: Pen, Time: 11:30 AM NPV, Provider: Yoselin Camacho, Status: Pen, Time: 11:30 AM [place] [address] DO Work Phone: Start: 03-25-2021 Xray Chest 2 V iew PA + Lateral [place] [address] DO Work Phone: Start: 02-24-2021 Screening for osteoporosis Bone Density Scan [facility] Start: 02-24-2019 MG Breast screening Mamm - Scr eening Mammogram w/ Tomosynthesis [facility] Work Phone: Start: 02-24-2019 Xray Dexa 1 or More Sites, Axial Skeleton -[facility] Work Phone: Start: 2017 RSV High Risk: (Elde rly (60+) or Population) (1 - 1-dose 75+ series) RSV High Risk: (Elderly (60+) or Population) (1 - 1-dose 75+ series) [facility] Start: 2002 Hepatitis B Vaccines (1 of 3 - Risk 3-dose series) Hepatitis B Vaccines (1 of 3 - Risk 3-dose series) [facility] Start: 2002 RSV patient s and/or patients aged 60+ years (1 - 1-dose 60+ series) RSV patients and/or patients aged 60+ years (1 - 1-dose 60+ series) [facility] Start: 1961 Hepatitis A Vaccines (1 of 2 - Risk 2-dose series) Hepatitis A Vaccines (1 of 2 - Risk 2-dose series) [facility] Start: 1961 Urine screening for protein CKD: Urine Protein Screening [facility] Start: 03-19-1943 Examination of skin Derm Melan agustin Skin Check [facility] Start: 1940 Medicare Annual Wellness Visit Medicare Annual Wellness Visit (AWV) [facility] End: 03-10-2025 CBC W Auto Differential panel - Blood CBC and Auto Differential Lab Routine Hodgkin lymphoma, unspecified Hodgkin lymphoma type, unspecified body region (Multi) 6 months for 2 Occurrences starting 03/10/2024 until 03/10/2025 [facility] Work Phone: Comment on above: 6 months for 2 Occur rences starting 03/10/2024 until 03/10/2025 End: 03-10-2025 Comprehensive metabolic 2000 panel - Serum or Plasma Comprehensive Metabolic Panel Lab Routine Hodgkin lymphoma, unspecified Hodgkin lymphoma type, unspecified body region (Multi) 6 months for 2 Occurrences starting 03/10/2024 until 03/10/2025 [facility] Work Phone: Comment on above: 6 months for 2 Occur rences starting 03/10/2024 until 03/10/2025 End: 03-23-2024 CT Chest and Abdomen and Pelvis W contrast IV [facility] Service Area Work Phone: Comment on above: Once for 1 Occurrenc es starting 03/23/2024 until 03/23/2024 End: 09-21-2024 CT Chest and Abdomen and Pelvis W contrast IV [facility] Service Area Work Phone: Comment on above: Once for 1 Occurrenc es starting 09/21/2024 until 09/21/2024 End: 03-10-2025 Lactate dehydrogenase [Enzymatic activity/volume] in Serum or Plasma by Lactate to pyruvate reaction Lactate dehydrogenase Lab Routine Hodgkin lymphoma, unspecified Hodgkin lymphoma type, unspecified body region (Multi) 6 months for 2 Occurrences starting 03/10/2024 until 03/10/2025 [facility] Work Phone: Comment on above: 6 months for 2 Occur rences starting 03/10/2024 until 03/10/2025 Patient Education ED Kidney Ston e w/ Colic [facility] Work Phone: Patient referral [facility] Work Phone: [facility] [employer] Work Phone: NEGATED: Highlighted row has been ruled out! Planned Goals not documented [facility] [employer] Work Phone: Immunizations Immunization Date Immunization Notes Care Provider Patricia marques 09-24-2024 influenza virus vacc ine, unspecified formulation Gomez Santa [employer] Work Phone: [facility] Work Phone: 02-25-2023 Pneumococcal conjuga te vaccine, 20-valent (PREVNAR 20) Gomez Santa [employer] Work Phone: [facility] Work Phone: 08-27-2022 influenza, high dose seasonal, preservative-free; Translations: [Fluzone High-Dose 0.5 ML Intramuscular Suspension Prefilled Syringe] Yoselin Camacho Work Phone: [facility] Work Phone: Comment on above: Series: 08-27-2022 influenza virus vacc ine, unspecified formulation Gomez Santa [facility] [employer] Work Phone: [facility] Work Phone: 02-06-2022 Moderna COVID-19 Vac cine 100 MCG/0.5ML Intramuscular Suspension [employer] Work Phone: [facility] Work Phone: 08-25-2021 influenza, high dose seasonal, preservative-free; Translations: [Fluzone High-Dose 0.5 ML Intramuscular Suspension Prefilled Syringe] [employer] Work Phone: [facility] Work Phone: Comment on above: Series: 02-23-2021 Pfizer-BioNTech COVI D-19 Vacc 30 MCG/0.3ML Intramuscular Suspension [employer] Work Phone: [facility] 400 DO Work Phone: Comment on above: Series: 02-02-2021 Pfizer-BioNTech COVI D-19 Vacc 30 MCG/0.3ML Intramuscular Suspension [employer] Work Phone: [facility] 400 DO Work Phone: Comment on above: Series: 07-29-2020 Fluzone High-Dose Quadrivalent 0.7 ML Intramuscular Suspension Prefilled Syringe [employer] Work Phone: [facility] Work Phone: 08-31-2019 influenza, high dose seasonal, preservative-free; Translations: [Fluzone High-Dose 0.5 ML Intramuscular Suspension Prefilled Syringe] [employer] [facility] Work Phone: Comment on above: Series: 09-17-2018 zoster vaccine recombinant [employer] [facility] Work Phone: Comment on above: Series: 05-28-2018 zoster vaccine recombinant [facility] Work Phone: [place] [address] DO Work Phone: Comment on above: Series: 05-21-2018 zoster vaccine recombinant [facility] Work Phone: 03-11-2018 zoster vaccine recombinant; Translations: [Shingrix 50 MCG Intramuscular Suspension Reconstituted] [facility] Work Phone: 06-27-2017 influenza, high dose seasonal, preservative-free; Translations: [Fluzone High-Dose 0.5 ML Intramuscular Suspension Prefilled Syringe] [facility] Work Phone: Comment on above: Series: 08-17-2015 pneumococcal conjuga te vaccine, 13 valent; Translations: [Prevnar 13 Intramuscular Suspension] [facility] Work Phone: Comment on above: Series: 08-01-2015 influenza, seasonal, injectable Gomez Santa [employer] Work Phone: [facility] Work Phone: 08-01-2015 influenza, high dose seasonal, preservative-free; Translations: [Fluzone High-Dose SUSP] [facility] Work Phone: Comment on above: Series: 01-30-2015 tetanus toxoid, redu mae diphtheria toxoid, and acellular pertussis vaccine, adsorbed [facility] Work Phone: Comment on above: Series: 08-02-2014 influenza, injectabl e, quadrivalent, contains preservative Gomez Santa [employer] Work Phone: [facility] 08-02-2014 influenza, injectabl e, quadrivalent, preservative free; Translations: [Fluarix Quadrivalent 0.5 ML SUSP] [facility] Work Phone: Comment on above: Series: 08-04-2013 influenza virus vacc ine, unspecified formulation Yoselin J Camacho Work Phone: [facility] 400 DO Work Phone: Comment on above: Series: 08-04-2013 influenza, seasonal, injectable Yoselin Camacho [facility] Work Phone: 07-10-2012 influenza virus vacc ine, unspecified formulation Yoselin J Camacho Work Phone: [facility] 400 DO Work Phone: Comment on above: Series: 07-10-2012 influenza, seasonal, injectable Yoselin Camacho [facility] Work Phone: 07-13-2011 influenza virus vacc ine, unspecified formulation Yoselin J Camacho Work Phone: [facility] 400 DO Work Phone: Comment on above: Series: 07-13-2011 influenza, seasonal, injectable Yoselin Camacho [facility] Work Phone: 01-30-2008 pneumococcal polysaccharide vaccine, 23 valent Yoselin Camacho [facility] Work Phone: Comment on above: Series: 01-30-2008 zoster vaccine, live Yoselin Camacho [facility] Work Phone: Comment on above: Series: 08-17-1994 influenza, seasonal, injectable Yoselin J Camacho Work Phone: [facility] Work Phone: Payers Date Payer Category Payer Self-pay 2022 Medicare [employer] [place] [employer] [place] [employer] [id number] 2022-Present [address] [place] [address] [id number] 2022 Medicare (Managed Care) [id number]. [id number] 2022 Medicare [id number] 1942 Unknown [id number] [id number] .651 1942 Unknown [id number] 2.16.840.1.913990.3.579.2 .651 1942 Unknown [id number] 2.16.840.1.384091.3.579.2 .651 1942 Unknown [id number] 2.16.840.1.943652.3.579.2 .1069 1942 Unknown [id number] 2.16.840.1.203364.3.579.2 .1069 1942 Unknown [id number] 2.16.840.1.884948.3.579.2 .1069 1942 Unknown [id number] 2.16.840.1.478275.3.579.2 .1069 1942 Unknown [id number] 2.16.840.1.514413.3.579.2 .356 1942 Unknown [id number] 2.16.840.1.540208.3.579.2 .356 1942 Unknown [id number] 2.16.840.1.842303.3.579.2 .1244 1942 Unknown [id number] 2.16.840.1.834825.3.579.2 .627 1942 Unknown [id number] 2.16.840.1.108147.3.579.2 .1245 1942 Unknown [id number] 2.16.840.1.923931.3.579.2 .1245 1942 Unknown [id number] 2.16.840.1.893719.3.579.2 .1243 1942 Unknown [id number] 2.16.840.1.238174.3.579.2 .1243 1942 Unknown [id number] 2.16.840.1.705676.3.579.2 .1243 1942 Unknown [id number] 2.16.840.1.440361.3.579.2 .124 1942 Unknown [id number] 2.16.840.1.337145.3.579.2 .1243 1942 Unknown [id number] 2.16.840.1.733258.3.579.2 .1243 Medicare [id number] Unknown Unknown [id number] 2.16.840.1.865720.3.579.2 .462 Unknown [id number] 2.16.840.1.015587.3.579.2 .462 Unknown [id number] 2.16.840.1.322594.3.579.2 .462 Unknown [id number] 2.16.840.1.023190.3.579.2 .462 Unknown [id number] 2.16.840.1.836118.3.579.2 .462 Unknown [id number] 2.16.840.1.639020.3.579.2 .462 Social History Date Type Detail Facility Start: 08-27-2023 End: 03-11-2025 Denies alcohol consumption Denies alcohol consumption -Pulmonary Medicine-[address] Work Phone: Start: 1940 Sex Assigned At Female [facility] Start: 08-25-2023 Tobacco smoking stat us MSIS Unknown if ever smoked [facility] Tobacco smoking status No Smokin g Status Entered [facility] Start: 02-25-2023 End: 08-25-2023 Tobacco smoking status NHIS Never smoked tobacco [facility] Work Phone: Start: 02-25-2023 Tobacco use and exposure Smokeless tobacco non-user [facility] Work Phone: Start: 08-27-2023 End: 03-11-2025 Tobacco use panel [facility] Work Phone: Start: 1940 Sex Assigned At Not on file U [facility] Work Phone: Start: 08-31-2023 End: 03-11-2025 Exposure to SARS-CoV-2 (event) Not sure [facility] Start: 09-14-2022 Sex Female (finding) [facility] NEGATED: Highlighted row - - [facility] Work Phone: Functional Status Date Assessment Result Facility 08-24-2025 [facility] Work Phone: 08-24-2025 Functional status 130/83 [facility] 08-24-2025 Vital signs 68 08/24/2025 8: 26 AM EST Hellen Wakefield LPN [facility] Work Phone: 03-11-2025 Patient Health Questionnaire 2 item (PHQ-2) [Reported] [facility] Work Phone: 03-11-2025 [place] - suicide severity rating scale screener - recent [C-SSRS] [facility] Work Phone: NEGATED: Highlighted row Functional performance Functional status health issues are not documented Disease [facility] Work Phone: Mental Status Date Assessment Result Facility NEGATED: Highlighted row Cognitive function [Interpretation] Cognitive status health issues are not documented Disease [facility] Work Phone: Clinical Notes 03-01-2022 to 08-24-2025 MARCELINO Talbot - 08/24/2025 8:30 AM Sivakumar Pearson RN - 08/24/2025 8:30 AM ESTPatient InstructionsRacheMARCELINO Milton - 03/11/2025 9:00 AM EDTPatient Instructions Note Date & Type Note Facility 08-24-2025 History of Present illness Narrative Patient ID: [...] SOB, cough, FTT. She was admitted to [facility] from 10/10/20 to 10/19/20, investigations included CT [...] improvement of pneumonitis consolidations Interval history - 08/24/25 Patient in office today for routine follow-up. She reports having slight increased difficulty breathing, her home PO2 ranges 84-93%. Coughing with mucus production seems to be slightly worse, discussed following up with pulmonology, pt has deferred at this time. She states breathing recovers quickly once she sits down or rests. She recently was seen by pulmonology and started on an inhaler. Denies any episodes of dizziness/lightheadedness or headaches. Balance is unsteady at times, takes her time and is more cautious about her surroundings. Denies any recent falls, ambulates with no assistance devices. Remains active, by going to [employer]. Denies any fevers, recurrent illness. No lymphadenopathy. She feels that she is doing well over all. Encouraged to follow with pulmonology. Patient would like to be referred to oncology closer to home, discussed Dr. Simmons at [facility], will send information. Objective BSA: There is no height or weight on file to calculate BSA. There were no vitals taken for this visit. Physical Exam Vitals and nursing note reviewed. Constitutional: Appearance: Normal appearance. HENT: Head: Normocephalic and atraumatic. Nose: Nose normal. Mouth/Throat: Mouth: Mucous membranes are moist. Pharynx: Oropharynx is clear. Eyes: Extraocular Movements: Extraocular movements intact. Conjunctiva/sclera: Conjunctivae normal. Cardiovascular: Rate and Rhythm: Normal rate and regular rhythm. Pulses: Normal pulses. Heart sounds: Normal heart sounds. Pulmonary: Effort: Pulmonary effort is normal. Breath sounds: Rhonchi present. Abdominal: Palpations: Abdomen is soft. Tenderness: There is no abdominal tenderness. Musculoskeletal: General: Normal range of motion. Cervical back: Normal range of motion and neck supple. Lymphadenopathy: Cervical: No cervical adenopathy. Skin: General: Skin is warm and dry. Findings: Bruising present. Neurological: General: No focal [...] of a prolapsed uterus- recommended referral to uro/rn ante partum Discussed C/A/P CT scan for further evaluation [...] winded. She is staying active, going to [employer] 3 times weekly. Feels as though overall her energy has improved. Appetite is unchanged, weight is stable. Denies any B symptoms. Chronic constipation, manages with prune juice as needed. Remains to report incomplete voiding of urine, or prolonged urination. She was seen by Uro/Slate Handler and discussed treatment options. She reports that kegels were helping, but not seeming to be as effected. She is not wanting to pursue surgery at this time. Discussed referral for pelvic floor therapy for evaluation and treatment options. Patient is agreeable, discussed sending referral to [facility] in [place]. 09/21/24: Repeat CT Scan remains stable when compared to imaging on 03/2024- stable thoracic lymphadenopathy. No new or enlarging thoracic or abdominal lymph nodes. Additional stable chronic incidental findings as described including severe interstitial pulmonary fibrosis and bilateral solid noncalcified pulmonary nodules measuring up to 11 mm in left upper lobe, continued attention on follow-up imaging is recommended. 08/24/25: Counts remain stable. WBC 9.1, H/H-13.9/43.1, Platelets 267,000. ANC is mildly elevated at 6.23. LDH is stable at 193. Patient has no B symptoms. C/o increasing difficulty breathing, and coughing with mucus production. Encouraged to continue following with pulmonology for evaluation and treatment. Discussed repeating CT Scan for surveillance of pulmonary nodule and right sided abdominal pain, patient has deferred at this time. Referral to be sent to [facility] for patient to establish care for surveillance with Dr. Simmons. 2. ILD exacerbated by BV on top [...] fluids and did not wish for a sawdust drier follow up currently 5. Neutrophilic Leukocytosis most likely secondary to steroids normal on current labs Plan: Discussed medical and history Reviewed labs- essentially remains stable Deferred repeat surveillance CT Encouraged to follow-up with pulmonology Referral to [facility], MARCELINO Baca No further visit here at [facility]- referral sent with clinicals to Dr Simmons at [facility]- they are to call pt to schedule a visit in 6 mo Reviewed AVS with patient- patient verbalizes understanding documented in this encounter [facility] Work Phone: 08-24-2025 Instructions MARCELINO Talbot - 08/24/2025 8:30 AM EST Discussed medical and history Reviewed labs- essentially remains stable Deferred repeat surveillance CT Encouraged to follow-up with pulmonology Referral to [facility], Dr. Simmons Return to see MATE SHIP in 6 months with labs prior documented in this encounter [facility] Work Phone: 03-11-2025 History of Present illness Narrative Patient [...] SOB, cough, FTT. She was admitted to [facility] from 10/10/20 to 10/19/20, investigations included CT [...] extreme difficulty breathing while visiting family in [place], PO2 ranged from 74-86% due to the [...] assistance devices. Remains active, by going to [employer] several times weekly and gardening. Denies [...] of a prolapsed uterus- recommended referral to uro/rn ante partum Discussed C/A/P CT scan for further evaluation [...] winded. She is staying active, going to [employer] 3 times weekly. Feels as though overall her energy has improved. Appetite is unchanged, weight is stable. Denies any B symptoms. Chronic constipation, manages with prune juice as needed. Remains to report incomplete voiding of urine, or prolonged urination. She was seen by Uro/Slate Handler and discussed treatment options. She reports that [...] fluids and did not wish for a sawdust drier follow up currently 5. Neutrophilic Leukocytosis most likely secondary to steroids normal on current labs Plan: Discussed medical and history Reviewed labs- essentially remains stable Deferred repeat surveillance CT Encouraged to follow-up with pulmonology Return to see MATE SHIP in 6 months with labs prior MARCELINO Talbot Labs at the [facility] the week of 09/06 Rtc 09/13 9am CROWN WHEEL ASSEMBLER Reviewed AVS with patient- patient verbalizes understanding documented in this encounter [facility] Work Phone: 03-11-2025 Instructions MARCELINO Talbot - 03/11/2025 9:00 AM EDT Discussed and reviewed medical history Reviewed labs- remain stable Return to see MATE SHIP in 6 months with labs prior documented in this encounter [facility] Work Phone: 09-10-2024 History of Present illness [...] SOB, cough, FTT. She was admitted to [facility] from 10/10/20 to 10/19/20, investigations included CT [...] No headaches Staying active by going to [employer] 3 time weekly Energy is down Fatigues [...] reflux she has been active recently with [employer] still have dizziness and her balance is [...] of a prolapsed uterus- recommended referral to uro/rn ante partum Discussed C/A/P CT scan for further evaluation [...] winded. She is staying active, going to [employer] 3 times weekly. Feels as though overall her energy has improved. Appetite is unchanged, weight is stable. Denies any B symptoms. Chronic constipation, manages with prune juice as needed. Remains to report incomplete voiding of urine, or prolonged urination. She was seen by Uro/Slate Handler and discussed treatment options. She reports that kegels were helping, but not seeming to be as effected. She is not wanting to pursue surgery at this time. Discussed referral for pelvic floor therapy for evaluation and treatment options. Patient is agreeable, discussed sending referral to [facility], in [place]. 2. ILD exacerbated by BV on top [...] fluids and did not wish for a sawdust drier follow up currently 5. Neutrophilic Leukocytosis most [...] Will contact with results Return to see NACHO in 6 months with labs prior MARCELINO Talbot Pt setup for CT scans 09/21 3pm arrival- prep given and sent for BRIAN QUINTANILLA will call pt with CT results Referral faxed to [facility]- for pelvic floor excercises- she will call pt to schedule- pt wants to go to [place] location. 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 She was admitted to [facility] from 10/10/20 to 10/19/20, investigations included CT [...] of a prolapsed uterus- recommended referral to uro/rn ante partum Discussed C/A/P CT scan for further evaluation [...] fluids and did not wish for a sawdust drier follow up currently 5. Neutrophilic Leukocytosis most likely secondary to steroids normal on current labs Plan: Schedule 6 month follow-up with Labs (CBC, CMP, Sed rate, LDH) MARCELINO Talbot Pt already has appts scheduled for follow up documented in this encounter [facility] Work Phone: 03-10-2024 History of Present illness [...] SOB, cough, FTT. She was admitted to [facility] from 10/10/20 to 10/19/20, investigations included CT [...] of a prolapsed uterus- recommended referral to uro/rn ante partum Discussed C/A/P CT scan for further evaluation [...] fluids and did not wish for a sawdust drier follow up currently 5. Neutrophilic Leukocytosis most likely secondary to steroids normal on current labs Plan: C/A/P CT scan Schedule 6 month follow-up with labs- pending results of CT Scan remains stable Labs (CBC, CMP, Sed rate, LDH) MARCELINO Talbot Pt set up for CT scans 03/23- prep given- sent for PA Rtc for results with CROWN WHEEL ASSEMBLER 03/30 11am- may cancel if scans are normal Copies of labs given to pt and faxed to her PCP in [place] Labs again before 6 month visit Rtc 09/10 10am for CROWN WHEEL ASSEMBLER Reviewed AVS with patient- patient verbalizes understanding documented in this encounter [facility] Work Phone: 03-10-2024 Instructions MARCELINO Talbot - 03/10/2024 9:30 AM EDT Schedule for CT Scan RTC after to discuss results Please send Dr. Ho at [facility] lab results documented in this encounter [facility] Work Phone: 12-05-2023 History of Present illness Narrative [facility] Department of Urogynecology Mercedes Moran MD, MPH [phone] ASSESSMENT AND PLAN: 83 y.o. female being [...] Yes Yoselin Camacho MD multivitamin with minerals (ihiywqddcdwn-rhuj-sqbuh acid) tablet Take 1 tablet by mouth once daily. 12/05/23 Historical Provider, ifnnvcpgmcew-zje-igfm-FA-vit K (Adults Multivitamin) 18 mg iron-400 mcg-25 mcg tablet Take 1 tablet by mouth once daily. 03/26/16 12/05/23 Historical Provider, rosuvastatin (Crestor) 20 mg tablet TAKE 1 [...] PLT 255 08/30/2023 documented in this encounter [facility] Work Phone: 09-10-2023 History of Present illness [...] SOB, cough, FTT. She was admitted to [facility] from 10/10/20 to 10/19/20, investigations included CT [...] of a prolapsed uterus- recommended referral to uro/rn ante partum no new symptoms or concerns, will the [...] fluids and did not wish for a sawdust drier follow up currently 5. Neutrophilic Leukocytosis most likely secondary to steroids normal on current labs RTC 6 m with labs (CBC, CMP, Sed rate, LDH) MARCELINO Talbot Registrant set pt up for 6 mo follow up with Gomez Santa cnp Instructed to get labs at the [facility] the week prior documented in this encounter [facility] Work Phone: 09-10-2023 Instructions MARCELINO Talbot - 09/10/2023 11:30 AM EST RTC in 6 months with labs prior documented in this encounter [facility] Work Phone: 08-25-2023 Discharge summary Note Date/Time August 25, 2023 4:59am [facility] Medical Records Department [address] [place] [address] Emergency Department Summary 08/25/23 MR#: [id number] Acct: [id number] Name: JOHANA CHIN Rep #:[id number] : 1940 82 From: Cesario Real MD [...] Prior similar symptoms: Yes Recent Illness/Hospitalization: Yes [facility] Medical History (Updated 08/25/23 @ 06:45 by [...] 78.8 H Lymph % (Auto) 13.1 L Franklin % (Auto) 6.4 Eos % (Auto) 0.5 [...] Clarity Clear Urine pH 6.5 Ur Specific Kincaid 1.015 Urine Protein Negative Urine Glucose (UA) [...] Signed: Yair Avila MD at 6:10 EST Reading Location ID and State: [facility] / [place] , Service support , CT of the abdomen and pelvis [...] Triage Chief Complaint: Flank Pain ED Provider: FarhanCesario Dx/Rx/DC Orders Clinical Impression: Diverticulosis, Hydronephrosis with [...] your Primary Care Provider. Call [facility] ([phone]) or report to the closest Emergency Room. Call 911 if necessary. 08/25/23 0647 <Electronically signed by Cesario Real MD> Cosigner Signature (if applicable): CC: Dr. Nathalia Ho MD ~ Signed [facility] Work Phone: 1(738) 746-703211-10-2022 NoteClinic Note: Education Assessment: Learning BarriersNo barriers TaughtPatient Primary Language of PatientEnglish Name of Downs Learner & Relationshiphusband present Clinic Visit: Topic(s): Clinic VisitFollow-up plan MethodVerbal, Teach-Back, Handout Nursing Note: Nursing Notept setup for labs at the hosp the week prior. rtc 02/28 at 2pm for md visit Electronic Signatures: Jessica Pearson (RN) (Signed 30-Aug-2022 14:48) Authored: Education Assessment, Clinic Visit, Nursing Note Last Updated: 30-Aug-2022 14:48 by Jessica Pearson (RN)[facility]05-16-20[facility] History of Present illness Narrative* Patient was [...] dyspnea with her usual daily activities. -Pulmonary Medicine-[place] [address] DO Work Phone: [phone]) 194-333905-12-2022 NoteClinic Note: Education Assessment: Learning BarriersNo barriers TaughtPatient Primary Language of PatientEnglish Name of Downs Learner & Relationshiphusband present Clinic Visit: Topic(s): Clinic VisitFollow-up plan MethodVerbal, Teach-Back, Handout EvaluationTeaches back Nursing Note: Nursing Notept set up for 6 mo. lab the week prior at the hosp- orders placed. rtc 08/30 at 2pm Electronic Signatures: Jessica Pearson (GLORIA) (Signed 01-Mar-2022 13:37) Authored: Education Assessment, Clinic Visit, Nursing Note Last Updated: 01-Mar-2022 13:37 by Jessica Pearson (GLORIA)[facility] No data available for this section [facility] Evaluation noteNo assessment information available [facility] Work Phone: Evaluation note* Diagnosis Hodgkin lymphoma, unspecified Hodgkin lymphoma type, unspecified body region (CMS/HCC)- Primary documented in this encounter [facility] Work Phone: Evaluation note* Diagnosis POP-Q stage 3 cystocele- Primary UTI symptoms MOUSTAPHA (stress urinary incontinence, female) Hodgkin lymphoma, unspecified Hodgkin lymphoma type, unspecified body region (CMS/HCC) documented in this encounter [facility] Work Phone: Evaluation note* Diagnosis Hodgkin lymphoma, unspecified Hodgkin lymphoma type, unspecified body region (Multi) documented in this encounter [facility] Work Phone: Evaluation note* Diagnosis Hodgkin lymphoma, unspecified Hodgkin lymphoma type, unspecified body region (Multi) documented in this encounter [facility] Work Phone: Evaluation note* Diagnosis Hodgkin lymphoma, unspecified Hodgkin lymphoma type, unspecified body region (Multi) documented in this encounter [facility] Work Phone: Evaluation note* Diagnosis Bladder problem- Primary Unspecified disorder of bladder Hodgkin lymphoma, unspecified Hodgkin lymphoma type, unspecified body region (Multi) Cystocele with uterine prolapse documented in this encounter [facility] Work Phone: Evaluation note* Diagnosis Hodgkin lymphoma, unspecified Hodgkin lymphoma type, unspecified body region (Multi) documented in this encounter [facility] Work Phone: Evaluation note* Diagnosis Hodgkin lymphoma, unspecified Hodgkin lymphoma type, unspecified body region (Multi) documented in this encounter [facility] Work Phone: Evaluation note* Diagnosis Hodgkin lymphoma, unspecified Hodgkin lymphoma type, unspecified body region (Multi) documented in this encounter [facility] Work Phone: History of Present illness Narrative* [...] day with activity. Her oxygen is through [employer]. * The patient has no plans of getting any further chemotherapy for her Hodgkin's lymphoma. She does have a known history of chronic interstitial lung disease that was present prior to the initiation ofthe chemotherapy. * Patient denies having any cough or sputum production she has not been having any wheezing or nocturnal symptoms. She denies any dyspnea with her usual daily activities. -[facility] Medicine-[place] [address] DO Work Phone: History of Present illness [...] any dyspnea with her usual daily activities. [facility] [address] DO Work Phone: History of Present illness [...] * No further mouth pain. Appetite improving. [facility] Work Phone: History of Present illness NarrativePatient [...] a significant change in her interstitial lung disease.[facility]ulmonary MedicineDavid [place]ille [address] DO Work Phone: History of Present illness [...] * No further mouth pain. Appetite improving. [facility] [employer] Work Phone: History of Present illness Narrative* [...] pain. Appetite improving. [facility] Work Phone: Hospital Discharge instructions No data available for this section [facility] Progress note No data available for this section [facility] Reason for referral (narrative)No reason for referral information availableWWilson Health Work Phone: Reason for visit Narrative* Imaging (Routine) - Authorized Specialty Diagnoses / Procedures Referred By Contac t Referred To Contact Radiology Diagnoses Hodgkin lymphoma, unspecified Hodgkin lymphoma type, unspecified body region (Multi) Procedures CT chest abdomen pelvis w IV contrast Gomez Santa, MATE SHIP-CROWN WHEEL ASSEMBLER [address] [place] [address] Phone: tel: fax: Referral ID Status Reason Start Date Expiration Date Visits Requested Visits Authorized [id number] Authorized Perform Procedure 4 09/10/2025 1 1 [facility] Work Phone: Family History No Family History [...] Date/ Time Name of Medical Power of Rodent Exterminator jer webber August 25, 2023 4:42am Living Will Yes August 25 4:42am Power of Rodent Exterminator Yes August 25, 2023 4:42am Chief Complaint * Here with , Lv CHIN is here for a follow-up visit. * Reason for Visit: SST results. * Appointment requested by: Galdino Camacho. * Here with Lv is here for a follow-up visit. * Reason for Visit: SST results. * Appointment requested by: Galdino Camacho. * Here with Lv is here for a follow-up visit. * Reason for Visit: SST results. * Appointment requested by: Galdino Camacho. WELLNESS EXAMWELLNESS EXAMJada CHIN is here for a follow-up visit. [...] SEE ORDER April 16, 2025 8:32 am Chief Complaint Admit Date LABS/ SEE ORDER April 16, 2025 8:32 am PULMONARY DISEASE May 21, 2025 7:3 9am Reason for Referral Specialty Diagnoses / Procedures Referred By Contac t Referred To Contact Radiology Diagnoses Hodgkin lymphoma, unspecified Hodgkin lymphoma type, unspecified body region (Multi) Procedures CT chest abdomen pelvis w IV contrast Gomez Santa S, MATE SHIP-CROWN WHEEL ASSEMBLER [address] [place] [address] Referral ID Status Reason Start Date Expiration Date Visits Requested Visits Authorized [id number] Authorized Perform Procedure 03/10/2024 03/10/2025 1 1 Additional Source Comments INFORMATION SOURCE (unrecogn ized section and content) DATE CREATED AUTHOR 05/13/2020 [facility] DATE CREATED AUTHOR AUTHOR'S ORGANIZ ATION 10/25/[address] [facility] DATE CREATED AUTHOR AUTHOR'S ORGANIZ ATION 08/27/2022 [employer] DATE CREATED AUTHOR AUTHOR'S ORGANIZ ATION 09/01/2022 [facility] DATE CREATED AUTHOR AUTHOR'S ORGANIZ ATION 03/04/2023 [facility] DATE CREATED AUTHOR AUTHOR'S ORGANIZ ATION 04/01/2023 [facility] DATE CREATED AUTHOR AUTHOR'S ORGANIZ ATION 09/01/2023 [facility] ([place] DATE CREATED AUTHOR AUTHOR'S ORGANIZ ATION 09/14/2024 [facility] DATE CREATED AUTHOR AUTHOR'S ORGANIZ ATION 06/02/2025 [facility] DATE CREATED AUTHOR AUTHOR'S ORGANIZ ATION 08/25/2025 [facility] Care Teams (unrecognized sec tion and content) Team Status: Active Member Role Status Dates Nathalia Ho MD Primary Care Provider Active Team Status: Inactive Member Role Status Dates Nathalia Ho MD Primary Care Provide r, Attending Provider, Referring Provider Active Team Status: Inactive Member Role Status Dates Nathalia Ho MD Primary Care Provider Active Dr. Cesario Real MD Emergency Provider Active Cemetery Warden Relationship Specialty Start Date End Date Yoselin Camacho MD [address] [facility], [address] [place] [address] PCP - General 05/30/11 Yoselin Camacho MD [address] [facility], [facility] [address] [place] [address] PCP - MMO Medicare Advantage PCP 03/21/22 Cemetery Warden Relationship Specialty Start Date End Date Yoselin Camacho MD [address] [facility], [facility] [address] [place] [address] PCP - General 05/30/11 Gomez Santa APRN-CROWN WHEEL ASSEMBLER [facility] [address] [facility] [address] [place] [address] PCP - MMO Medicare Advantage PCP 09/20/23 Cemetery Warden Relationship Specialty Start Date End Date Yoselin Camacho MD [address] [facility], [address] [address] PCP - General 05/30/11 Cemetery Warden Relationship Specialty Start Date End Date Nathalia Ho MD [address] [address] PCP - General Family Medicine 03/23/24 Cemetery Warden Relationship Specialty Start Date End Date Nathalia Ho MD [address] [id number] PCP - General Family Medicine 03/23/24 Cemetery Warden Relationship Specialty Start Date End Date Nathalia Ho MD [address] [address] PCP - General Family Medicine 09/08/24 Cemetery Warden Relationship Specialty Start Date End Date Nathalia Ho MD [address] [facility] [address] [place] [address] PCP - General Family Medicine 09/08/24 Cemetery Warden Relationship Specialty Start Date End Date Nathalia Ho MD [address] [facility] [address] [place], [place] [address] PCP - General Family Medicine 09/08/24 Team Status: Active Member Role/Relationship Status Dates Nathalia Ho MD Primary Care Provider Active Team Status: Inactive Member Role/Relationship Status Dates Nathalia Ho MD Primary Care Provider Active St art: April 16, 2025 End: April 16, 2025 Dr. Chanda Shepard MD Attending Provider Active Start: April 16, 2025 End: April 16, 2025 Dr. Chanda Shepard MD Referring Provider Active Start: April 16, 2025 End: April 16, 2025 Team Status: Inactive Member Role/Relationship Status Dates Nathalia Ho MD Primary Care Provider Active St art: May 21, 2025 End: May 21, 2025 Dr. Chanda Shepard MD Attending Provider Active Start: May 21, 2025 End: May 21, 2025 Dr. Chanda Shepard MD Referring Provider Active Start: May 21, 2025 End: May 21, 2025 Team Status: Active Member Role/Relationship Status Dates Nathalia Ho MD Primary Care Provider Active St art: May 21, 2025 Dr. Deric Zee MD Attending Provider Active S tart: May 21, 2025 Cemetery Warden Relationship Specialty Start Date End Date Nathalia Ho MD [address] [facility] [address] [place], [place] [address] PCP - General Family Medicine 09/08/24 Goals (unrecognized section and content) Goals may be documented in a n alternate sectionGoals may be documented in an alternate section No data available for this sectionGoals may be documented in an alternate sectionGoals may be documented in an alternate section Reason for Visit (unrecogniz ed section and content) Reason Comments Lymphoma Reason Comments Uterine Prolapse Reason Comments Lymphoma Specialty Diagnoses / Procedures Referred By Contbhavik t Referred To Contact Radiology Diagnoses Hodgkin lymphoma, unspecified Hodgkin lymphoma type, unspecified body region (Multi) Procedures CT chest abdomen pelvis w IV contrast Gomez Santa, MATE SHIP-CROWN WHEEL ASSEMBLER [address] [place] [address] Referral ID Status Reason Start Date Expiration Date Visits Requested Visits Authorized [id number] Authorized Perform Procedure 03/10/2024 03/10/2025 1 1 [...] BE BASED ON THE PRIMARY CLINICAL RECORDS. [employer] [facility]. provides no warranty or guarantee of the accuracy or completeness of information in this document.
--- NOTE | 2025-09-23 06:26 | CT_ITS ---
PROCEDURE: CHEST WITHOUT CONTRAST 09/23/2025 REASON FOR EXAM: PULMONARY NODULE TECHNIQUE: Chest CT without contrast. Coronal and Sagittal reconstruction series were provided. One or more dose reduction techniques were used (e.g., Automated exposure control, adjustment of the mA and/or kV according to patient size, use of iterative reconstruction technique RADIATION DOSE SUMMARY: CTDlvol: 7.77 mGy DLP: 250.56 mGycm COMPARISON: No priors. FINDINGS: Bilateral pulmonary scattered areas of interlobular interstitial thickening and fibrotic bands are seen with associated areas of ground glass haze and mild bronchiectasis. Associated areas of parenchymal distortion seen mainly along the subpleural regions with associated microcystic changes suggesting honeycombing formation. Findings are highly suggestive of interstitial lung disease, recommend clinical correlation and consider further workup if needed. No suspicious-appearing soft tissue pulmonary nodule or mass. There is no focal infiltrate or consolidation. There are no pleural effusions. No pneumothorax is seen. No mediastinal or hilar adenopathy is identified. The thyroid is unremarkable. The central airways are patent. The chest wall appears unremarkable. No axillary adenopathy is identified. The thoracic aorta demonstrates atheromatous calcification. Borderline cardiac size. There are coronary artery calcifications. No pericardial effusion is identified. No aggressive-appearing osseous lesions are identified. Degenerative changes are present in the spine. The included abdominal cuts show cholecystectomy clips. CT/Chest without Contrast IMPRESSION: No suspicious-appearing soft tissue pulmonary nodule or mass. Findings of diffuse interstitial lung disease, recommend clinical correlation a nd consider further workup if needed. Reading [facility] [id number]
== END | disposition home or self-care (01) ==
PROVIDERS: PCP Family Medicine; Referring Provider Internal Medicine Pulmonary Disease; Visit Provider Internal Medicine Pulmonary Disease
DX: J84.9 Interstitial pulmonary disease, unspecified (principal); R91.1 Solitary pulmonary nodule
CPT/HCPCS: 71250